=== PATIENT | male | born 1940 | race Caucasian/White ===

== ENCOUNTER 2017-02-01 13:45 | Observation (INO) | payer MEDICARE ==
[~2017-02-01] VITALS: Ht 172.7 cm; Wt 67.4 kg
[~2017-02-01 13:45] MED LIST: CART120C PO; FLUTI220I INH; IPRASOL INH; LISI10TA3 PO; LUTE20CA PO; OMEP20CA2 PO; PRED-503 PO; SPIRCAP INH; VENTAER INH; ZITHTAB PO
[2017-02-01 13:53] VITALS: BP 142/78; PULSE 106; RESP 18; TEMP 98; O2SAT 96
[2017-02-01] MEDS ORDERED: PRED5TAB PO (14:25)
[2017-02-01] MEDS ORDERED: CEFD300C PO (14:25)
--- NOTE | 2017-02-01 14:48 | PD ---
HPI Chief Complaint: Respiratory Symptoms Time Seen by Provider: 14:33 Travel History International Travel<30 days: No Contact w/Intl Traveler<30days: No Traveled to known affect area: No History of Present Illness HPI 76yo M with PMH of COPD on chronic low dose prednisone presents to the ED with c /o sob with exertion for a few days. Said he has no sob while sitting down but feels sob just walking from one room to another and this is new for a few days. Said he has been feeling cold for a few days. Denies any fever, chest pain, PE/DVT, n/v, abdominal pain, focal weakness or numbness. 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 PFSH Past Medical History Anemia: Yes (POLYCYTHEMIA) Asthma: No Anxiety: No Depression: No Heart Rhythm Problems: Yes Cancer: No Cardiac Catheterization: Yes Cardiovascular Problems: No High Cholesterol: No Chest Pain: Yes Congestive Heart Failure: No COPD: Yes Diabetes: No Diminished Hearing: No Endocrine: No Gastrointestinal Disorders: Yes GERD: Yes Genitourinary: Yes Hiatal Hernia: No Immune Disorder: No Implanted Vascular Access Dvce: Yes Kidney Stones: No Musculoskeletal: Yes Neurologic: No Psychiatric: No Reproductive: No Respiratory: Yes (COPD) Pneumonia: Yes Renal Failure: No Sickle Cell Disease: No Sleep Apnea: No Thyroid Disease: No Ulcer: No Tetanus Vaccination: < 5 Years Influenza Vaccination: No Past Surgical History Cardiac Surgery: No Genitourinary Surgery: Yes (PROSTATE TUMOR- BENIGN , TURP) Oral Surgery: Yes (SALIVARY GLAND CYST REMOVED 2005) Other Surgery: Yes Social History Alcohol Use: No Tobacco Use: No Substance Use: No Allergies-Medications (Allergen,Severity, Reaction): Coded Allergies: shellfish derived (Unverified Allergy, Severe, abd pain, n/v/d, 02/01/17) ipratropium (Unverified Allergy, Intermediate, "ANXIETY, NERVOUSNESS", ) varenicline (Unverified Allergy, Intermediate, UNABLE TO STATE A SPECIFIC ALLERGIC REACTION--STATES HE HAD, 02/01/17) walnut (Unverified Allergy, Intermediate, NERVOUSNESS, ANXIETY, 02/01/17) Reported Meds & Prescriptions Reported Meds & Active Scripts Active Reported Cefdinir 300 Mg Cap 300 Mg PO BID Prednisone 5 Mg Tab 5 Mg PO DAILY Duoneb (Ipratropium-Albuterol Neb) 0.5-2.5 Mg/3 Ml Neb 1 Nebule INH QID Cartia Xt (Diltiazem ER 24 HR) 120 Mg Caper 120 Mg PO DAILY Lutein 20 Mg Cap 20 Mg PO DIRECTED Omeprazole 20 Mg Cap 20 Mg PO DAILY Ventolin Hfa 18 GM Inh (Albuterol Sulfate) 90 Mcg/Act Aer 2 Puff INH Q4H PRN Review of Systems Except as stated in HPI: all other systems reviewed are Neg Physical Exam Narrative GENERAL: 76yo M not in distress. SKIN: Focused skin assessment warm/dry. HEAD: Atraumatic. Normocephalic. EYES: Pupils equal and round. No scleral icterus. No injection or drainage. ENT: No nasal bleeding or discharge. Mucous membranes pink and moist. NECK: Trachea midline. No JVD. CARDIOVASCULAR: Regular rate and rhythm. No murmur appreciated. RESPIRATORY: No accessory muscle use. Clear to auscultation. Breath sounds equal bilaterally. GASTROINTESTINAL: Abdomen soft, non-tender, nondistended. MUSCULOSKELETAL: No obvious deformities. No clubbing. No cyanosis. No edema. NEUROLOGICAL: Awake and alert. No obvious cranial nerve deficits. Motor grossly within normal limits. Normal speech. PSYCHIATRIC: Appropriate mood and affect; insight and judgment normal. Data Data Last Documented VS Vital Signs Date Time Temp Pulse Resp B/P (MAP) Pulse Ox O2 Delivery O2 Flow Rate FiO2 02/01/17 16:40 98 18 147/75 (99) 97 Room Air 02/01/17 13:53 98.0 Orders Orders Complete Blood Count With Diff (02/01/17 14:43) Basic Metabolic Panel (Bmp) (02/01/17 14:43) B-Type Natriuretic Peptide (02/01/17 14:43) Magnesium (Mg) (02/01/17 14:43) Troponin I (02/01/17 14:43) Electrocardiogram (02/01/17 14:43) Chest, Single Ap (02/01/17 14:43) Place In Observation (02/01/17 ) Vital Signs (Adult) Q4H (02/01/17 18:18) Activity Oob Ad Radha (02/01/17 18:18) Diet Heart Healthy (02/01/17 Dinner) Sodium Chloride 0.9% Flush (Ns Flush) (02/01/17 18:30) Sodium Chloride 0.9% Flush (Ns Flush) (02/01/17 21:00) Acetaminophen (Tylenol) (02/01/17 18:30) Ondansetron Inj (Zofran Inj) (02/01/17 18:30) Basic Metabolic Panel (Bmp) (02/02/17 06:00) Complete Blood Count With Diff (02/02/17 06:00) Resp Oxygen Ruben C Titrat 1-4 L (02/01/17 ) Naloxone Inj (Narcan Inj) (02/01/17 18:30) Troponin I (02/01/17 22:18) Albuterol-Ipratropium Neb (Duoneb Neb) (02/01/17 20:00) Albuterol-Ipratropium Neb (Duoneb Neb) (02/01/17 18:30) Methylprednisolone So Succ Inj (Solumedr (02/01/17 22:00) Admit Order (Ed Use Only) (02/01/17 18:20) Echo 2d Comp With Doppler (02/02/17 ) Labs Laboratory Tests Test 02/01/17 15:00 White Blood Count 14.3 TH/MM3 Red Blood Count 4.86 MIL/MM3 Hemoglobin 14.4 GM/DL Hematocrit 44.7 % Mean Corpuscular Volume 92.1 FL Mean Corpuscular Hemoglobin 29.6 PG Mean Corpuscular Hemoglobin Concent 32.2 % Red Cell Distribution Width 12.9 % Platelet Count 373 TH/MM3 Mean Platelet Volume 6.6 FL Neutrophils (%) (Auto) 82.0 % Lymphocytes (%) (Auto) 6.5 % Monocytes (%) (Auto) 8.5 % Eosinophils (%) (Auto) 1.2 % Basophils (%) (Auto) 1.8 % Neutrophils # (Auto) 11.7 TH/MM3 Lymphocytes # (Auto) 0.9 TH/MM3 Monocytes # (Auto) 1.2 TH/MM3 Eosinophils # (Auto) 0.2 TH/MM3 Basophils # (Auto) 0.3 TH/MM3 CBC Comment DIFF FINAL Differential Comment Blood Urea Nitrogen 15 MG/DL Creatinine 0.76 MG/DL Random Glucose 102 MG/DL Calcium Level 8.4 MG/DL Magnesium Level 2.1 MG/DL Sodium Level 136 MEQ/L Potassium Level 3.7 MEQ/L Chloride Level 99 MEQ/L Carbon Dioxide Level 29.8 MEQ/L Anion Gap 7 MEQ/L Estimat Glomerular Filtration Rate 99 ML/MIN Troponin I LESS THAN 0.02 NG/ML B-Type Natriuretic Peptide 65 PG/ML MDM Medical Decision Making Medical Screen Exam Complete: Yes Emergency Medical Condition: Yes Interpretation(s) EKG: NSR 89bpm. LAD. PACs. Differential Diagnosis New onset CHF vs. anemia vs. electrolyte abnormality vs. aortic stenosis. Narrative Course 76yo M with c/o sob with exertion only for a few days. O2 sat 97% on RA. Labs reviewed, leukocytosis at 14.3 but he is on chronic steroids for his COPD. H/H normal. Troponin negative. CXR showed moderate COPD changes. BNP normal. However, pt came back from urinating and feels sob. We ambulated pt and saturating at 92% on RA. Pt returned to his bed and took long time to recover. He is tachypneic and said he does not feel comfortable going home since this is new. Discussed with Dr. Bridges and accepted to her service. Diagnosis Primary Impression: Exertional dyspnea Admitting Information Admitting Physician Requests: Observation Mel Hsieh DO Feb 01, 2017 14:48
[2017-02-01 15:13] LABS: AUTOMATED NEUTROPHIL # 11.7 TH/MM3 (1.8-7.7); BASOPHIL # 0.3 TH/MM3 (0-0.2); BASOPHIL % 1.8 % (0.0-2.0); EOSINOPHIL # 0.2 TH/MM3 (0-0.4); EOSINOPHIL % 1.2 % (0.0-4.0); HEMATOCRIT 44.7 % (39.0-51.0); HEMO FLAGS DIFF FINAL; LYMPH % 6.5 % (9.0-44.0); LYMPHOCYTE # 0.9 TH/MM3 (1.0-4.8); MEAN CELL VOLUME 92.1 FL (80.0-100.0); MEAN CORPUSCULAR HEMOGLOBIN 29.6 PG (27.0-34.0); MEAN CORPUSCULAR HGB CONC 32.2 % (32.0-36.0); MONO % 8.5 % (0.0-8.0); PLATELET COUNT 373 TH/MM3 (150-450); RED BLOOD COUNT 4.86 MIL/MM3 (4.50-5.90); RED CELL DISTRIBUTION WIDTH 12.9 % (11.6-17.2); WHITE BLOOD COUNT 14.3 TH/MM3 (4.0-11.0)
[2017-02-01 15:22] LABS: CHLORIDE 99 MEQ/L (98-107); POTASSIUM 3.7 MEQ/L (3.5-5.1); SODIUM (NA) 136 MEQ/L (136-145)
[2017-02-01 15:25] LABS: ANION GAP 7 MEQ/L (5-15); BICARBONATE 29.8 MEQ/L (21.0-32.0); BLOOD UREA NITROGEN 15 MG/DL (7-18); MAGNESIUM 2.1 MG/DL (1.5-2.5)
[2017-02-01 15:28] LABS: GLOMERULAR FILTRATION RATE 99 ML/MIN (>89)
--- NOTE | 2017-02-01 15:53 | RADRPT ---
EXAM DATE/TIME: 02/01/2017 15:02 [facility] COMPARISON: CHEST SINGLE AP, February 04, 2016, 14:36. INDICATIONS : Short of breath for two days. MEDICAL HISTORY : Chronic obstructive pulmonary disease. Gastroesophageal reflux disease. SURGICAL HISTORY : Cardiac cath ENCOUNTER: Initial ACUITY: 2 days PAIN SCORE: 0/10 LOCATION: Bilateral chest FINDINGS: There are moderate COPD changes within the pulmonary parenchyma. The heart is normal in size and medi astinal contours are within normal limits. There is no pleural effusion. The bony structures are anali sly intact. CONCLUSION: 1. Moderate COPD changes. Fritz Archuleta MD on February 01, 2017 at 15:50 Board Certified Radiologist. This report was verified electronically.
[2017-02-01 16:40] VITALS: BP 147/75; PULSE 98; RESP 18; O2SAT 97
[2017-02-01] MEDS ORDERED: ONDANSETRON HCL 4 MG/2 ML VIAL IVP PRN (18:30)
[2017-02-01] MEDS ORDERED: ACETAMINOPHEN 325 MG TAB PO PRN (18:30)
[2017-02-01] MEDS ORDERED: SODIUM CHLORIDE 0.9% FLUSH 10 ML FLUSH IV FLUSH PRN (18:30)
[2017-02-01] MEDS ORDERED: NALOXONE HCL 0.4 MG/ML AMP IV PUSH PRN (18:30)
[2017-02-01] MEDS ORDERED: RESP: ALBUTEROL 2.5 MG/IPRATROPIUM 0.5 MG NEB (PRN) NEB (18:30)
[2017-02-01 19:15] VITALS: BP 153/72; PULSE 100; RESP 20; O2SAT 95
[2017-02-01 20:30] VITALS: O2SAT 95
[2017-02-01] MEDS: RESP: ALBUTEROL 2.5 MG/IPRATROPIUM 0.5 MG NEB (SCH) NEB (20:32)
[2017-02-01 21:29] VITALS: BP 135/57
[2017-02-01 21:30] VITALS: BP 145/65; PULSE 108; RESP 27; TEMP 97.7; O2SAT 98
[2017-02-02] VITALS: BP 126/59; PULSE 100; RESP 24; TEMP 99.5; O2SAT 94
[2017-02-02] MEDS: methylPREDNISolone SOD SUCC 40 MG/1 ML VIAL IV PUSH SCH ×3 (00:39→13:10)
[2017-02-02] MEDS: SODIUM CHLORIDE 0.9% FLUSH 10 ML FLUSH IV FLUSH SCH ×2 (00:40→09:48)
[2017-02-02 06:23] LABS: AUTOMATED NEUTROPHIL # 13.4 TH/MM3 (1.8-7.7); BASOPHIL % 0.1 % (0.0-2.0); EOSINOPHIL % 0.1 % (0.0-4.0); HEMATOCRIT 41.7 % (39.0-51.0); HEMO FLAGS DIFF FINAL; LYMPH % 3.5 % (9.0-44.0); LYMPHOCYTE # 0.5 TH/MM3 (1.0-4.8); MEAN CELL VOLUME 90.7 FL (80.0-100.0); MEAN CORPUSCULAR HEMOGLOBIN 30.7 PG (27.0-34.0); MEAN CORPUSCULAR HGB CONC 33.8 % (32.0-36.0); MONO % 2.2 % (0.0-8.0); NEUT % 94.1 % (16.0-70.0); PLATELET COUNT 326 TH/MM3 (150-450); RED BLOOD COUNT 4.59 MIL/MM3 (4.50-5.90); RED CELL DISTRIBUTION WIDTH 12.6 % (11.6-17.2); WHITE BLOOD COUNT 14.2 TH/MM3 (4.0-11.0)
[2017-02-02 06:26] LABS: BICARBONATE 27.4 MEQ/L (21.0-32.0)
[2017-02-02] MEDS: RESP: ALBUTEROL 2.5 MG/IPRATROPIUM 0.5 MG NEB (SCH) NEB (07:37)
[2017-02-02 07:45] VITALS: O2SAT 95
[2017-02-02 08:00] VITALS: BP 131/60; PULSE 102; RESP 16; TEMP 98.1; O2SAT 93
[2017-02-02] MEDS ORDERED: PANTOPRAZOLE SOD 20 MG DELAYED RELEASE TAB PO SCH (09:00)
[2017-02-02] MEDS ORDERED: DILTIAZEM-CD 120 MG CAP ER PO SCH (09:00)
--- NOTE | 2017-02-02 10:08 | ECHRPT ---
Indication: sob CONCLUSIONS Normal left ventricular size and wall thickness. The left ventricular systolic function is normal wi th an estimated ejection fraction in the range of 60-65%. Normal wall motion. No valvular abnormalities. BP: / HR: Rhythm: MEASUREMENTS (Male / Female) Normal Values Technical Quality:Technically difficult study 2D ECHO LV Diastolic Diameter PLAX 3.5 cm 4.2 - 5.9 / 3.9 - 5.3 cm LV Systolic Diameter PLAX 2.4 cm IVS Diastolic Thickness 1.1 cm 0.6 - 1.0 / 0.6 - 0.9 cm LVPW Diastolic Thickness 1.0 cm 0.6 - 1.0 / 0.6 - 0.9 cm LV Relative Wall Thickness 0.6 RV Internal Dim ED PLAX 2.5 cm M-MODE Aortic Root Diameter MM 2.8 cm LA Systolic Diameter MM 2.6 cm LA Ao Ratio MM 0.9 AV Cusp Separation MM 1.7 cm DOPPLER Mitral E Point Velocity 82.9 cm/s Mitral A Point Velocity 92.8 cm/s Mitral E to A Ratio 0.9 LV E' Lateral Velocity 8.3 cm/s Mitral E to LV E' Lateral Ratio 10.0 LV E' Septal Velocity 10.5 cm/s Mitral E to LV E' Septal Ratio 7.9 FINDINGS LEFT VENTRICLE Normal left ventricular size and wall thickness. The left ventricular systolic function is normal wi th an estimated ejection fraction in the range of 60-65%. Normal wall motion. RIGHT VENTRICLE Upper normal right ventricular size and normal systolic function. LEFT ATRIUM The left atrial size is normal. RIGHT ATRIUM The right atrial size is normal. ATRIAL SEPTUM Normal atrial septal thickness without atrial level shunting by limited color doppler interrogation. AORTA The aortic root and proximal ascending aorta are normal in size on limited imaging. MITRAL VALVE Structurally normal mitral valve. No mitral valve stenosis or regurgitation. AORTIC VALVE Trileaflet aortic valve. No aortic valve stenosis or regurgitation. TRICUSPID VALVE Structurally normal tricuspid valve. No tricuspid valve stenosis or regurgitation. PULMONARY VALVE The pulmonary valve is not well visualized. VESSELS The inferior vena cava is normal in size. PERICARDIUM No pericardial effusion. Rafael Alvarez MD (Electronically Signed) Final Date:02 February 2017 10:07
[2017-02-02 12:00] VITALS: BP 127/74; PULSE 95; RESP 16; TEMP 97.9; O2SAT 95
[2017-02-02] MEDS ORDERED: DOXY100C PO (12:43)
[2017-02-02] MEDS ORDERED: PRED20 PO (12:43)
--- NOTE | 2017-02-02 12:43 | HHI.DCPOC ---
Discharge Care Plan Diagnosis: (1) COPD with acute exacerbation Goals to Promote Your Health * To prevent worsening of your condition and complications * To maintain your health at the optimal level Directions to Meet Your Goals Take your medications as prescribed Follow your dietary instruction Follow activity as directed Keep your appointments as scheduled Take your immunizations and boosters as scheduled If your symptoms worsen call your PCP, if no PCP go to Urgent Care Center or Emergency Room Smoking is Dangerous to Your Health. Avoid second hand smoke Call the 24-hour hour crisis hotline for domestic abuse at Elham Bridges MD Feb 02, 2017 12:43
--- NOTE | 2017-02-02 12:48 | HHI.HP ---
[facility] Service [facility] Primary Care Physician Jason Garrett MD Admission Diagnosis Exertional dyspnea Diagnoses: Chief Complaint: Short of breath Travel History International Travel<30 Days: No Contact w/Intl Traveler <30 Da: No Traveled to Known Affected Are: No History of Present Illness This patient is a 76-year-old gentleman with a history of COPD who chronically takes a low-dose prednisone. He did come to the emergency room with 5 days of increasing dyspnea on exertion and cough. He had a standing prescription at home for cephalosporin and started taking that but felt as if he was too short of breath to continue so he came to the hospital. The patient has overnight improved quite dramatically with bronchodilators and IV steroids. He does have echocardiogram done which is unremarkable. There is no chest pain. Patient feels back to his baseline. He well be discharged home Review of Systems Constitutional: DENIES: Diaphoretic episodes, Fatigue, Fever, Weight gain, Weight loss, Chills, Dizziness, Change in appetite, Night Sweats Endocrine: DENIES: Heat/cold intolerance, Polydipsia, Polyuria, Polyphagia Eyes: DENIES: Blurred vision, Eye pain Ears, nose, mouth, throat: DENIES: Tinnitus, Hearing loss, Vertigo, Nasal discharge, Oral lesions, Throat pain, Hoarseness, Ear Pain, Running Nose, Epistaxis, Sinus Pain, Toothache, Odynophagia Respiratory: COMPLAINS OF: Cough, Wheezing, Shortness of breath, DENIES: Apneas , Snoring, Hemoptysis, Sputum production Cardiovascular: DENIES: Chest pain, Palpitations, Syncope, Dyspnea on Exertion , PND, Lower Extremity Edema, Orthopnea, Claudication Gastrointestinal: DENIES: Abdominal pain, Black stools, Bloody stools, Constipation, Diarrhea, Nausea, Vomiting, Difficulty Swallowing, Anorexia Genitourinary: DENIES: Sexual dysfunction, Urinary frequency, Urinary incontinence, Urgency, Hematuria, Dysuria, Nocturia, Penile Discharge, Testicular Pain, Testicular Swelling Musculoskeletal: DENIES: Joint pain, Muscle aches, Stiffness, Joint Swelling, Back pain, Neck pain Integumentary: DENIES: Abnormal pigmentation, Nail changes, Pruritus, Rash Hematologic/lymphatic: DENIES: Bruising, Lymphadenopathy Immunologic/allergic: DENIES: Eczema, Urticaria Neurologic: DENIES: Abnormal gait, Headache, Localized weakness, Paresthesias, Seizures, Speech Problems, Tremor, Poor Balance Psychiatric: DENIES: Anxiety, Confusion, Mood changes, Depression, Hallucinations, Agitation, Suicidal Ideation, Homicidal Ideation, Delusions Except as stated in HPI: all other systems reviewed are Neg Past Family Social History Past Medical History COPD Past Surgical History Eye surgery Salivary gland Reported Medications Reviewed in the EMR, recently started Ceftdinir Allergies: Coded Allergies: shellfish derived (Unverified Allergy, Severe, abd pain, n/v/d, 02/01/17) ipratropium (Unverified Allergy, Intermediate, "ANXIETY, NERVOUSNESS", ) varenicline (Unverified Allergy, Intermediate, UNABLE TO STATE A SPECIFIC ALLERGIC REACTION--STATES HE HAD, 02/01/17) walnut (Unverified Allergy, Intermediate, NERVOUSNESS, ANXIETY, 02/01/17) Active Ordered Medications Reviewed in the EMR Family History Mother had hypertension Social History No current tobacco, is with his Physical Exam Vital Signs Vital Signs Date Time Temp Pulse Resp B/P (MAP) Pulse Ox O2 Delivery O2 Flow Rate FiO2 02/02/17 08:00 98.1 102 16 131/60 (83) 93 02/02/17 08:00 95 Room Air 02/02/17 07:45 95 21 02/02/17 00:00 99.5 100 24 126/59 (81) 94 02/01/17 21:30 97.7 108 27 145/65 (91) 98 02/01/17 21:29 107 18 135/57 (83) 95 02/01/17 20:30 95 21 02/01/17 19:15 100 20 153/72 (99) 95 Room Air 02/01/17 16:40 98 18 147/75 (99) 97 Room Air 02/01/17 14:28 89 98 Room Air 02/01/17 14:26 (99) 02/01/17 13:53 98.0 106 18 142/78 (99) 96 Room Air Physical Exam GENERAL: This is a well-nourished, well-developed patient, in no apparent distress. SKIN: No rashes, ecchymoses or lesions. Cool and dry. HEAD: Atraumatic. Normocephalic. No temporal or scalp tenderness. EYES: Pupils equal round and reactive. Extraocular motions intact. No scleral icterus. No injection or drainage. ENT: Nose without bleeding, purulent drainage or septal hematoma. Throat without erythema, tonsillar hypertrophy or exudate. Uvula midline. Airway patent. NECK: Trachea midline. No JVD or lymphadenopathy. Supple, nontender, no meningeal signs. CARDIOVASCULAR: Regular rate and rhythm without murmurs, gallops, or rubs. RESPIRATORY: Clear to auscultation. Breath sounds equal bilaterally. No wheezes , rales, or rhonchi. GASTROINTESTINAL: Abdomen soft, non-tender, nondistended. No hepato-splenomegaly , or palpable masses. No guarding. MUSCULOSKELETAL: Extremities without clubbing, cyanosis, or edema. No joint tenderness, effusion, or edema noted. No calf tenderness. Negative Homans sign bilaterally. NEUROLOGICAL: Awake and alert. Cranial nerves II through XII intact. Motor and sensory grossly within normal limits. Five out of 5 muscle strength in all muscle groups. Normal speech. Laboratory Laboratory Tests Test 02/01/17 15:00 02/01/17 22:30 02/02/17 04:53 White Blood Count 14.3 14.2 Red Blood Count 4.86 4.59 Hemoglobin 14.4 14.1 Hematocrit 44.7 41.7 Mean Corpuscular Volume 92.1 90.7 Mean Corpuscular Hemoglobin 29.6 30.7 Mean Corpuscular Hemoglobin Concent 32.2 33.8 Red Cell Distribution Width 12.9 12.6 Platelet Count 373 326 Mean Platelet Volume 6.6 7.2 Neutrophils (%) (Auto) 82.0 94.1 Lymphocytes (%) (Auto) 6.5 3.5 Monocytes (%) (Auto) 8.5 2.2 Eosinophils (%) (Auto) 1.2 0.1 Basophils (%) (Auto) 1.8 0.1 Neutrophils # (Auto) 11.7 13.4 Lymphocytes # (Auto) 0.9 0.5 Monocytes # (Auto) 1.2 0.3 Eosinophils # (Auto) 0.2 0.0 Basophils # (Auto) 0.3 0.0 CBC Comment DIFF FINAL DIFF FINAL Differential Comment Blood Urea Nitrogen 15 16 Creatinine 0.76 0.84 Random Glucose 102 113 Calcium Level 8.4 8.5 Magnesium Level 2.1 Sodium Level 136 135 Potassium Level 3.7 4.0 Chloride Level 99 100 Carbon Dioxide Level 29.8 27.4 Anion Gap 7 8 Estimat Glomerular Filtration Rate 99 89 Troponin I LESS THAN 0.02 LESS THAN 0.02 B-Type Natriuretic Peptide 65 Result Diagram: 02/02/17 0453 02/02/17 0453 Imaging Last Impressions Chest X-Ray 02/01/17 1443 Signed Impressions: Service Date/Time: January 15:02 - CONCLUSION: 1. Moderate COPD changes. Fritz Archuleta MD Assessment and Plan Problem List: (1) COPD with acute exacerbation ICD Code: J44.1 - Chronic obstructive pulmonary disease with (acute) exacerbation Status: Acute Plan: Patient is improved, he is not hypoxemic and he would like to go home Echocardiogram unremarkable Continue steroid taper to resume low-dose home steroids. Patient will follow- up with his current bronchodilators as well as his bread icer. Discussed Condition With Patient Discharge home Activity unrestricted Diet regular Elham Bridges MD Feb 02, 2017 12:48
--- NOTE | 2017-02-03 12:17 | EKG ---
Date Performed: 02/01/2017 Time Performed: 15:03:19 PTAGE: 76 years EKG: Sinus rhythm WITH OCCASIONAL SUPRAVENTRICULAR PREMATURE COMPLEXES BORDERLINE LEFT AXIS DEVIATION RIGHT BUNDLE BRA NCH BLOCK ABNORMAL ECG PREVIOUS TRACING : 02/04/2016 14.13 DOCTOR: Cal Arriaga Interpretating Date/Time 02/03/2017 12:16:58
== END 2017-02-02 14:10 | disposition home or self-care (01) ==
LOC: PHED 13:45 → PHEDA 18:21 → PH3B 21:31
PROVIDERS: ADMIT Hospitalist; ATTEND Hospitalist
DX: J44.1 Chronic obstructive pulmonary disease with (acute) exacerbation (principal); I45.10 Unspecified right bundle-branch block; R94.31 Abnormal electrocardiogram [ECG] [EKG]; K21.9 Gastro-esophageal reflux disease without esophagitis; Z79.52 Long term (current) use of systemic steroids
CPT/HCPCS: 71010; 80048; 83735; 83880; 84484; 85025; 93005; 93306; 94640; 94664; 96374; 96376; 99285; G0378; J2920

== ENCOUNTER 2017-02-27 07:38 | Inpatient (IN) | payer MEDICARE ==
[2017-02-27] VITALS (13 sets, daily range): BP systolic 97–151; BP diastolic 53–95; PULSE 84–125; RESP 13–24; TEMP 98.2–98.6; O2SAT 93–97
[~2017-02-27] VITALS: Ht 172.7 cm; Wt 67.5 kg
[~2017-02-27 07:38] MED LIST changes: +DOXY100C PO; -FLUTI220I INH; -LISI10TA3 PO; -PRED-503 PO; +PRED20 PO; -SPIRCAP INH; -ZITHTAB PO
[2017-02-27] MEDS ORDERED: POTA10CA PO (07:56)
[2017-02-27] MEDS ORDERED: FURO1TAB62 PO (07:56)
[2017-02-27] MEDS ORDERED: methylPREDNISolone SOD SUCC 125 MG/2 ML VIAL IV PUSH ONE (08:00)
[2017-02-27] MEDS: SODIUM CHLORIDE 0.9% FLUSH 10 ML FLUSH IVF PRN ×2 (08:06→08:45)
[2017-02-27 08:12] LABS: AUTOMATED NEUTROPHIL # 14.8 TH/MM3 (1.8-7.7); BASOPHIL # 0.5 TH/MM3 (0-0.2); BASOPHIL % 3.1 % (0.0-2.0); EOSINOPHIL # 0.1 TH/MM3 (0-0.4); EOSINOPHIL % 0.8 % (0.0-4.0); HEMATOCRIT 45.3 % (39.0-51.0); HEMOGLOBIN 14.5 GM/DL (13.0-17.0); LYMPH % 5.4 % (9.0-44.0); LYMPHOCYTE # 0.9 TH/MM3 (1.0-4.8); MEAN CELL VOLUME 91.2 FL (80.0-100.0); MEAN CORPUSCULAR HEMOGLOBIN 29.1 PG (27.0-34.0); MEAN CORPUSCULAR HGB CONC 31.9 % (32.0-36.0); MEAN PLATELET VOLUME 6.4 FL (7.0-11.0); MONO % 3.6 % (0.0-8.0); MONOCYTE # 0.6 TH/MM3 (0-0.9); NEUT % 87.1 % (16.0-70.0); PLATELET COUNT 174 TH/MM3 (150-450); RED BLOOD COUNT 4.97 MIL/MM3 (4.50-5.90); RED CELL DISTRIBUTION WIDTH 13.4 % (11.6-17.2); WHITE BLOOD COUNT 16.9 TH/MM3 (4.0-11.0)
--- NOTE | 2017-02-27 08:13 | PD ---
HPI Chief Complaint: Respiratory Symptoms Time Seen by Provider: 07:48 Travel History International Travel<30 days: No Contact w/Intl Traveler<30days: No Traveled to known affect area: No History of Present Illness HPI 76yo M presents to the ED with SOB for 3 weeks. Pt has a significant PMH of COPD , with a recent exacerbation that has been treated outpatient by Dr. Mcginnis with a steroid taper and antibiotic. Pt states that his SOB is exacerbated with exertion, and decided to come to the ED today due to waking up unable to breath. Upon ROS, pt stated to having SOB, exertional dyspnea, and edema. Pt denies couhging, chest pain or wheezing. He states the symptoms improved when EMS gave him nebulizer and oxygen. Apparently Dr. Michelle has also started him on diuretics a few weeks ago. Modifying Factors: None Associated Signs & Symptoms: Shortness of breath, leg edema, dyspnea on exertion for 3 weeks, worsening today Risk Factors: COPD, on steroid taper, finished antibiotics courses PFSH Past Medical History Anemia: Yes (POLYCYTHEMIA) Asthma: No Autoimmune Disease: No Anxiety: No Depression: No Heart Rhythm Problems: Yes Cancer: No Cardiac Catheterization: Yes Cardiovascular Problems: No High Cholesterol: No Chest Pain: Yes Congestive Heart Failure: No COPD: Yes Diabetes: No Diminished Hearing: No Endocrine: No Gastrointestinal Disorders: Yes GERD: Yes Genitourinary: Yes (TURP) Hiatal Hernia: No Immune Disorder: No Implanted Vascular Access Dvce: Yes Kidney Stones: No Musculoskeletal: Yes (old foot and back injury) Neurologic: Yes (old fx in back,old foot injury) Psychiatric: No Reproductive: No Respiratory: Yes Pneumonia: Yes Renal Failure: No Sickle Cell Disease: No Sleep Apnea: No Thyroid Disease: No Ulcer: No Tetanus Vaccination: < 5 Years Influenza Vaccination: No Past Surgical History Cardiac Surgery: No Eye Surgery: Yes (detached retina 2001, cataract right [id number]) Genitourinary Surgery: Yes (turp 2013) Oral Surgery: Yes (SALIVARY GLAND CYST REMOVED 2005) Other Surgery: Yes Social History Alcohol Use: No Tobacco Use: No Substance Use: No Allergies-Medications (Allergen,Severity, Reaction): Coded Allergies: shellfish derived (Unverified Allergy, Severe, abd pain, n/v/d, 02/27/17) ipratropium (Unverified Allergy, Intermediate, "ANXIETY, NERVOUSNESS", 02/27) varenicline (Unverified Allergy, Intermediate, UNABLE TO STATE A SPECIFIC ALLERGIC REACTION--STATES HE HAD, 02/27/17) walnut (Unverified Allergy, Intermediate, NERVOUSNESS, ANXIETY, 02/27/17) Reported Meds & Prescriptions Reported Meds & Active Scripts Active Prednisone 20 Mg Tab 20 Mg PO BID 20 mg twice daily for 3 days then 20 mg daily for 3 days then 10 mg daily for 3 days then resume home prednisone Reported Potassium Chloride ER (Potassium Chloride) 10 Meq Cap 10 Meq PO DAILY Lasix (Furosemide) 20 Mg Tab 20 Mg PO DAILY Duoneb (Ipratropium-Albuterol Neb) 0.5-2.5 Mg/3 Ml Neb 1 Nebule INH QID Cartia Xt (Diltiazem ER 24 HR) 120 Mg Caper 120 Mg PO DAILY Ventolin Hfa 18 GM Inh (Albuterol Sulfate) 90 Mcg/Act Aer 2 Puff INH Q4H PRN Review of Systems Except as stated in HPI: all other systems reviewed are Neg Cardiovascular: Positive: Dyspnea on exertion, Edema Respiratory: Positive: Shortness of Breath Physical Exam Narrative GENERAL: Well-developed elderly white male patient currently in mild respiratory distress. Awake and oriented 3. SKIN: Warm and dry. HEAD: Atraumatic. Normocephalic. EYES: Pupils equal and round. No scleral icterus. No injection or drainage. ENT: No nasal bleeding or discharge. Mucous membranes pink and moist. NECK: Trachea midline. No JVD. Supple. CARDIOVASCULAR: Tachycardic, normal rhythm. S1 and S1, no murmurs or gallops. RESPIRATORY: No accessory muscle use. Breath sounds diminished bilaterally, especially in bases. No crackles or wheezes. GASTROINTESTINAL: Abdomen soft, non-tender, nondistended. Hepatic and splenic margins not palpable. MUSCULOSKELETAL: Extremities without clubbing or cyanosis. No obvious deformities. Bilateral +2 pedal edema. NEUROLOGICAL: Awake and alert. No obvious cranial nerve deficits. Motor grossly within normal limits. Five out of 5 muscle strength in the arms and legs. Normal speech. PSYCHIATRIC: Appropriate mood and affect; insight and judgment normal. Data Data Last Documented VS Vital Signs Date Time Temp Pulse Resp B/P (MAP) Pulse Ox O2 Delivery O2 Flow Rate FiO2 02/27/17 10:24 116 20 151/87 (108) 95 Room Air 02/27/17 07:43 98.6 Orders Orders Complete Blood Count With Diff (02/27/17 07:49) Comprehensive Metabolic Panel (02/27/17 07:49) B-Type Natriuretic Peptide (02/27/17 07:49) Ckmb (Isoenzyme) Profile (02/27/17 07:49) Troponin I (02/27/17 07:49) Iv Access Insert/Monitor (02/27/17 07:49) Electrocardiogram (02/27/17 07:49) Ecg Monitoring (02/27/17 07:49) Oximetry (02/27/17 07:49) Oxygen Administration (02/27/17 07:49) Chest, Single Ap (02/27/17 07:49) Sodium Chloride 0.9% Flush (Ns Flush) (02/27/17 08:00) Methylprednisolone So Succ Inj (Solumedr (02/27/17 08:00) Albuterol-Ipratropium Neb (Duoneb Neb) (02/27/17 08:45) Furosemide Inj (Lasix Inj) (02/27/17 08:45) Electrocardiogram (02/27/17 ) Admit Order (Ed Use Only) (02/27/17 10:39) Labs Laboratory Tests Test 02/27/17 08:04 White Blood Count 16.9 TH/MM3 Red Blood Count 4.97 MIL/MM3 Hemoglobin 14.5 GM/DL Hematocrit 45.3 % Mean Corpuscular Volume 91.2 FL Mean Corpuscular Hemoglobin 29.1 PG Mean Corpuscular Hemoglobin Concent 31.9 % Red Cell Distribution Width 13.4 % Platelet Count 174 TH/MM3 Mean Platelet Volume 6.4 FL Neutrophils (%) (Auto) 87.1 % Lymphocytes (%) (Auto) 5.4 % Monocytes (%) (Auto) 3.6 % Eosinophils (%) (Auto) 0.8 % Basophils (%) (Auto) 3.1 % Neutrophils # (Auto) 14.8 TH/MM3 Lymphocytes # (Auto) 0.9 TH/MM3 Monocytes # (Auto) 0.6 TH/MM3 Eosinophils # (Auto) 0.1 TH/MM3 Basophils # (Auto) 0.5 TH/MM3 CBC Comment DIFF FINAL Differential Comment Blood Urea Nitrogen 27 MG/DL Creatinine 0.99 MG/DL Random Glucose 90 MG/DL Total Protein 6.5 GM/DL Albumin 2.9 GM/DL Calcium Level 8.5 MG/DL Alkaline Phosphatase 66 U/L Aspartate Amino Transf (AST/SGOT) 19 U/L Alanine Aminotransferase (ALT/SGPT) 29 U/L Total Bilirubin 0.6 MG/DL Sodium Level 137 MEQ/L Potassium Level 4.2 MEQ/L Chloride Level 101 MEQ/L Carbon Dioxide Level 30.1 MEQ/L Anion Gap 6 MEQ/L Estimat Glomerular Filtration Rate 73 ML/MIN Total Creatine Kinase 21 U/L Troponin I LESS THAN 0.02 NG/ML B-Type Natriuretic Peptide 84 PG/ML MDM Medical Decision Making Medical Screen Exam Complete: Yes Emergency Medical Condition: Yes Medical Record Reviewed: Yes Interpretation(s) EKG shows sinus tachycardia rate of 112 bpm with a partial right bundle branch block. No signs of acute ST-T changes compared to old EKG on chart. Laboratory Tests Test 02/27/17 08:04 White Blood Count 16.9 TH/MM3 (4.0-11.0) Mean Corpuscular Hemoglobin Concent 31.9 % (32.0-36.0) Mean Platelet Volume 6.4 FL (7.0-11.0) Neutrophils (%) (Auto) 87.1 % (16.0-70.0) Lymphocytes (%) (Auto) 5.4 % (9.0-44.0) Basophils (%) (Auto) 3.1 % (0.0-2.0) Neutrophils # (Auto) 14.8 TH/MM3 (1.8-7.7) Lymphocytes # (Auto) 0.9 TH/MM3 (1.0-4.8) Basophils # (Auto) 0.5 TH/MM3 (0-0.2) Blood Urea Nitrogen 27 MG/DL (7-18) Albumin 2.9 GM/DL (3.4-5.0) Estimat Glomerular Filtration Rate 73 ML/MIN (>89) Total Creatine Kinase 21 U/L (39-308) Troponin I LESS THAN 0.02 NG/ML Last 24 hours Impressions Chest X-Ray 02/27/17 0708 Signed Impressions: Service Date/Time: Monday, February 27, 2017 08:08 - CONCLUSION: 1. No acute cardiopulmonary disease or significant interval change. Galo Gleason MD Differential Diagnosis COPD versus pneumonia versus CHF versus metabolic issues Narrative Course Chest x-ray did not show any signs of acute pulmonary processes. He is quite tachycardic in the ER, and in some respiratory distress. Solu-Medrol and nebulizers were initiated in the ER with some improvement symptoms. However, on ambulatory evaluation, patient becomes quite tachycardic and symptomatic. His BNP is not significantly elevated and it is unclear whether there is a large component of underlying pulmonary edema. Patient is on Lasix and a small dose of Lasix was also given for his leg swelling. At this point, my plan would be to admit the patient for further evaluation and treatment. Case is discussed with Dr. Hill for admission. Diagnosis Primary Impression: COPD with acute exacerbation Admitting Information Admitting Physician Requests: Admit Yessica Fragoso MD Feb 27, 2017 08:13
[2017-02-27 08:14] LABS: CHLORIDE 101 MEQ/L (98-107); SODIUM (NA) 137 MEQ/L (136-145)
[2017-02-27 08:18] LABS: ALBUMIN 2.9 GM/DL (3.4-5.0); BICARBONATE 30.1 MEQ/L (21.0-32.0); BLOOD UREA NITROGEN 27 MG/DL (7-18); CALCIUM 8.5 MG/DL (8.5-10.1); GLUCOSE,RANDOM 90 MG/DL (74-106)
[2017-02-27 08:21] LABS: ALT (GPT) 29 U/L (12-78); AST (GOT) 19 U/L (15-37); CREATININE 0.99 MG/DL (0.60-1.30); GLOMERULAR FILTRATION RATE 73 ML/MIN (>89)
[2017-02-27 08:23] LABS: TOTAL BILIRUBIN ADULT 0.6 MG/DL (0.2-1.0); TOTAL PROTEIN 6.5 GM/DL (6.4-8.2)
[2017-02-27 08:24] LABS: ALKALINE PHOSPHATASE 66 U/L (45-117)
[2017-02-27 08:26] LABS: TROPONIN I LESS THAN 0.02 NG/ML (0.02-0.05)
[2017-02-27] MEDS ORDERED: FUROSEMIDE 20 MG/2 ML VIAL IV PUSH ONE (08:45)
[2017-02-27] MEDS: RESP: ALBUTEROL 2.5 MG/IPRATROPIUM 0.5 MG NEB (SCH) INH ×2 (08:47→08:48)
--- NOTE | 2017-02-27 09:07 | RADRPT ---
EXAM DATE/TIME: 02/27/2017 08:08 [facility] COMPARISON: CHEST SINGLE AP, February 01, 2017, 15:02. INDICATIONS : Short of breath. MEDICAL HISTORY : Chronic obstructive pulmonary disease. Gastroesophageal reflux disease. SURGICAL HISTORY : Cardiadc cath ENCOUNTER: Initial ACUITY: 1 month PAIN SCORE: 0/10 LOCATION: Bilateral chest FINDINGS: No new focal pleural or peripheral opacities. Lungs remain hyperaerated with mild interstitial promin ence. The cardiomediastinal contours are unremarkable. Osseous structures are intact. CONCLUSION: 1. No acute cardiopulmonary disease or significant interval change. Galo Gleason MD on February 27, 2017 at 9:04 Board Certified Radiologist. This report was verified electronically.
--- NOTE | 2017-02-27 12:11 | HHI.HP ---
[facility] Jason Garrett MD Admission Diagnosis COPD exascerbation Diagnoses: Chief Complaint: Can't breathe Travel History International Travel<30 Days: No Contact w/Intl Traveler <30 Da: No Traveled to Known Affected Are: No History of Present Illness 76-year-old white male being admitted for shortness of breath. Patient states that he decided come to the emergency department because he has had unchanged unimproved shortness of breath for the past 3 weeks. He states that he came to the emergency department at least twice and has also gone to his clinical trial leader office and says that the medication treatments that he is received have provided him no avail. He reports undergoing 2 rounds of antibiotics and most recently is still on a steroid taper. He states that he went to his clinical trial leader office and they had him on IV steroids for about a couple of days (going to his clinical trial leader office each day) (and then says he was transitioned to 40 of prednisone by mouth for about 4 days and then 30 prednisone by mouth for a similar time regimen; he states he started taking 20 mg of prednisone yesterday. Due to no improvement in his symptoms he decided come to the emergency department. He denies any orthopnea. He says he was started on diuretics most recently by his clinical trial leader in the last few days and still says he sees no improvement. He does endorse mild lower extremity edema. Patient does admit that he is anxious and he has poor sleep. He says that "oxygen seems to help but nobody was to give me oxygen." He complains and says that they've looked at his heart and they looked at his lungs and that they sound clear and look good. With the nasal cannula in his nose and the oxygen turned off, I asked the patient if he feels better with the nasal cannula in his nose since it was placed since admission and he affirms he feels somewhat better. Review of Systems Except as stated in HPI: all other systems reviewed are Neg Past Family Social History Past Medical History COPD Polycythemia BPH Past Surgical History TURP Allergies: Coded Allergies: shellfish derived (Unverified Allergy, Severe, abd pain, n/v/d, 02/27/17) ipratropium (Unverified Allergy, Intermediate, "ANXIETY, NERVOUSNESS", 02/27) varenicline (Unverified Allergy, Intermediate, UNABLE TO STATE A SPECIFIC ALLERGIC REACTION--STATES HE HAD, 02/27/17) walnut (Unverified Allergy, Intermediate, NERVOUSNESS, ANXIETY, 02/27/17) Family History Family history of COPD; denies lung cancer Social History hx of smoking Physical Exam Vital Signs Vital Signs Date Time Temp Pulse Resp B/P (MAP) Pulse Ox O2 Delivery O2 Flow Rate FiO2 02/27/17 11:05 02/27/17 11:05 84 18 112/61 (78) 95 Room Air 02/27/17 10:24 116 20 151/87 (108) 95 Room Air 02/27/17 10:18 125 22 96 Room Air 02/27/17 10:10 18 95 Room Air 02/27/17 10:05 124 20 139/53 (81) 95 Room Air 02/27/17 09:26 96 Room Air 02/27/17 09:05 102 20 113/69 (84) 94 Room Air 02/27/17 08:07 95 Room Air 02/27/17 08:06 101 18 98/70 (79) 96 Room Air 02/27/17 07:51 97 Room Air 02/27/17 07:51 Room Air 02/27/17 07:43 98.6 113 20 140/95 (110) 96 Physical Exam VS: afebrile GENERAL: Elderly white male, well-nourished, no acute distress, nasal cannula and nose but O2 is off SKIN: Warm and dry. EYES: No scleral icterus. No injection or drainage. ENT: No nasal bleeding or discharge. Mucous membranes pink and moist. CARDIOVASCULAR: Regular rate and rhythm. no murmurs. No hepatojugular reflux noted RESPIRATORY: No accessory muscle use. Clear to auscultation. Breath sounds equal bilaterally. GASTROINTESTINAL: Abdomen soft, non-tender, nondistended. Extremities: No clubbing, cyanosis, or edema. No obvious deformities. MUSCULOSKELETAL: grossly intact ROM with 5/5 strength in upper and lower extremities proximally; adequate muscle bulk and tone for age and habitus NEUROLOGICAL: Awake and alert. No obvious cranial nerve deficits. No facial droop nor slurred speech noted. PSYCHIATRIC: Appropriate mood and affect; insight and judgment normal. Laboratory Laboratory Tests Test 02/27/17 08:04 White Blood Count 16.9 Red Blood Count 4.97 Hemoglobin 14.5 Hematocrit 45.3 Mean Corpuscular Volume 91.2 Mean Corpuscular Hemoglobin 29.1 Mean Corpuscular Hemoglobin Concent 31.9 Red Cell Distribution Width 13.4 Platelet Count 174 Mean Platelet Volume 6.4 Neutrophils (%) (Auto) 87.1 Lymphocytes (%) (Auto) 5.4 Monocytes (%) (Auto) 3.6 Eosinophils (%) (Auto) 0.8 Basophils (%) (Auto) 3.1 Neutrophils # (Auto) 14.8 Lymphocytes # (Auto) 0.9 Monocytes # (Auto) 0.6 Eosinophils # (Auto) 0.1 Basophils # (Auto) 0.5 CBC Comment DIFF FINAL Differential Comment Blood Urea Nitrogen 27 Creatinine 0.99 Random Glucose 90 Total Protein 6.5 Albumin 2.9 Calcium Level 8.5 Alkaline Phosphatase 66 Aspartate Amino Transf (AST/SGOT) 19 Alanine Aminotransferase (ALT/SGPT) 29 Total Bilirubin 0.6 Sodium Level 137 Potassium Level 4.2 Chloride Level 101 Carbon Dioxide Level 30.1 Anion Gap 6 Estimat Glomerular Filtration Rate 73 Total Creatine Kinase 21 Troponin I LESS THAN 0.02 B-Type Natriuretic Peptide 84 Result Diagram: 02/27/17 0804 02/27/17 0804 Imaging Last Impressions Chest X-Ray 02/27/17 0749 Signed Impressions: Service Date/Time: Monday, February 27, 2017 08:08 - CONCLUSION: 1. No acute cardiopulmonary disease or significant interval change. MD Isai Rubio VTE Risk Assessment Caprini VTE Risk Assessment: Mod/High Risk (score >= 2) Caprini Risk Assessment Model Point Value = 1 Point Value = 2 Point Value = 3 Point Value = 5 Age 41-60 Minor surgery BMI > 25 kg/m2 Swollen legs Varicose veins or History of unexplained or recurrent spontaneous Oral contraceptives or hormone replacement Sepsis (< 1 month) Serious lung disease, including pneumonia (< 1 month) Abnormal pulmonary function Acute myocardial infarction Congestive heart failure (< 1 month) History of inflammatory bowel disease Medical patient at bed rest Age 61-74 Arthroscopic surgery Major open surgery (> 45 min) Laparoscopic surgery (> 45 min) Malignancy Confined to bed (> 72 hours) Immobilizing plaster cast Central venous access Age >= 75 History of VTE Family history of VTE Factor V Leiden Prothrombin [id number] Lupus anticoagulant Anticardiolipin antibodies Elevated serum homocysteine Heparin-induced thrombocytopenia Other congenital or acquired thrombophilia Stroke (< 1 month) Elective arthroplasty Hip, pelvis, or leg fracture Acute spinal cord injury (< 1 month) Prophylaxis Regimen Total Risk Factor Score Risk Level Prophylaxis Regimen 0-1 Low Early ambulation 2 Moderate Order ONE of the following: *Sequential Compression Device (SCD) *Heparin 5000 units SQ BID 3-4 Higher Order ONE of the following medications: *Heparin 5000 units SQ TID *Enoxaparin/Lovenox 40 mg SQ daily (WT < 150 kg, CrCl > 30 mL/min) *Enoxaparin/Lovenox 30 mg SQ daily (WT < 150 kg, CrCl > 10-29 mL/min) *Enoxaparin/Lovenox 30 mg SQ BID (WT < 150 kg, CrCl > 30 mL/min) AND/OR *Sequential Compression Device (SCD) 5 or more Highest Order ONE of the following medications: *Heparin 5000 units SQ TID (Preferred with Epidurals) *Enoxaparin/Lovenox 40 mg SQ daily (WT < 150 kg, CrCl > 30 mL/min) *Enoxaparin/Lovenox 30 mg SQ daily (WT < 150 kg, CrCl > 10-29 mL/min) *Enoxaparin/Lovenox 30 mg SQ BID (WT < 150 kg, CrCl > 30 mL/min) AND *Sequential Compression Device (SCD) Assessment and Plan Assessment and Plan Shortness of breath - Etiology is not clear at this time. Clinically the patient seems to be unlabored with no cyanosis and no wheezing. We will continue him on a low-dose of steroids and consider pulmonology consultation. I independently reviewed the chest x-ray and see no acute infiltrates. I will obtain a d-dimer given mild tachycardia and if positive will proceed with a CT scan since this is the only study that has not been obtained in the past couple of months. I do not see the need for abx. echo done about 1 month ago was unremarkable with good ejection fraction at least 60%. tachycardia - Possibly from stress versus undetermined etiology. Independently reviewed EKG which shows sinus tachycardia. Continue home diltiazem. Patient denies having a diagnosis of A. [facility] Physician Certification 2 Midnight Certification Type: Admission for Inpatient Services Order for Inpatient Services The services are ordered in accordance with Medicare regulations or non- Medicare payer requirements, as applicable. In the case of services not specified as inpatient-only, they are appropriately provided as inpatient services in accordance with the 2-midnight benchmark. Estimated LOS (days): 2 2 days is the estimated time the patient will need to remain in the hospital, assuming treatment plan goals are met and no additional complications. Post-Hospital Plan: Home Ramses Hill MD Feb 27, 2017 12:11
[2017-02-27] MEDS ORDERED: ALBUTEROL SULFATE 90 MCG/ACT HFA 8 GM INHALER INH PRN (13:00)
[2017-02-27] MEDS ORDERED: IOHEXOL 350 MG/ML 10 ML VIAL (for RAD DIAG) IVCONTRAST ONE (14:57)
--- NOTE | 2017-02-27 15:03 | RADRPT ---
EXAM DATE/TIME: 02/27/2017 14:44 [facility] COMPARISON: CT PULMONARY ANGIOGRAM, November 10, 2015, 12:47. INDICATIONS : Short of breath. Evaluate for pulmonary embolism. IV CONTRAST: 65 cc Omnipaque 350 (iohexol) IV RADIATION DOSE: 9.14 CTDIvol (mGy) MEDICAL HISTORY : Chronic obstructive pulmonary disease. Gastroesophageal reflux disease. Polycythemia. SURGICAL HISTORY : None. ENCOUNTER: Initial ACUITY: 3 weeks PAIN SCALE: 0/10 LOCATION: chest TECHNIQUE: Volumetric scanning of the chest was performed using a pulmonary embolism protocol MIP images were re constructed. Using automated exposure control and adjustment of the mA and/or kV according to patien t size, radiation dose was kept as low as reasonably achievable to obtain optimal diagnostic quality images. DICOM format image data is available electronically for review and comparison. Follow-up recommendations for detected pulmonary nodules are based at a minimum on nodule size and pa tient risk factors according to Fleischner Society Guidelines. FINDINGS: PULMONARY ARTERIES: No filling defects are seen in the pulmonary arteries through the segmental level. LUNGS: There is no consolidation or pneumothorax . No concerning pulmonary nodule is visualized. Underlying emphysema and scarring are again noted which are not significantly changed. PLEURAE: There is no pleural thickening or pleural effusion. MEDIASTINUM: There is good visualization of the great vessels of the middle mediastinum. No evidence of mediastin al or hilar adenopathy/mass. MUSCULOSKELETAL: Within normal limits for patient age. MISCELLANEOUS: The visualized upper abdominal organs demonstrate no acute abnormality. CONCLUSION: 1. No evidence of pulmonary embolism. 2. Underlying emphysema and scarring again noted. Gio Loza MD on February 27, 2017 at 14:58 Board Certified Radiologist. This report was verified electronically.
[2017-02-27] MEDS: DILTIAZEM-CD 120 MG CAP ER PO SCH (15:19)
--- NOTE | 2017-02-27 16:34 | EKG ---
Date Performed: 02/27/2017 Time Performed: 07:39:49 PTAGE: 76 years EKG: SINUS TACHYCARDIA LEFT AXIS DEVIATION INCOMPLETE RIGHT BUNDLE BRANCH BLOCK ABNORMAL ECG Com pared to the PREVIOUS TRACING rate faster DOCTOR: Errol Ward Interpretating Date/Time 02/27/2017 16:32:32
--- NOTE | 2017-02-27 16:40 | EKG ---
Date Performed: 02/27/2017 Time Performed: 10:49:35 PTAGE: 76 years EKG: SINUS TACHYCARDIA RIGHT BUNDLE BRANCH BLOCK LEFT ANTERIOR FASCICULAR BLOCK MODERATE ST DEPR ESSION ABNORMAL ECG PREVIOUS TRACING : 02/01/2017 15.03 Compared to prior tracing no significant change DOCTOR: Jason Stratton Interpretating Date/Time 02/27/2017 16:38:20
[2017-02-27] MEDS ORDERED: ENOXAPARIN SODIUM 30 MG/0.3 ML SYRINGE SQ SCH (18:00)
[2017-02-27] MEDS ORDERED: traZODone HCL 50 MG TAB PO SCH (21:00)
[2017-02-27] MEDS: BUDESONIDE-FORMOTEROL 80/4.5 MCG INHALER INH SCH (21:50)
[2017-02-28] VITALS: BP 115/56; PULSE 81; RESP 14; TEMP 98; O2SAT 94
[2017-02-28 04:00] VITALS: BP 126/66; PULSE 100; RESP 16; TEMP 98.1; O2SAT 96
[2017-02-28 08:00] VITALS: BP 126/62; PULSE 90; RESP 24; TEMP 98.2; O2SAT 96
[2017-02-28] MEDS: DILTIAZEM-CD 120 MG CAP ER PO SCH (08:54)
[2017-02-28] MEDS: BUDESONIDE-FORMOTEROL 80/4.5 MCG INHALER INH SCH (08:55)
[2017-02-28] MEDS ORDERED: FUROSEMIDE 20 MG TAB PO SCH (09:00)
[2017-02-28] MEDS ORDERED: POTASSIUM CHLORIDE 10 MEQ CAP PO SCH ×2 (09:00→09:15)
[2017-02-28 12:00] VITALS: BP 119/60; PULSE 92; RESP 24; TEMP 97.4; O2SAT 93
[2017-02-28 15:58] LABS: CALCIUM 8.5 MG/DL (8.5-10.1)
[2017-02-28 15:59] LABS: BICARBONATE 30.7 MEQ/L (21.0-32.0)
[2017-02-28 16:00] VITALS: BP 140/67; PULSE 97; RESP 33; TEMP 97.4; O2SAT 93
[2017-02-28 16:02] LABS: CREATININE 0.87 MG/DL (0.60-1.30)
--- NOTE | 2017-02-28 16:04 | HHI.PR ---
Subjective Remarks Follow-up dyspnea. Patient seen and examined, lying in bed comfortably. On room air. Spoke to patient at length regarding disease process and testing performed since hospitalization. Patient has past walk test today without any problems. CTA reviewed showing no PE. Cannot find an etiology for dyspnea, spoke to patient at length regarding anxiety about chronic disease process. Patient is agreeable to plan to start long-term anxiety medication. Eager to go home. Objective Vitals Vital Signs Date Time Temp Pulse Resp B/P (MAP) Pulse Ox O2 Delivery O2 Flow Rate FiO2 02/28/17 12:00 97.4 92 24 119/60 (79) 93 02/28/17 08:00 96 1.00 02/28/17 08:00 98.2 90 24 126/62 (83) 96 02/28/17 04:00 98.1 100 16 126/66 (86) 96 02/28/17 00:00 98.0 81 14 115/56 (75) 94 02/27/17 21:10 95 Nasal Cannula 1.00 02/27/17 20:00 98.2 90 24 117/60 (79) 96 I/O 02/27/17 02/27/17 02/27/17 02/28/17 02/28/17 02/28/17 07:00 15:00 23:00 07:00 15:00 23:00 Intake Total 600 ml Output Total 900 ml 175 ml 500 ml Balance -900 ml -175 ml 100 ml Intake Oral 600 ml Output Urine Total 900 ml 175 ml 500 ml # Voids 2 # Bowel Movements 0 Result Diagram: 02/27/17 0804 02/28/17 1528 Imaging Last Impressions Chest X-Ray 02/27/17 0749 Signed Impressions: Service Date/Time: Monday, February 27, 2017 08:08 - CONCLUSION: 1. No acute cardiopulmonary disease or significant interval change. Galo Gleason MD CT Angiography 02/27/17 0000 Signed Impressions: Service Date/Time: Monday, February 27, 2017 14:44 - CONCLUSION: 1. No evidence of pulmonary embolism. 2. Underlying emphysema and scarring again noted. Gio Loza MD Objective Remarks GENERAL: Elderly white male, well-nourished, no acute distress SKIN: Warm and dry. EYES: No scleral icterus. No injection or drainage. ENT: No nasal bleeding or discharge. Mucous membranes pink and moist. CARDIOVASCULAR: Regular rate and rhythm. no murmurs. No hepatojugular reflux noted RESPIRATORY: No accessory muscle use. Clear to auscultation. Breath sounds equal bilaterally. GASTROINTESTINAL: Abdomen soft, non-tender, nondistended. Extremities: No clubbing, cyanosis, or edema. No obvious deformities. MUSCULOSKELETAL: grossly intact ROM with 5/5 strength in upper and lower extremities proximally; adequate muscle bulk and tone for age and habitus NEUROLOGICAL: Awake and alert. No obvious cranial nerve deficits. No facial droop nor slurred speech noted. PSYCHIATRIC: Appropriate mood and affect; insight and judgment normal. A/P Assessment and Plan 76-year-old white male being admitted for shortness of breath Dyspnea associated tachycardia - Etiology is not clear. - Patient has past oxygen walk test. No active wheezing or cyanosis noted. 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 - Chest x-ray and see no acute infiltrates. D-dimer elevated, a CTA was ordered showing no signs of PE. Showing some emphysema. Echo done about 1 month ago was unremarkable with good ejection fraction at least 60%. - EKG shows sinus tachycardia. Continue home diltiazem. Patient denies having a diagnosis of A. fib. Has been stable on monitor. - May be anxiety related. Congestive heart failure - Continue home Lasix and supplemental potassium. Anxiety Will start patient on Celexa. Encouraged to follow-up with PCP for management of chronic anxiety. This may be causing some of his dyspnea complaints. Patient is agreeable to this plan. Insomnia Patient states he has not slept for over two days now. Will discharge home with a few doses of trazodone for sleep. Encouraged follow-up with PCP. DVT prophylaxis: SCDs. Lovenox. Lien Montero Feb 28, 2017 16:04
--- NOTE | 2017-02-28 16:05 | HHI.DCPOC ---
Discharge Care Plan Diagnosis: (1) COPD with acute exacerbation Your Health Problems Are: Shortness of Breath Goals to Promote Your Health * To prevent worsening of your condition and complications * To maintain your health at the optimal level Directions to Meet Your Goals Take your medications as prescribed Follow your dietary instruction Follow activity as directed Keep your appointments as scheduled Take your immunizations and boosters as scheduled If your symptoms worsen call your PCP, if no PCP go to Urgent Care Center or Emergency Room Smoking is Dangerous to Your Health. Avoid second hand smoke Call the 24-hour hour crisis hotline for domestic abuse at Lien Montero Feb 28, 2017 16:05
[2017-02-28] MEDS ORDERED: TRAZ50TA12 PO (16:07)
[2017-02-28] MEDS ORDERED: CELE10TA PO (16:07)
[2017-02-28] MEDS ORDERED: CITALOPRAM HYDROBROMIDE 20 MG TAB PO ONE (16:15)
== END 2017-02-28 17:44 | disposition home or self-care (01) | DRG 310 ==
LOC: PHED 07:38 → PHEDA 10:40 → OBSVTOIN 10:45 → PHICU 11:50
PROVIDERS: ADMIT Hospitalist; ATTEND Hospitalist
DX: R00.0 Tachycardia, unspecified (principal); I50.9 Heart failure, unspecified; R06.03 Acute respiratory distress; J44.9 Chronic obstructive pulmonary disease, unspecified; F41.9 Anxiety disorder, unspecified; G47.00 Insomnia, unspecified; N40.0 Benign prostatic hyperplasia without lower urinary tract symptoms; K21.9 Gastro-esophageal reflux disease without esophagitis; D75.1 Secondary polycythemia; Z87.891 Personal history of nicotine dependence
CPT/HCPCS: 71045; 71275; 80048; 80053; 82550; 83880; 84484; 85025; 85379; 93005; 94618; 94640; 94664; 96374; 96375; J1650; J1940; J2930; Q9967

== ENCOUNTER 2017-05-23 07:06 | Inpatient (IN) | payer MEDICARE ==
[2017-05-23] VITALS (12 sets, daily range): BP systolic 88–129; BP diastolic 51–80; PULSE 75–103; RESP 17–58; TEMP 98.1–98.3; O2SAT 93–100
[~2017-05-23] VITALS: Ht 172.7 cm; Wt 65.0 kg
[~2017-05-23 07:06] MED LIST changes: +CELE10TA PO; -DOXY100C PO; +FURO1TAB62 PO; -LUTE20CA PO; -OMEP20CA2 PO; +POTA10CA PO; +TRAZ50TA12 PO
[2017-05-23] MEDS ORDERED: methylPREDNISolone SOD SUCC 125 MG/2 ML VIAL IV PUSH ONE (07:15)
[2017-05-23] MEDS ORDERED: SODIUM CHLORIDE 0.9% FLUSH 10 ML FLUSH IVF PRN (07:15)
--- NOTE | 2017-05-23 07:20 | PD ---
HPI Chief Complaint: Respiratory Symptoms Time Seen by Provider: 07:10 Travel History International Travel<30 days: No Contact w/Intl Traveler<30days: No Traveled to known affect area: No History of Present Illness HPI This patient complains of shortness of breath. He has history of COPD and is nebulizer dependent. He quit smoking a couple years ago. Severity is moderate. He is not having chest pain or fever. He does not have a chronic cough but does have a cough today. It is dry. Dyspnea is worse with exertion. There are no alleviating factors. He has some chronic leg edema on diuretic but denies cardiac problems. Duration is 3 days. He is brought in by paramedics ON LICENSE OF [facility] Past Medical History Anemia: Yes (POLYCYTHEMIA) Asthma: No Autoimmune Disease: No Anxiety: No Depression: No Heart Rhythm Problems: Yes Cancer: No Cardiac Catheterization: Yes Cardiovascular Problems: No High Cholesterol: No Chest Pain: Yes Congestive Heart Failure: No COPD: Yes Diabetes: No Diminished Hearing: No Endocrine: No Gastrointestinal Disorders: Yes GERD: Yes Genitourinary: Yes (TURP) Hiatal Hernia: No Immune Disorder: No Implanted Vascular Access Dvce: Yes Kidney Stones: No Musculoskeletal: Yes (old foot and back injury) Neurologic: Yes (old fx in back,old foot injury) Psychiatric: No Reproductive: No Respiratory: Yes Pneumonia: Yes Renal Failure: No Sickle Cell Disease: No Sleep Apnea: No Thyroid Disease: No Ulcer: No Past Surgical History Cardiac Surgery: No Eye Surgery: Yes (detached retina 2001, cataract right [id number]) Genitourinary Surgery: Yes (turp 2013) Oral Surgery: Yes (SALIVARY GLAND CYST REMOVED 2005) Other Surgery: Yes Social History Alcohol Use: No Tobacco Use: No Substance Use: No Allergies-Medications (Allergen,Severity, Reaction): Coded Allergies: shellfish derived (Unverified Allergy, Severe, abd pain, n/v/d, 05/23/17) ipratropium (Unverified Allergy, Intermediate, "ANXIETY, NERVOUSNESS", 05/23) varenicline (Unverified Allergy, Intermediate, UNABLE TO STATE A SPECIFIC ALLERGIC REACTION--STATES HE HAD, 05/23/17) walnut (Unverified Allergy, Intermediate, NERVOUSNESS, ANXIETY, 05/23/17) Reported Meds & Prescriptions Reported Meds & Active Scripts Active Reported Prednisone 20 Mg Tab 20 Mg PO DAILY Potassium Chloride ER (Potassium Chloride) 10 Meq Cap 10 Meq PO DAILY Lasix (Furosemide) 20 Mg Tab 20 Mg PO DAILY Duoneb (Ipratropium-Albuterol Neb) 0.5-2.5 Mg/3 Ml Neb 1 Nebule INH QID Cartia Xt (Diltiazem ER 24 HR) 120 Mg Caper 120 Mg PO DAILY Ventolin Hfa 18 GM Inh (Albuterol Sulfate) 90 Mcg/Act Aer 2 Puff INH Q4H PRN Review of Systems General / Constitutional: No: Fever Eyes: No: Visual changes HENT: Positive: Congestion, No: Headaches Cardiovascular: Positive: Irregular Rhythm, Tachycardia, Edema, No: Chest Pain or Discomfort Respiratory: Positive: Cough, Shortness of Breath, Wheezing Gastrointestinal: No: Abdominal Pain Genitourinary: No: Dysuria Musculoskeletal: Positive: Edema, No: Pain Skin: No Rash Neurologic: No: Weakness Psychiatric: No: Depression Endocrine: No: Polydipsia Hematologic/Lymphatic: No: Easy Bruising Physical Exam Narrative GENERAL: Well-nourished, well-developed patient who is short of breath SKIN: Focused skin assessment reveals no rash and nodules. Skin is Warm and dry. HEAD: Atraumatic. Normocephalic. EYES: Pupils equal and round. No scleral icterus. No injection or drainage. ENT: No nasal bleeding or discharge. Mucous membranes pink and moist. Some nasal rhinorrhea NECK: Trachea midline. No JVD. CARDIOVASCULAR: Regular rate and rhythm, occasional ectopic beat. No murmur appreciated. Heart rate 90 RESPIRATORY: Positive accessory muscle use. Diminished breath sounds throughout. Some expiratory wheezing. Breath sounds equal bilaterally. No crackles heard GASTROINTESTINAL: Abdomen soft, non-tender, nondistended. Hepatic and splenic margins not palpable. MUSCULOSKELETAL: No obvious deformities. No clubbing. No cyanosis. Symmetric pitting edema in the feet and ankles and lower legs NEUROLOGICAL: Awake and alert. No obvious cranial nerve deficits. Motor grossly within normal limits. Normal speech. PSYCHIATRIC: Appropriate mood and affect; insight and judgment normal. Data Data Last Documented VS Vital Signs Date Time Temp Pulse Resp B/P (MAP) Pulse Ox O2 Delivery O2 Flow Rate FiO2 05/23/17 07:44 100 Nasal Cannula 3.00 05/23/17 07:20 (87) 98 05/23/17 07:15 101 20 05/23/17 07:14 98.3 Orders Orders Complete Blood Count With Diff (05/23/17 07:14) Comprehensive Metabolic Panel (05/23/17 07:14) Ckmb (Isoenzyme) Profile (05/23/17 07:14) Troponin I (05/23/17 07:14) Influenzae A/B Antigen (05/23/17 07:14) Iv Access Insert/Monitor (05/23/17 07:14) Electrocardiogram (05/23/17 07:14) Ecg Monitoring (05/23/17 07:14) Oximetry (05/23/17 07:14) Oxygen Administration (05/23/17 07:14) Chest, Single Ap (05/23/17 07:14) Sodium Chloride 0.9% Flush (Ns Flush) (05/23/17 07:15) Methylprednisolone So Succ Inj (Solumedr (05/23/17 07:15) Albuterol-Ipratropium Neb (Duoneb Neb) (05/23/17 07:15) Aspirin (Aspirin) (05/23/17 08:45) Potassium Chloride (Kcl) (05/23/17 08:45) Labs Laboratory Tests Test 05/23/17 07:30 White Blood Count 28.0 TH/MM3 Red Blood Count 4.89 MIL/MM3 Hemoglobin 15.1 GM/DL Hematocrit 42.2 % Mean Corpuscular Volume 86.3 FL Mean Corpuscular Hemoglobin 30.9 PG Mean Corpuscular Hemoglobin Concent 35.8 % Red Cell Distribution Width 15.3 % Platelet Count 235 TH/MM3 Mean Platelet Volume 6.6 FL CBC Comment AUTO DIFF Differential Total Cells Counted 100 Neutrophils % (Manual) 64 % Band Neutrophils % 12 % Lymphocytes % 11 % Monocytes % 6 % Neutrophils # (Manual) 23.2 TH/MM3 Myelocytes 6 % Promyelocytes 1 % Differential Comment FINAL DIFF MANUAL Toxic Granulation 1+ Blood Urea Nitrogen 23 MG/DL Creatinine 1.13 MG/DL Random Glucose 97 MG/DL Total Protein 6.4 GM/DL Albumin 3.5 GM/DL Calcium Level 8.5 MG/DL Alkaline Phosphatase 121 U/L Aspartate Amino Transf (AST/SGOT) 34 U/L Alanine Aminotransferase (ALT/SGPT) 71 U/L Total Bilirubin 1.2 MG/DL Sodium Level 118 MEQ/L Potassium Level 2.4 MEQ/L Chloride Level 71 MEQ/L Carbon Dioxide Level 36.8 MEQ/L Anion Gap 10 MEQ/L Estimat Glomerular Filtration Rate 63 ML/MIN Total Creatine Kinase 25 U/L Troponin I 0.93 NG/ML MDM Medical Decision Making Medical Screen Exam Complete: Yes Emergency Medical Condition: Yes Medical Record Reviewed: Yes Differential Diagnosis COPD exacerbation, CHF exacerbation, ACS, pneumonia, bronchitis Narrative Course I have reviewed the patient's electronic medical record. I reviewed his admission history and physical from February 2017 Patient arrives short of breath Gave him 3 nebulizer treatments and IV Solu-Medrol Reviewed his chest x-ray which shows hyperinflation without infiltrate or edema Extended cardiac monitoring reveals sinus rhythm in the 90s with occasional ectopic beats Labs sent Lab studies have come back highly abnormal He has significant hyponatremia of 118 and significant hypokalemia of 2.4. Both are critical values I gave him an aspirin I gave him 60 mg once of potassium replacement Troponin is elevated at 0.93, also a critical value He does not have any chest pain and did not have any chest pain recently He denies coronary artery disease. It is unclear when his last stress test was. He said 4 months ago here but I do not see any documented stress test. He did have a negative perfusion scan in 2016 I reviewed the case with hospitalist who will admit to telemetry unit Because of his metabolic irregularities is likely the diuretic he has been on for the last month Critical Care Narrative Aggregate critical care time was 38 minutes. Time to perform other separately billable procedures was not included in the critical care time. My time did not include minutes spent treating any other patients simultaneously or on activities that did not directly contribute to the patient's treatment. The services I provided to this patient were to treat and/or prevent clinically significant deterioration that could result in: Cardiac arrhythmia, cardiopulmonary arrest, metabolic instability I provided critical care services requiring my management, as noted below: Chart data review, documentation time, medication orders and management, vital sign assessments/reviewing monitor data, ordering and reviewing lab tests, ordering and interpreting/reviewing x-rays and diagnostic studies, care of the patient and discussion of the patient with the admitting physicians. Diagnosis Primary Impression: COPD with acute exacerbation Additional Impressions: Acute hyponatremia Acute hypokalemia Admitting Information Admitting Physician Requests: Admit Ranjith Orlando MD May 23, 2017 07:20
[2017-05-23] MEDS ORDERED: PRED20 PO (07:38)
[2017-05-23 07:39] LABS: HEMATOCRIT 42.2 % (39.0-51.0); HEMOGLOBIN 15.1 GM/DL (13.0-17.0); MEAN CELL VOLUME 86.3 FL (80.0-100.0); MEAN CORPUSCULAR HEMOGLOBIN 30.9 PG (27.0-34.0); MEAN CORPUSCULAR HGB CONC 35.8 % (32.0-36.0); MEAN PLATELET VOLUME 6.6 FL (7.0-11.0); PLATELET COUNT 235 TH/MM3 (150-450); RED BLOOD COUNT 4.89 MIL/MM3 (4.50-5.90); RED CELL DISTRIBUTION WIDTH 15.3 % (11.6-17.2)
[2017-05-23] MEDS: RESP: ALBUTEROL 2.5 MG/IPRATROPIUM 0.5 MG NEB (SCH) INH (07:44)
--- NOTE | 2017-05-23 08:10 | RADRPT ---
EXAM DATE/TIME: 05/23/2017 07:42 [facility] COMPARISON: CHEST SINGLE AP, February 01, 2017, 15:02. CT PULMONARY ANGIOGRAM, February 27, 2017, 14:44. CHEST S LISETH AP, February 27, 2017, 8:08. INDICATIONS : Short of breath, abdominal distention and inability to eat for one week. MEDICAL HISTORY : Chronic obstructive pulmonary disease. Gastroesophageal reflux disease. SURGICAL HISTORY : Cardiadc cath ENCOUNTER: Initial ACUITY: 1 week PAIN SCORE: 4/10 LOCATION: Bilateral chest FINDINGS: A single view of the chest demonstrates the lungs to be symmetrically aerated without evidence of mas s, infiltrate or effusion. There stable parenchymal changes in both apices. There is hyperaeration of both lung ko characteristic of COPD. The cardiomediastinal contours are unremarkable. Osseous s tructures are intact. No significant changes compared to the prior examination. CONCLUSION: 1. Hyperaeration of the lung ko characteristic of COPD. 2. Stable examination compared to the prior study with no acute parenchymal infiltrates. Alexis White MD on May 23, 2017 at 8:06 Board Certified Radiologist. This report was verified electronically.
[2017-05-23 08:13] LABS: ALBUMIN 3.5 GM/DL (3.4-5.0); ALKALINE PHOSPHATASE 121 U/L (45-117); ALT (GPT) 71 U/L (12-78); AST (GOT) 34 U/L (15-37); BICARBONATE 36.8 MEQ/L (21.0-32.0); BLOOD UREA NITROGEN 23 MG/DL (7-18); CALCIUM 8.5 MG/DL (8.5-10.1); CHLORIDE 71 MEQ/L (98-107); CREATININE 1.13 MG/DL (0.60-1.30); GLOMERULAR FILTRATION RATE 63 ML/MIN (>89); GLUCOSE,RANDOM 97 MG/DL (74-106); TOTAL BILIRUBIN ADULT 1.2 MG/DL (0.2-1.0); TOTAL PROTEIN 6.4 GM/DL (6.4-8.2)
[2017-05-23 08:16] LABS: SODIUM (NA) 118 MEQ/L (136-145)
[2017-05-23 08:17] LABS: TROPONIN I 0.93 NG/ML (0.02-0.05)
[2017-05-23] MEDS ORDERED: ASPIRIN 325 MG TAB PO ONE (08:45)
[2017-05-23] MEDS ORDERED: POTASSIUM CHLORIDE 20 MEQ CONTROLLED RELEASE TAB PO ONE ×2 (08:45→12:00)
[2017-05-23 08:46] LABS: BANDS 12 % (0-6); LYMPHOCYTES 11 % (9-44); MONOCYTES 6 % (0-8); MYELOCYTES 6 % (0-0); NEUTROPHIL # MANUAL DIFF 23.2 TH/MM3 (1.8-7.7); POLYS (SEG NEUTROPHILS) 64 % (16-70); PROMYELOCYTES 1 % (0-0)
[2017-05-23 08:47] LABS: TOXIC GRANULATION 1+ (NORMAL)
[2017-05-23] MEDS ORDERED: NALOXONE HCL 0.4 MG/ML AMP IV PUSH PRN (09:00)
[2017-05-23] MEDS: SODIUM CHLORIDE 0.9% FLUSH 10 ML FLUSH IV FLUSH SCH ×2 (09:00→22:56)
[2017-05-23] MEDS ORDERED: SODIUM CHLORIDE 0.9% FLUSH 10 ML FLUSH IV FLUSH PRN (09:00)
--- NOTE | 2017-05-23 09:58 | HHI.HP ---
HPI Service [facility] Primary Care Physician Jason Garrett MD Admission Diagnosis acute exac of chronic COPD,hyponatremia,hypokaemia,elevated troponin Diagnoses: Travel History International Travel<30 Days: No Contact w/Intl Traveler <30 Da: No Traveled to Known Affected Are: No History of Present Illness short of breath for years but worse in past one month worse on exertion also has peripheral edema just a little bit cough but had a lot of nasal congestion at times no fever no recent prolonged travels woke up gaspign this am had to call 911 barely walks from room to bathroom no chest pains or discomforts but then little tightness once in a while last 3 weeks have been nauseous dry heaving stomach pain per him for past 3 weeks, stomach feels full and cant eat no diarrhea but was constipated last week for 2 days, took miralax, then was able to go. this week is same thing---- this is unusal for him , usually regular no blood in urine or stool no urinary symptoms Review of Systems Except as stated in HPI: all other systems reviewed are Neg Past Family Social History Past Medical History htn afib p questionable. Patient initially thought he has history of it but he is unsure. He is not on any blood thinners. coronary angiogram oct 2015 non obstructive cad copd myocardial perfusion scan august 2015- wnl, low risk bph Past Surgical History turp= 4 yrs ago coronary angiogram oct 2015 non obstructive cad 2013 cataract sx 2006 salivary gland sx 2001 retinal detachment Allergies: Coded Allergies: shellfish derived (Unverified Allergy, Severe, abd pain, n/v/d, 05/23/17) ipratropium (Unverified Allergy, Intermediate, "ANXIETY, NERVOUSNESS", 05/23) varenicline (Unverified Allergy, Intermediate, UNABLE TO STATE A SPECIFIC ALLERGIC REACTION--STATES HE HAD, 05/23/17) walnut (Unverified Allergy, Intermediate, NERVOUSNESS, ANXIETY, 05/23/17) Family History father- enlarged heart mother- stroke brother- copd Social History used to smoke for 60 yrs, quit in 2016 sept used to drink a lot of beers before, quit in 1980 no drugs lives with his partner Physical Exam Vital Signs Vital Signs Date Time Temp Pulse Resp B/P (MAP) Pulse Ox O2 Delivery O2 Flow Rate FiO2 05/23/17 09:12 103 17 120/57 (78) 98 Nasal Cannula 2.00 05/23/17 07:44 100 Nasal Cannula 3.00 05/23/17 07:20 (87) Nasal Cannula 2.00 98 05/23/17 07:20 Nasal Cannula 2.00 98 05/23/17 07:15 101 20 100 Nasal Cannula 2.00 05/23/17 07:14 98.3 84 20 129/66 (87) 99 Room Air Physical Exam GENERAL: This is a well-nourished, well-developed patient, in no apparent distress.looks frail and weak. Still complaining of some shortness of breath and discomfort SKIN: redness around his sacrum. Stage I HEAD: Atraumatic. Normocephalic. No temporal or scalp tenderness. EYES: No scleral icterus. No injection or drainage. ENT: Nose without bleeding, purulent drainage or septal hematoma.. Airway patent. NECK: Trachea midline. No JVD Supple, nontender, no meningeal signs. CARDIOVASCULAR: Regular rate and rhythm without murmurs, gallops, or rubs. RESPIRATORY: clear lungs, no wheezing or rales GASTROINTESTINAL: Abdomen soft, non-tender, nondistended. No guarding. MUSCULOSKELETAL: Extremities without clubbing, cyanosis.No calf tenderness. Bilateral lower extremity ankle edema 3+ NEUROLOGICAL: Awake and alert. Motor and sensory grossly within normal limits. Normal speech. Laboratory Laboratory Tests Test 05/23/17 07:30 White Blood Count 28.0 Red Blood Count 4.89 Hemoglobin 15.1 Hematocrit 42.2 Mean Corpuscular Volume 86.3 Mean Corpuscular Hemoglobin 30.9 Mean Corpuscular Hemoglobin Concent 35.8 Red Cell Distribution Width 15.3 Platelet Count 235 Mean Platelet Volume 6.6 CBC Comment AUTO DIFF Differential Total Cells Counted 100 Neutrophils % (Manual) 64 Band Neutrophils % 12 Lymphocytes % 11 Monocytes % 6 Neutrophils # (Manual) 23.2 Myelocytes 6 Promyelocytes 1 Differential Comment FINAL DIFF MANUAL Toxic Granulation 1+ Blood Urea Nitrogen 23 Creatinine 1.13 Random Glucose 97 Total Protein 6.4 Albumin 3.5 Calcium Level 8.5 Alkaline Phosphatase 121 Aspartate Amino Transf (AST/SGOT) 34 Alanine Aminotransferase (ALT/SGPT) 71 Total Bilirubin 1.2 Sodium Level 118 Potassium Level 2.4 Chloride Level 71 Carbon Dioxide Level 36.8 Anion Gap 10 Estimat Glomerular Filtration Rate 63 Total Creatine Kinase 25 Troponin I 0.93 Date/Time Source Procedure Growth Status 05/23/17 07:30 Nasal Washing Influenza Types A,B Antigen (KECIA) - Final NEGATIVE FOR FLU A AND B ANTIGEN.... Complete Result Diagram: 05/23/1772905/23/17729 Imaging Last 48 hours Impressions Chest X-Ray 05/23/17713 Signed Impressions: Service Date/Time: Tuesday, May 23, 2017 07:42 - CONCLUSION: 1. Hyperaeration of the lung ko characteristic of COPD. 2. Stable examination compared to the prior study with no acute parenchymal infiltrates. MD Isai Fuentes VTE Risk Assessment Capcarrie VTE Risk Assessment: Mod/High Risk (score >= 2) Caprini Risk Assessment Model Point Value = 1 Point Value = 2 Point Value = 3 Point Value = 5 Age 41-60 Minor surgery BMI > 25 kg/m2 Swollen legs Varicose veins or History of unexplained or recurrent spontaneous Oral contraceptives or hormone replacement Sepsis (< 1 month) Serious lung disease, including pneumonia (< 1 month) Abnormal pulmonary function Acute myocardial infarction Congestive heart failure (< 1 month) History of inflammatory bowel disease Medical patient at bed rest Age 61-74 Arthroscopic surgery Major open surgery (> 45 min) Laparoscopic surgery (> 45 min) Malignancy Confined to bed (> 72 hours) Immobilizing plaster cast Central venous access Age >= 75 History of VTE Family history of VTE Factor V Leiden Prothrombin [id number] Lupus anticoagulant Anticardiolipin antibodies Elevated serum homocysteine Heparin-induced thrombocytopenia Other congenital or acquired thrombophilia Stroke (< 1 month) Elective arthroplasty Hip, pelvis, or leg fracture Acute spinal cord injury (< 1 month) Prophylaxis Regimen Total Risk Factor Score Risk Level Prophylaxis Regimen 0-1 Low Early ambulation 2 Moderate Order ONE of the following: *Sequential Compression Device (SCD) *Heparin 5000 units SQ BID 3-4 Higher Order ONE of the following medications: *Heparin 5000 units SQ TID *Enoxaparin/Lovenox 40 mg SQ daily (WT < 150 kg, CrCl > 30 mL/min) *Enoxaparin/Lovenox 30 mg SQ daily (WT < 150 kg, CrCl > 10-29 mL/min) *Enoxaparin/Lovenox 30 mg SQ BID (WT < 150 kg, CrCl > 30 mL/min) AND/OR *Sequential Compression Device (SCD) 5 or more Highest Order ONE of the following medications: *Heparin 5000 units SQ TID (Preferred with Epidurals) *Enoxaparin/Lovenox 40 mg SQ daily (WT < 150 kg, CrCl > 30 mL/min) *Enoxaparin/Lovenox 30 mg SQ daily (WT < 150 kg, CrCl > 10-29 mL/min) *Enoxaparin/Lovenox 30 mg SQ BID (WT < 150 kg, CrCl > 30 mL/min) AND *Sequential Compression Device (SCD) Assessment and Plan Assessment and Plan Impression: Non-ST elevation [place] Dyspnea. Believe this is angina equivalent. Elevated troponin Atrial fibrillation on telemetry monitoring in the ER and ambulance drips. New onset versus old. Patient initially told me that he had history of it. But later he believes he does not. Hyponatremia Hypokalemia Electrolyte imbalance secondary to diuretic use Weakness/mostly chair bound status for past 3 week due to weakness and dyspnea from hyponatremia Leukocytosis with left shift. Likely secondary to steroid use. Will check blood cultures, UA, urine culture if indicated. No obvious serious decubiti apart from mild redness stage I in his sacrum. Chronic prednisone 5 mg p.o. daily use for COPD History of hypertension History of BPH status post TURP History of COPD follows up with Dr. Michelle. Not on home oxygen. History of nonobstructive CAD. Last coronary angiogram was here in October 2015. Never follows up as an outpatient with exterior interior specialist. Plan: Serial cardiac enzymes and EKGs. Start patient on heparin drip. Echocardiogram. Cardiology consult for possible coronary angiogram. Fluid restriction. We will follow-up sodium serially. At this point, there is no need of IV fluids as patient is third spacing. Replace potassium 60 mEq p.o. in ER. Will give additional 60 mg in a few hours. Repeat labs. Hold diuretics. Obtain ultrasound of bilateral lower extremities to rule out DVT since patient has been mostly chair-bound for the past 3 weeks. Also would consult wound care nurse to follow his stage I sacral decubiti. As to his leukocytosis, I do believe that this is from steroid use. There is no clear evidence of any infectious source. We will obtain blood cultures. Obtain UA and urine culture. The patient s complaints about constipation in the past 2 days, but this was relieved with laxatives. Abdominal exam is benign. Currently, no need of antibiotics. Physical therapy evaluation. DVT prophylaxis with heparin drip. GI prophylaxis on pantoprazole. Obtain patient's med reconciliation from patient's pharmacy. Patient does not remember the names and doses. Nursing orders have been written. Physician Certification Order for Inpatient Services The services are ordered in accordance with Medicare regulations or non- Medicare payer requirements, as applicable. In the case of services not specified as inpatient-only, they are appropriately provided as inpatient services in accordance with the 2-midnight benchmark. days is the estimated time the patient will need to remain in the hospital, assuming treatment plan goals are met and no additional complications. Tanya Wallace MD May 23, 2017 09:58
[2017-05-23 10:17] LABS: PROTHROMBIN TIME - PATIENT 10.1 SEC (9.8-11.6)
[2017-05-23] MEDS ORDERED: PRED10 PO (10:58)
[2017-05-23] MEDS ORDERED: METH500T3 PO (10:58)
[2017-05-23] MEDS ORDERED: METO2.5T PO (10:58)
[2017-05-23] MEDS ORDERED: METO25TA3 PO (10:58)
[2017-05-23] MEDS ORDERED: TRAM50TA PO (10:58)
[2017-05-23] MEDS ORDERED: CARVEDILOL 12.5 MG TAB PO ONE (11:00)
[2017-05-23] MEDS ORDERED: HEPARIN-D5W 25,000 U/250 ML 250 ML IV PRN (11:30)
[2017-05-23] MEDS ORDERED: HEPARIN SODIUM - IV 10,000 UNITS/10 ML VIAL IV PUSH ONE (11:30)
--- NOTE | 2017-05-23 12:12 | PD.WCN.NOT ---
Wound Consult Description: Received consult from Doctor Madison for evaluation of sacral pressure ulcer Communicated with: ANUPAM Carlisle C pod, and call placed to attending physician for orders Recommendation: 1.Please cleanse buttock and gluteal cleft areas with Remedy barrier cloths and apply Calazime skin protectant paste to gluteal cleft wound and buttock areas BID and leave open to air 2.Please assist patient with turning and repositioning every 2 hours to offload pressure from john paul prominences and for comfort. Additional Information: Patient seen on C pod in ED holding area for sacral pressure ulcer. Jo is able to turn self with minimal assistance to L side for wound assessment. Patient is noted with blanchable erythema to bilateral buttocks and gluteal cleft fissure measuring ~1cm x ~0.1cm x ~0.1cm. Wound is partial thickness and is related to mechanical forces and moisture. No pressure injuries are seen at this time. Patient repositioned to R side with minimal assistance for pressure relief. Recommendations are noted above. Joy Leigh [facility] May 23, 2017 12:12
--- NOTE | 2017-05-23 12:59 | RADRPT ---
EXAM DATE/TIME: 05/23/2017 11:38 [place] COMPARISON: No previous studies available for comparison. INDICATIONS : Bilateral leg swelling. MEDICAL HISTORY : Chest pain. Irregular heartbeat. COPD. Pneumonia. Dyspnea. GERD. Anemia. Polycythemia. SURGICAL HISTORY : Detached retina surgery. Right cataract. Salivary gland cyst removal. Cardiac cath. TURP. ENCOUNTER: Initial ACUITY: 1 day PAIN SCORE: 3/10 LOCATION: Bilateral leg. TECHNIQUE: Venous ultrasound of the left and right leg was performed from the inguinal ligament to the proximal calf. Real-time, color Doppler and spectral tracing, compression and augmentation techniques were us ed. FINDINGS: RIGHT LEG: There is normal compressibility of the deep venous system from the inguinal region to the proximal ca lf. No echogenic clot is seen in the lumen of the common femoral, femoral, popliteal, and posterior tibial veins. There is a normal response of the venous system to proximal and distal augmentation an d respiration. LEFT LEG: There is normal compressibility of the deep venous system from the inguinal region to the proximal ca lf. No echogenic clot is seen in the lumen of the common femoral, femoral, popliteal, and posterior tibial veins. There is a normal response of the venous system to proximal and distal augmentation an d respiration. CONCLUSION: Normal examination. Atilio Dunham MD on May 23, 2017 at 12:57 Board Certified Radiologist. This report was verified electronically.
--- NOTE | 2017-05-23 13:07 | EKG ---
Date Performed: 05/23/2017 Time Performed: 07:21:02 PTAGE: 76 years EKG: Sinus rhythm WITH OCCASIONAL SUPRAVENTRICULAR PREMATURE COMPLEXES RIGHT BUNDLE BRANCH BLOCK LEFT ANTERIOR FASCICU LAR BLOCK ABNORMAL ECG PREVIOUS TRACING : 02/27/2017 10.49 DOCTOR: Singh Medina Interpretating Date/Time 05/23/2017 13:04:03
--- NOTE | 2017-05-23 14:35 | MB ---
cc: Aleksandr Yo MD DATE: 05/23/2017 Abelardo is a very pleasant 76-year-old gentleman with history of COPD. He presents with severe shortness of breath. He does admit to some chest tightness. He is currently resting comfortably in no acute distress. Denies fever, chills, cough, GI or bleeding, PND, orthopnea, syncope, or dizziness. PAST MEDICAL HISTORY: Per his present illness. Past medical history includes polycythemia, arrhythmia, history of TURP, GERD, cataract surgery, salivary gland cyst removal. Patient had a left heart catheterization on 11/10/2015, which showed nonobstructive disease. Echocardiogram, 02/02/2017, EF 60% to 65%. SOCIAL HISTORY: Denies tobacco or alcohol use. ALLERGIES: SHELLFISH, IPRATROPIUM, , WALNUTS. MEDICATIONS PRIOR TO ADMISSION: Prednisone 20 mg daily, potassium chloride ER, Lasix 20 mg daily, DuoNeb, Cartia extended release 120 daily, Ventolin. MEDICATIONS IN THE HOSPITAL: Pantoprazole 40 mg daily, Aspirin 325 daily, diltiazem 120 mg daily, prednisone 5 mg daily, metoprolol 25 b.i.d., heparin bolus and drip, levalbuterol. PHYSICAL EXAMINATION: Blood pressure 113/51, pulse 92, sats 98% on 2 liters, respiratory rate 17, temperature 98.3. GENERAL: He is alert and oriented x 3, in no acute distress. NECK: Supple. No JVD. No bruit. CARDIOVASCULAR: S1, S2. No murmurs, rubs or gallops. LUNGS: Clear to auscultation bilaterally. ABDOMEN: Soft, nontender, nondistended with positive bowel sounds. EXTREMITIES: No lower extremity edema. Lower extremity ultrasound, normal examination. Chest x-ray shows hyperaeration of the lung ko characteristic of COPD, stable examination compared to the prior study with no acute parenchymal infiltrates. EKG shows normal sinus rhythm at 90 beats per minute, left anterior fascicular block, right bundle branch block, 1-[address]-segment depression in lead V1, V2, V3. LABORATORIES: White count 28.0, hemoglobin 15.1, hematocrit 42.2, platelet count 235. INR 1.0. Sodium 118, potassium 3.4, chloride 71, BUN 23, creatinine 1.13. Troponin is 0.93. BNP is 202. AST is 34, ALT 71. Total bilirubin is 1.2. INR is 1.0. FINAL DIAGNOSES: 1. Qzs-RQ-xuynidehe myocardial infarction. 2. Congestive heart failure. 3. Decompensated congestive heart failure. 4. Chronic obstructive pulmonary disease. 5. Hyponatremia. 6. Hypokalemia. 7. Elevated white count. 8. History of nonobstructive coronary artery disease. DISCUSSION: The patient's last heart catheterization was over 18 months ago. He has multiple risk factors. His troponin is elevated, and also he has decompensated congestive heart failure. Based on his history, suspect his troponin is elevated secondary to hypoxia; however, cannot rule out a primary ischemic etiology from obstruction. Based on his risk factors, I do think left heart catheterization is urgently indicated. I also think right heart catheterization is also indicated due to decompensated congestive heart failure. MD MELANIA Burroughs/NIMCO , 02:05 PM , 02:34 PM
[2017-05-23] MEDS ORDERED: diphenhydrAMINE HCL 50 MG/ML VIAL ONE (14:38)
[2017-05-23] MEDS ORDERED: HEPARIN-NS/PF FLUSH BAG 2,000 ML IV FLUSH ONE (14:39)
[2017-05-23] MEDS ORDERED: NITROGLYCERIN INJ 5 ML ONE (14:39)
[2017-05-23 15:03] LABS: BICARBONATE 33.9 MEQ/L (21.0-32.0); CALCIUM 8.5 MG/DL (8.5-10.1); CREATININE 1.15 MG/DL (0.60-1.30)
[2017-05-23 15:10] LABS: TROPONIN I 0.72 NG/ML (0.02-0.05)
--- NOTE | 2017-05-23 15:59 | MA ---
cc: Aleksandr Yo MD DATE: 05/23/2017 PROCEDURE PERFORMED: Right heart catheterization, left heart catheterization, left ventriculography, coronary angiography. INDICATION: Non-STEMI, congestive heart failure, cardiomyopathy. PROCEDURE: The patient was brought to the cardiac catheterization laboratory, prepped and draped in the usual sterile fashion. 10 mL of 1% lidocaine was used to locally anesthetize the right common femoral artery and femoral vein area. A 4-Portuguese sheath was placed in the right common femoral artery, a 5.5-Portuguese sheath placed in the right common femoral vein. Right heart catheterization was performed first with the following findings: Pulmonary capillary wedge pressure 21/19-16. PA pressure 35/17-25. RV pressure 32/17-19. RA pressure 16/15-13. On 2 liters, FA sat 99.3%, PA sat 66.0%, RA sat 66.3%. By [place] the cardiac output is 3.3 liters per minute, cardiac index 1.8 liters/meter2/minute. SVR 1647 dynes. Left heart catheterization was then performed with the following findings: LV pressure is 110/18-20. Ejection fraction is 40-45%. CORONARY ARTERIES: The right coronary is dominant. It has no significant obstructive disease, reference vessel diameter of 2.5 mm in diameter, tapering to about 2.25 mm in diameter in the distal vessel. The right PDA and JERSON are 1.5 mm vessels with no significant obstructive disease. The left main coronary artery has no significant disease angiographically. The left circumflex vessel has mild disease diffusely in the midsegment, up to 10% angiographically. The LAD is transapical. Minimal luminal irregularities in the mid to distal segment, up to 20% angiographically. CONCLUSION: 1. Mild 2-vessel coronary artery disease in a right dominant system, as detailed above. 2. Mild to moderate left ventricular systolic dysfunction at 40-45%. 3. Cardiac index of 1.8 liters per meter2 per minute. 3. Aortic pressure of 101/65-80. 4. Severe hyponatremia. 5. Severe hypokalemia, which has been corrected. RECOMMENDATIONS: 1. Recommend medical management of congestive heart failure. 2. I also recommend a renal consult given his severe hyponatremia. His condition is guarded. MD MELANIA Burroughs/JOEL , 03:40 PM , 03:59 PM
[2017-05-23] MEDS ORDERED: HEPARIN SODIUM - IV 10,000 UNITS/10 ML VIAL IV PUSH PRN ×2 (16:15)
--- NOTE | 2017-05-23 16:21 | CATHPROC ---
[facility] HIS Report Study Information Study Number Admission Scheduled Start Study Start [id number] May 23 2017 9:05AM 05/23/2017 May 23 2017 2:06PM [place] [facility] Cardiac Catheterization Admit Source Facility Department Emergency department [facility] - Digitizer Operator Physician and Clinical Staff Initial MD Yo, Aleksandr Chief Deputy Coroner Patsy Corley,RN Recorder Rigo BO, Bobo Christopher, Nmio,RT(R) Procedures Performed Procedure Location (Site) Vessel Name Coronary Angiograms LCA Left Coronary Coronary Angiograms RCA Right Coronary LV Gram-hand inj. LV LV Ventricle Equipment Time Food Beverage Attendant Description Size Mfg Part Number Used/Scraped CATHETER, FR5 SWAN JOSEPH 15:15 Bancha FR 5 [id number] *[id number] Used MONITOR TRANSDUCER, TRUWAVE [id number] 15:15 AL DUKE * Used W/STOCKCOCK *[id number] 538-420 *[id number] 538-420 *[id number] 538-421 *[id number] 15:15 MEDLINE INDUSTRIES PACK, CCL CUSTOM * Used *[id number] 15:15 Revisu PACER PEN, SKIN DUAL W/ RULER * Used *[id number] 15:15 YYoga MEDICAL SHEATH, FR5.5 PRELUDE 11CM FR 5.5 Used 038ACT# [id number] 15:15 [employer]Yoga MEDICAL WIRE, 3MMJ .035 180CM 180CM Used *[id number] 15:15 NAMIC MANIFOLD, 4 PORT * Used *[id number] 15:15 NYCOMED OMNIPAQUE, 350 MG, 150ML 150ML [id number] Used [id number] 15:15 HEWITT MEDICAL BLANKET,WARM AIR CCL * Used *[id number] 15:15 TERUMO MEDICAL SHEATH, FR4 TERUMO (10CM) FR 4 Used *[id number] History: Allergies Allergy Reaction Shellfish ipratropium Chantix walnut History: Risk Factors Family History of Hypertension Dyslipidemia Previous MA Previous Heart Failure Premature CAD Yes No No No No Prior Valve Prior PCI Prior PCIDate Surgery No Yes 02/19/2015 Cerebrovascular Peripheral Artery Chronic Lung On Dialysis Diabetes Disease Disease Disease No No No Yes No History: Stress Tests Stress or Imaging Studies Performed No History: Other Current Smoker Method Quit Packs a Day Years Used Pack Years No Cigarettes 2 Years Ago 1 55 55 Labs Hgb (g/dl) Hct (%) WBC (l/cumm) 11.60-17.00 35.00-51.00 4.00-11.00 15.1 42.2 28 Glucose (mg/dl) BUN (mg/dl) Creatinine (mg/dl) BUN:Creatinine (1:x) 74.00-106.00 7.00-18.00 0.50-1.30 10.00-20.00 97 23 1.1 20.9 Na (meq/l) K (meq/l) 136.00-145.00 3.50-5.10 117 4.2 Troponin I (ng/ml) CPK-MB (ng/ML) 0.02-0.05 0.50-3.60 0.9 Not Drawn Medication Medication Total Dose (Bolus/Oral) Medication Total Dosage/Unit 1% XYLOCAINE 10 mL Medications (Bolus/Oral) Medication Time Given Dosage/Unit Administered By Reason 1% XYLOCAINE 05/23/2017 3:10:06 PM 10 mL Aleksandr Yo 10 mL 1% XYLOCAINE given by Aleksandr Yo via Subcutaneous. Ordered by Aleksandr Yo. Initial Case Assessment Cardiovascular HR NIBP Chest Pain 75 92/63 0 Edema Present Moderate Circulatory - Right Pulses Dorsalis Pedis Femoral 1 1 Scale (0,1,2,3,4,d) Circulatory - Left Pulses Dorsalis Pedis Femoral 1 1 Scale (0,1,2,3,4,d) Neurological State Oriented to time-place- Alert Moves all extremities person Respiration - General SpO2 (%) 99 Chronological Log Time Study Chronological Log 14:35:50 Patient arrived via Bed. 14:39:01 Patient Name, D.O.B, / Armband Verified By R.N. 14:39:02 Consent signed by the physician and the patient and verified by the Digitizer Operator staff. 14:39:05 Pre-op and post- op instructions given; patient acknowledges understanding of instructions. 14:39:12 Patient has been NPO for More than 6Hrs. 14:57:29 Bilateral groins prepped with 2% chlorhexidine, and draped after a 3 minute waiting time. 14:57:36 History and physical on the chart or being dictated. 14:57:45 Doreen Prominences Protected Vitals capture started with the following parameters, Patient=Adult, Interval=5 min, Initial Pr eumepx=155 mmHg, 14:57:49 Deflation Rate=5 mmHg, Cuff placed on Unknown 14:58:01 A # 20 IV was noted in the Antecubital (right). Grade = 0 Assessment: Initial Case, HR=75 BPM, NIBP=92/63 mmhg, Chest Pain=0, Edema=Mod Right Pulses: Cecil Ped=1, Femoral=1 14:58:18 Left Pulses: Cecil Ped=1, Femoral=1 Neurological: State=Alert, Ox3, KUMAR Respiration: SpO2=99 % 14:59:05 HR=75 bpm, NIBP=92/63 mmhg, SpO2=98.0 %, Resp=23 B/min, Pain=0, Cherry=8, Velasquez=2 15:00:19 MD arrived. 15:00:51 Patient Warmer Placed on the Table. 15:03:07 Reference ECG taken 15:03:19 LG=715 bpm, NIBP=90/51 mmhg, ZmI4=564.0 %, Resp=27 B/min, Velasquez=2 15:06:52 Pressure channel 1 zeroed. 15:08:18 HR=98 bpm, NIBP=93/57 mmhg, SlI3=178.0 %, Resp=23 B/min, Velasquez=2 Time Out. Correct patient, correct procedure, correct physician, power injector loaded, or not loaded with contrast with 15:09:58 surgical team present. Time Out Concurred by MD and individual staff in procedure. 15:10:03 Case Start 15:10:06 10 mL 1% XYLOCAINE given by Aleksandr Yo via Subcutaneous. Ordered by Aleksandr Yo. 15:11:14 Pressure channel 1 zeroed. 15:13:19 HR=88 bpm, NIBP=92/58 mmhg, SpO2=99.0 %, Resp=20 B/min, Velasquez=2 15:18:18 JW=711 bpm, NIBP=92/60 mmhg, SpO2=98.0 %, Resp=20 B/min, Velasquez=2 15:19:43 Access site was Right Femoral Artery. 15:21:18 Access site was Right Femoral Vein. A SHEATH, FR5.5 PRELUDE 11CM FR 5.5 was advanced into the Fem Vein (right) using the Modified S casedinger 15:21:41 technique. 15:22:00 A SHEATH, FR4 TERUMO (10CM) FR 4 was advanced into the Fem Art (right) using the Modified S eldinger technique. 15:22:10 A catheter was inserted via ~SITE~ 15:22:13 A CATHETER, FR5 SWAN JOSEPH MONITOR FR 5 was inserted via Fem Vein (right) 15:22:35 Saturation: Site=Ao (Aorta) , O2=99.3 %, Hgb=15.1 gm/dl, Condition=Condition 1. Used in liz culation. 15:23:21 TV=409 bpm, NIBP=85/53 mmhg, BjC5=654.0 %, Resp=37 B/min, Velasquez=2 Recorded Pressure: PCW, HR=83, Condition=Condition 1 15:23:32 (Pulmonary Capillary Wedge) PCW Recorded Pressure: MPA, WJ=648, Condition=Condition 1 15:24:04 (Main Pulmonary Artery) MPA 15:24:29 Saturation: Site=PA (Pulmonary Artery) , O2=66.2 %, Hgb=15.1 gm/dl, Condition=Condition 1. Used in calculation. Recorded Pressure: RV, MC=303, Condition=Condition 1 15:25:01 (Right Ventricle) RV Recorded Pressure: RA, XX=682, Condition=Condition 1 15:25:16 (Right Atrium) RA 15:26:08 Erie Joseph Catheter Removed 15::17 Activated Clotting Time Drawn Recorded Pressure: LV, VG=662, Condition=Condition 1 15:27:58 (Left Ventricle) LV 95/56/45 Recorded Pressure: LV, Ao, HR=531, Condition=Condition 1 15:28:10 (Left Ventricle) LV /, (Aorta) Ao 51/41 15:28:20 HR=85 bpm, NIBP=92/55 mmhg, SpO2=99.0 %, Resp=34 B/min, Velasquez=2 A JR 4.0 INFINITI CATHETER FR 4 was advanced over a wire. OMNIPAQUE, 350 MG, 150ML 150ML was us ed for 15:28:45 injections. 15:28:53 The LV was manually injected with 10 cc's and visualized. OMNIPAQUE, 350 MG, 150ML 150ML us ed. 15:29:18 The RCA was injected and visualized at various angles. OMNIPAQUE, 350 MG, 150ML 150ML used . After removing the current catheter a JL 4.0 INFINITI CATHETER FR 4 was advanced over a WIRE, 3 MMJ .035 180CM 15:29:35 180CM. 15:29:54 The LCA was injected and visualized at various angles. OMNIPAQUE, 350 MG, 150ML 150ML used . 15:30:14 ACT (Normal Range 90-180) = 178 Recorded Pressure: Ao, ZH=555, Condition=Condition 1 15:30:39 (Aorta) Ao 101/65/80 15:31:21 Case End 15:33:21 HR=85 bpm, CORX=442/51 mmhg, SpO2=98.0 %, Resp=22 B/min, Velasquez=2 15:37:40 A Left and Right Heart Cath was performed. 15:38:24 HR=86 bpm, TDFN=299/56 mmhg, SpO2=98.0 %, Resp=29 B/min, Velasquez=2 15:40:56 Sheaths removed; pressure applied to access site. 15:43:25 HH=646 bpm, NIBP=97/48 mmhg, SpO2=97.0 %, Resp=39 B/min, Velasquez=2 15:48:24 BX=781 bpm, NIBP=88/53 mmhg, SpO2=99.0 %, Resp=15 B/min, Velasquez=2 15:50:00 Waiting for room assignment. 15:54:04 RX=308 bpm, NIBP=86/45 mmhg, LgF0=537.0 %, Resp=15 B/min, Velasquez=2 15:59:03 IF=851 bpm, NIBP=89/33 mmhg, Resp=16 B/min, Velasquez=2 16:03:58 HR=78 bpm, NIBP=98/66 mmhg, Resp=23 B/min, Velasquez=2 16:05:43 Sterile dressing applied to site 16:08:22 YL=781 bpm, NIBP=94/64 mmhg, Resp=17 B/min, Velasquez=2 16:09:49 Waiting for room assignment. 16:13:26 NIBP=88/49 mmhg 16:20:[address] [facility] End Study - Contrast Media Used In Study Contrast Total Opened (mL) Total Used (mL) Total Wasted (mL) Omnipaque 20 20 0 End Study - Maximum Contrast Load Max Contrast Load (mL) 295.5 End Study - Radiation Exposure Fluoro Time (minutes) 2.8 End Study - Patient Disposition Complications Transferred To Interventional Outcome No Telemetry Bed No attempt made
[2017-05-23 22:26] LABS: BICARBONATE 33.1 MEQ/L (21.0-32.0); CALCIUM 8.3 MG/DL (8.5-10.1); CREATININE 1.27 MG/DL (0.60-1.30)
[2017-05-23 22:32] LABS: TROPONIN I 0.76 NG/ML (0.02-0.05)
[2017-05-23] MEDS: METOPROLOL TARTRATE 25 MG TAB PO SCH (22:56)
[2017-05-23] MEDS: SODIUM CHLORIDE 1 GRAM TAB PO SCH (23:03)
[2017-05-24] VITALS (16 sets, daily range): BP systolic 104–137; BP diastolic 57–63; PULSE 75–92; RESP 21–46; TEMP 97.5–98.3; O2SAT 97–100
[2017-05-24] MEDS ORDERED: CHLORHEXIDINE GLUCONATE 2 % 1 PACK (2 CLOTHS)(extra cloths) TOPICAL PRN (00:15)
[2017-05-24] MEDS ORDERED: diphenhydrAMINE HCL 25 MG CAP PO ONE (01:15)
[2017-05-24 02:12] LABS: AUTOMATED NEUTROPHIL # 29.4 TH/MM3 (1.8-7.7); BASOPHIL # 0.1 TH/MM3 (0-0.2); BASOPHIL % 0.4 % (0.0-2.0); HEMATOCRIT 39.7 % (39.0-51.0); LYMPH % 2.9 % (9.0-44.0); LYMPHOCYTE # 0.9 TH/MM3 (1.0-4.8); MEAN CELL VOLUME 87.3 FL (80.0-100.0); MEAN CORPUSCULAR HEMOGLOBIN 30.8 PG (27.0-34.0); MEAN CORPUSCULAR HGB CONC 35.2 % (32.0-36.0); MEAN PLATELET VOLUME 6.6 FL (7.0-11.0); MONO % 3.4 % (0.0-8.0); MONOCYTE # 1.1 TH/MM3 (0-0.9); NEUT % 93.3 % (16.0-70.0); PLATELET COUNT 229 TH/MM3 (150-450); RED BLOOD COUNT 4.54 MIL/MM3 (4.50-5.90); RED CELL DISTRIBUTION WIDTH 15.3 % (11.6-17.2); WHITE BLOOD COUNT 31.6 TH/MM3 (4.0-11.0)
[2017-05-24 02:39] LABS: BICARBONATE 31.5 MEQ/L (21.0-32.0); CALCIUM 8.3 MG/DL (8.5-10.1); CREATININE 1.27 MG/DL (0.60-1.30)
[2017-05-24 02:42] LABS: BANDS 14 % (0-6); LYMPHOCYTES 2 % (9-44); METAMYELOCYTES 4 % (0-1); MONOCYTES 4 % (0-8); MYELOCYTES 1 % (0-0); NEUTROPHIL # MANUAL DIFF 29.7 TH/MM3 (1.8-7.7); POLYS (SEG NEUTROPHILS) 74 % (16-70); PROMYELOCYTES 1 % (0-0)
[2017-05-24] MEDS: CHLORHEXIDINE GLUCONATE 2 % 1 PACK (2 CLOTHS)(taper/protocol) TOPICAL SCH (04:00)
[2017-05-24] MEDS ORDERED: IOHEXOL 350 MG/ML 50 ML BTL (for Cath Lab) OTHER ONE (08:27)
[2017-05-24] MEDS: DILTIAZEM-CD 120 MG CAP ER PO SCH (08:37)
[2017-05-24] MEDS: PANTOPRAZOLE SOD 40 MG DELAYED RELEASE TAB PO SCH (08:37)
[2017-05-24] MEDS: predniSONE 5 MG TAB PO SCH (08:37)
[2017-05-24] MEDS: SODIUM CHLORIDE 1 GRAM TAB PO SCH ×2 (08:37→22:55)
[2017-05-24] MEDS: ASPIRIN EC 325 MG TABEC PO SCH (08:37)
[2017-05-24] MEDS: METOPROLOL TARTRATE 25 MG TAB PO SCH ×2 (08:41→22:55)
[2017-05-24] MEDS: SODIUM CHLORIDE 0.9% FLUSH 10 ML FLUSH IV FLUSH SCH ×2 (08:41→22:56)
--- NOTE | 2017-05-24 12:57 | PD.CARD.PN ---
Subjective Subjective Remarks more alert in nad Objective Medications Current Medications Medications (Trade) Dose Ordered Sig/Daniela Route Start Time Stop Time Status Last Admin (NS Flush) 2 ml UNSCH PRN IV FLUSH 05/23/17 09:00 (NS Flush) 2 ml BID IV FLUSH 05/23/17 09:00 05/24/17 08:41 (Narcan Inj) 0.4 mg UNSCH PRN IV PUSH 05/23/17 09:00 (Protonix) 40 mg DAILY PO 05/24/17 09:00 05/24/17 08:37 (Ecotrin Ec) 325 mg DAILY PO 05/24/17 09:00 05/24/17 08:37 (Xopenex Neb) 0.63 mg Q4HR NEB PRN NEB 05/23/17 11:45 (Cardizem Cd) 120 mg DAILY PO 05/24/17 09:00 05/24/17 08:37 (Lopressor) 25 mg BID PO 05/23/17 21:00 05/24/17 08:41 (Deltasone) 5 mg DAILY PO 05/24/17 09:00 05/24/17 08:37 (Sodium Chloride) 1 gm BID PO 05/23/17 21:00 05/24/17 08:37 Miscellaneous Information Patient in critical care unit? Ass... Q361D .XX 05/24/17 00:15 05/24/17 00:15 (Chlorhexidine 2% Cloth) 3 pack DAILY@04 TOPICAL 05/24/17 04:00 05/28/17 04:01 05/24/17 04:00 (Chlorhexidine 2% Cloth) 3 pack UNSCH PRN TOPICAL 05/24/17 00:15 05/29/17 00:14 Vital Signs / I&O Vital Signs Date Time Temp Pulse Resp B/P (MAP) Pulse Ox O2 Delivery O2 Flow Rate FiO2 05/24/17 12:00 77 05/24/17 10:00 81 05/24/17 08:04 99 Nasal Cannula 2.00 05/24/17 08:00 89 05/24/17 08:00 97.7 89 46 106/61 (76) 100 05/24/17 07:00 100 Nasal Cannula 2.00 98 05/24/17 06:00 92 05/24/17 04:02 97 Nasal Cannula 3.00 05/24/17 04:00 98.3 86 24 114/59 (77) 99 05/24/17 04:00 86 05/24/17 02:00 88 05/24/17 00:07 98 Nasal Cannula 2.00 05/24/17 00:00 98.3 92 36 137/63 (87) 100 05/24/17 00:00 92 05/23/17 22:00 88 05/23/17 20:00 98.3 83 58 93/55 (68) 100 05/23/17 20:00 83 05/23/17 19:00 97 Nasal Cannula 2.00 98 05/23/17 18:00 78 28 101/59 (73) 100 05/23/17 18:00 75 05/23/17 17:30 82 24 97/53 (68) 100 05/23/17 17:15 82 24 107/69 (82) 100 05/23/17 17:00 76 23 98/54 (69) 93 05/23/17 16:45 75 05/23/17 16:45 96 Nasal Cannula 2.00 05/23/17 16:45 98.1 75 24 88/51 (63) 96 05/23/17 14:27 I/O 05/23/17 05/23/17 05/23/17 05/24/17 05/24/17 05/24/17 07:00 15:00 23:00 07:00 15:00 23:00 Intake Total 450 ml 40 ml Output Total 100 ml 900 ml Balance 350 ml -860 ml Intake Oral 40 ml IV Total 450 ml Output Urine Total 100 ml 700 ml Stool Total 200 ml # Voids 4 # Bowel Movements 3 Laboratory GENERAL: SKIN: Warm and dry. HEAD: Normocephalic. EYES: No scleral icterus. No injection or drainage. NECK: Supple, trachea midline. No JVD or lymphadenopathy. CARDIOVASCULAR: Regular rate and rhythm without murmurs, gallops, or rubs. RESPIRATORY: Breath sounds equal bilaterally. No accessory muscle use. GASTROINTESTINAL: Abdomen soft, non-tender, nondistended. MUSCULOSKELETAL: No cyanosis, or edema. BACK: Nontender without obvious deformity. No CVA tenderness. Laboratory Tests Test 05/23/17 14:20 05/23/17 18:00 05/23/17 21:22 05/24/17 02:00 Blood Urea Nitrogen 24 MG/DL 30 MG/DL 32 MG/DL Creatinine 1.15 MG/DL 1.27 MG/DL 1.27 MG/DL Random Glucose 112 MG/DL 93 MG/DL 98 MG/DL Calcium Level 8.5 MG/DL 8.3 MG/DL 8.3 MG/DL Sodium Level 117 MEQ/L 121 MEQ/L 123 MEQ/L Potassium Level 4.3 MEQ/L 5.1 MEQ/L 4.9 MEQ/L Chloride Level 75 MEQ/L 81 MEQ/L 83 MEQ/L Carbon Dioxide Level 33.9 MEQ/L 33.1 MEQ/L 31.5 MEQ/L Anion Gap 8 MEQ/L 7 MEQ/L 9 MEQ/L Estimat Glomerular Filtration Rate 62 ML/MIN 55 ML/MIN 55 ML/MIN Total Creatine Kinase 30 U/L 24 U/L Troponin I 0.72 NG/ML 0.76 NG/ML Nasal Screen MRSA (PCR) MRSA NOT DETECTED White Blood Count 31.6 TH/MM3 Red Blood Count 4.54 MIL/MM3 Hemoglobin 14.0 GM/DL Hematocrit 39.7 % Mean Corpuscular Volume 87.3 FL Mean Corpuscular Hemoglobin 30.8 PG Mean Corpuscular Hemoglobin Concent 35.2 % Red Cell Distribution Width 15.3 % Platelet Count 229 TH/MM3 Mean Platelet Volume 6.6 FL Neutrophils (%) (Auto) 93.3 % Lymphocytes (%) (Auto) 2.9 % Monocytes (%) (Auto) 3.4 % Eosinophils (%) (Auto) 0.0 % Basophils (%) (Auto) 0.4 % Neutrophils # (Auto) 29.4 TH/MM3 Lymphocytes # (Auto) 0.9 TH/MM3 Monocytes # (Auto) 1.1 TH/MM3 Eosinophils # (Auto) 0.0 TH/MM3 Basophils # (Auto) 0.1 TH/MM3 CBC Comment AUTO DIFF Differential Total Cells Counted 100 Neutrophils % (Manual) 74 % Band Neutrophils % 14 % Lymphocytes % 2 % Monocytes % 4 % Neutrophils # (Manual) 29.7 TH/MM3 Metamyelocytes 4 % Myelocytes 1 % Promyelocytes 1 % Differential Comment FINAL DIFF MANUAL Platelet Estimate NORMAL Platelet Morphology Comment NORMAL Assessment and Plan Problem List: (1) Cardiomyopathy ICD Codes: I42.9 - Cardiomyopathy, unspecified (2) Elevated troponin I level ICD Codes: R79.89 - Other specified abnormal findings of blood chemistry Status: Acute (3) COPD (chronic obstructive pulmonary disease) ICD Codes: J44.9 - Chronic obstructive pulmonary disease, unspecified Status: Acute (4) Acute hyponatremia ICD Codes: E87.1 - Hypo-osmolality and hyponatremia Status: Acute (5) Acute hypokalemia ICD Codes: E87.6 - Hypokalemia Status: Acute (6) COPD with acute exacerbation ICD Codes: J44.1 - Chronic obstructive pulmonary disease with (acute) exacerbation Status: Acute (7) Atypical chest pain ICD Codes: R07.89 - Other chest pain Status: Acute (8) CAD (coronary artery disease) ICD Codes: I25.10 - Atherosclerotic heart disease of [place] coronary artery without angina pectoris Assessment and Plan 1.) CAD - nonobstructive, continue aspirin, lipitor 2.) Cardiomyopathy - continue lopressor, srinath and diuretics held due to hyponatremia, f/u bnp and echo Aleksandr Yo MD May 24, 2017 12:57
--- NOTE | 2017-05-24 16:12 | HHI.PR ---
Subjective Remarks Resting comfortably in bed No event overnight Denied chest and or short of breath No fever or chills 2D fuel technician at the bedside as well as the patient significant other I discussed with the nurse who is covering for the patient's regular nurse she told me about the patient being confused earlier however currently he is totally oriented Objective Vitals Vital Signs Date Time Temp Pulse Resp B/P (MAP) Pulse Ox O2 Delivery O2 Flow Rate FiO2 05/24/17 16:00 76 05/24/17 14:00 75 05/24/17 12:00 77 05/24/17 10:00 81 05/24/17 08:04 99 Nasal Cannula 2.00 05/24/17 08:00 89 05/24/17 08:00 97.7 89 46 106/61 (76) 100 05/24/17 07:00 100 Nasal Cannula 2.00 98 05/24/17 06:00 92 05/24/17 04:02 97 Nasal Cannula 3.00 05/24/17 04:00 98.3 86 24 114/59 (77) 99 05/24/17 04:00 86 05/24/17 02:00 88 05/24/17 00:07 98 Nasal Cannula 2.00 05/24/17 00:00 98.3 92 36 137/63 (87) 100 05/24/17 00:00 92 05/23/17 22:00 88 05/23/17 20:00 98.3 83 58 93/55 (68) 100 05/23/17 20:00 83 05/23/17 19:00 97 Nasal Cannula 2.00 98 05/23/17 18:00 78 28 101/59 (73) 100 05/23/17 18:00 75 05/23/17 17:30 82 24 97/53 (68) 100 05/23/17 17:15 82 24 107/69 (82) 100 05/23/17 17:00 76 23 98/54 (69) 93 05/23/17 16:45 75 05/23/17 16:45 96 Nasal Cannula 2.00 05/23/17 16:45 98.1 75 24 88/51 (63) 96 I/O 05/23/17 05/23/17 05/23/17 05/24/17 05/24/17 05/24/17 07:00 15:00 23:00 07:00 15:00 23:00 Intake Total 450 ml 40 ml Output Total 100 ml 900 ml Balance 350 ml -860 ml Intake Oral 40 ml IV Total 450 ml Output Urine Total 100 ml 700 ml Stool Total 200 ml # Voids 4 # Bowel Movements 3 Result Diagram: 05/24/1719905/24/17199 Objective Remarks GENERAL: This is a well-nourished, well-developed patient, in no apparent distress. SKIN: No rashes, warm and dry HEAD: Atraumatic. Normocephalic. EYES: Pupils equal round and reactive. Extraocular motions intact. No scleral icterus. ENT: Nose without bleeding, or drainage, Airway patent. NECK: Trachea midline. Supple CARDIOVASCULAR: Regular rate and rhythm without murmurs, gallops, or rubs. RESPIRATORY: Fair air entry bilaterally. No wheezes, rales, or rhonchi. GASTROINTESTINAL: Abdomen soft, non-tender, nondistended. Positive bowel sounds MUSCULOSKELETAL: Extremities without clubbing, cyanosis, or edema. Pedal pulses appreciated NEUROLOGICAL: Awake and alert. Moves all extremity. Normal speech.no focal neurological deficit A/P Assessment and Plan Elevated troponin Non-STEMI Short of breath/dyspnea Hyponatremia and hypokalemia Leukocytosis with left shift noted to chronic prednisone use 5 mg p.o. daily History of hypertension History of COPD History of BPH status post TURP History of non-obstructive CAD Plan Admit to telemetry floor Serial cardiac enzyme and EKG reviewed Appreciate Dr. Yo consultation went for heart cath clean Ordered osmolality serum and urine, check urine sodium Hold diuretic Monitor labs Wound care consult for sacral decubitus ulcer PT, DVT, GI prophylaxis Wyatt Lindsey MD May 24, 2017 16:12
--- NOTE | 2017-05-24 17:01 | ECHRPT ---
Indication: HEART FAILURE CONCLUSIONS Normal left ventricular size. Normal wall motion. The left ventricular systolic function is normal with an estimated ejection fraction in the range of 55-60%. Wall thickness is normal. There is trace tricuspid valve regurgitation. The estimated pulmonary arterial pressure is 25 mmHg. BP: 106 / 61 HR: 81 Rhythm: Sinus MEASUREMENTS (Male / Female) Normal Values Technical Quality:Fair 2D ECHO LVOT Diameter 2.2 cm Aortic Root Diameter 3.2 cm M-MODE AV Cusp Separation MM 1.9 cm DOPPLER AV Peak Velocity 89.6 cm/s AV Peak Gradient 3.2 mmHg AV Mean Gradient 2.0 mmHg AV Velocity Time Integral 14.3 cm LVOT Peak Velocity 47.4 cm/s LVOT Peak Gradient 0.9 mmHg LVOT Velocity Time Integral 6.4 cm AV Area Cont Eq vti 1.7 cm AV Area Cont Eq pk 2.0 cm Mitral E Point Velocity 50.3 cm/s Mitral A Point Velocity 57.3 cm/s Mitral E to A Ratio 0.9 LV E' Lateral Velocity 3.8 cm/s Mitral E to LV E' Lateral Ratio 13.2 LV E' Septal Velocity 4.0 cm/s Mitral E to LV E' Septal Ratio 12.6 TR Peak Velocity 265.0 cm/s TR Peak Gradient 28.1 mmHg Right Atrial Pressure 10.0 mmHg Pulmonary Artery Systolic Pressu 38.1 mmHg Right Ventricular Systolic Press 38.1 mmHg PV Peak Velocity 82.0 cm/s PV Peak Gradient 2.7 mmHg FINDINGS LEFT VENTRICLE Normal left ventricular size. Normal wall motion. The left ventricular systolic function is normal with an estimated ejection fraction in the range of 55-60%. Wall thickness is normal. RIGHT VENTRICLE Normal right ventricular size and systolic function. LEFT ATRIUM The left atrial size is normal. RIGHT ATRIUM The right atrial size is normal. ATRIAL SEPTUM The interatrial septum not well visualized. AORTA The aortic root and proximal ascending aorta are not well visualized. MITRAL VALVE Structurally normal mitral valve. No mitral valve stenosis or regurgitation. AORTIC VALVE Trileaflet aortic valve. No aortic valve stenosis or regurgitation. TRICUSPID VALVE There is trace tricuspid valve regurgitation. The estimated pulmonary arterial pressure is 25 mmHg. PULMONARY VALVE No pulmonary valve regurgitation or stenosis. VESSELS The inferior vena cava is normal in size. PERICARDIUM A prominent epicardial fat pad is present. Rafael Alvarez MD (Electronically Signed) Final Date:24 May 2017 17:00
[2017-05-24 17:58] LABS: BICARBONATE 30.5 MEQ/L (21.0-32.0); CALCIUM 8.5 MG/DL (8.5-10.1); CREATININE 1.25 MG/DL (0.60-1.30)
[2017-05-24 21:05] LABS: SODIUM,RANDOM URINE 8 MEQ/L
[2017-05-24 21:15] LABS: OSMOLALITY,URINE 544 MOSM/KG (300-1300)
[2017-05-24 21:19] LABS: BILIRUBIN, URINE NEG (NEG); BLOOD, URINE NEG (NEG); GLUCOSE,URINE NEG (NEG); HYALINE CAST, URINE 3 /lpf (RARE); KETONE, URINE 10 mg/dL (NEG); NITRITE,URINE NEG (NEG); SQUAMOUS EPITHELIAL CELL URINE <1 /hpf (0-5); URINE COLOR YELLOW (YELLW/STRAW); URINE LEUKOCYTE ESTERASE NEG (NEG)
[2017-05-24] MEDS: RESP: LEVALBUTEROL HYDROCHLORIDE 0.63 MG/3 ML NEB (PRN) NEB (21:48)
[2017-05-25] VITALS (14 sets, daily range): BP systolic 87–119; BP diastolic 54–64; PULSE 60–80; RESP 17–28; TEMP 98–99; O2SAT 97–100
[2017-05-25] MEDS: CHLORHEXIDINE GLUCONATE 2 % 1 PACK (2 CLOTHS)(taper/protocol) TOPICAL SCH (04:00)
[2017-05-25] MEDS: DILTIAZEM-CD 120 MG CAP ER PO SCH (09:30)
[2017-05-25] MEDS: predniSONE 5 MG TAB PO SCH (09:30)
[2017-05-25] MEDS: SODIUM CHLORIDE 1 GRAM TAB PO SCH (09:30)
[2017-05-25] MEDS: ASPIRIN EC 325 MG TABEC PO SCH (09:30)
[2017-05-25] MEDS: METOPROLOL TARTRATE 25 MG TAB PO SCH ×2 (09:31→21:30)
[2017-05-25] MEDS: PANTOPRAZOLE SOD 40 MG DELAYED RELEASE TAB PO SCH (09:31)
[2017-05-25] MEDS: RESP: LEVALBUTEROL HYDROCHLORIDE 0.63 MG/3 ML NEB (PRN) NEB ×3 (09:33→23:03)
--- NOTE | 2017-05-25 11:56 | EKG ---
Date Performed: 05/23/2017 Time Performed: 14:24:24 PTAGE: 76 years EKG: Sinus rhythm WITH SINUS ARRHYTHMIA MARKED LEFT AXIS DEVIATION LOW QRS VOLTAGE IN PRECORDIAL LEADS INCOMPLETE RIGH T BUNDLE BRANCH BLOCK MODERATE ST DEPRESSION ABNORMAL ECG PREVIOUS TRACING : 05/23/2017 07.21 Possible prior inferior wall myocardial infarction. Since t he prior tracing, there has been a slight improvement in the anterior ST segment depression, but othe rwise no serial change. DOCTOR: Anali Estrada Interpretating Date/Time 05/25/2017 11:55:08
--- NOTE | 2017-05-25 11:56 | EKG ---
Date Performed: 05/23/2017 Time Performed: 20:41:49 PTAGE: 76 years EKG: Sinus rhythm LOW QRS VOLTAGE POSSIBLE RIGHT VENTRICULAR CONDUCTION DELAY INFERIOR MYOCARDIAL INFARCTION , OF INDE TERMINATE AGE WITH POSTERIOR EXTENSION ABNORMAL ECG PREVIOUS TRACING : 05/23/2017 14.24 Since the most recent tracing, there has been no significan t serial change. DOCTOR: Anali Estrada Interpretating Date/Time 05/25/2017 11:55:40
--- NOTE | 2017-05-25 12:14 | PD.CONS ---
[facility] Service Nephrology Consult Requested By Reason for Consult Hyponatremia Primary Care Physician Jason Garrett MD History of Present Illness This is a very quiet and soft spoken 76 y/o male. He was admitted for COPD exacerbation two days ago. His hx of notable for HTN, CAD, CHF. He had elevated troponin on arrival and cardiology has been following, he had a cardiac cath that showed EF 40-45%, no stents were placed. His sodium on arrival was 118, improved gradually to 126 today. Looking back in February he mostly ran 135-137, but had one reading of 132. He is on NaCl tabs BID here and has not been on IVF. At home he was on Lasix but reports poor PO intake as he was not feeling well. His renal function is preserved. Urine studies show urine sodium level of 8. We were consulted to assist with management. (Nimo Beatty) Review of Systems Constitutional: COMPLAINS OF: Fatigue, Change in appetite, DENIES: Fever, Weight gain, Weight loss Gastrointestinal: COMPLAINS OF: Abdominal pain, Nausea, DENIES: Black stools, Bloody stools, Constipation, Diarrhea (Nimo Beatty) Past Family Social History Allergies: Coded Allergies: shellfish derived (Unverified Allergy, Severe, abd pain, n/v/d, 05/23/17) ipratropium (Unverified Allergy, Intermediate, "ANXIETY, NERVOUSNESS", 05/23) varenicline (Unverified Allergy, Intermediate, UNABLE TO STATE A SPECIFIC ALLERGIC REACTION--STATES HE HAD, 05/23/17) walnut (Unverified Allergy, Intermediate, NERVOUSNESS, ANXIETY, 05/23/17) Past Medical History HTN A fib CAD COPD not on oxygen BPH Past Surgical History turp= 4 yrs ago coronary angiogram oct 2015 non obstructive cad 2013 cataract sx 2005 salivary gland sx 2001 retinal detachment Reported Medications Prednisone 20 Mg Tab 20 Mg PO DAILY Potassium Chloride ER (Potassium Chloride) 10 Meq Cap 10 Meq PO DAILY Lasix (Furosemide) 20 Mg Tab 20 Mg PO DAILY Duoneb (Ipratropium-Albuterol Neb) 0.5-2.5 Mg/3 Ml Neb 1 Nebule INH QID Cartia Xt (Diltiazem ER 24 HR) 120 Mg Caper 120 Mg PO DAILY Ventolin Hfa 18 GM Inh (Albuterol Sulfate) 90 Mcg/Act Aer 2 Puff INH Q4H PRN Active Ordered Medications Current Medications Medications (Trade) Dose Ordered Sig/Daniela Route Start Time Stop Time Status Last Admin (NS Flush) 2 ml UNSCH PRN IV FLUSH 05/23/17 09:00 (NS Flush) 2 ml BID IV FLUSH 05/23/17 09:00 05/24/17 22:56 (Narcan Inj) 0.4 mg UNSCH PRN IV PUSH 05/23/17 09:00 (Protonix) 40 mg DAILY PO 05/24/17 09:00 05/25/17 09:31 (Ecotrin Ec) 325 mg DAILY PO 05/24/17 09:00 05/25/17 09:30 (Xopenex Neb) 0.63 mg Q4HR NEB PRN NEB 05/23/17 11:45 05/25/17 09:33 (Cardizem Cd) 120 mg DAILY PO 05/24/17 09:00 05/25/17 09:30 (Lopressor) 25 mg BID PO 05/23/17 21:00 05/25/17 09:31 (Deltasone) 5 mg DAILY PO 05/24/17 09:00 05/25/17 09:30 (Sodium Chloride) 1 gm BID PO 05/23/17 21:00 05/25/17 09:30 Miscellaneous Information Patient in critical care unit? Ass... 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 Full code (Nimo Beatty) Physical Exam Vital Signs Vital Signs Date Time Temp Pulse Resp B/P (MAP) Pulse Ox O2 Delivery O2 Flow Rate FiO2 05/25/17 10:00 73 05/25/17 08:00 98.0 66 18 113/58 (76) 97 05/25/17 08:00 73 05/25/17 07:21 98 Nasal Cannula 2.00 05/25/17 07:00 100 Nasal Cannula 2.00 98 05/25/17 06:00 73 05/25/17 04:00 98.0 65 17 87/56 (66) 100 05/25/17 04:00 65 05/25/17 02:00 72 05/25/17 00:00 77 05/25/17 00:00 98.2 77 28 119/58 (78) 100 05/24/17 22:00 84 05/24/17 21:48 100 Nasal Cannula 2.00 05/24/17 20:00 98.1 83 31 109/63 (78) 100 05/24/17 20:00 83 05/24/17 19:00 100 Nasal Cannula 2.00 98 05/24/17 18:00 82 05/24/17 16:00 97.5 76 21 116/57 (76) 100 05/24/17 16:00 76 05/24/17 14:00 75 Physical Exam Elderly male On oxygen, lungs with exp wheezing, no coughing S1/S2, reg rate (80s) and rhythm Abd soft but tender Ext without edema Skin intact Laboratory Laboratory Tests Test 05/24/17 16:46 05/24/17 20:35 05/25/17 05:37 Blood Urea Nitrogen 41 Creatinine 1.25 Random Glucose 76 Calcium Level 8.5 Sodium Level 126 Potassium Level 4.6 Chloride Level 85 Carbon Dioxide Level 30.5 Anion Gap 11 Estimat Glomerular Filtration Rate 56 Serum Osmolality 274 Thyroid Stimulating Hormone 3rd Gen 1.470 Urine Color YELLOW Urine Turbidity CLEAR Urine pH 5.0 Urine Specific [place] 1.023 Urine Protein NEG Urine Glucose (UA) NEG Urine Ketones 10 Urine Occult Blood NEG Urine Nitrite NEG Urine Bilirubin NEG Urine Urobilinogen LESS THAN 2.0 Urine Leukocyte Esterase NEG Urine RBC 1 Urine WBC 1 Urine Squamous Epithelial Cells <1 Urine Hyaline Casts 3 Microscopic Urinalysis Comment CULT NOT INDICATED Urine Osmolality 544 Urine Random Sodium 8 B-Type Natriuretic Peptide 199 Date/Time Source Procedure Growth Status 05/23/17 09:45 Blood Peripheral Aerobic Blood Culture - Preliminary NO GROWTH IN 2 DAYS Resulted 05/23/17 09:45 Blood Peripheral Anaerobic Blood Culture - Preliminary NO GROWTH IN 2 DAYS Resulted 05/23/17 07:30 Nasal Washing Influenza Types A,B Antigen (KECIA) - Final NEGATIVE FOR FLU A AND B ANTIGEN.... Complete (Nimo Beatty) Result Diagram: 05/24/17 0200 05/24/17 1646 Imaging Last 72 hours Impressions Chest X-Ray 05/23/17 0714 Signed Impressions: Service Date/Time: Tuesday, May 23, 2017 07:42 - CONCLUSION: 1. Hyperaeration of the lung ko characteristic of COPD. 2. Stable examination compared to the prior study with no acute parenchymal infiltrates. Alexis White MD Lower Extremity Ultrasound 05/23/17 0000 Signed Impressions: Service Date/Time: Tuesday, May 23, 2017 11:38 - CONCLUSION: Normal examination. Atilio Dunham MD (Nimo eBatty) Assessment and Plan Problem List: (1) Acute hyponatremia ICD Codes: E87.1 - Hypo-osmolality and hyponatremia Status: Acute Plan: In February his serum Na ran 135-137, but later dropped to 132. This admission sodium level was 118, improved to 126 today He has been on NaCl tabs since 05/23. Low urine sodium suggesting hypovolemic hyponatremia Noted hx of CHF On Lasix at home although PO intake was quite low, was not feeling well At this time would suggest stopping NaCl given CHF hx Obtain uric acid and TSH to complete the work up Continue to hold loop diuretics Repeat labs Consider cautious IVF trial (2) Elevated troponin I level ICD Codes: R79.89 - Other specified abnormal findings of blood chemistry Status: Acute Plan: s/p cardiac cath, medical management cardiology following (3) COPD with acute exacerbation ICD Codes: J44.1 - Chronic obstructive pulmonary disease with (acute) exacerbation Status: Acute Plan: On steroids and oxygen Management per medical team (Nimo Beatty) Assessment and Plan patient was seen and examined. Low urine Na and high urine osmolality is suggestive of hypovolemic hyponatremia. At this time, hyponatremia has improved. We will monitor. If hyponatremia persists, consider repeating Urine Na and urine osmolality. (Dimitri Cruz MD) Nimo Beatty May 25, 2017 12:14 Dimitri Cruz MD May 25, 2017 14:58
[2017-05-25 15:20] LABS: AUTOMATED NEUTROPHIL # 27.8 TH/MM3 (1.8-7.7); BASOPHIL # 0.1 TH/MM3 (0-0.2); BASOPHIL % 0.4 % (0.0-2.0); EOSINOPHIL % 0.1 % (0.0-4.0); HEMATOCRIT 37.7 % (39.0-51.0); HEMOGLOBIN 13.1 GM/DL (13.0-17.0); LYMPH % 2.1 % (9.0-44.0); LYMPHOCYTE # 0.6 TH/MM3 (1.0-4.8); MEAN CELL VOLUME 88.7 FL (80.0-100.0); MEAN CORPUSCULAR HEMOGLOBIN 30.8 PG (27.0-34.0); MEAN CORPUSCULAR HGB CONC 34.7 % (32.0-36.0); MEAN PLATELET VOLUME 7.2 FL (7.0-11.0); MONO % 3.9 % (0.0-8.0); MONOCYTE # 1.2 TH/MM3 (0-0.9); NEUT % 93.5 % (16.0-70.0); PLATELET COUNT 223 TH/MM3 (150-450); RED BLOOD COUNT 4.25 MIL/MM3 (4.50-5.90); RED CELL DISTRIBUTION WIDTH 15.4 % (11.6-17.2); WHITE BLOOD COUNT 29.8 TH/MM3 (4.0-11.0)
[2017-05-25 15:57] LABS: BICARBONATE 30.5 MEQ/L (21.0-32.0); C-REACTIVE PROTEIN 0.46 MG/DL (0.00-0.30); CALCIUM 8.2 MG/DL (8.5-10.1); CREATININE 1.04 MG/DL (0.60-1.30)
[2017-05-25 16:10] LABS: BANDS 9 % (0-6); CORRECTED NUCLEATED RBC 1 /100 WBC (0-0); LYMPHOCYTES 2 % (9-44); METAMYELOCYTES 3 % (0-1); MONOCYTES 1 % (0-8); MYELOCYTES 3 % (0-0); NEUTROPHIL # MANUAL DIFF 28.6 TH/MM3 (1.8-7.7); NUCLEATED RED BLOOD CELL 1 (0-0); POLYS (SEG NEUTROPHILS) 80 % (16-70); PROMYELOCYTES 1 % (0-0)
--- NOTE | 2017-05-25 16:25 | PD.CARD.PN ---
Subjective Subjective Remarks more alert in nad Objective Medications Current Medications Medications (Trade) Dose Ordered Sig/Daniela Route Start Time Stop Time Status Last Admin (NS Flush) 2 ml UNSCH PRN IV FLUSH 05/23/17 09:00 (NS Flush) 2 ml BID IV FLUSH 05/23/17 09:00 05/24/17 22:56 (Narcan Inj) 0.4 mg UNSCH PRN IV PUSH 05/23/17 09:00 (Protonix) 40 mg DAILY PO 05/24/17 09:00 05/25/17 09:31 (Ecotrin Ec) 325 mg DAILY PO 05/24/17 09:00 05/25/17 09:30 (Xopenex Neb) 0.63 mg Q4HR NEB PRN NEB 05/23/17 11:45 05/25/17 15:13 (Cardizem Cd) 120 mg DAILY PO 05/24/17 09:00 05/25/17 09:30 (Lopressor) 25 mg BID PO 05/23/17 21:00 05/25/17 09:31 (Deltasone) 5 mg DAILY PO 05/24/17 09:00 05/25/17 09:30 Miscellaneous Information Patient in critical care unit? Ass... Q361D .XX 05/24/17 00:15 05/24/17 00:15 (Chlorhexidine 2% Cloth) 3 pack DAILY@04 TOPICAL 05/24/17 04:00 05/28/17 04:01 05/24/17 04:00 (Chlorhexidine 2% Cloth) 3 pack UNSCH PRN TOPICAL 05/24/17 00:15 05/29/17 00:14 Vital Signs / I&O Vital Signs Date Time Temp Pulse Resp B/P (MAP) Pulse Ox O2 Delivery O2 Flow Rate FiO2 05/25/17 14:00 77 05/25/17 12:00 98.0 60 18 115/56 (75) 97 05/25/17 12:00 73 05/25/17 10:00 73 05/25/17 08:00 98.0 66 18 113/58 (76) 97 05/25/17 08:00 73 05/25/17 07:21 98 Nasal Cannula 2.00 05/25/17 07:00 100 Nasal Cannula 2.00 98 05/25/17 06:00 73 05/25/17 04:00 98.0 65 17 87/56 (66) 100 05/25/17 04:00 65 05/25/17 02:00 72 05/25/17 00:00 77 05/25/17 00:00 98.2 77 28 119/58 (78) 100 05/24/17 22:00 84 05/24/17 21:48 100 Nasal Cannula 2.00 05/24/17 20:00 98.1 83 31 109/63 (78) 100 05/24/17 20:00 83 05/24/17 19:00 100 Nasal Cannula 2.00 98 05/24/17 18:00 82 I/O 05/24/17 05/24/17 05/24/17 05/25/17 05/25/17 05/25/17 07:00 15:00 23:00 07:00 15:00 23:00 Intake Total 40 ml 60 ml 200 ml Output Total 900 ml 75 ml 401 ml Balance -860 ml -15 ml -201 ml Intake Oral 40 ml 60 ml 200 ml Output Urine Total 700 ml 75 ml 400 ml Stool Total 200 ml 1 ml # Voids 4 1 2 # Bowel Movements 3 0 1 Physical Exam GENERAL: SKIN: Warm and dry. HEAD: Normocephalic. EYES: No scleral icterus. No injection or drainage. NECK: Supple, trachea midline. No JVD or lymphadenopathy. CARDIOVASCULAR: Regular rate and rhythm without murmurs, gallops, or rubs. RESPIRATORY: Breath sounds equal bilaterally. No accessory muscle use. GASTROINTESTINAL: Abdomen soft, non-tender, nondistended. MUSCULOSKELETAL: No cyanosis, or edema. BACK: Nontender without obvious deformity. No CVA tenderness. Laboratory Laboratory Tests Test 05/24/17 16:46 05/24/17 20:35 05/25/17 05:37 05/25/17 14:36 Blood Urea Nitrogen 41 MG/DL 44 MG/DL Creatinine 1.25 MG/DL 1.04 MG/DL Random Glucose 76 MG/DL 135 MG/DL Calcium Level 8.5 MG/DL 8.2 MG/DL Sodium Level 126 MEQ/L 129 MEQ/L Potassium Level 4.6 MEQ/L 3.7 MEQ/L Chloride Level 85 MEQ/L 88 MEQ/L Carbon Dioxide Level 30.5 MEQ/L 30.5 MEQ/L Anion Gap 11 MEQ/L 11 MEQ/L Estimat Glomerular Filtration Rate 56 ML/MIN 69 ML/MIN Serum Osmolality 274 MOSM/KG Thyroid Stimulating Hormone 3rd Gen 1.470 uIU/ML Urine Color YELLOW Urine Turbidity CLEAR Urine pH 5.0 Urine Specific [place] 1.023 Urine Protein NEG mg/dL Urine Glucose (UA) NEG mg/dL Urine Ketones 10 mg/dL Urine Occult Blood NEG Urine Nitrite NEG Urine Bilirubin NEG Urine Urobilinogen LESS THAN 2.0 MG/DL Urine Leukocyte Esterase NEG Urine RBC 1 /hpf Urine WBC 1 /hpf Urine Squamous Epithelial Cells <1 /hpf Urine Hyaline Casts 3 /lpf Microscopic Urinalysis Comment CULT NOT INDICATED Urine Osmolality 544 MOSM/KG Urine Random Sodium 8 MEQ/L B-Type Natriuretic Peptide 199 PG/ML White Blood Count 29.8 TH/MM3 Red Blood Count 4.25 MIL/MM3 Hemoglobin 13.1 GM/DL Hematocrit 37.7 % Mean Corpuscular Volume 88.7 FL Mean Corpuscular Hemoglobin 30.8 PG Mean Corpuscular Hemoglobin Concent 34.7 % Red Cell Distribution Width 15.4 % Platelet Count 223 TH/MM3 Mean Platelet Volume 7.2 FL Neutrophils (%) (Auto) 93.5 % Lymphocytes (%) (Auto) 2.1 % Monocytes (%) (Auto) 3.9 % Eosinophils (%) (Auto) 0.1 % Basophils (%) (Auto) 0.4 % Neutrophils # (Auto) 27.8 TH/MM3 Lymphocytes # (Auto) 0.6 TH/MM3 Monocytes # (Auto) 1.2 TH/MM3 Eosinophils # (Auto) 0.0 TH/MM3 Basophils # (Auto) 0.1 TH/MM3 CBC Comment AUTO DIFF Differential Total Cells Counted 100 Neutrophils % (Manual) 80 % Band Neutrophils % 9 % Lymphocytes % 2 % Monocytes % 1 % Eosinophils % 1 % Neutrophils # (Manual) 28.6 TH/MM3 Metamyelocytes 3 % Myelocytes 3 % Promyelocytes 1 % Nucleated Red Blood Cells 1 /100 WBC Differential Comment FINAL DIFF MANUAL Platelet Estimate NORMAL Platelet Morphology Comment NORMAL Erythrocyte Sedimentation Rate 5 mm/hr Uric Acid 8.6 MG/DL C-Reactive Protein 0.46 MG/DL Assessment and Plan Problem List: (1) Cardiomyopathy ICD Codes: I42.9 - Cardiomyopathy, unspecified (2) Elevated troponin I level ICD Codes: R79.89 - Other specified abnormal findings of blood chemistry Status: Acute (3) COPD (chronic obstructive pulmonary disease) ICD Codes: J44.9 - Chronic obstructive pulmonary disease, unspecified Status: Acute (4) Acute hyponatremia ICD Codes: E87.1 - Hypo-osmolality and hyponatremia Status: Acute (5) Acute hypokalemia ICD Codes: E87.6 - Hypokalemia Status: Acute (6) COPD with acute exacerbation ICD Codes: J44.1 - Chronic obstructive pulmonary disease with (acute) exacerbation Status: Acute (7) Atypical chest pain ICD Codes: R07.89 - Other chest pain Status: Acute (8) CAD (coronary artery disease) ICD Codes: I25.10 - Atherosclerotic heart disease of [place] coronary artery without angina pectoris Assessment and Plan 1.) CAD - nonobstructive, continue aspirin, lipitor 2.) Cardiomyopathy - continue lopressor, srinath and diuretics held due to hyponatremia, f/u bnp and echo Aleksandr Yo MD May 25, 2017 16:25
--- NOTE | 2017-05-25 18:34 | HHI.PR ---
Subjective Remarks "I feel terrible " ""hard to breath " no f/c Objective Vitals Vital Signs Date Time Temp Pulse Resp B/P (MAP) Pulse Ox O2 Delivery O2 Flow Rate FiO2 05/25/17 14:00 77 05/25/17 12:00 98.0 60 18 115/56 (75) 97 05/25/17 12:00 73 05/25/17 10:00 73 05/25/17 08:00 98.0 66 18 113/58 (76) 97 05/25/17 08:00 73 05/25/17 07:21 98 Nasal Cannula 2.00 05/25/17 07:00 100 Nasal Cannula 2.00 98 05/25/17 06:00 73 05/25/17 04:00 98.0 65 17 87/56 (66) 100 05/25/17 04:00 65 05/25/17 02:00 72 05/25/17 00:00 77 05/25/17 00:00 98.2 77 28 119/58 (78) 100 05/24/17 22:00 84 05/24/17 21:48 100 Nasal Cannula 2.00 05/24/17 20:00 98.1 83 31 109/63 (78) 100 05/24/17 20:00 83 05/24/17 19:00 100 Nasal Cannula 2.00 98 I/O 05/24/17 05/24/17 05/24/17 05/25/17 05/25/17 05/25/17 07:00 15:00 23:00 07:00 15:00 23:00 Intake Total 40 ml 60 ml 200 ml Output Total 900 ml 75 ml 401 ml Balance -860 ml -15 ml -201 ml Intake Oral 40 ml 60 ml 200 ml Output Urine Total 700 ml 75 ml 400 ml Stool Total 200 ml 1 ml # Voids 4 1 2 # Bowel Movements 3 0 1 Result Diagram: 05/25/17 1436 05/25/17 1436 Objective Remarks GENERAL: This is a well-nourished, well-developed patient, in no apparent distress. SKIN: No rashes, warm and dry HEAD: Atraumatic. Normocephalic. EYES: Pupils equal round and reactive. Extraocular motions intact. No scleral icterus. ENT: Nose without bleeding, or drainage, Airway patent. NECK: Trachea midline. Supple CARDIOVASCULAR: Regular rate and rhythm without murmurs, gallops, or rubs. RESPIRATORY: Fair air entry bilaterally. No wheezes, rales, or rhonchi. GASTROINTESTINAL: Abdomen soft, non-tender, nondistended. Positive bowel sounds MUSCULOSKELETAL: Extremities without clubbing, cyanosis, or edema. Pedal pulses appreciated NEUROLOGICAL: Awake and alert. Moves all extremity. Normal speech.no focal neurological deficit A/P Assessment and Plan Elevated troponin Non-STEMI Short of breath/dyspnea Hyponatremia and hypokalemia Leukocytosis with left shift noted , ? chronic prednisone use 5 mg p.o. daily History of hypertension History of COPD History of BPH status post TURP History of non-obstructive CAD Plan: 05/25: still with leukocytosis, no clear source of infx , consult ID , check ESR/ CRP, will start levaquin appreciate renal consult >cont hold diuretics , fluid restriction, dc ivf Serial cardiac enzyme and EKG reviewed cardiology ff >went for heart cath >clean Ordered osmolality serum and urine, check urine sodium Hold diuretic Monitor labs Wound care consult for sacral decubitus ulcer PT, DVT, GI prophylaxis Wyatt Lindsey MD May 25, 2017 18:34
[2017-05-25] MEDS ORDERED: VANCOMYCIN INJ 1,000 MG in SODIUM CHLOR 0.9% 250 ML INJ 250 ML IV ONE (18:45)
[2017-05-25] MEDS: SODIUM CHLORIDE 0.9% FLUSH 10 ML FLUSH IV FLUSH SCH ×2 (21:29→21:30)
[2017-05-25] MEDS: LEVOFLOXACIN 500 MG PREMIX INJ 100 ML IV SCH (21:30)
[2017-05-26] VITALS (16 sets, daily range): BP systolic 100–121; BP diastolic 56–66; PULSE 67–90; RESP 15–26; TEMP 98–98.6; O2SAT 99–100
[2017-05-26] MEDS: CHLORHEXIDINE GLUCONATE 2 % 1 PACK (2 CLOTHS)(taper/protocol) TOPICAL SCH (04:00)
[2017-05-26 06:21] LABS: AUTOMATED NEUTROPHIL # 26.3 TH/MM3 (1.8-7.7); BASOPHIL # 0.1 TH/MM3 (0-0.2); BASOPHIL % 0.2 % (0.0-2.0); EOSINOPHIL # 0.1 TH/MM3 (0-0.4); EOSINOPHIL % 0.2 % (0.0-4.0); HEMATOCRIT 38.1 % (39.0-51.0); LYMPH % 3.5 % (9.0-44.0); MEAN CELL VOLUME 89.4 FL (80.0-100.0); MEAN CORPUSCULAR HEMOGLOBIN 30.4 PG (27.0-34.0); MEAN PLATELET VOLUME 7.2 FL (7.0-11.0); MONO % 4.8 % (0.0-8.0); MONOCYTE # 1.4 TH/MM3 (0-0.9); NEUT % 91.3 % (16.0-70.0); PLATELET COUNT 220 TH/MM3 (150-450); RED BLOOD COUNT 4.26 MIL/MM3 (4.50-5.90); RED CELL DISTRIBUTION WIDTH 15.3 % (11.6-17.2); WHITE BLOOD COUNT 28.8 TH/MM3 (4.0-11.0)
[2017-05-26 06:28] LABS: BICARBONATE 32.3 MEQ/L (21.0-32.0); CALCIUM 8.4 MG/DL (8.5-10.1); CREATININE 0.96 MG/DL (0.60-1.30)
[2017-05-26 07:19] LABS: BANDS 10 % (0-6); LYMPHOCYTES 4 % (9-44); METAMYELOCYTES 1 % (0-1); MONOCYTES 8 % (0-8); MYELOCYTES 8 % (0-0); NEUTROPHIL # MANUAL DIFF 25.3 TH/MM3 (1.8-7.7); POLYS (SEG NEUTROPHILS) 69 % (16-70)
[2017-05-26] MEDS: PANTOPRAZOLE SOD 40 MG DELAYED RELEASE TAB PO SCH (08:19)
[2017-05-26] MEDS: predniSONE 5 MG TAB PO SCH (08:19)
[2017-05-26] MEDS: ASPIRIN EC 325 MG TABEC PO SCH (08:19)
[2017-05-26] MEDS: DILTIAZEM-CD 120 MG CAP ER PO SCH (08:19)
[2017-05-26] MEDS: SODIUM CHLORIDE 0.9% FLUSH 10 ML FLUSH IV FLUSH SCH ×2 (08:25→22:17)
[2017-05-26] MEDS: METOPROLOL TARTRATE 25 MG TAB PO SCH ×2 (08:25→22:14)
[2017-05-26] MEDS: RESP: LEVALBUTEROL HYDROCHLORIDE 0.63 MG/3 ML NEB (PRN) NEB ×3 (09:35→17:11)
--- NOTE | 2017-05-26 09:43 | PD.CARD.PN ---
Subjective Subjective Remarks asleep in nad Objective Medications Current Medications Medications (Trade) Dose Ordered Sig/Daniela Route Start Time Stop Time Status Last Admin (NS Flush) 2 ml UNSCH PRN IV FLUSH 05/23/17 09:00 (NS Flush) 2 ml BID IV FLUSH 05/23/17 09:00 05/26/17 08:25 (Narcan Inj) 0.4 mg UNSCH PRN IV PUSH 05/23/17 09:00 (Protonix) 40 mg DAILY PO 05/24/17 09:00 05/26/17 08:19 (Ecotrin Ec) 325 mg DAILY PO 05/24/17 09:00 05/26/17 08:19 (Xopenex Neb) 0.63 mg Q4HR NEB PRN NEB 05/23/17 11:45 05/26/17 09:35 (Cardizem Cd) 120 mg DAILY PO 05/24/17 09:00 05/26/17 08:19 (Lopressor) 25 mg BID PO 05/23/17 21:00 05/25/17 21:30 (Deltasone) 5 mg DAILY PO 05/24/17 09:00 05/26/17 08:19 Miscellaneous Information Patient in critical care unit? Ass... Q361D .XX 05/24/17 00:15 05/24/17 00:15 (Chlorhexidine 2% Cloth) 3 pack DAILY@04 TOPICAL 05/24/17 04:00 05/28/17 04:01 05/26/17 04:00 (Chlorhexidine 2% Cloth) 3 pack UNSCH PRN TOPICAL 05/24/17 00:15 05/29/17 00:14 Levofloxacin/ Dextrose 100 ml @ 100 mls/hr Q24H IV 05/25/17 20:00 05/25/17 21:30 Vital Signs / I&O Vital Signs Date Time Temp Pulse Resp B/P (MAP) Pulse Ox O2 Delivery O2 Flow Rate FiO2 05/26/17 09:36 100 Nasal Cannula 2.00 05/26/17 07:00 98 Nasal Cannula 2.00 98 05/26/17 06:00 72 05/26/17 04:00 68 05/26/17 04:00 98.6 68 15 114/56 (75) 100 05/26/17 02:00 69 05/26/17 00:00 98.0 75 17 107/62 (77) 99 05/26/17 00:00 75 05/25/17 23:04 100 Nasal Cannula 3.00 05/25/17 22:00 80 05/25/17 20:00 99.0 74 25 113/64 (80) 100 05/25/17 20:00 74 05/25/17 19:00 100 Nasal Cannula 2.00 98 05/25/17 18:00 77 05/25/17 16:00 77 05/25/17 16:00 98.0 76 18 104/54 (71) 97 05/25/17 14:00 77 05/25/17 12:00 98.0 60 18 115/56 (75) 97 05/25/17 12:00 73 05/25/17 10:00 73 I/O 05/25/17 05/25/17 05/25/17 05/26/17 05/26/17 05/26/17 07:00 15:00 23:00 07:00 15:00 23:00 Intake Total 200 ml 300 ml 300 ml Output Total 401 ml 620 ml 400 ml Balance -201 ml -320 ml -100 ml Intake Oral 200 ml 200 ml 300 ml IV Total 100 ml Output Urine Total 400 ml 620 ml 400 ml Stool Total 1 ml 0 ml # Voids 2 4 2 # Bowel Movements 1 1 0 Physical Exam GENERAL: SKIN: Warm and dry. HEAD: Normocephalic. EYES: No scleral icterus. No injection or drainage. NECK: Supple, trachea midline. No JVD or lymphadenopathy. CARDIOVASCULAR: Regular rate and rhythm without murmurs, gallops, or rubs. RESPIRATORY: Breath sounds equal bilaterally. No accessory muscle use. GASTROINTESTINAL: Abdomen soft, non-tender, nondistended. MUSCULOSKELETAL: No cyanosis, or edema. BACK: Nontender without obvious deformity. No CVA tenderness. Laboratory Laboratory Tests Test 05/25/17 14:36 05/26/17 04:37 White Blood Count 29.8 TH/MM3 28.8 TH/MM3 Red Blood Count 4.25 MIL/MM3 4.26 MIL/MM3 Hemoglobin 13.1 GM/DL 13.0 GM/DL Hematocrit 37.7 % 38.1 % Mean Corpuscular Volume 88.7 FL 89.4 FL Mean Corpuscular Hemoglobin 30.8 PG 30.4 PG Mean Corpuscular Hemoglobin Concent 34.7 % 34.0 % Red Cell Distribution Width 15.4 % 15.3 % Platelet Count 223 TH/MM3 220 TH/MM3 Mean Platelet Volume 7.2 FL 7.2 FL Neutrophils (%) (Auto) 93.5 % 91.3 % Lymphocytes (%) (Auto) 2.1 % 3.5 % Monocytes (%) (Auto) 3.9 % 4.8 % Eosinophils (%) (Auto) 0.1 % 0.2 % Basophils (%) (Auto) 0.4 % 0.2 % Neutrophils # (Auto) 27.8 TH/MM3 26.3 TH/MM3 Lymphocytes # (Auto) 0.6 TH/MM3 1.0 TH/MM3 Monocytes # (Auto) 1.2 TH/MM3 1.4 TH/MM3 Eosinophils # (Auto) 0.0 TH/MM3 0.1 TH/MM3 Basophils # (Auto) 0.1 TH/MM3 0.1 TH/MM3 CBC Comment AUTO DIFF AUTO DIFF Differential Total Cells Counted 100 100 Neutrophils % (Manual) 80 % 69 % Band Neutrophils % 9 % 10 % Lymphocytes % 2 % 4 % Monocytes % 1 % 8 % Eosinophils % 1 % Neutrophils # (Manual) 28.6 TH/MM3 25.3 TH/MM3 Metamyelocytes 3 % 1 % Myelocytes 3 % 8 % Promyelocytes 1 % Nucleated Red Blood Cells 1 /100 WBC Differential Comment FINAL DIFF MANUAL FINAL DIFF MANUAL Platelet Estimate NORMAL NORMAL Platelet Morphology Comment NORMAL NORMAL Erythrocyte Sedimentation Rate 5 mm/hr Blood Urea Nitrogen 44 MG/DL 36 MG/DL Creatinine 1.04 MG/DL 0.96 MG/DL Random Glucose 135 MG/DL 89 MG/DL Calcium Level 8.2 MG/DL 8.4 MG/DL Uric Acid 8.6 MG/DL Sodium Level 129 MEQ/L 130 MEQ/L Potassium Level 3.7 MEQ/L 3.4 MEQ/L Chloride Level 88 MEQ/L 89 MEQ/L Carbon Dioxide Level 30.5 MEQ/L 32.3 MEQ/L Anion Gap 11 MEQ/L 9 MEQ/L Estimat Glomerular Filtration Rate 69 ML/MIN 76 ML/MIN C-Reactive Protein 0.46 MG/DL Red Cell Morphology Comment NORMAL B-Type Natriuretic Peptide 207 PG/ML Assessment and Plan Problem List: (1) Cardiomyopathy ICD Codes: I42.9 - Cardiomyopathy, unspecified (2) Elevated troponin I level ICD Codes: R79.89 - Other specified abnormal findings of blood chemistry Status: Acute (3) COPD (chronic obstructive pulmonary disease) ICD Codes: J44.9 - Chronic obstructive pulmonary disease, unspecified Status: Acute (4) Acute hyponatremia ICD Codes: E87.1 - Hypo-osmolality and hyponatremia Status: Acute (5) Acute hypokalemia ICD Codes: E87.6 - Hypokalemia Status: Acute (6) COPD with acute exacerbation ICD Codes: J44.1 - Chronic obstructive pulmonary disease with (acute) exacerbation Status: Acute (7) Atypical chest pain ICD Codes: R07.89 - Other chest pain Status: Acute (8) CAD (coronary artery disease) ICD Codes: I25.10 - Atherosclerotic heart disease of telida coronary artery without angina pectoris Assessment and Plan 1.) CAD - nonobstructive, continue aspirin, lipitor 2.) Cardiomyopathy - continue lopressor, srinath and diuretics held due to hyponatremia, f/u bnp and echo 3.) Hyponatremia - improving Aleksandr Yo MD May 26, 2017 09:43
--- NOTE | 2017-05-26 11:15 | PD.ID.CON ---
History of Present Illness Consult Requested By Primary Care Physician Jason Garrett MD Diagnoses: Past Family Social History Allergies: Coded Allergies: shellfish derived (Unverified Allergy, Severe, abd pain, n/v/d, 05/23/17) ipratropium (Unverified Allergy, Intermediate, "ANXIETY, NERVOUSNESS", 05/23) varenicline (Unverified Allergy, Intermediate, UNABLE TO STATE A SPECIFIC ALLERGIC REACTION--STATES HE HAD, 05/23/17) walnut (Unverified Allergy, Intermediate, NERVOUSNESS, ANXIETY, 05/23/17) Physical Exam Vital Signs Vital Signs Date Time Temp Pulse Resp B/P (MAP) Pulse Ox O2 Delivery O2 Flow Rate FiO2 05/26/17 10:00 82 05/26/17 09:36 100 Nasal Cannula 2.00 05/26/17 09:00 71 05/26/17 08:00 98.0 76 20 107/58 (74) 99 05/26/17 08:00 76 05/26/17 07:00 98 Nasal Cannula 2.00 98 05/26/17 07:00 67 05/26/17 06:00 72 05/26/17 04:00 68 05/26/17 04:00 98.6 68 15 114/56 (75) 100 05/26/17 02:00 69 05/26/17 00:00 98.0 75 17 107/62 (77) 99 05/26/17 00:00 75 05/25/17 23:04 100 Nasal Cannula 3.00 05/25/17 22:00 80 05/25/17 20:00 99.0 74 25 113/64 (80) 100 05/25/17 20:00 74 05/25/17 19:00 100 Nasal Cannula 2.00 98 05/25/17 18:00 77 05/25/17 16:00 77 05/25/17 16:00 98.0 76 18 104/54 (71) 97 05/25/17 14:00 77 05/25/17 12:00 98.0 60 18 115/56 (75) 97 05/25/17 12:00 73 Physical Exam GENERAL: This is a well-nourished, well-developed patient, in no apparent distress. SKIN: No rashes, ecchymoses or lesions. Cool and dry. HEAD: Atraumatic. Normocephalic. No temporal or scalp tenderness. EYES: Pupils equal round and reactive. Extraocular motions intact. No scleral icterus. No injection or drainage. ENT: Nose without bleeding, purulent drainage or septal hematoma. Throat without erythema, tonsillar hypertrophy or exudate. Uvula midline. Airway patent. NECK: Trachea midline. No JVD or lymphadenopathy. Supple, nontender, no meningeal signs. CARDIOVASCULAR: Regular rate and rhythm without murmurs, gallops, or rubs. RESPIRATORY: Clear to auscultation. Breath sounds equal bilaterally. No wheezes , rales, or rhonchi. GASTROINTESTINAL: Abdomen soft, non-tender, nondistended. No hepato-splenomegaly , or palpable masses. No guarding. MUSCULOSKELETAL: Extremities without clubbing, cyanosis, or edema. No joint tenderness, effusion, or edema noted. No calf tenderness. Negative Homans sign bilaterally. NEUROLOGICAL: Awake and alert. Cranial nerves II through XII intact. Motor and sensory grossly within normal limits. Five out of 5 muscle strength in all muscle groups. Normal speech. Laboratory Laboratory Tests Test 05/25/17 14:36 05/26/17 04:37 White Blood Count 29.8 28.8 Red Blood Count 4.25 4.26 Hemoglobin 13.1 13.0 Hematocrit 37.7 38.1 Mean Corpuscular Volume 88.7 89.4 Mean Corpuscular Hemoglobin 30.8 30.4 Mean Corpuscular Hemoglobin Concent 34.7 34.0 Red Cell Distribution Width 15.4 15.3 Platelet Count 223 220 Mean Platelet Volume 7.2 7.2 Neutrophils (%) (Auto) 93.5 91.3 Lymphocytes (%) (Auto) 2.1 3.5 Monocytes (%) (Auto) 3.9 4.8 Eosinophils (%) (Auto) 0.1 0.2 Basophils (%) (Auto) 0.4 0.2 Neutrophils # (Auto) 27.8 26.3 Lymphocytes # (Auto) 0.6 1.0 Monocytes # (Auto) 1.2 1.4 Eosinophils # (Auto) 0.0 0.1 Basophils # (Auto) 0.1 0.1 CBC Comment AUTO DIFF AUTO DIFF Differential Total Cells Counted 100 100 Neutrophils % (Manual) 80 69 Band Neutrophils % 9 10 Lymphocytes % 2 4 Monocytes % 1 8 Eosinophils % 1 Neutrophils # (Manual) 28.6 25.3 Metamyelocytes 3 1 Myelocytes 3 8 Promyelocytes 1 Nucleated Red Blood Cells 1 Differential Comment FINAL DIFF MANUAL FINAL DIFF MANUAL Platelet Estimate NORMAL NORMAL Platelet Morphology Comment NORMAL NORMAL Erythrocyte Sedimentation Rate 5 Blood Urea Nitrogen 44 36 Creatinine 1.04 0.96 Random Glucose 135 89 Calcium Level 8.2 8.4 Uric Acid 8.6 Sodium Level 129 130 Potassium Level 3.7 3.4 Chloride Level 88 89 Carbon Dioxide Level 30.5 32.3 Anion Gap 11 9 Estimat Glomerular Filtration Rate 69 76 C-Reactive Protein 0.46 Red Cell Morphology Comment NORMAL B-Type Natriuretic Peptide 207 Date/Time Source Procedure Growth Status 05/23/17 09:45 Blood Peripheral Aerobic Blood Culture - Preliminary NO GROWTH IN 3 DAYS Resulted 05/23/17 09:45 Blood Peripheral Anaerobic Blood Culture - Preliminary NO GROWTH IN 3 DAYS Resulted 05/23/17 07:30 Nasal Washing Influenza Types A,B Antigen (KECIA) - Final NEGATIVE FOR FLU A AND B ANTIGEN.... Complete Result Diagram: 05/26/17 0437 05/26/17 0437 Robyn Jesus MD May 26, 2017 11:15
--- NOTE | 2017-05-26 11:16 | PD.ID.CON ---
History of Present Illness Service ID Consult Requested By Reason for Consult Evaluation and management of persistent leukocytosis high-grade Primary Care Physician Jason Garrett MD Diagnoses: History of Present Illness Mr. Montesinos is a 76-year-old male with past medical history significant for hypertension, coronary artery disease status post angiogram and during this admission her cardiac catheterization, COPD. With this background patient presented to the emergency room since he woke up gasping this a.m. He had to call 911. He was able to barely walk from his room to the bathroom. At baseline patient is able to walk in his home with a cane. Although patient is able to walk he feels like over the last 1 month he has up with increasing effort for the same. No reported history of falls. Patient reports history of COPD and having shortness of breath off and on. Lately shortness of breath has worsened especially in the last 1 month and is worse on exertion and has persistent peripheral edema. Patient denies any fever or chills or night sweats. He denies any recent prolonged travels. Denies any fever or chills or night sweats Reports loss of appetite, early satiety. Patient reports nausea. RN reports that patient has even been denying water. Off note patient was found to be severely hyponatremic as well as hypokalemic on admission. Patient reports very poor oral intake in the last 1 month. Patient reports dry heaves. Next time patient reports constipation for the last 2 days and he took MiraLAX for the same. He reports this is unusual for him and usually he is regular. He denies any hematuria or any blood in the stool, denies any diarrhea. Denies any dysphagia or food getting stuck in his airway. Denies any history suggestive of esophagitis. Denies any long-term depression but reports that since he's been feeling so unwell and weak he now feels that "people should just leave me in the corner and forget about me". Denies any headaches. Reports extreme weakness of his lower extremities he's unable to participate down over the last few days. At the time of my evaluation patient is in the ICU. He is awake and alert and follows commands. He is able to raise his upper extremities. When it comes to his lower extremities he just wiggles his toes and is unable to participate in the rest of the neurological examination. He is currently not on any pressors. His urine output is fairly okay. Infectious disease is consulted for evaluation and management of persistent leukocytosis which is high-grade. Review of Systems ROS Limitations: Poor Historian Constitutional: COMPLAINS OF: Fatigue, Weight loss, Change in appetite, DENIES : Diaphoretic episodes, Fever, Weight gain, Chills, Dizziness, Night Sweats Endocrine: DENIES: Heat/cold intolerance, Polydipsia, Polyuria, Polyphagia Eyes: DENIES: Blurred vision, Diplopia, Eye inflammation, Eye pain, Vision loss , Photosensitivity, Double Vision Ears, nose, mouth, throat: DENIES: Tinnitus, Hearing loss, Vertigo, Nasal discharge, Oral lesions, Throat pain, Hoarseness, Ear Pain, Running Nose, Epistaxis, Sinus Pain, Toothache, Odynophagia Respiratory: COMPLAINS OF: Shortness of breath, DENIES: Apneas, Cough, Snoring , Wheezing, Hemoptysis, Sputum production Cardiovascular: COMPLAINS OF: Dyspnea on Exertion, Lower Extremity Edema, DENIES: Chest pain, Palpitations, Syncope, PND, Orthopnea, Claudication Gastrointestinal: COMPLAINS OF: Abdominal pain, Constipation, Nausea, Anorexia , DENIES: Black stools, Bloody stools, Diarrhea, Vomiting, Difficulty Swallowing Genitourinary: DENIES: Sexual dysfunction, Urinary frequency, Urinary incontinence, Urgency, Hematuria, Dysuria, Nocturia, Penile Discharge, Testicular Pain, Testicular Swelling Musculoskeletal: DENIES: Joint pain, Muscle aches, Stiffness, Joint Swelling, Back pain, Neck pain Integumentary: DENIES: Abnormal pigmentation, Nail changes, Pruritus, Rash Hematologic/lymphatic: DENIES: Bruising, Lymphadenopathy Immunologic/allergic: DENIES: Eczema, Urticaria Neurologic: COMPLAINS OF: Localized weakness (lower extremities.), Poor Balance , DENIES: Abnormal gait, Headache, Paresthesias, Seizures, Speech Problems, Tremor Psychiatric: DENIES: Anxiety, Confusion, Mood changes, Depression, Hallucinations, Agitation, Suicidal Ideation, Homicidal Ideation, Delusions Except as stated in HPI: all other systems reviewed are Neg Past Family Social History Allergies: Coded Allergies: shellfish derived (Unverified Allergy, Severe, abd pain, n/v/d, 05/23/17) ipratropium (Unverified Allergy, Intermediate, "ANXIETY, NERVOUSNESS", 05/23) varenicline (Unverified Allergy, Intermediate, UNABLE TO STATE A SPECIFIC ALLERGIC REACTION--STATES HE HAD, 05/23/17) walnut (Unverified Allergy, Intermediate, NERVOUSNESS, ANXIETY, 05/23/17) Past Medical History Hypertension A. fib Coronary artery disease COPD BPH Past Surgical History Myocardial perfusion scan in August 2015 within normal limits low risk for records turp= 4 yrs ago coronary angiogram oct 2015 non obstructive cad 2013 cataract sx 2005 salivary gland sx 2001 retinal detachment Reported Medications Current Medications Medications (Trade) Dose Ordered Sig/Daniela Route Start Time Stop Time Status Last Admin (NS Flush) 2 ml UNSCH PRN IV FLUSH 05/23/17 09:00 (NS Flush) 2 ml BID IV FLUSH 05/23/17 09:00 05/26/17 08:25 (Narcan Inj) 0.4 mg UNSCH PRN IV PUSH 05/23/17 09:00 (Protonix) 40 mg DAILY PO 05/24/17 09:00 05/26/17 08:19 (Ecotrin Ec) 325 mg DAILY PO 05/24/17 09:00 05/26/17 08:19 (Xopenex Neb) 0.63 mg Q4HR NEB PRN NEB 05/23/17 11:45 05/26/17 09:35 (Cardizem Cd) 120 mg DAILY PO 05/24/17 09:00 05/26/17 08:19 (Lopressor) 25 mg BID PO 05/23/17 21:00 05/25/17 21:30 (Deltasone) 5 mg DAILY PO 05/24/17 09:00 05/26/17 08:19 Miscellaneous Information Patient in critical care unit? Ass... Q361D .XX 05/24/17 00:15 05/24/17 00:15 (Chlorhexidine 2% Cloth) 3 pack DAILY@04 TOPICAL 05/24/17 04:00 05/28/17 04:01 05/26/17 04:00 (Chlorhexidine 2% Cloth) 3 pack UNSCH PRN TOPICAL 05/24/17 00:15 05/29/17 00:14 Levofloxacin/ Dextrose 100 ml @ 100 mls/hr Q24H IV 05/25/17 20:00 05/25/17 21:30 Active Ordered Medications Current Medications Medications (Trade) Dose Ordered Sig/Daniela Route Start Time Stop Time Status Last Admin (NS Flush) 2 ml UNSCH PRN IV FLUSH 05/23/17 09:00 (NS Flush) 2 ml BID IV FLUSH 05/23/17 09:00 05/26/17 08:25 (Narcan Inj) 0.4 mg UNSCH PRN IV PUSH 05/23/17 09:00 (Protonix) 40 mg DAILY PO 05/24/17 09:00 05/26/17 08:19 (Ecotrin Ec) 325 mg DAILY PO 05/24/17 09:00 05/26/17 08:19 (Xopenex Neb) 0.63 mg Q4HR NEB PRN NEB 05/23/17 11:45 05/26/17 09:35 (Cardizem Cd) 120 mg DAILY PO 05/24/17 09:00 05/26/17 08:19 (Lopressor) 25 mg BID PO 05/23/17 21:00 05/25/17 21:30 (Deltasone) 5 mg DAILY PO 05/24/17 09:00 05/26/17 08:19 Miscellaneous Information Patient in critical care unit? Ass... Q361D .XX 05/24/17 00:15 05/24/17 00:15 (Chlorhexidine 2% Cloth) 3 pack DAILY@04 TOPICAL 05/24/17 04:00 05/28/17 04:01 05/26/17 04:00 (Chlorhexidine 2% Cloth) 3 pack UNSCH PRN TOPICAL 05/24/17 00:15 05/29/17 00:14 Levofloxacin/ Dextrose 100 ml @ 100 mls/hr Q24H IV 05/25/17 20:00 05/25/17 21:30 Family History NC Social History father- enlarged heart mother- stroke brother- copd Social History used to smoke for 60 yrs, quit in 2015 sept used to drink a lot of beers before, quit in 1980 no drugs lives with his partner Physical Exam Vital Signs Vital Signs Date Time Temp Pulse Resp B/P (MAP) Pulse Ox O2 Delivery O2 Flow Rate FiO2 05/26/17 10:00 82 05/26/17 09:36 100 Nasal Cannula 2.00 05/26/17 09:00 71 05/26/17 08:00 98.0 76 20 107/58 (74) 99 4/7/18 08:00 76 05/26/17 07:00 98 Nasal Cannula 2.00 98 05/26/17 07:00 67 05/26/17 06:00 72 05/26/17 04:00 68 05/26/17 04:00 98.6 68 15 114/56 (75) 100 05/26/17 02:00 69 05/26/17 00:00 98.0 75 17 107/62 (77) 99 05/26/17 00:00 75 05/25/17 23:04 100 Nasal Cannula 3.00 05/25/17 22:00 80 05/25/17 20:00 99.0 74 25 113/64 (80) 100 05/25/17 20:00 74 05/25/17 19:00 100 Nasal Cannula 2.00 98 05/25/17 18:00 77 05/25/17 16:00 77 05/25/17 16:00 98.0 76 18 104/54 (71) 97 05/25/17 14:00 77 05/25/17 12:00 98.0 60 18 115/56 (75) 97 05/25/17 12:00 73 Physical Exam GENERAL: Elderly CM, well-developed patient, in no apparent distress. SKIN: Multiple areas of ecchymosis in upper extremity. HEAD: Atraumatic. Normocephalic. No temporal or scalp tenderness. EYES: Pupils equal round and reactive. Extraocular motions intact. No scleral icterus. No injection or drainage. ENT: Nose without bleeding, purulent drainage or septal hematoma. Throat without erythema, tonsillar hypertrophy or exudate. Uvula midline. Airway patent. NECK: Trachea midline. Supple, nontender, no meningeal signs. CARDIOVASCULAR: Heart sounds audible RESPIRATORY: Clear to auscultation. Breath sounds equal bilaterally. GASTROINTESTINAL: Abdomen soft, diffuse tenderness. No guarding no rigidity. MUSCULOSKELETAL: Extremities without clubbing, cyanosis, or edema. No joint tenderness, effusion, or edema noted. No calf tenderness. Negative Homans sign bilaterally. NEUROLOGICAL: Awake and alert. Follows commands. UE power 4+ with good coordination no rigidity. LE with power at ankle level 3 at best. Rest patient was unable to participate and was irritable. RN reports inability to stand on his own. Psych Flat affect IV line sites with no e.o infection Laboratory Laboratory Tests Test 05/25/17 14:36 05/26/17 04:37 White Blood Count 29.8 28.8 Red Blood Count 4.25 4.26 Hemoglobin 13.1 13.0 Hematocrit 37.7 38.1 Mean Corpuscular Volume 88.7 89.4 Mean Corpuscular Hemoglobin 30.8 30.4 Mean Corpuscular Hemoglobin Concent 34.7 34.0 Red Cell Distribution Width 15.4 15.3 Platelet Count 223 220 Mean Platelet Volume 7.2 7.2 Neutrophils (%) (Auto) 93.5 91.3 Lymphocytes (%) (Auto) 2.1 3.5 Monocytes (%) (Auto) 3.9 4.8 Eosinophils (%) (Auto) 0.1 0.2 Basophils (%) (Auto) 0.4 0.2 Neutrophils # (Auto) 27.8 26.3 Lymphocytes # (Auto) 0.6 1.0 Monocytes # (Auto) 1.2 1.4 Eosinophils # (Auto) 0.0 0.1 Basophils # (Auto) 0.1 0.1 CBC Comment AUTO DIFF AUTO DIFF Differential Total Cells Counted 100 100 Neutrophils % (Manual) 80 69 Band Neutrophils % 9 10 Lymphocytes % 2 4 Monocytes % 1 8 Eosinophils % 1 Neutrophils # (Manual) 28.6 25.3 Metamyelocytes 3 1 Myelocytes 3 8 Promyelocytes 1 Nucleated Red Blood Cells 1 Differential Comment FINAL DIFF MANUAL FINAL DIFF MANUAL Platelet Estimate NORMAL NORMAL Platelet Morphology Comment NORMAL NORMAL Erythrocyte Sedimentation Rate 5 Blood Urea Nitrogen 44 36 Creatinine 1.04 0.96 Random Glucose 135 89 Calcium Level 8.2 8.4 Uric Acid 8.6 Sodium Level 129 130 Potassium Level 3.7 3.4 Chloride Level 88 89 Carbon Dioxide Level 30.5 32.3 Anion Gap 11 9 Estimat Glomerular Filtration Rate 69 76 C-Reactive Protein 0.46 Red Cell Morphology Comment NORMAL B-Type Natriuretic Peptide 207 Date/Time Source Procedure Growth Status 05/23/17 09:45 Blood Peripheral Aerobic Blood Culture - Preliminary NO GROWTH IN 3 DAYS Resulted 05/23/17 09:45 Blood Peripheral Anaerobic Blood Culture - Preliminary NO GROWTH IN 3 DAYS Resulted 05/23/17 07:30 Nasal Washing Influenza Types A,B Antigen (KECIA) - Final NEGATIVE FOR FLU A AND B ANTIGEN.... Complete Result Diagram: 05/26/1743605/26/177 Imaging Last Impressions Chest X-Ray 05/23/17 0714 Signed Impressions: Service Date/Time: Tuesday, May 23, 2017 07:42 - CONCLUSION: 1. Hyperaeration of the lung ko characteristic of COPD. 2. Stable examination compared to the prior study with no acute parenchymal infiltrates. Alexis White MD Lower Extremity Ultrasound 05/23/17 0000 Signed Impressions: Service Date/Time: Tuesday, May 23, 2017 11:38 - CONCLUSION: Normal examination. Atilio Dunham MD Assessment and Plan Assessment and Plan High-grade leukocytosis: Is on very low-dose steroids with no evidence of infection likely not infectious in etiology. Rule out hematological malignancy Failure to thrive Early satiety concerning for GI malignancy Lower extremity weakness: ? Metabolic versus malignancy related. Evaluation has severe hyponatremia and hypokalemia on admission. Hyponatremia likely hypovolemia related as patient had very poor oral intake prior to admission. Given his history of long-term smoking hyponatremia could also be related to a lung malignancy Hypokalemia likely related to poor oral intake Recommendations Discontinue all IV antibiotics observe off of antibiotics Peripheral smear for pathologist review Malignancy markers sent. Consult hematology oncology: Concern for hematology or GI malignancy CT chest abdomen pelvis with contrast to look for malignancies. Consult gastroenterology Check HIV Check hepatitis profile Consult neurology: Patient is very concerned about his lower extremity weakness and would like a specialist to see him. He reports that if his weakness did not get better and then there is no point with any further ongoing efforts. Consult palliative care to address goals of therapy dw with RN Discussed with patient plan of care Robyn Jesus MD May 26, 2017 11:16
[2017-05-26] MEDS ORDERED: DIATRIZOATE MEGLUM/DIATRIZOATE SOD 9 ML CUP PO ONE (11:45)
--- NOTE | 2017-05-26 13:12 | HHI.NPPN ---
Subjective History of Present Illness 76.-year-old with history of COPD and hyponatremia with high white cell count Objective Data Data Vital Signs Date Time Temp Pulse Resp B/P (MAP) Pulse Ox O2 Delivery O2 Flow Rate FiO2 05/26/17 12:00 76 05/26/17 12:00 98.0 76 17 118/56 (76) 100 119/66 (83) 05/26/17 11:00 81 05/26/17 10:00 82 05/26/17 09:36 100 Nasal Cannula 2.00 05/26/17 09:00 71 05/26/17 08:00 98.0 76 20 107/58 (74) 99 05/26/17 08:00 76 05/26/17 07:00 98 Nasal Cannula 2.00 98 05/26/17 07:00 67 05/26/17 06:00 72 05/26/17 04:00 68 05/26/17 04:00 98.6 68 15 114/56 (75) 100 05/26/17 02:00 69 05/26/17 00:00 98.0 75 17 107/62 (77) 99 05/26/17 00:00 75 05/25/17 23:04 100 Nasal Cannula 3.00 05/25/17 22:00 80 05/25/17 20:00 99.0 74 25 113/64 (80) 100 05/25/17 20:00 74 05/25/17 19:00 100 Nasal Cannula 2.00 98 05/25/17 18:00 77 05/25/17 16:00 77 05/25/17 16:00 98.0 76 18 104/54 (71) 97 05/25/17 14:00 77 -: 05/26/17 0437 05/26/17 0437 Physical Exam General Appearance: Well Developed Neck Neck Exam: Neck Supple Pulmonary Resp Exam: Decreased Bases Cardiology CV Exam: Regular Gastrointestinal/Abdomen GI Exam: Soft, Non-Tender, Bowel Sounds Present Extremeties Extremities Exam: No Edema Neurologic Neuro Exam: Alert, Awake Assessment/Plan Problem List: (1) Acute hyponatremia ICD Codes: E87.1 - Hypo-osmolality and hyponatremia Status: Acute Plan: In February his serum Na ran 135-137, but later dropped to 132. This admission sodium level was 118, improved to 130 today He has been on NaCl tabs since 05/23. Low urine sodium suggesting hypovolemic hyponatremia Noted hx of CHF On Lasix at home although PO intake was quite low, was not feeling well At this time would suggest stopping NaCl given CHF hx Obtain uric acid and TSH to complete the work up Continue to hold loop diuretics Repeat labs Patient is going to receive contrast study and given half-normal saline with sodium bicarbonate at 100 cc an hour He is high risk to develop renal insufficiency sodium is improved to 130 Give potassium 20 meq IV (2) Elevated troponin I level ICD Codes: R79.89 - Other specified abnormal findings of blood chemistry Status: Acute Plan: s/p cardiac cath, medical management cardiology following (3) COPD with acute exacerbation ICD Codes: J44.1 - Chronic obstructive pulmonary disease with (acute) exacerbation Status: Acute Plan: On steroids and oxygen Management per medical team Ramon Velasquez MD May 26, 2017 13:12
[2017-05-26] MEDS ORDERED: POTASSIUM CHLOR 20 MEQ PREMIX 100 ML IV ONE (13:15)
[2017-05-26] MEDS: SODIUM BICARBONATE 8.4% INJ 100 MEQ in SODIUM CHLOR 0.45% 1000 ML INJ 1,000 ML IV SCH (13:54)
[2017-05-26 14:09] LABS: CARCINOEMBRYONIC ANTIGEN 3.8 NG/ML (0.2-5.0)
[2017-05-26] MEDS ORDERED: IOHEXOL 350 MG/ML 10 ML VIAL (for RAD DIAG) IVCONTRAST ONE (15:16)
--- NOTE | 2017-05-26 15:49 | HHI.PR ---
Subjective Remarks Patient seen on the way from CT scan Still feeling fatigued and tired No fever or chills Persistent leukocytosis with left shift Objective Vitals Vital Signs Date Time Temp Pulse Resp B/P (MAP) Pulse Ox O2 Delivery O2 Flow Rate FiO2 05/26/17 12:00 76 05/26/17 12:00 98.0 76 17 118/56 (76) 100 119/66 (83) 05/26/17 11:00 81 05/26/17 10:00 82 05/26/17 09:36 100 Nasal Cannula 2.00 05/26/17 09:00 71 05/26/17 08:00 98.0 76 20 107/58 (74) 99 05/26/17 08:00 76 05/26/17 07:00 98 Nasal Cannula 2.00 98 05/26/17 07:00 67 05/26/17 06:00 72 05/26/17 04:00 68 05/26/17 04:00 98.6 68 15 114/56 (75) 100 05/26/17 02:00 69 05/26/17 00:00 98.0 75 17 107/62 (77) 99 05/26/17 00:00 75 05/25/17 23:04 100 Nasal Cannula 3.00 05/25/17 22:00 80 05/25/17 20:00 99.0 74 25 113/64 (80) 100 05/25/17 20:00 74 05/25/17 19:00 100 Nasal Cannula 2.00 98 05/25/17 18:00 77 05/25/17 16:00 77 05/25/17 16:00 98.0 76 18 104/54 (71) 97 I/O 05/25/17 05/25/17 05/25/17 05/26/17 05/26/17 05/26/17 07:00 15:00 23:00 07:00 15:00 23:00 Intake Total 200 ml 300 ml 300 ml Output Total 401 ml 620 ml 400 ml Balance -201 ml -320 ml -100 ml Intake Oral 200 ml 200 ml 300 ml IV Total 100 ml Output Urine Total 400 ml 620 ml 400 ml Stool Total 1 ml 0 ml # Voids 2 4 2 # Bowel Movements 1 1 0 Result Diagram: 05/26/1743605/26/17436 Objective Remarks GENERAL: This is a well-nourished, well-developed patient, in no apparent distress. SKIN: No rashes, warm and dry HEAD: Atraumatic. Normocephalic. EYES: Pupils equal round and reactive. Extraocular motions intact. No scleral icterus. ENT: Nose without bleeding, or drainage, Airway patent. NECK: Trachea midline. Supple CARDIOVASCULAR: Regular rate and rhythm without murmurs, gallops, or rubs. RESPIRATORY: Fair air entry bilaterally. No wheezes, rales, or rhonchi. GASTROINTESTINAL: Abdomen soft, non-tender, nondistended. Positive bowel sounds MUSCULOSKELETAL: Extremities without clubbing, cyanosis, or edema. Pedal pulses appreciated NEUROLOGICAL: Awake and alert. Moves all extremity. Normal speech.no focal neurological deficit A/P Assessment and Plan Elevated troponin Non-STEMI Short of breath/dyspnea Lower extremity weakness Hyponatremia and hypokalemia Leukocytosis with left shift noted , infectious versus blood dyscrasia History of hypertension History of COPD History of BPH status post TURP History of non-obstructive CAD Plan: 05/25: still with leukocytosis, no clear source of infx , consult ID , check ESR/ CRP, will start levaquin appreciate renal consult >cont hold diuretics , fluid restriction, dc ivf 05/26: Persistent leukocytosis with left shift, appreciate ID participation in care, she agreed on no clear source of infection, so workup for blood dyscrasia/ malignancy has been initiated Tumor marker, moser CT scan abdomen and chest, oncology, neurology consultation. Lower extremity weakness, possibly paraneoplastic syndrome versus other neurologic etiology, discussed with Dr. Simmons, at this point MRI MRA of the brain, vitamin B12 methylmalonic acid,? LP Clinically patient seems to be stable for transfer to [facility] floor with telemetry Serial cardiac enzyme and EKG reviewed cardiology ff >went for heart cath >clean Ordered osmolality serum and urine, check urine sodium Hold diuretic Monitor labs Wound care consult for sacral decubitus ulcer PT, DVT, GI prophylaxis Wyatt Lindsey MD May 26, 2017 15:49
--- NOTE | 2017-05-26 15:53 | RADRPT ---
EXAM DATE/TIME: 05/26/2017 14:58 [facility] COMPARISON: CT PULMONARY ANGIOGRAM, February 27, 2017, 14:44. INDICATIONS : Short of breath, pneumonia. IV CONTRAST: 85 cc Omnipaque 350 (iohexol) IV ; Cumulative dose for multiple exams. RADIATION DOSE: 7.04 CTDIvol (mGy) MEDICAL HISTORY : Cardiovascular disease. SURGICAL HISTORY : None. ENCOUNTER: Initial ACUITY: 1 day PAIN SCALE: 0/10 LOCATION: chest TECHNIQUE: Volumetric scanning of the chest was performed using a pulmonary embolism protocol MIP images were re constructed. Using automated exposure control and adjustment of the mA and/or kV according to patien t size, radiation dose was kept as low as reasonably achievable to obtain optimal diagnostic quality images. DICOM format image data is available electronically for review and comparison. Follow-up recommendations for detected pulmonary nodules are based at a minimum on nodule size and pa tient risk factors according to Fleischner Society Guidelines. FINDINGS: PULMONARY ARTERIES: No filling defects are seen in the pulmonary arteries through the segmental level. LUNGS: Lungs are hyperinflated but otherwise clear. There is no evidence of acute air space disease or pneum othorax. No suspicious nodular densities are noted. PLEURAE: There is no pleural thickening or pleural effusion. MEDIASTINUM: There is good visualization of the great vessels of the middle mediastinum. No evidence of mediastin al or hilar adenopathy/mass. MUSCULOSKELETAL: Within normal limits for patient age. MISCELLANEOUS: The visualized upper abdominal organs demonstrate no acute abnormality. CONCLUSION: 1. No evidence of pulmonary embolism. 2. COPD. 3. No evidence of acute air space disease or suspicious nodular densities. 4. No significant change. Mike Holt MD on May 26, 2017 at 15:49 Board Certified Radiologist. This report was verified electronically.
--- NOTE | 2017-05-26 16:19 | PD.CONS ---
HPI History of Present Illness This is a 76 year old y/o male with pmh of HTN, CAD, CHF. who was admitted for COPD exacerbation and SOB. Patient had a cardiac cath that showed EF 40-45% , no stents were placed. GI have consulted to R/o possible GI malignancy. Pt with fatigue, low energy, decline in appetite for the past 2 weeks. Denies nausea, vomiting, melena or hematochezia or change in bowels. Has intermittent constipation for which he takes Miralax as needed with good results. he denies abd pain but experienced pain upon palpation. No family hx of colon cancer. Last colonoscopy was 5 yrs ago and states he will never have another one. Has significant elevation on WBC., hyponatremia. Hepatitis panel, hiv pending. AFP 2.1, Cea 3.8, CA 15-3 18, CA 19-9 30, negative CTA, CT of abd pending (Mamta Chaudhary) PFSH Past Medical History htn afib p questionable. Patient initially thought he has history of it but he is unsure. He is not on any blood thinners. coronary angiogram oct 2015 non obstructive cad copd myocardial perfusion scan august 2015- wnl, low risk bph Past Surgical History turp= 4 yrs ago coronary angiogram oct 2015 non obstructive cad 2014 cataract sx 2006 salivary gland sx 2001 retinal detachment (Mamta Chaudhary) Coded Allergies: shellfish derived (Unverified Allergy, Severe, abd pain, n/v/d, 05/23/17) ipratropium (Unverified Allergy, Intermediate, "ANXIETY, NERVOUSNESS", 05/23) varenicline (Unverified Allergy, Intermediate, UNABLE TO STATE A SPECIFIC ALLERGIC REACTION--STATES HE HAD, 05/23/17) walnut (Unverified Allergy, Intermediate, NERVOUSNESS, ANXIETY, 05/23/17) Medications Current Medications Medications (Trade) Dose Ordered Sig/Daniela Route Start Time Stop Time Status Last Admin (NS Flush) 2 ml UNSCH PRN IV FLUSH 05/23/17 09:00 (NS Flush) 2 ml BID IV FLUSH 05/23/17 09:00 05/26/17 08:25 (Narcan Inj) 0.4 mg UNSCH PRN IV PUSH 05/23/17 09:00 (Protonix) 40 mg DAILY PO 05/24/17 09:00 05/26/17 08:19 (Ecotrin Ec) 325 mg DAILY PO 05/24/17 09:00 05/26/17 08:19 (Xopenex Neb) 0.63 mg Q4HR NEB PRN NEB 05/23/17 11:45 05/26/17 11:27 (Cardizem Cd) 120 mg DAILY PO 05/24/17 09:00 05/26/17 08:19 (Lopressor) 25 mg BID PO 05/23/17 21:00 05/25/17 21:30 (Deltasone) 5 mg DAILY PO 05/24/17 09:00 05/26/17 08:19 Miscellaneous Information Patient in critical care unit? Ass... [id number] .XX 05/24/17 00:15 05/24/17 00:15 (Chlorhexidine 2% Cloth) 3 pack DAILY@04 TOPICAL 05/24/17 04:00 05/28/17 04:01 05/26/17 04:00 (Chlorhexidine 2% Cloth) 3 pack UNSCH PRN TOPICAL 05/24/17 00:15 05/29/17 00:14 Levofloxacin/ Dextrose 100 ml @ 100 mls/hr Q24H IV 05/25/17 20:00 05/25/17 21:30 Sodium Bicarbonate 100 meq/Sodium Chloride 1,100 ml @ 100 mls/hr Q11H IV 05/26/17 15:00 05/26/17 13:54 Family History father- enlarged heart mother- stroke brother- copd Social History used to smoke for 60 yrs, quit in 2015 sept used to drink a lot of beers before, quit in 1980 no drugs lives with his partner ([facility]am[facility]) Review of Systems Constitutional: COMPLAINS OF: Fatigue, Change in appetite Endocrine: DENIES: Polyuria Eyes: DENIES: Double Vision Ears, nose, mouth, throat: DENIES: Hoarseness Respiratory: COMPLAINS OF: Shortness of breath Cardiovascular: DENIES: Lower Extremity Edema Gastrointestinal: COMPLAINS OF: Abdominal pain, Anorexia, DENIES: Black stools , Bloody stools, Constipation, Diarrhea, Nausea, Vomiting, Difficulty Swallowing , Odynophagia, Swelling of Abdomen, Heartburn, Hematemesis Genitourinary: DENIES: Hematuria Musculoskeletal: DENIES: Neck pain Integumentary: DENIES: Jaundice Hematologic/lymphatic: COMPLAINS OF: Bruising Immunologic/allergic: DENIES: Eczema Neurologic: DENIES: Abnormal gait Psychiatric: DENIES: Anxiety (Mamta Chaudhary) GI Exam Vitals I&O Vital Signs Date Time Temp Pulse Resp B/P (MAP) Pulse Ox O2 Delivery O2 Flow Rate FiO2 05/26/17 12:00 76 05/26/17 12:00 98.0 76 17 118/56 (76) 100 119/66 (83) 05/26/17 11:00 81 05/26/17 10:00 82 05/26/17 09:36 100 Nasal Cannula 2.00 05/26/17 09:00 71 05/26/17 08:00 98.0 76 20 107/58 (74) 99 05/26/17 08:00 76 05/26/17 07:00 98 Nasal Cannula 2.00 98 05/26/17 07:00 67 05/26/17 06:00 72 05/26/17 04:00 68 05/26/17 04:00 98.6 68 15 114/56 (75) 100 05/26/17 02:00 69 05/26/17 00:00 98.0 75 17 107/62 (77) 99 05/26/17 00:00 75 05/25/17 23:04 100 Nasal Cannula 3.00 05/25/17 22:00 80 05/25/17 20:00 99.0 74 25 113/64 (80) 100 05/25/17 20:00 74 05/25/17 19:00 100 Nasal Cannula 2.00 98 05/25/17 18:00 77 I/O 05/25/17 05/25/17 05/25/17 05/26/17 05/26/17 05/26/17 07:00 15:00 23:00 07:00 15:00 23:00 Intake Total 200 ml 300 ml 300 ml Output Total 401 ml 620 ml 400 ml Balance -201 ml -320 ml -100 ml Intake Oral 200 ml 200 ml 300 ml IV Total 100 ml Output Urine Total 400 ml 620 ml 400 ml Stool Total 1 ml 0 ml # Voids 2 4 2 # Bowel Movements 1 1 [address] Angiography 05/26/17 0000 Signed Impressions: Service Date/Time: Friday, May 26, 2017 14:58 - CONCLUSION: 1. No evidence of pulmonary embolism. 2. COPD. 3. No evidence of acute air space disease or suspicious nodular densities. 4. No significant change. Mike Holt MD Chest X-Ray 05/23/17 0714 Signed Impressions: Service Date/Time: Tuesday, May 23, 2017 07:42 - CONCLUSION: 1. Hyperaeration of the lung ko characteristic of COPD. 2. Stable examination compared to the prior study with no acute parenchymal infiltrates. Alexis White MD Lower Extremity Ultrasound 05/23/17 0000 Signed Impressions: Service Date/Time: Tuesday, May 23, 2017 11:38 - CONCLUSION: Normal examination. Atilio Dunham MD Laboratory Test 05/26/17 04:37 05/26/17 12:30 05/26/17 12:45 White Blood Count 28.8 TH/MM3 Red Blood Count 4.26 MIL/MM3 Hemoglobin 13.0 GM/DL Hematocrit 38.1 % Mean Corpuscular Volume 89.4 FL Mean Corpuscular Hemoglobin 30.4 PG Mean Corpuscular Hemoglobin Concent 34.0 % Red Cell Distribution Width 15.3 % Platelet Count 220 TH/MM3 Mean Platelet Volume 7.2 FL Neutrophils (%) (Auto) 91.3 % Lymphocytes (%) (Auto) 3.5 % Monocytes (%) (Auto) 4.8 % Eosinophils (%) (Auto) 0.2 % Basophils (%) (Auto) 0.2 % Neutrophils # (Auto) 26.3 TH/MM3 Lymphocytes # (Auto) 1.0 TH/MM3 Monocytes # (Auto) 1.4 TH/MM3 Eosinophils # (Auto) 0.1 TH/MM3 Basophils # (Auto) 0.1 TH/MM3 CBC Comment AUTO DIFF Differential Total Cells Counted 100 Neutrophils % (Manual) 69 % Band Neutrophils % 10 % Lymphocytes % 4 % Monocytes % 8 % Neutrophils # (Manual) 25.3 TH/MM3 Metamyelocytes 1 % Myelocytes 8 % Differential Comment FINAL DIFF MANUAL Platelet Estimate NORMAL Platelet Morphology Comment NORMAL Red Cell Morphology Comment NORMAL Blood Urea Nitrogen 36 MG/DL Creatinine 0.96 MG/DL Random Glucose 89 MG/DL Calcium Level 8.4 MG/DL Sodium Level 130 MEQ/L Potassium Level 3.4 MEQ/L Chloride Level 89 MEQ/L Carbon Dioxide Level 32.3 MEQ/L Anion Gap 9 MEQ/L Estimat Glomerular Filtration Rate 76 ML/MIN B-Type Natriuretic Peptide 207 PG/ML Tumor Marker Alpha Fetoprotein 2.1 NG/ML Carcinoembryonic Antigen 3.8 NG/ML CA 15-3 Antigen 18.0 U/ML CA 19-9 Antigen 30.0 U/ML Hepatitis A IgM Antibody NONREACTIVE Hepatitis B Surface Antigen NONREACTIVE Hepatitis B Core IgM Antibody NONREACTIVE Hepatitis C IgG Antibody NONREACTIVE HIV (1&2) Ab and P24 Ag, 4th Gener NONREACTIVE Blood Smear Pathologist Review Date/Time Source Procedure Growth Status 05/23/17 09:45 Blood Peripheral Aerobic Blood Culture - Preliminary NO GROWTH IN 3 DAYS Resulted 05/23/17 09:45 Blood Peripheral Anaerobic Blood Culture - Preliminary NO GROWTH IN 3 DAYS Resulted 05/23/17 07:30 Nasal Washing Influenza Types A,B Antigen (KECIA) - Final NEGATIVE FOR FLU A AND B ANTIGEN.... Complete Physical Examination HEENT: normocephalic; atraumatic; no jaundice. CHEST: Chest is clear to auscultation and percussion. CARDIAC: Regular rate and rhythm with no murmur gallop or rubs. ABDOMEN: Soft, nondistended, diffused abd pain upon palpation; no hepatosplenomegaly; bowel sounds are present in all four quadrants. EXTREMITIES: No clubbing, cyanosis, or edema. SKIN: Normal; no rash; no jaundice. APPLICATION SUPPORT: No focal deficits; alert and oriented times three. (Mamta Chaudhary) Assessment and Plan Plan - Failure to thrive, decline in appetite, low energy, elevated WBC- Pt with fatigue, low energy, decline in appetite for the past 2 weeks. Denies nausea, vomiting, melena or hematochezia or change in bowels. Has intermittent constipation for which he takes Miralax as needed with good results. he denies abd pain but experienced pain upon palpation. No family hx of colon cancer. Last colonoscopy was 5 yrs ago and states he will never have another one. Has significant elevation on WBC., hyponatremia. Hepatitis panel, hiv pending. AFP 2.1, Cea 3.8, CA 15-3 18, CA 19-9 30, negative CTA, CT of abd pending - Nstemi- Patient had a cardiac cath that showed EF 40-45%, no stents were placed. recommended medical management - Leucocytosis- ID, hematology on the case - Hyponatremia- nephrology on the case - pmh of HTN, CAD, CHF. who was admitted for COPD exacerbation and SOB per attending Plan: - ELISEO - Await CT - Pt refusing Colonoscopy - will consider doing EGD on Sunday - Oncology, ID, cardiology, nephrology on the case - Await labs - Supportive care - Pt seen and examined by Dr. Alvarado and myself and this note is written on his behalf. (Mamta Chaudhary) Physician Comments Seen and examined with CRESCENCIO, CT results awaited. Egd/colonoscopy on sunday if patient agreeable. Right now does not want to do bowel prep. Will follow. Thank you. (Ellis Alvarado MD) Mamta Chaudhary May 26, 2017 16:19 Ellis Alvarado MD May 26, 2017 17:21
--- NOTE | 2017-05-26 16:34 | MB ---
cc: Petr Simmons MD DATE: 05/26/2017 HISTORY OF PRESENT ILLNESS: This is a 76-year-old right-handed man with COPD and hypertension. He has been using a walker for about 4 months and stopped driving a few weeks ago because his legs are weak, especially the right leg. He apparently has been getting progressively weaker, had 2 falls in the last 3 weeks and seemed to have slowly gotten weaker in the last 3 weeks. When he came in, his sodium was 129. PAST MEDICAL HISTORY: Denies any diabetes, hypercholesterolemia, MS, CABG, stent, angioplasty, AFib, Coumadin, renal or hepatic disease, thyroid disease, lupus, ulcer, cancer, seizure, stroke. Recent shortness of breath. Evidently cardiac catheterization was negative. He was just in the hospital in February for shortness of breath. He was started on prednisone then. SOCIAL HISTORY: He quit smoking 3 years ago. Not a drinker, lives with a woman. FAMILY HISTORY: Negative for cancer or stroke. ALLERGIES: HE IS ALLERGIC SHELLFISH, IPRATROPIUM, VARENICLINE, WALNUTS. MEDICATIONS: He is on prednisone 20 mg a day, potassium, Lasix, DuoNeb, Cartia,Ventolin. Lasix was for edema in the lower extremities. PHYSICAL EXAMINATION: VITAL SIGNS: Afebrile, blood pressure 118/56, heart rate 76, respirations 17, lowest blood pressure 87/56. NECK: There are no carotid bruits. HEART: Regular rhythm. I did not detect a murmur. NEUROLOGIC: He is awake, alert and oriented x 3. Speech is fluent. He is not aphasic. A little hypophonic. Pupils are equal. Visual ko are full. Extraocular movements intact without nystagmus. Face is symmetric. Normal sensation. Tongue was midline. He had normal strength in bilateral deltoids, triceps and finger extensors. He had a lot of atrophy in his legs, especially the quadriceps and the tibialis anterior. Iliopsoas bilaterally best testing 3/5. His hamstrings are 4/5 bilaterally. The quadriceps are 4+/5 bilaterally, a little bit weaker on the right and the left. Tibialis anterior 5/5 bilaterally. Toe extensors 5/5 bilaterally. DTRs are 1 to 2+ and symmetric at the knees. Toes are downgoing bilaterally. There is evidence of clonus. Tone was normal throughout. Pinprick and vibratory sense are intact except the left toes have some diminished vibratory sense were present at the ankle. He is not ataxic on [id number]. LABORATORY STUDIES: His white count was initially 28,000; it still is somewhat elevated. Hematocrit is normal. Platelet count normal. Sedimentation rate is 5. Blood gas ABG 7.46/42/59. That was in 2008. Basic metabolic profile, initially his sodium when he was admitted was 118. It has come up to 130. BUN initially was 27, it is now 36. GFR is normal. Creatinine has been normal. CEA is negative. Troponin was 0.76 and 0.93. CPK has been normal. Low, in fact, at 24. Calcium is normal. CRP essentially normal. LDL cholesterol was normal in 2016. His B12 is normal. Thyroid normal. Thiamine was normal. Hepatitis screen is pending. TIFFANY is negative. IMAGING STUDIES: Lower extremity ultrasound normal. COPD is shown on the chest x-ray. IMPRESSION AND PLAN: He has got some atrophy of his muscles in his legs. It looks like probably disuse atrophy. It could be somewhat exacerbated by the steroids. Also, a little bit weaker on the right leg than the left, but no evidence for myelopathy. We will check an MRI of the brain to make sure he does not have stroke and since it is both his legs, an MRI of the cervical spine. We will get an EMG of the bilateral lower extremities and check some additional blood work on him. We will check some orthostatics on him and ABG, have physical therapy work with him. I would recommend getting him up out of bed and his strength probably will improve somewhat as his sodium normalizes better, as it is still somewhat low at 126. MD LEAH Posey/JUN , 02:48 PM , 04:33 PM
--- NOTE | 2017-05-26 16:36 | RADRPT ---
EXAM DATE/TIME: 05/26/2017 14:58 [facility] COMPARISON: CT PULMONARY ANGIOGRAM, November 10, 2015, 12:47. CT PULMONARY ANGIOGRAM, February 27, 2017, 14:44. INDICATIONS : Abdominal pain. IV CONTRAST: 85 cc Omnipaque 350 (iohexol) IV ; Cumulative dose for multiple exams. ORAL CONTRAST: Prescribed oral contrast ingested. RADIATION DOSE: 10.03 CTDIvol (mGy) MEDICAL HISTORY : Cardiovascular disease. SURGICAL HISTORY : None. ENCOUNTER: Initial ACUITY: 1 day PAIN SCALE: 0/10 LOCATION: abdomen TECHNIQUE: Volumetric scanning of the abdomen and pelvis was performed. Using automated exposure control and ad justment of the mA and/or kV according to patient size, radiation dose was kept as low as reasonably achievable to obtain optimal diagnostic quality images. DICOM format image data is available electro nically for review and comparison. FINDINGS: LOWER LUNGS: The visualized lower lungs are clear. LIVER: There some mild low density measuring 2.7 x 0.9 x 2.0 cm seen in the medial segment left lobe liver l ikely related to focal fat deposition. This does appear present in retrospect on the prior CT pulmona ry angiograms. The liver appears otherwise normal. SPLEEN: Normal size without lesion. PANCREAS: Within normal limits. KIDNEYS: Renal cysts are seen bilaterally being larger and more numerous on the left measuring up to 2.4 cm. H ydronephrosis is not seen. There is an exophytic 1.2 cm mass at the superior posterior lateral left k idney which is too dense to represent a simple cyst. This either represents a complex proteinaceous or hemorrhagic cyst or potentially a solid mass. Given its small size, it is thought it could be foll owed. ADRENAL GLANDS: Within normal limits. VASCULAR: There is no aortic aneurysm. Atherosclerotic calcifications are present. There is induration around t he right common femoral artery likely from recent catheterization. This can be correlated clinically. BOWEL/MESENTERY: Colonic diverticula are seen particularly in the descending colon and sigmoid region. ABDOMINAL WALL: Within normal limits. RETROPERITONEUM: There is no lymphadenopathy. BLADDER: No wall thickening or mass. REPRODUCTIVE: Within normal limits. INGUINAL: There is induration surrounding the right common femoral artery. There is no lymphadenopathy or herni a. MUSCULOSKELETAL: There is degenerative change throughout the lumbar spine. There is mild concave deformity at the supe rior aspect of T12 and L2. There is a 1.9 cm focal sclerotic area seen at the anterior left femoral m edial neck region. This is nonspecific. CONCLUSION: 1. No acute abnormalities seen. 2. Colonic diverticula. 3. Multiple renal cysts the more numerous on the left. There is a 1.2 cm complex cyst or solid mass s een at the posterior superior left kidney back and be followed. Urology consultation would be suggest ed as an outpatient. 4. Induration around the right common femoral artery presumably from recent catheterization. This bill uld be correlated clinically. 5. Small suspected area focal fatty infiltration of the left lobe of the liver. 6. Degenerative change in the lumbar spine 7. Mild compressive deformities at the superior aspect of the T12 and L2 vertebral bodies. 8. Solitary 1.9 cm sclerotic lesion at the left proximal femur. This is nonspecific. It may represent a bone island. Other etiologies for sclerotic lesions cannot be excluded. No other lesions are seen. Abelardo Gutierrez MD on May 26, 2017 at 16:22 Board Certified Radiologist. This report was verified electronically.
--- NOTE | 2017-05-26 18:04 | MB ---
cc: Mayra Sexton MD,Robyn CHAVEZ DATE: 05/26/2017 REFERRING PHYSICIAN: Dr. Robyn Jesus. CHIEF COMPLAINT: Dr. Jesus requests a consultation for Mr. Montesinos with leukocytosis with no obvious source of infection. HISTORY OF PRESENT ILLNESS: Mr. Montesinos is a 76-year-old man with multiple medical problems including hypertension, coronary artery disease, severe COPD, under the care of Dr. Mcginnis in the community. He has been getting weaker reportedly over the last several weeks. He was walking with a walker at home. Right now he reports that he is unable to move his legs. He was walking before coming into the hospital. He can only wiggle his toes, feeling that the right leg is worse than the left. During his hospitalization, he was found to have elevated white blood cell count. He was admitted for COPD exacerbation. His white blood cell count on admission was 28,000. It was attributed to the steroids. He was treated for a COPD exacerbation. He appears to be stable; however, his white count remained elevated. Review of the electronic medical record shows elevation in his white blood count intermittently from labs dating back even to 2008 and 2011. There are periods when his white cell count was normal, but ever since 2017 with the labs that are available, his white count was high, but not as high as during this admission. He reports being on steroids if he wants to breathe. He had a pulse dose of prednisone 14 mg last week. He is currently on 5-10 mg. Peripheral smear shows predominantly neutrophils. There is a diminished amount of lymphocytes, consistent with steroid use and mild monocytosis. His hemoglobin is normal. His platelet count is normal. REVIEW OF SYSTEMS: Significant for limitation in his physical activity due to COPD. He denies any changes in bowel habits. He reports his abdomen hurts all the time. It hurts when someone touches it. He is passing gas. He is moving his bowels. He denies any nausea or vomiting. He has been on steroids for a long time and has a lot of senile purpura on both arms. He denies any prior history of venous thromboembolic event. The rest of his review of systems is negative. PAST MEDICAL HISTORY: Hypertension, atrial fibrillation, coronary artery disease, COPD severe, BPH, intermittent leukocytosis. PAST SURGICAL HISTORY: TURP, coronary angiogram, cataract surgery, salivary gland surgery, retinal detachment surgery. FAMILY HISTORY: Significant for family history in mother of hypertension. No significant family history of cancer. SOCIAL HISTORY: He is , lives with his who is in her 80s. He denies any tobacco use. He quit in 2015. He quit drinking in 1980. He denies any illicit drug use. ALLERGIES: IPRATROPIUM, SHELLFISH, WALNUTS, VARENICLINE. MEDICATIONS: Include bicarbonate, levofloxacin, Protonix, aspirin, Cardizem, prednisone 5 mg daily, chlorhexidine, Xopenex. PHYSICAL EXAMINATION: VITAL SIGNS: Temperature 98.0, heart rate 79, respiratory rate 26, blood pressure 100/57, saturation 100%. GENERAL: Mr. Montesinos is an elderly Sabrina appearing gentleman. He has pallor and round cheeks. SKIN: He has thin, steroid atrophic skin. He has bilateral senile purpura of both arms. HEENT: His pupils are round, reactive to light and accommodation. Conjunctivae is pink. Oropharynx is clear. NECK: Supple. LUNGS: Diminished bilaterally. He has a barrel chest. ABDOMEN: His bowel sounds are present. He complains of diffuse tenderness. There is no rebound or guarding. His abdomen is soft. LOWER EXTREMITIES: No edema. He wiggles his toes. He is unable to bend his knees or lift his leg up off the bed. LABORATORY STUDIES: As described above. ASSESSMENT AND PLAN: Mr. Montesinos is a 76-year-old man with multiple medical problems, admitted for chronic obstructive pulmonary disease exacerbation. His course is complicated by chronic steroid use and toxicities related to the steroid. He has had increasing difficulty walking and increasing weakness of the lower extremity to the point that he is convinced he is not getting out of bed. We discussed evaluation of his lower extremity weakness. It appears Neurology has been consulted. We will complement MRI evaluation to include the lumbosacral area. We will check for possible stenosis or degenerative disk disease or compression fracture from chronic steroid use impacting his ability to walk and his bowels. Cervical spine MRI and brain MRI have already been ordered. CT scan of the chest shows no abnormality, at least in the thoracic spine. We discussed workup for the leukocytosis. Given the differential, predominantly neutrophils, decrease in lymphocytes, this is likely due to the steroids. I will review peripheral smear. JAK2 will be obtained. In light of the normal hemoglobin and platelet count, underlying bone marrow pathology is unlikely. Pending on review of peripheral smear, we will recommend flow cytometric analysis. I suspect that the leukocytosis is demargination from the steroids. His C-reactive protein is elevated. He has more pressing issues, mainly his COPD. He appears depressed. He has hopelessness on the factor of not being able to walk or get out of bed again. Physical therapy is consulted. We will evaluate possible correctable etiology create the weakness of his lower extremity. We will await Neurology consultation. His questions were answered to his satisfaction. MD DARWIN Ta/JUN , 04:38 PM , 06:03 PM
[2017-05-26 18:10] LABS: RHEUMATOID FACTOR SCREEN NEGATIVE (NEGATIVE)
[2017-05-26] MEDS ORDERED: GADODIAMIDE PF 287 MG/ML 5 ML VIAL (for RAD MRI) IVCONTRAST ONE (18:23)
--- NOTE | 2017-05-26 18:31 | RADRPT ---
EXAM DATE/TIME: 05/26/2017 17:25 [facility] COMPARISON: No previous studies available for comparison. INDICATIONS : Inability to ambulate. MEDICAL HISTORY : Hypertension. SURGICAL HISTORY : TURP, retina. ENCOUNTER: Initial ACUITY: 1 day PAIN SCORE: 0/10 LOCATION: Paraspinal TECHNIQUE: Multiplanar, multisequence MRI examination of the cervical spine was performed. FINDINGS: Alignment: Craniocervical and cervical vertebral body alignment are intact without evidence of listhesis. Osseous structures and facet joints: Vertebral bodies are intact without evidence of compression fracture or bone marrow edema. Mild facet arthropathy is noted. Intervertebral disc spaces: Degenerative disc disease ranging from mild to moderate severity is noted. Mild degenerative disc disease is noted at C2-3, C3-4, C4-5 and C5-6. There is disc space narrowing w ith loss of normal signal intensity and no evidence of focal disc herniation. Moderate degenerative disc disease is noted at C6-7 and C7-T1. Broad-based disc osteophyte compresses identified at C6-7. There is mild anterior epidural space but without spinal stenosis or spinal cord effacement. Neurologic structures: Spinal cord is normal in signal intensity and caliber. There is no evidence of nerve root compression . CONCLUSION: 1. Mild to moderate degenerative disc disease. 2. Moderate degenerative disease at C6-7 with broad-based disc osteophyte complex causing mild anteri or dural effacement but no spinal cord compression or nerve root compression. 3. No acute bony abnormality. 4. Normal appearing spinal cord. Mike Holt MD on May 26, 2017 at 18:25 Board Certified Radiologist. This report was verified electronically.
--- NOTE | 2017-05-26 18:40 | RADRPT ---
EXAM DATE/TIME: 05/26/2017 17:25 [facility] COMPARISON: No previous studies available for comparison. INDICATIONS : Inability to ambulate. MEDICAL HISTORY : Hypertension. Anemia. SURGICAL HISTORY : TURP, retina. ENCOUNTER: Initial ACUITY: 1 day PAIN SCORE: 0/10 LOCATION: Paraspinal TECHNIQUE: Multiplanar multisequence MRI of the lumbar spine was performed without contrast. FINDINGS: The most caudal appearing lumbar vertebra is numbered as L5. VERTEBRAE: There is a mild compression deformity at the superior aspect of the L2 vertebral body which appears a cute with edema. There is a more chronic defect at the central superior aspect of T12. Significant ed mindy is not seen at T12. The L2 vertebral body has lost approximately 10% of its original height anter iorly. Posteriorly it has maintained its height. CONUS: Normal level and configuration. T12-L1: The thecal sac has a normal diameter. No evidence of disc bulge or protrusion. The neural foramina are patent bilaterally. L1-L2: There is increased signal within the superior aspect of the disc which could represent more acute yasmani ma. There is minimal disc bulge. A significant impression of the thecal sac is not seen. There contin ues to be CSF around the conus and nerve roots. The neural foramina are patent bilaterally. L2-L3: The disc demonstrates decreased height. There is focal bright signal posterior disc margins may repre sent an annular tear. There is minimal bulge without significant stenosis. There is mild facet hypert rophy. The neural foramina are patent bilaterally. L3-L4: The disc demonstrates decreased height. There is minimal bulging without significant stenosis. There is moderate facet hypertrophy. The neural foramina are patent bilaterally. L4-L5: The disc demonstrates decreased height. There is minimal bulging. There is moderate to severe facet h ypertrophy especially on the right. Mild narrowing of the thecal sac, there continues to be CSF aroun d the nerve roots. There is some narrowing of the neural foramina special and the right. L5-S1: The disc demonstrates decreased height. There is minimal bulging without significant stenosis. There is mild facet hypertrophy. The neural foramina are patent bilaterally. OTHER: There is a 1.3 cm low signal mass at the superior lateral left kidney. Several other renal cysts are seen on the left side. CONCLUSION: 1. Acute compression deformity at the superior aspect of the L2 vertebral body with minimal loss of h eight anteriorly. 2. Degenerative change throughout with loss of disc space height, minimal bulging and facet hypertrop hy. There are mild areas of stenosis. Severe stenosis is not seen throughout. 3. 1.3 cm low signal mass in the superior lateral left kidney representing either a complex hemorrhag ic or proteinaceous cyst versus a solid mass. Given its size, it is thought it could be followed. Abelardo Gutierrez MD on May 26, 2017 at 18:27 Board Certified Radiologist. This report was verified electronically.
--- NOTE | 2017-05-26 18:43 | RADRPT ---
EXAM DATE/TIME: 05/26/2017 17:25 [facility] COMPARISON: No previous studies available for comparison. INDICATIONS : Inability to ambulate. MEDICAL HISTORY : Hypertension. Anemia. SURGICAL HISTORY : TURP, retina. ENCOUNTER: Initial ACUITY: 1 day PAIN SCORE: 0/10 LOCATION: Paraspinal TECHNIQUE: Multiplanar multisequence MRI examination of the sacrum/coccyx was performed. FINDINGS: BONE/CARTILAGE: Bone marrow signal is homogeneous. Articular cartilage signal is within normal limits. MUSCLES/TENDONS: All of the visualized muscles and tendons are intact. MISCELLANEOUS: Neurovascular structures are within normal limits. CONCLUSION: No acute disease. No evidence of soft tissue mass or destructive bone lesions. Degenerative disc disease in lower lumbar spine. Mike Holt MD on May 26, 2017 at 18:37 Board Certified Radiologist. This report was verified electronically.
--- NOTE | 2017-05-26 18:47 | RADRPT ---
EXAM DATE/TIME: 05/26/2017 17:25 [facility] COMPARISON: No previous studies available for comparison. INDICATIONS : CVA. Inability to ambulate. CONTRAST: 13 cc Omniscan (gadodiamide) IV MEDICAL HISTORY : Hypertension. Anemia. SURGICAL HISTORY : TURP, retina. ENCOUNTER: Initial ACUITY: 1 day PAIN SCORE: 0/10 LOCATION: cranial TECHNIQUE: Multiplanar, multisequence MRI of the brain was performed both prior to and following the administrat ion of paramagnetic contrast. FINDINGS: CEREBRUM: The ventricles are normal for age. No evidence of midline shift, mass lesion, hemorrhage or acute in farction. No extraaxial fluid collections are seen. The pituitary gland and suprasellar cistern are normal in configuration. WHITE MATTER: Small scattered signal abnormalities are seen in the white matter. POSTERIOR FOSSA: Small foci of restricted diffusion identified in both cerebellar hemispheres. The cerebellum and brai nstem are otherwise intact. The 4th ventricle is midline. The cerebellopontine angle is unremarkable . The cerebellar tonsils are normal in position. DIFFUSION IMAGING: No other focal areas of restricted diffusion are seen. EXTRACRANIAL: The visualized portions of the orbits and paranasal sinuses are unremarkable. POST-CONTRAST: No abnormal areas of parenchymal or dural enhancement. No evidence of blood-brain barrier breakdown. CONCLUSION: 1. Small bilateral cerebellar infarcts. 2. Mild cerebral white matter disease characteristic of microvascular ischemic changes. 3. No evidence of hemorrhage, mass, edema or abnormal enhancement. Mike Holt MD on May 26, 2017 at 18:41 Board Certified Radiologist. This report was verified electronically.
[2017-05-26] MEDS: LEVOFLOXACIN 500 MG PREMIX INJ 100 ML IV SCH (22:14)
[2017-05-27] VITALS (15 sets, daily range): BP systolic 99–120; BP diastolic 54–60; PULSE 67–109; RESP 14–18; TEMP 97.2–98.1; O2SAT 98–100
[2017-05-27] MEDS: RESP: LEVALBUTEROL HYDROCHLORIDE 0.63 MG/3 ML NEB (PRN) NEB ×3 (00:45→19:54)
[2017-05-27] MEDS: SODIUM BICARBONATE 8.4% INJ 100 MEQ in SODIUM CHLOR 0.45% 1000 ML INJ 1,000 ML IV SCH ×2 (02:15→16:39)
[2017-05-27] MEDS: CHLORHEXIDINE GLUCONATE 2 % 1 PACK (2 CLOTHS)(taper/protocol) TOPICAL SCH (04:00)
[2017-05-27 06:04] LABS: AUTOMATED NEUTROPHIL # 21.5 TH/MM3 (1.8-7.7); BASOPHIL # 0.1 TH/MM3 (0-0.2); BASOPHIL % 0.2 % (0.0-2.0); EOSINOPHIL % 0.1 % (0.0-4.0); HEMATOCRIT 35.6 % (39.0-51.0); HEMOGLOBIN 12.2 GM/DL (13.0-17.0); LYMPH % 4.2 % (9.0-44.0); MEAN CELL VOLUME 89.9 FL (80.0-100.0); MEAN CORPUSCULAR HEMOGLOBIN 30.8 PG (27.0-34.0); MEAN CORPUSCULAR HGB CONC 34.3 % (32.0-36.0); MEAN PLATELET VOLUME 6.9 FL (7.0-11.0); MONO % 4.5 % (0.0-8.0); MONOCYTE # 1.1 TH/MM3 (0-0.9); PLATELET COUNT 210 TH/MM3 (150-450); RED BLOOD COUNT 3.96 MIL/MM3 (4.50-5.90); RED CELL DISTRIBUTION WIDTH 15.3 % (11.6-17.2); RETIC # 103.4 MIL/L (20.0-150.0); RETIC % 2.6 % (0.4-3.0); WHITE BLOOD COUNT 23.6 TH/MM3 (4.0-11.0)
[2017-05-27 07:32] LABS: BANDS 17 % (0-6); BLASTS 1 % (0-0); LYMPHOCYTES 7 % (9-44); METAMYELOCYTES 3 % (0-1); MONOCYTES 6 % (0-8); MYELOCYTES 4 % (0-0); NEUTROPHIL # MANUAL DIFF 20.3 TH/MM3 (1.8-7.7); POLYS (SEG NEUTROPHILS) 62 % (16-70)
[2017-05-27 07:53] LABS: BICARBONATE 34.2 MEQ/L (21.0-32.0); BLOOD UREA NITROGEN 25 MG/DL (7-18); CALCIUM 7.5 MG/DL (8.5-10.1); CHLORIDE 87 MEQ/L (98-107); CREATININE 0.84 MG/DL (0.60-1.30); GLOMERULAR FILTRATION RATE 89 ML/MIN (>89); GLUCOSE,RANDOM 116 MG/DL (74-106); SODIUM (NA) 130 MEQ/L (136-145)
--- NOTE | 2017-05-27 07:54 | PD.CARD.PN ---
Subjective Subjective Remarks alert in nad Objective Medications Current Medications Medications (Trade) Dose Ordered Sig/Daniela Route Start Time Stop Time Status Last Admin (NS Flush) 2 ml UNSCH PRN IV FLUSH 05/23/17 09:00 (NS Flush) 2 ml BID IV FLUSH 05/23/17 09:00 05/26/17 22:17 (Narcan Inj) 0.4 mg UNSCH PRN IV PUSH 05/23/17 09:00 (Protonix) 40 mg DAILY PO 05/24/17 09:00 05/26/17 08:19 (Ecotrin Ec) 325 mg DAILY PO 05/24/17 09:00 05/26/17 08:19 (Xopenex Neb) 0.63 mg Q4HR NEB PRN NEB 05/23/17 11:45 05/27/17 00:45 (Cardizem Cd) 120 mg DAILY PO 05/24/17 09:00 05/26/17 08:19 (Lopressor) 25 mg BID PO 05/23/17 21:00 05/26/17 22:14 (Deltasone) 5 mg DAILY PO 05/24/17 09:00 05/26/17 08:19 Miscellaneous Information Patient in critical care unit? Ass... [id number] .XX 05/24/17 00:15 05/24/17 00:15 (Chlorhexidine 2% Cloth) 3 pack DAILY@04 TOPICAL 05/24/17 04:00 05/28/17 04:01 05/27/17 04:00 (Chlorhexidine 2% Cloth) 3 pack UNSCH PRN TOPICAL 05/24/17 00:15 05/29/17 00:14 Levofloxacin/ Dextrose 100 ml @ 100 mls/hr Q24H IV 05/25/17 20:00 05/26/17 22:14 Sodium Bicarbonate 100 meq/Sodium Chloride 1,100 ml @ 100 mls/hr Q11H IV 05/26/17 15:00 05/27/17 02:15 Vital Signs / I&O Vital Signs Date Time Temp Pulse Resp B/P (MAP) Pulse Ox O2 Delivery O2 Flow Rate FiO2 05/27/17 06:00 81 05/27/17 04:00 98.1 79 16 103/54 (70) 100 05/27/17 04:00 79 05/27/17 02:00 76 05/27/17 00:46 100 Nasal Cannula 2.00 05/27/17 00:00 72 05/27/17 00:00 98.0 72 18 100/54 (69) 100 Arterial Line 05/26/17 22:00 90 05/26/17 20:00 89 05/26/17 20:00 98.2 89 18 121/58 (79) 100 Arterial Line 05/26/17 19:00 99 Nasal Cannula 2.00 05/26/17 16:00 98.0 79 26 100/57 (71) 100 05/26/17 16:00 79 05/26/17 14:00 74 05/26/17 13:00 76 05/26/17 12:00 76 05/26/17 12:00 98.0 76 17 118/56 (76) 100 119/66 (83) 05/26/17 11:00 81 05/26/17 10:00 82 05/26/17 09:36 100 Nasal Cannula 2.00 05/26/17 09:00 71 05/26/17 08:00 98.0 76 20 107/58 (74) 99 05/26/17 08:00 76 I/O 05/26/17 05/26/17 05/26/17 05/27/17 05/27/17 05/27/17 07:00 15:00 23:00 07:00 15:00 23:00 Intake Total 300 ml 400 ml 220 ml Output Total 400 ml 400 ml 500 ml Balance -100 ml 0 ml -280 ml Intake Oral 300 ml 300 ml 120 ml IV Total 100 ml 100 ml Output Urine Total 400 ml 400 ml 500 ml Stool Total 0 ml # Voids 2 # Bowel Movements 0 0 Physical Exam GENERAL: SKIN: Warm and dry. HEAD: Normocephalic. EYES: No scleral icterus. No injection or drainage. NECK: Supple, trachea midline. No JVD or lymphadenopathy. CARDIOVASCULAR: Regular rate and rhythm without murmurs, gallops, or rubs. RESPIRATORY: Breath sounds equal bilaterally. No accessory muscle use. GASTROINTESTINAL: Abdomen soft, non-tender, nondistended. MUSCULOSKELETAL: No cyanosis, or edema. BACK: Nontender without obvious deformity. No CVA tenderness. Laboratory Laboratory Tests Test 05/26/17 12:30 05/26/17 12:45 4/7/18 17:08 05/26/17 20:32 Tumor Marker Alpha Fetoprotein 2.1 NG/ML Carcinoembryonic Antigen 3.8 NG/ML CA 15-3 Antigen 18.0 U/ML CA 19-9 Antigen 30.0 U/ML Hepatitis A IgM Antibody NONREACTIVE Hepatitis B Surface Antigen NONREACTIVE Hepatitis B Core IgM Antibody NONREACTIVE Hepatitis C IgG Antibody NONREACTIVE HIV (1&2) Ab and P24 Ag, 4th Gener NONREACTIVE Blood Smear Pathologist Review Ammonia LESS THAN 10 MCMOL/L Rheumatoid Factor Screen NEGATIVE Rheumatoid Factor Titer IU/ML Blood Gas Puncture Site RT RADIAL Blood Gas Patient Temperature 98.6 Blood Gas HCO3 32 mmol/L Blood Gas Base Excess 8.2 mmol/L Blood Gas Oxygen Saturation 95 % Arterial Blood pH 7.48 Arterial Blood Partial Pressure CO2 43 mmHg Arterial Blood Partial Pressure O2 82 mmHg Arterial Blood Oxygen Content 16.4 Vol % Arterial Blood Carboxyhemoglobin 0.8 % Arterial Blood Methemoglobin 1.2 % Blood Gas Hemoglobin 12.3 G/DL Oxygen Delivery Device NASAL CANNULA Blood Gas Liter Flow 2 L/M Test 05/27/17 03:56 White Blood Count 23.6 TH/MM3 Red Blood Count 3.96 MIL/MM3 Hemoglobin 12.2 GM/DL Hematocrit 35.6 % Mean Corpuscular Volume 89.9 FL Mean Corpuscular Hemoglobin 30.8 PG Mean Corpuscular Hemoglobin Concent 34.3 % Red Cell Distribution Width 15.3 % Platelet Count 210 TH/MM3 Mean Platelet Volume 6.9 FL Neutrophils (%) (Auto) 91.0 % Lymphocytes (%) (Auto) 4.2 % Monocytes (%) (Auto) 4.5 % Eosinophils (%) (Auto) 0.1 % Basophils (%) (Auto) 0.2 % Neutrophils # (Auto) 21.5 TH/MM3 Lymphocytes # (Auto) 1.0 TH/MM3 Monocytes # (Auto) 1.1 TH/MM3 Eosinophils # (Auto) 0.0 TH/MM3 Basophils # (Auto) 0.1 TH/MM3 CBC Comment AUTO DIFF Differential Total Cells Counted 100 Neutrophils % (Manual) 62 % Band Neutrophils % 17 % Lymphocytes % 7 % Monocytes % 6 % Neutrophils # (Manual) 20.3 TH/MM3 Metamyelocytes 3 % Myelocytes 4 % Differential Comment FINAL DIFF MANUAL Blastocytes 1 % Platelet Estimate NORMAL Platelet Morphology Comment NORMAL Red Cell Morphology Comment NORMAL Reticulocyte Count 2.6 % Absolute Reticulocyte Count 103.4 MIL/L B-Type Natriuretic Peptide 211 PG/ML Imaging Last 24 hours Impressions Cervical Spine MRI 05/26/17 1445 Signed Impressions: Service Date/Time: Friday, May 26, 2017 17:25 - CONCLUSION: 1. Mild to moderate degenerative disc disease. 2. Moderate degenerative disease at C6-7 with broad-based disc osteophyte complex causing mild anterior dural effacement but no spinal cord compression or nerve root compression. 3. No acute bony abnormality. 4. Normal appearing spinal cord. Mike Holt MD Brain MRI 05/26/17 1445 Signed Impressions: Service Date/Time: Friday, May 26, 2017 17:25 - CONCLUSION: 1. Small bilateral cerebellar infarcts. 2. Mild cerebral white matter disease characteristic of microvascular ischemic changes. 3. No evidence of hemorrhage , mass, edema or abnormal enhancement. Mike Holt MD Assessment and Plan Problem List: (1) Cardiomyopathy ICD Codes: I42.9 - Cardiomyopathy, unspecified (2) Elevated troponin I level ICD Codes: R79.89 - Other specified abnormal findings of blood chemistry Status: Acute (3) COPD (chronic obstructive pulmonary disease) ICD Codes: J44.9 - Chronic obstructive pulmonary disease, unspecified Status: Acute (4) Acute hyponatremia ICD Codes: E87.1 - Hypo-osmolality and hyponatremia Status: Acute (5) Acute hypokalemia ICD Codes: E87.6 - Hypokalemia Status: Acute (6) COPD with acute exacerbation ICD Codes: J44.1 - Chronic obstructive pulmonary disease with (acute) exacerbation Status: Acute (7) Atypical chest pain ICD Codes: R07.89 - Other chest pain Status: Acute (8) CAD (coronary artery disease) ICD Codes: I25.10 - Atherosclerotic heart disease of [place] coronary artery without angina pectoris Assessment and Plan 1.) CAD - nonobstructive, continue aspirin, lipitor, check lipid profile, reduce aspirin to 81 mg qd 2.) Cardiomyopathy - continue lopressor, srinath and diuretics held due to hyponatremia, f/u bnp, echo: EF @ 50-55% 3.) Hyponatremia - improving Aleksandr Yo MD May 27, 2017 07:54
[2017-05-27 08:20] LABS: FOLATE 7.4 NG/ML (3.1-17.5)
--- NOTE | 2017-05-27 08:40 | HHI.PR ---
Subjective Remarks sr Objective Vital Signs Date Time Temp Pulse Resp B/P (MAP) Pulse Ox O2 Delivery O2 Flow Rate FiO2 05/27/17 06:00 81 05/27/17 04:00 98.1 79 16 103/54 (70) 100 05/27/17 04:00 79 05/27/17 02:00 76 05/27/17 00:46 100 Nasal Cannula 2.00 05/27/17 00:00 72 05/27/17 00:00 98.0 72 18 100/54 (69) 100 Arterial Line 05/26/17 22:00 90 05/26/17 20:00 89 05/26/17 20:00 98.2 89 18 121/58 (79) 100 Arterial Line 05/26/17 19:00 99 Nasal Cannula 2.00 05/26/17 16:00 98.0 79 26 100/57 (71) 100 05/26/17 16:00 79 05/26/17 14:00 74 05/26/17 13:00 76 05/26/17 12:00 76 05/26/17 12:00 98.0 76 17 118/56 (76) 100 119/66 (83) 05/26/17 11:00 81 05/26/17 10:00 82 05/26/17 09:36 100 Nasal Cannula 2.00 05/26/17 09:00 71 I/O 05/26/17 05/26/17 05/26/17 05/27/17 05/27/17 05/27/17 07:00 15:00 23:00 07:00 15:00 23:00 Intake Total 300 ml 400 ml 220 ml Output Total 400 ml 400 ml 500 ml Balance -100 ml 0 ml -280 ml Intake Oral 300 ml 300 ml 120 ml IV Total 100 ml 100 ml Output Urine Total 400 ml 400 ml 500 ml Stool Total 0 ml # Voids 2 # Bowel Movements 0 0 Result Diagram: 05/27/17 0356 05/27/17 0356 Objective Remarks awke aelrt moving all gen weak in be Assessment and Plan Assessment and Plan imp ct abd neg mri brain bilat small cbllr cv adn i think some tiny subacute ones in bilat cerebrum faint c spine ok check mra recent mi likly cause although echo ef nl oob conisder anticoagulation na 130 Petr Simmons MD May 27, 2017 08:40
[2017-05-27] MEDS: METOPROLOL TARTRATE 25 MG TAB PO SCH ×2 (09:33→20:47)
[2017-05-27] MEDS: DILTIAZEM-CD 120 MG CAP ER PO SCH (09:33)
[2017-05-27] MEDS: ASPIRIN EC 81 MG TABEC PO SCH (09:33)
[2017-05-27] MEDS: PANTOPRAZOLE SOD 40 MG DELAYED RELEASE TAB PO SCH (09:33)
[2017-05-27] MEDS: SODIUM CHLORIDE 0.9% FLUSH 10 ML FLUSH IV FLUSH SCH ×2 (09:34→20:47)
[2017-05-27] MEDS: predniSONE 5 MG TAB PO SCH (09:34)
--- NOTE | 2017-05-27 11:08 | PD.ONC.PN ---
Subjective Subjective Remarks Afebrile Patient resting in bed patiently waiting on a breathing treatment Reports his weakness in his legs is unchanged No other acute complaints Objective Data Date Time Temp Pulse Resp B/P (MAP) Pulse Ox O2 Delivery O2 Flow Rate FiO2 05/27/17 09:28 100 Nasal Cannula 2.00 05/27/17 06:00 81 05/27/17 04:00 98.1 79 16 103/54 (70) 100 05/27/17 04:00 79 05/27/17 02:00 76 05/27/17 00:46 100 Nasal Cannula 2.00 05/27/17 00:00 72 05/27/17 00:00 98.0 72 18 100/54 (69) 100 Arterial Line 05/26/17 22:00 90 05/26/17 20:00 89 05/26/17 20:00 98.2 89 18 121/58 (79) 100 Arterial Line 05/26/17 19:00 99 Nasal Cannula 2.00 05/26/17 16:00 98.0 79 26 100/57 (71) 100 05/26/17 16:00 79 05/26/17 14:00 74 05/26/17 13:00 76 05/26/17 12:00 76 05/26/17 12:00 98.0 76 17 118/56 (76) 100 119/66 (83) 05/27/17 05/27/17 05/27/17 07:00 15:00 23:00 Intake Total 220 ml Output Total 500 ml Balance -280 ml Result Diagram: 05/27/17 0356 05/27/17 0356 Laboratory Results Laboratory Tests Test 05/26/17 12:30 05/26/17 12:45 05/26/17 17:08 05/26/17 20:32 Tumor Marker Alpha Fetoprotein 2.1 NG/ML Carcinoembryonic Antigen 3.8 NG/ML CA 15-3 Antigen 18.0 U/ML CA 19-9 Antigen 30.0 U/ML Hepatitis A IgM Antibody NONREACTIVE Hepatitis B Surface Antigen NONREACTIVE Hepatitis B Core IgM Antibody NONREACTIVE Hepatitis C IgG Antibody NONREACTIVE HIV (1&2) Ab and P24 Ag, 4th Gener NONREACTIVE Blood Smear Pathologist Review Ammonia LESS THAN 10 MCMOL/L Rheumatoid Factor Screen NEGATIVE Rheumatoid Factor Titer IU/ML Blood Gas Puncture Site RT RADIAL Blood Gas Patient Temperature 98.6 Blood Gas HCO3 32 mmol/L Blood Gas Base Excess 8.2 mmol/L Blood Gas Oxygen Saturation 95 % Arterial Blood pH 7.48 Arterial Blood Partial Pressure CO2 43 mmHg Arterial Blood Partial Pressure O2 82 mmHg Arterial Blood Oxygen Content 16.4 Vol % Arterial Blood Carboxyhemoglobin 0.8 % Arterial Blood Methemoglobin 1.2 % Blood Gas Hemoglobin 12.3 G/DL Oxygen Delivery Device NASAL CANNULA Blood Gas Liter Flow 2 L/M Test 05/27/17 03:56 White Blood Count 23.6 TH/MM3 Red Blood Count 3.96 MIL/MM3 Hemoglobin 12.2 GM/DL Hematocrit 35.6 % Mean Corpuscular Volume 89.9 FL Mean Corpuscular Hemoglobin 30.8 PG Mean Corpuscular Hemoglobin Concent 34.3 % Red Cell Distribution Width 15.3 % Platelet Count 210 TH/MM3 Mean Platelet Volume 6.9 FL Neutrophils (%) (Auto) 91.0 % Lymphocytes (%) (Auto) 4.2 % Monocytes (%) (Auto) 4.5 % Eosinophils (%) (Auto) 0.1 % Basophils (%) (Auto) 0.2 % Neutrophils # (Auto) 21.5 TH/MM3 Lymphocytes # (Auto) 1.0 TH/MM3 Monocytes # (Auto) 1.1 TH/MM3 Eosinophils # (Auto) 0.0 TH/MM3 Basophils # (Auto) 0.1 TH/MM3 CBC Comment AUTO DIFF Differential Total Cells Counted 100 Neutrophils % (Manual) 62 % Band Neutrophils % 17 % Lymphocytes % 7 % Monocytes % 6 % Neutrophils # (Manual) 20.3 TH/MM3 Metamyelocytes 3 % Myelocytes 4 % Differential Comment FINAL DIFF MANUAL Blastocytes 1 % Platelet Estimate NORMAL Platelet Morphology Comment NORMAL Red Cell Morphology Comment NORMAL Reticulocyte Count 2.6 % Absolute Reticulocyte Count 103.4 MIL/L Blood Urea Nitrogen 25 MG/DL Creatinine 0.84 MG/DL Random Glucose 116 MG/DL Calcium Level 7.5 MG/DL Lactate Dehydrogenase 351 U/L Sodium Level 130 MEQ/L Potassium Level 3.2 MEQ/L Chloride Level 87 MEQ/L Carbon Dioxide Level 34.2 MEQ/L Anion Gap 9 MEQ/L Estimat Glomerular Filtration Rate 89 ML/MIN B-Type Natriuretic Peptide 211 PG/ML Vitamin B12 Level GREATER THAN 2000 PG/ML Folate 7.4 NG/ML Imaging Studies Last 24 hours Impressions Cervical Spine MRI 05/26/17 3138 Signed Impressions: Service Date/Time: Friday, May 26, 2017 17:25 - CONCLUSION: 1. Mild to moderate degenerative disc disease. 2. Moderate degenerative disease at C6-7 with broad-based disc osteophyte complex causing mild anterior dural effacement but no spinal cord compression or nerve root compression. 3. No acute bony abnormality. 4. Normal appearing spinal cord. Mike Holt MD Brain MRI 05/26/17 1445 Signed Impressions: Service Date/Time: Friday, May 26, 2017 17:25 - CONCLUSION: 1. Small bilateral cerebellar infarcts. 2. Mild cerebral white matter disease characteristic of microvascular ischemic changes. 3. No evidence of hemorrhage , mass, edema or abnormal enhancement. Mike Holt MD Administered Medications Medications (Trade) Dose Ordered Sig/Daniela Route PRN Reason Start Time Stop Time Status Last Admin Dose Admin Sodium Chloride (NS Flush) 2 ml BID IV FLUSH 05/23/17 09:00 05/27/17 09:34 Pantoprazole Sodium (Protonix) 40 mg DAILY PO 05/24/17 09:00 05/27/17 09:33 Levalbuterol HCl (Xopenex Neb) 0.63 mg Q4HR NEB PRN NEB wheezing 05/23/17 11:45 05/27/17 09:27 Diltiazem HCl (Cardizem Cd) 120 mg DAILY PO 05/24/17 09:00 05/27/17 09:33 Metoprolol Tartrate (Lopressor) 25 mg BID PO 05/23/17 21:00 05/27/17 09:33 Prednisone (Deltasone) 5 mg DAILY PO 05/24/17 09:00 05/27/17 09:34 Miscellaneous Information Patient in critical care unit? Ass... Q361D .XX 05/24/17 00:15 05/24/17 00:15 Chlorhexidine Gluconate (Chlorhexidine 2% Cloth) 3 pack DAILY@04 TOPICAL 05/24/17 04:00 05/28/17 04:01 05/27/17 04:00 Levofloxacin/ Dextrose 100 ml @ 100 mls/hr Q24H IV 05/25/17 20:00 05/26/17 22:14 Sodium Bicarbonate 100 meq/Sodium Chloride 1,100 ml @ 100 mls/hr Q11H IV 05/26/17 15:00 05/27/17 02:15 Aspirin (Ecotrin Ec) 81 mg DAILY PO 05/27/17 09:00 05/27/17 09:33 Objective Remarks GENERAL: Elderly gentleman resting in bed in no obvious distress SKIN: Warm and dry. HEAD: Normocephalic. EYES: No injection or drainage. NECK: Supple, trachea midline. CARDIOVASCULAR: Regular rate and rhythm without murmurs. RESPIRATORY: Clear but diminished anteriorly. GASTROINTESTINAL: Abdomen soft. Mildly tender to palpation. EXTREMITIES: No cyanosis, or edema. MUSCULOSKELETAL: Adequate muscle tone. NEUROLOGICAL: Awake and alert. Patient able to wiggle toes bilaterally however has no strength to lift either leg up off the bed. Moving upper extremities. Assessment/Plan Problem List: (1) Leukocytosis ICD Codes: D72.829 - Elevated white blood cell count, unspecified Plan: -- PENG 2 pending -- Likely due to long-term steroid use (2) Weakness of both legs ICD Codes: R29.898 - Other symptoms and signs involving the musculoskeletal system Plan: --No evidence of stenosis or cord compression based off results of MRI --Neurology following Assessment 76-year-old man with weakness; hematology consulted for leukocytosis Plan 1. Monitor CBC 2. Await results of peripheral smear 3. Supportive care Attending Statement The exam, history, and the medical decision-making described in the above note were completed with the assistance of the mid-level provider. I reviewed and agree with the findings presented. I attest that I had a [id number] encounter with the patient on the same day, and personally performed and documented my assessment and findings in the medical record. Noted decrease trend of WBC. Discussed abnormal LS spine, no significant stenosis. Discussed w/ ID continue to follow CBC. Neurology pending EMG. Pt receptive to seeing psychiatry, he feels depressed. Expressed hopelessness helplessness yesterday. Today wiggling his toes- showing more mobility Nely Dash May 27, 2017 11:08 Mayra Sexton MD May 27, 2017 18:03
[2017-05-27] MEDS: ONDANSETRON HCL 4 MG/2 ML VIAL IV PUSH PRN (11:27)
[2017-05-27] MEDS ORDERED: GADODIAMIDE PF 287 MG/ML 20 ML VIAL (for RAD MRI) IVCONTRAST ONE (11:58)
--- NOTE | 2017-05-27 12:54 | HHI.GIFU ---
GI Follow-up Note Consult Follow-up Subjective: Patient laying in bed comfortably, no new complaints except feeling weak and tired Objective: PHYSICAL EXAMINATION: Vitals signs stable No fever HEENT: Pupils round and reactive to light; normocephalic; atraumatic; no jaundice. Throat is clear. NECK: Neck is supple, no JVD, no lymphadenopathy. CHEST: Chest is clear to auscultation and percussion. CARDIAC: Regular rate and rhythm with no murmur gallop or rubs. ABDOMEN: Soft, nondistended, nontender; no hepatosplenomegaly; bowel sounds are present in all four quadrants. EXTREMITIES: No clubbing, cyanosis, or edema. SKIN: Normal; no rash; no jaundice. PLASTER APPLICATOR: No focal deficits; alert and oriented times three. Available Data (labs, X- Rays, Procedues) : Last Impressions Cervical Spine MRI 05/26/17 1445 Signed Impressions: Service Date/Time: Friday, May 26, 2017 17:25 - CONCLUSION: 1. Mild to moderate degenerative disc disease. 2. Moderate degenerative disease at C6-7 with broad-based disc osteophyte complex causing mild anterior dural effacement but no spinal cord compression or nerve root compression. 3. No acute bony abnormality. 4. Normal appearing spinal cord. Mike Holt MD Brain MRI 05/26/17 1445 Signed Impressions: Service Date/Time: Friday, May 26, 2017 17:25 - CONCLUSION: 1. Small bilateral cerebellar infarcts. 2. Mild cerebral white matter disease characteristic of microvascular ischemic changes. 3. No evidence of hemorrhage , mass, edema or abnormal enhancement. Mike Holt MD Sacrum/Coccyx MRI 05/26/17 0000 Signed Impressions: Service Date/Time: Friday, May 26, 2017 17:25 - CONCLUSION: No acute disease. No evidence of soft tissue mass or destructive bone lesions. Degenerative disc disease in lower lumbar spine. Mike Holt MD Lumbar Spine MRI 05/26/17 0000 Signed Impressions: Service Date/Time: Friday, May 26, 2017 17:25 - CONCLUSION: 1. Acute compression deformity at the superior aspect of the L2 vertebral body with minimal loss of height anteriorly. 2. Degenerative change throughout with loss of disc space height, minimal bulging and facet hypertrophy. There are mild areas of stenosis. Severe stenosis is not seen throughout. 3. 1.3 cm low signal mass in the superior lateral left kidney representing either a complex hemorrhagic or proteinaceous cyst versus a solid mass. Given its size, it is thought it could be followed. Abelardo Gutierrez MD CT Angiography 05/26/17 Signed Impressions: Service Date/Time: Friday, May 26, 2017 14:58 - CONCLUSION: 1. No evidence of pulmonary embolism. 2. COPD. 3. No evidence of acute air space disease or suspicious nodular densities. 4. No significant change. Mike Holt MD Abdomen/Pelvis CT 05/26/17 Signed Impressions: Service Date/Time: Friday, May 26, 2017 14:58 - CONCLUSION: 1. No acute abnormalities seen. 2. Colonic diverticula. 3. Multiple renal cysts the more numerous on the left. There is a 1.2 cm complex cyst or solid mass seen at the posterior superior left kidney back and be followed. Urology consultation would be suggested as an outpatient. 4. Induration around the right common femoral artery presumably from recent catheterization. This should be correlated clinically. 5. Small suspected area focal fatty infiltration of the left lobe of the liver. 6. Degenerative change in the lumbar spine 7. Mild compressive deformities at the superior aspect of the T12 and L2 vertebral bodies. 8. Solitary 1.9 cm sclerotic lesion at the left proximal femur. This is nonspecific. It may represent a bone island. Other etiologies for sclerotic lesions cannot be excluded. No other lesions are seen. Abelardo Gutierrez MD Chest X-Ray 05/23/17 0714 Signed Impressions: Service Date/Time: Tuesday, May 23, 2017 07:42 - CONCLUSION: 1. Hyperaeration of the lung ko characteristic of COPD. 2. Stable examination compared to the prior study with no acute parenchymal infiltrates. Alexis White MD Lower Extremity Ultrasound 05/23/17 Signed Impressions: Service Date/Time: Tuesday, May 23, 2017 11:38 - CONCLUSION: Normal examination. Atilio Dunham MD Laboratory Tests Test 05/25/17 14:36 05/26/17 04:37 05/26/17 12:30 05/26/17 12:45 White Blood Count 29.8 TH/MM3 28.8 TH/MM3 Red Blood Count 4.25 MIL/MM3 4.26 MIL/MM3 Hemoglobin 13.1 GM/DL 13.0 GM/DL Hematocrit 37.7 % 38.1 % Mean Corpuscular Volume 88.7 FL 89.4 FL Mean Corpuscular Hemoglobin 30.8 PG 30.4 PG Mean Corpuscular Hemoglobin Concent 34.7 % 34.0 % Red Cell Distribution Width 15.4 % 15.3 % Platelet Count 223 TH/MM3 220 TH/MM3 Mean Platelet Volume 7.2 FL 7.2 FL Neutrophils (%) (Auto) 93.5 % 91.3 % Lymphocytes (%) (Auto) 2.1 % 3.5 % Monocytes (%) (Auto) 3.9 % 4.8 % Eosinophils (%) (Auto) 0.1 % 0.2 % Basophils (%) (Auto) 0.4 % 0.2 % Neutrophils # (Auto) 27.8 TH/MM3 26.3 TH/MM3 Lymphocytes # (Auto) 0.6 TH/MM3 1.0 TH/MM3 Monocytes # (Auto) 1.2 TH/MM3 1.4 TH/MM3 Eosinophils # (Auto) 0.0 TH/MM3 0.1 TH/MM3 Basophils # (Auto) 0.1 TH/MM3 0.1 TH/MM3 CBC Comment AUTO DIFF AUTO DIFF Differential Total Cells Counted 100 100 Neutrophils % (Manual) 80 % 69 % Band Neutrophils % 9 % 10 % Lymphocytes % 2 % 4 % Monocytes % 1 % 8 % Eosinophils % 1 % Neutrophils # (Manual) 28.6 TH/MM3 25.3 TH/MM3 Metamyelocytes 3 % 1 % Myelocytes 3 % 8 % Promyelocytes 1 % Nucleated Red Blood Cells 1 /100 WBC Differential Comment FINAL DIFF MANUAL FINAL DIFF MANUAL Platelet Estimate NORMAL NORMAL Platelet Morphology Comment NORMAL NORMAL Erythrocyte Sedimentation Rate 5 mm/hr Blood Urea Nitrogen 44 MG/DL 36 MG/DL Creatinine 1.04 MG/DL 0.96 MG/DL Random Glucose 135 MG/DL 89 MG/DL Calcium Level 8.2 MG/DL 8.4 MG/DL Uric Acid 8.6 MG/DL Sodium Level 129 MEQ/L 130 MEQ/L Potassium Level 3.7 MEQ/L 3.4 MEQ/L Chloride Level 88 MEQ/L 89 MEQ/L Carbon Dioxide Level 30.5 MEQ/L 32.3 MEQ/L Anion Gap 11 MEQ/L 9 MEQ/L Estimat Glomerular Filtration Rate 69 ML/MIN 76 ML/MIN C-Reactive Protein 0.46 MG/DL Red Cell Morphology Comment NORMAL B-Type Natriuretic Peptide 207 PG/ML Tumor Marker Alpha Fetoprotein 2.1 NG/ML Carcinoembryonic Antigen 3.8 NG/ML CA 15-3 Antigen 18.0 U/ML CA 19-9 Antigen 30.0 U/ML Hepatitis A IgM Antibody NONREACTIVE Hepatitis B Surface Antigen NONREACTIVE Hepatitis B Core IgM Antibody NONREACTIVE Hepatitis C IgG Antibody NONREACTIVE HIV (1&2) Ab and P24 Ag, 4th Gener NONREACTIVE Blood Smear Pathologist Review Test 05/26/17 17:08 05/26/17 20:32 05/27/17 03:56 Ammonia LESS THAN 10 MCMOL/L Rheumatoid Factor Screen NEGATIVE Rheumatoid Factor Titer IU/ML Blood Gas Puncture Site RT RADIAL Blood Gas Patient Temperature 98.6 Blood Gas HCO3 32 mmol/L Blood Gas Base Excess 8.2 mmol/L Blood Gas Oxygen Saturation 95 % Arterial Blood pH 7.48 Arterial Blood Partial Pressure CO2 43 mmHg Arterial Blood Partial Pressure O2 82 mmHg Arterial Blood Oxygen Content 16.4 Vol % Arterial Blood Carboxyhemoglobin 0.8 % Arterial Blood Methemoglobin 1.2 % Blood Gas Hemoglobin 12.3 G/DL Oxygen Delivery Device NASAL CANNULA Blood Gas Liter Flow 2 L/M White Blood Count 23.6 TH/MM3 Red Blood Count 3.96 MIL/MM3 Hemoglobin 12.2 GM/DL Hematocrit 35.6 % Mean Corpuscular Volume 89.9 FL Mean Corpuscular Hemoglobin 30.8 PG Mean Corpuscular Hemoglobin Concent 34.3 % Red Cell Distribution Width 15.3 % Platelet Count 210 TH/MM3 Mean Platelet Volume 6.9 FL Neutrophils (%) (Auto) 91.0 % Lymphocytes (%) (Auto) 4.2 % Monocytes (%) (Auto) 4.5 % Eosinophils (%) (Auto) 0.1 % Basophils (%) (Auto) 0.2 % Neutrophils # (Auto) 21.5 TH/MM3 Lymphocytes # (Auto) 1.0 TH/MM3 Monocytes # (Auto) 1.1 TH/MM3 Eosinophils # (Auto) 0.0 TH/MM3 Basophils # (Auto) 0.1 TH/MM3 CBC Comment AUTO DIFF Differential Total Cells Counted 100 Neutrophils % (Manual) 62 % Band Neutrophils % 17 % Lymphocytes % 7 % Monocytes % 6 % Neutrophils # (Manual) 20.3 TH/MM3 Metamyelocytes 3 % Myelocytes 4 % Differential Comment FINAL DIFF MANUAL Blastocytes 1 % Platelet Estimate NORMAL Platelet Morphology Comment NORMAL Red Cell Morphology Comment NORMAL Reticulocyte Count 2.6 % Absolute Reticulocyte Count 103.4 MIL/L Blood Urea Nitrogen 25 MG/DL Creatinine 0.84 MG/DL Random Glucose 116 MG/DL Calcium Level 7.5 MG/DL Lactate Dehydrogenase 351 U/L Sodium Level 130 MEQ/L Potassium Level 3.2 MEQ/L Chloride Level 87 MEQ/L Carbon Dioxide Level 34.2 MEQ/L Anion Gap 9 MEQ/L Estimat Glomerular Filtration Rate 89 ML/MIN B-Type Natriuretic Peptide 211 PG/ML Vitamin B12 Level GREATER THAN 2000 PG/ML Folate 7.4 NG/ML Allergies Coded Allergies Type Severity Reaction Last Updated Verified shellfish derived Allergy Severe abd pain, n/v/d 05/23/17 No ipratropium Allergy Intermediate "ANXIETY, NERVOUSNESS" 05/23/17 No varenicline Allergy Intermediate UNABLE TO STATE A SPECIFIC ALLERGIC REACTION- -STATES HE HAD 05/23/17 No walnut Allergy Intermediate NERVOUSNESS, ANXIETY 05/23/17 No Active Scripts Medications Dose Route/Sig Max Daily Dose Days Date Category Dose Instructions Metoprolol Tartrate 25 Mg Tab 25 Mg PO BID 05/23/17 Reported Methocarbamol 500 Mg Tab 500 Mg PO Q12HR 05/23/17 Reported Tramadol (Tramadol HCl) 50 Mg Tab 50 Mg PO TID 05/23/17 Reported Metolazone 2.5 Mg Tab 2.5 Mg PO MOWEFR 05/23/17 Reported Take 1 tablet (2.5mg) daily on Sunday,Sunday and Sunday Prednisone 10 Mg Tab 10 Mg PO DAILY 05/23/17 Reported Potassium Chloride ER (Potassium Chloride) 10 Meq Cap 10 Meq PO DAILY 02/27/17 Reported Lasix (Furosemide) 20 Mg Tab 20 Mg PO DAILY 02/27/17 Reported Duoneb (Ipratropium-Albuterol Neb) 0.5-2.5 Mg/3 Ml Neb 1 Nebule INH Q4-6H 02/04/16 Reported Cartia Xt (Diltiazem ER 24 HR) 120 Mg Caper 120 Mg PO DAILY 02/04/16 Reported Ventolin Hfa 18 GM Inh (Albuterol Sulfate) 90 Mcg/Act Aer 2 Puff INH Q4H PRN 01/13/16 Reported ASSESSMENT/PLAN:Seen and exmined, EGD/COLONOSCOPY planned for tomorrow. CT abd/ pelvis reviewed. Golytle prep. Discussed with pt. and nurse. It was a pleasure seeing Abelardo Montesinos. Thank you for this consult. Entered by: Ellis Berry MD May 27, 2017 12:53
--- NOTE | 2017-05-27 12:58 | RADRPT ---
EXAM DATE/TIME: 05/27/2017 11:47 [facility] COMPARISON: No previous studies available for comparison. INDICATIONS : Inability to ambulate. MEDICAL HISTORY : Hypertension. Anemia. SURGICAL HISTORY : Retina repair, TURP ENCOUNTER: Initial ACUITY: 4-6 days PAIN SCORE: 0/10 LOCATION: cranial Please note a normal MRA of the brain does not entirely exclude the possibility of a small aneurysm, nor the possibility of distal intracranial vessel disease. TECHNIQUE: 3D time of flight MRA was performed. Source images, multiplanar STS MIP, and 3D volume MIP reconstru ctions were reviewed. FINDINGS: There is excellent visualization of the major intracranial arteries out to the second-order branch ve ssels. There is no evidence for aneurysm, vessel truncation or stenosis, and no evidence for vascula r malformation. CONCLUSION: Normal examination for a patient of this age. Atilio Dunham MD on May 27, 2017 at 12:52 Board Certified Radiologist. This report was verified electronically.
--- NOTE | 2017-05-27 13:20 | RADRPT ---
EXAM DATE/TIME: 05/27/2017 11:47 [facility] COMPARISON: CT PULMONARY ANGIOGRAM, May 26, 2017, 14:58. MRA BRAIN W/O CONTRAST, May 27, 2017, 11:47. INDICATIONS : Weakness. CONTRAST: 20 cc Omniscan (gadodiamide) IV MEDICAL HISTORY : Hypertension. Anemia. SURGICAL HISTORY : Retina repair, TURP ENCOUNTER: Subsequent ACUITY: 4-6 days PAIN SCORE: 0/10 LOCATION: cranial Percent stenosis is calculated using the diameter of the stenotic region over the diameter of the nor mal distal internal carotid artery. TECHNIQUE: Bolus infused MRA of the extracranial circulation was performed using a neurovascular coil. Post pro cessing was performed including rotating subvolume maximum intensity projections of each carotid nela ry, rotating full volume maximum intensity projections of both carotid arteries, sagittal and coronal sliding thin slab reformations of each carotid artery, and left oblique sliding thin slab reformatio n through the aortic arch to include the origin of the arch branch vessels. FINDINGS: AORTIC ARCH: There is a three vessel origin of the great vessels from the aorta. No evidence of ostial narrowing. RIGHT CAROTID: The common carotid artery is intact. The carotid bulb has a normal configuration without ulceration or narrowing. The internal carotid artery lumen is smooth without stenosis. The external carotid ar rodrigue is intact. LEFT CAROTID: The common carotid artery is intact. The carotid bulb has a normal configuration without ulceration or narrowing. The internal carotid artery lumen is smooth without stenosis. The external carotid ar rodrigue is intact. VERTEBRALS: The vertebral arteries have a symmetric diameter. No stenotic lesions are seen. CONCLUSION: Normal examination. eBbe Purdy MD on May 27, 2017 at 13:14 Board Certified Radiologist. This report was verified electronically.
--- NOTE | 2017-05-27 14:10 | HHI.PR ---
Subjective Remarks Patient sleeping woke up to voice Still feeling weak Hematology and GI workup ongoing to rule out hematology or GI malignancy Objective Vitals Vital Signs Date Time Temp Pulse Resp B/P (MAP) Pulse Ox O2 Delivery O2 Flow Rate FiO2 05/27/17 09:28 100 Nasal Cannula 2.00 05/27/17 06:00 81 05/27/17 04:00 98.1 79 16 103/54 (70) 100 05/27/17 04:00 79 05/27/17 02:00 76 05/27/17 00:46 100 Nasal Cannula 2.00 05/27/17 00:00 72 05/27/17 00:00 98.0 72 18 100/54 (69) 100 Arterial Line 05/26/17 22:00 90 05/26/17 20:00 89 05/26/17 20:00 98.2 89 18 121/58 (79) 100 Arterial Line 05/26/17 19:00 99 Nasal Cannula 2.00 05/26/17 16:00 98.0 79 26 100/57 (71) 100 05/26/17 16:00 79 I/O 05/26/17 05/26/17 05/26/17 05/27/17 05/27/17 05/27/17 07:00 15:00 23:00 07:00 15:00 23:00 Intake Total 300 ml 400 ml 220 ml Output Total 400 ml 400 ml 500 ml Balance -100 ml 0 ml -280 ml Intake Oral 300 ml 300 ml 120 ml IV Total 100 ml 100 ml Output Urine Total 400 ml 400 ml 500 ml Stool Total 0 ml # Voids 2 # Bowel Movements 0 0 Result Diagram: 05/27/17 0356 05/27/17 0356 Objective Remarks GENERAL: This is a well-nourished, well-developed patient, in no apparent distress. SKIN: No rashes, warm and dry HEAD: Atraumatic. Normocephalic. EYES: Pupils equal round and reactive. Extraocular motions intact. No scleral icterus. ENT: Nose without bleeding, or drainage, Airway patent. NECK: Trachea midline. Supple CARDIOVASCULAR: Regular rate and rhythm without murmurs, gallops, or rubs. RESPIRATORY: Fair air entry bilaterally. No wheezes, rales, or rhonchi. GASTROINTESTINAL: Abdomen soft, non-tender, nondistended. Positive bowel sounds MUSCULOSKELETAL: Extremities without clubbing, cyanosis, or edema. Pedal pulses appreciated NEUROLOGICAL: Awake and alert. Moves all extremity with more noticed weakness on the lower extremity. Normal speech.no focal neurological deficit A/P Assessment and Plan Elevated troponin Non-STEMI Short of breath/dyspnea Lower extremity weakness Hyponatremia and hypokalemia Leukocytosis with left shift noted , infectious versus blood dyscrasia History of hypertension History of COPD History of BPH status post TURP History of non-obstructive CAD Plan: 05/25: still with leukocytosis, no clear source of infx , consult ID , check ESR/ CRP, will start levaquin appreciate renal consult >cont hold diuretics , fluid restriction, dc ivf 05/26: Persistent leukocytosis with left shift, appreciate ID participation in care, she agreed on no clear source of infection, so workup for blood dyscrasia/ malignancy has been initiated Tumor marker, moser CT scan abdomen and chest, oncology, neurology consultation. Lower extremity weakness, possibly paraneoplastic syndrome versus other neurologic etiology, discussed with Dr. Simmons, at this point MRI MRA of the brain, vitamin B12 methylmalonic acid,? 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
--- NOTE | 2017-05-27 15:11 | PD.PSY.CON ---
Provisional Diagnosis Admission Date May 23, 2017 at 09:05 Panacea I. Adjustment disorder with depressed mood History of Present Illness Service Psychiatry Consult Requested By Mayra Sexton MD Reason for Consult Depression, r/o conversion disorder Primary Care Physician Jason Garrett MD HPI Patient is a 76 y/o man, single, domiciled with significant other, unemployed, with no formal past psychiatric history, no prior psychiatric diagnosis, no prior psychiatric admissions, no prior suicide attempts, no self injurious behavior with past medical history significant for HTN, COPD, CAD, Afib, BPH who was admitted due to medical service for hyponatremia, hypokalemia , elevated troponins, COPD exacerbation and lower extremity weakness which concern for current depression and possible conversion disorder psychiatry was consulted for evaluation. Patient was found lying on hospital bed, calm and cooperative. He states that he has been feeling "better" after having been able to sit up on the side of the bed when working with physical therapy today. He states that prior to admission he was ambulating with walker but felt short of breath after 2-3 steps with decreased energy which prompted his significant other to have patient brought to the hospital. He states that after admission into the hospital he lost all movement including his upper extremities but states that his movement is improving. Prior to admission he reports having been feeling depressed due to worsening of shortness of breath. He recalls having been admitted by his PCP at another hospital and referred to a health and rehab center which he refused to go stating that he would never go into a group home. He reports sleeping fair prior to admission, decreased appetite, energy, feeling depressed along with feeling helpless and hopeless but denying any suicidal ideation, other mood symptoms, perceptual disturbances or delusions. He states that he had been feeling depressed for about one month but that his mood had improved today after being able to sit up on the side of his bed. He denied any other psychosocial stressor other than his worsening shortness of breath and generalized weakness. Past psychiatric history: no prior psychiatric diagnosis, no prior psychiatric admissions, no prior suicide attempts or self injurious behavior. Substance use history: denies Past medical history: HTN, COPD, CAD, Afib, BPH Allergies: ipratropium, shellfish, varenicline, walnut Social history: single, domiciled with significant other for many years, unemployed. Past Family Social History Coded Allergies: shellfish derived (Unverified Allergy, Severe, abd pain, n/v/d, 05/23/17) ipratropium (Unverified Allergy, Intermediate, "ANXIETY, NERVOUSNESS", 05/23) varenicline (Unverified Allergy, Intermediate, UNABLE TO STATE A SPECIFIC ALLERGIC REACTION--STATES HE HAD, 05/23/17) walnut (Unverified Allergy, Intermediate, NERVOUSNESS, ANXIETY, 05/23/17) Reported Medications Metoprolol Tartrate (Metoprolol Tartrate) 25 Mg Tab, 25 MG PO BID, #60 TAB 0 Refills 05/23/17 Methocarbamol (Methocarbamol) 500 Mg Tab, 500 MG PO Q12HR for Muscle Spasm, #40 TAB 0 Refills 05/23/17 Tramadol (Tramadol) 50 Mg Tab, 50 MG PO TID, #40 TAB 0 Refills 05/23/17 Metolazone (Metolazone) 2.5 Mg Tab, 2.5 MG PO MoWeFr, #30 TAB 0 Refills Take 1 tablet (2.5mg) daily on Sunday,Sunday and Sunday05/23/17 Prednisone (Prednisone) 10 Mg Tab, 10 MG PO DAILY, TAB 0 Refills 05/23/17 Potassium Chloride ER (Potassium Chloride ER) 10 Meq Cap, 10 MEQ PO DAILY for Electrolyte Replacement, #30 CAP 0 Refills 02/27/17 Furosemide (Lasix) 20 Mg Tab, 20 MG PO DAILY, #30 TAB 0 Refills 02/27/17 Ipratropium-Albuterol Neb (Duoneb) 0.5-2.5 Mg/3 Ml Neb, 1 NEBULE INH Q4-6H for Breathing Treatment, #30 NEBULE 0 Refills 02/04/16 Diltiazem ER 24 HR (Cartia Xt) 120 Mg Caper, 120 MG PO DAILY, #30 CAP 0 Refills 02/04/16 Albuterol 18 GM Inh (Ventolin Hfa 18 GM Inh) 90 Mcg/Act Aer, 2 PUFF INH Q4H Y for SHORTNESS OF BREATH, #1 INHALER 0 Refills 01/13/16 Discontinued Reported Medications Prednisone (Prednisone) 20 Mg Tab, 20 MG PO DAILY, TAB 0 Refills 05/23/17 Discontinued Scripts Citalopram (Celexa) 10 Mg Tab, 10 MG PO DAILY for Control Depression for 30 Days , #30 TAB 0 Refills Prov:KylahMitzyLienzhou PRATHER 02/28/17 Trazodone (Trazodone) 50 Mg Tab, 50 MG PO HS for insomnia for 3 Days, #3 TAB Prov:KylahLienzhou PRATHER 02/28/17 Prednisone (Prednisone) 20 Mg Tab, 20 MG PO BID for Inflammation, #12 TAB 0 Refills 20 mg twice daily for 3 days then 20 mg daily for 3 days then 10 mg daily for 3 days then resume home prednisone Prov:Elham Bridges MD 02/02/17 Current Medications Medications (Trade) Dose Ordered Sig/Daniela Route Start Time Stop Time Status Last Admin (NS Flush) 2 ml UNSCH PRN IV FLUSH 05/23/17 09:00 (NS Flush) 2 ml BID IV FLUSH 05/23/17 09:00 05/27/17 09:34 (Narcan Inj) 0.4 mg UNSCH PRN IV PUSH 05/23/17 09:00 (Protonix) 40 mg DAILY PO 05/24/17 09:00 05/27/17 09:33 (Xopenex Neb) 0.63 mg Q4HR NEB PRN NEB 05/23/17 11:45 05/27/17 09:27 (Cardizem Cd) 120 mg DAILY PO 05/24/17 09:00 05/27/17 09:33 (Lopressor) 25 mg BID PO 05/23/17 21:00 05/27/17 09:33 (Deltasone) 5 mg DAILY PO 05/24/17 09:00 05/27/17 09:34 Miscellaneous Information Patient in critical care unit? Ass... Q361D .XX 05/24/17 00:15 05/24/17 00:15 (Chlorhexidine 2% Cloth) 3 pack DAILY@04 TOPICAL 05/24/17 04:00 05/28/17 04:01 05/27/17 04:00 (Chlorhexidine 2% Cloth) 3 pack UNSCH PRN TOPICAL 05/24/17 00:15 05/29/17 00:14 Levofloxacin/ Dextrose 100 ml @ 100 mls/hr Q24H IV 05/25/17 20:00 05/26/17 22:14 Sodium Bicarbonate 100 meq/Sodium Chloride 1,100 ml @ 100 mls/hr Q11H IV 05/26/17 15:00 05/27/17 02:15 (Ecotrin Ec) 81 mg DAILY PO 05/27/17 09:00 05/27/17 09:33 (Lipitor) 20 mg HS PO 05/27/17 21:00 (Zofran Inj) 4 mg Q6H PRN IV PUSH 05/27/17 11:00 05/27/17 11:27 (Colyte Liq) 2,000 ml Q8H PO 05/27/17 14:00 05/27/17 22:01 Physical Exam Vital Signs Vital Signs Date Time Temp Pulse Resp B/P (MAP) Pulse Ox O2 Delivery O2 Flow Rate FiO2 05/27/17 09:28 100 Nasal Cannula 2.00 05/27/17 06:00 81 05/27/17 04:00 98.1 16 103/54 (70) 05/26/17 07:00 98 I/O 05/27/17 05/27/17 05/28/17 08:00 16:00 00:00 Intake Total 120 ml Output Total 500 ml Balance -380 ml Lab Results Test 05/26/17 17:08 05/26/17 20:32 05/27/17 03:56 Ammonia LESS THAN 10 MCMOL/L Rheumatoid Factor Screen NEGATIVE Rheumatoid Factor Titer IU/ML Blood Gas Puncture Site RT RADIAL Blood Gas Patient Temperature 98.6 Blood Gas HCO3 32 mmol/L Blood Gas Base Excess 8.2 mmol/L Blood Gas Oxygen Saturation 95 % Arterial Blood pH 7.48 Arterial Blood Partial Pressure CO2 43 mmHg Arterial Blood Partial Pressure O2 82 mmHg Arterial Blood Oxygen Content 16.4 Vol % Arterial Blood Carboxyhemoglobin 0.8 % Arterial Blood Methemoglobin 1.2 % Blood Gas Hemoglobin 12.3 G/DL Oxygen Delivery Device NASAL CANNULA Blood Gas Liter Flow 2 L/M White Blood Count 23.6 TH/MM3 Red Blood Count 3.96 MIL/MM3 Hemoglobin 12.2 GM/DL Hematocrit 35.6 % Mean Corpuscular Volume 89.9 FL Mean Corpuscular Hemoglobin 30.8 PG Mean Corpuscular Hemoglobin Concent 34.3 % Red Cell Distribution Width 15.3 % Platelet Count 210 TH/MM3 Mean Platelet Volume 6.9 FL Neutrophils (%) (Auto) 91.0 % Lymphocytes (%) (Auto) 4.2 % Monocytes (%) (Auto) 4.5 % Eosinophils (%) (Auto) 0.1 % Basophils (%) (Auto) 0.2 % Neutrophils # (Auto) 21.5 TH/MM3 Lymphocytes # (Auto) 1.0 TH/MM3 Monocytes # (Auto) 1.1 TH/MM3 Eosinophils # (Auto) 0.0 TH/MM3 Basophils # (Auto) 0.1 TH/MM3 CBC Comment AUTO DIFF Differential Total Cells Counted 100 Neutrophils % (Manual) 62 % Band Neutrophils % 17 % Lymphocytes % 7 % Monocytes % 6 % Neutrophils # (Manual) 20.3 TH/MM3 Metamyelocytes 3 % Myelocytes 4 % Differential Comment FINAL DIFF MANUAL Blastocytes 1 % Platelet Estimate NORMAL Platelet Morphology Comment NORMAL Red Cell Morphology Comment NORMAL Reticulocyte Count 2.6 % Absolute Reticulocyte Count 103.4 MIL/L Blood Urea Nitrogen 25 MG/DL Creatinine 0.84 MG/DL Random Glucose 116 MG/DL Calcium Level 7.5 MG/DL Lactate Dehydrogenase 351 U/L Sodium Level 130 MEQ/L Potassium Level 3.2 MEQ/L Chloride Level 87 MEQ/L Carbon Dioxide Level 34.2 MEQ/L Anion Gap 9 MEQ/L Estimat Glomerular Filtration Rate 89 ML/MIN B-Type Natriuretic Peptide 211 PG/ML Vitamin B12 Level GREATER THAN 2000 PG/ML Folate 7.4 NG/ML Date/Time Source Procedure Growth Status 05/23/17 09:45 Blood Peripheral Aerobic Blood Culture - Preliminary NO GROWTH IN 4 DAYS Resulted 05/23/17 09:45 Blood Peripheral Anaerobic Blood Culture - Preliminary NO GROWTH IN 4 DAYS Resulted 05/23/17 07:30 Nasal Washing Influenza Types A,B Antigen (KECIA) - Final NEGATIVE FOR FLU A AND B ANTIGEN.... Complete Mental Status Examination Appearance: Disheveled Consciousness: Alert Orientation: Person, Place, Date/Time Speech: Unremarkable Language: Adequate Fund of Knowledge: Inadequate Attention and Concentration: Adequate Memory: Unremarkable Mood: Sad Affect: Appropriate Thought Process & Associations: Intact, Goal directed, Linear Thought Content: Appropriate Hallucination Type: None Delusion Type: None Suicidal Ideation: No Suicidal Plan: No Suicidal Intention: No Homicidal Ideation: No Homicidal Plan: No Homicidal Intention: No Insight: Fair Judgment: Impulsive Assessment & Plan Problem List: (1) Adjustment disorder with depressed mood ICD Codes: F43.21 - Adjustment disorder with depressed mood Assessment & Plan Patient is a 76 y/o man with no formal past psychiatric history, with multiple chronic medical illnesses who was recently admitted to the medical service for hyponatremia, hypokalemia, COPD exacerbation and lower extremity weakness which concern for depression along with possible conversion disorder that psychiatry was consulted for evaluation. Patient at this time endorses depressive symptoms in the context of recent physical decline which he would benefit from starting of SSRI to address his depressive symptoms but also indicated in treating comorbidities when addressing possible conversion disorder. Patient did identify any acute psychosocial stressor but the recent medical admission may have contributed as a stressor that could have brought on somatic symptomatology as he reported having ability to ambulate just prior to admission. Conversion disorder is diagnosis of exclusion and therefore continued workup for other possible etiologies is recommended. Patient at this time has had reported improvement as stated in HPI and now more hopeful for recovery. Recommend starting of sertraline once hyponatremia has normalized at 25mg PO x 1 and if tolerated well, increase to 50mg PO daily for depressive symptoms. Due to current hyponatremia, risk of SIADH with use of SSRIs and therefore should be started once hyponatremia has improved. Longitudinal observation is needed to confirm conversion disorder and if patient with continued weakness despite negative workup for this, treatment approach for conversion disorder is continued physical therapy and cognitive behavioral therapy. Will continue to follow. Consult appreciated. Gagan Brothers MD May 27, 2017 15:11
[2017-05-27] MEDS: PEG (High)/E-LYTE SOLN 4000 ML BTL PO SCH ×3 (16:39→23:04)
[2017-05-27] MEDS: LEVOFLOXACIN 500 MG PREMIX INJ 100 ML IV SCH (20:46)
[2017-05-27] MEDS ORDERED: ATORVASTATIN 20 MG TAB PO SCH (21:00)
[2017-05-28] VITALS (11 sets, daily range): BP systolic 90–118; BP diastolic 50–70; PULSE 73–112; RESP 18; TEMP 97.2–98.5; O2SAT 93–98
[2017-05-28] MEDS: SODIUM BICARBONATE 8.4% INJ 100 MEQ in SODIUM CHLOR 0.45% 1000 ML INJ 1,000 ML IV SCH (00:51)
[2017-05-28] MEDS ORDERED: CHLORHEXIDINE GLUCONATE 2 % 1 PACK (2 CLOTHS) TOPICAL PRN (02:30)
[2017-05-28] MEDS ORDERED: SODIUM CHLORID 0.9% 500 ML IV PRN (02:30)
[2017-05-28] MEDS ORDERED: LACTATED RINGER'S 1000 ML IV PRN (02:30)
[2017-05-28] MEDS ORDERED: POVIDONE IODINE 5% (ANTISEPSIS KIT) 4 APPLICATIONS EACH NARE PRN (02:30)
[2017-05-28] MEDS: CHLORHEXIDINE GLUCONATE 2 % 1 PACK (2 CLOTHS)(taper/protocol) TOPICAL SCH (04:00)
[2017-05-28] MEDS: RESP: LEVALBUTEROL HYDROCHLORIDE 0.63 MG/3 ML NEB (PRN) NEB ×3 (08:00→22:24)
--- NOTE | 2017-05-28 08:03 | HHI.PR ---
Subjective Remarks sr Objective Vital Signs Date Time Temp Pulse Resp B/P (MAP) Pulse Ox O2 Delivery O2 Flow Rate FiO2 05/28/17 07:26 97.8 86 18 118/70 (86) 97 05/28/17 04:07 97.2 83 18 105/51 (69) 93 05/28/17 00:00 97.2 73 18 94/51 (65) 97 05/27/17 23:53 67 05/27/17 20:47 Nasal Cannula 2.00 05/27/17 20:32 109 05/27/17 20:00 97.2 93 18 118/57 (77) 98 05/27/17 20:00 92 05/27/17 19:57 98 Nasal Cannula 2.00 05/27/17 17:57 99 05/27/17 17:30 87 05/27/17 16:42 93 05/27/17 12:00 97.8 75 14 99/60 (73) 99 05/27/17 09:28 100 Nasal Cannula 2.00 I/O 05/27/17 05/27/17 05/27/17 05/28/17 05/28/17 05/28/17 07:00 15:00 23:00 07:00 15:00 23:00 Intake Total 220 ml 1000 ml 3267 ml Output Total 500 ml Balance -280 ml 1000 ml 3267 ml Intake Oral 120 ml 1000 ml IV Total 100 ml 3267 ml Output Urine Total 500 ml # Bowel Movements 0 2 Result Diagram: 05/27/17 0356 05/27/17 0356 Objective Remarks awke alert moving all gen weak in be le>ue Assessment and Plan Assessment and Plan imp ct abd neg mri brain bilat small cbllr cv adn i think some tiny subacute ones in bilat cerebrum faint c spine ok check mra recent mi likly cause although echo ef nl oob conisder anticoagulation na 130 05/28/17 bilat cva would like loop placed i consulted dr weir yest as dr cao not do these at time of mi ? bilat cva consider anticoagulation oob PT not conversion d/o emg pend check standing bp will need rehab Petr Simmons MD May 28, 2017 08:03
[2017-05-28 08:05] LABS: AUTOMATED NEUTROPHIL # 19.9 TH/MM3 (1.8-7.7); BASOPHIL # 0.1 TH/MM3 (0-0.2); BASOPHIL % 0.2 % (0.0-2.0); EOSINOPHIL % 0.1 % (0.0-4.0); HEMATOCRIT 32.6 % (39.0-51.0); HEMOGLOBIN 11.3 GM/DL (13.0-17.0); LYMPH % 3.7 % (9.0-44.0); LYMPHOCYTE # 0.8 TH/MM3 (1.0-4.8); MEAN CELL VOLUME 89.5 FL (80.0-100.0); MEAN CORPUSCULAR HGB CONC 34.7 % (32.0-36.0); MEAN PLATELET VOLUME 6.8 FL (7.0-11.0); MONO % 4.9 % (0.0-8.0); MONOCYTE # 1.1 TH/MM3 (0-0.9); NEUT % 91.1 % (16.0-70.0); PLATELET COUNT 190 TH/MM3 (150-450); RED BLOOD COUNT 3.64 MIL/MM3 (4.50-5.90); WHITE BLOOD COUNT 21.9 TH/MM3 (4.0-11.0)
[2017-05-28 08:29] LABS: ALBUMIN 2.4 GM/DL (3.4-5.0); CALCIUM 7.3 MG/DL (8.5-10.1); CHOLESTEROL/ HDL RATIO 2.1 RATIO; CREATININE 0.68 MG/DL (0.60-1.30); DIRECT BILIRUBIN ADULT 0.2 MG/DL (0.0-0.2); INDIRECT BILIRUBIN 0.3 MG/DL (0.0-0.8); TOTAL BILIRUBIN ADULT 0.5 MG/DL (0.2-1.0); TOTAL PROTEIN 4.9 GM/DL (6.4-8.2)
[2017-05-28 09:04] LABS: CALCIUM-PROTEIN CORRECTED 8.5 MG/DL (8.5-10.1)
[2017-05-28] MEDS: PANTOPRAZOLE SOD 40 MG DELAYED RELEASE TAB PO SCH (09:10)
[2017-05-28] MEDS: ASPIRIN EC 81 MG TABEC PO SCH (09:10)
[2017-05-28] MEDS: DILTIAZEM-CD 120 MG CAP ER PO SCH (09:10)
[2017-05-28] MEDS: predniSONE 5 MG TAB PO SCH (09:10)
[2017-05-28] MEDS: SODIUM CHLORIDE 0.9% FLUSH 10 ML FLUSH IV FLUSH SCH ×2 (09:11→20:27)
[2017-05-28] MEDS: METOPROLOL TARTRATE 25 MG TAB PO SCH ×2 (09:11→20:27)
[2017-05-28 09:28] LABS: BANDS 3 % (0-6); LYMPHOCYTES 6 % (9-44); METAMYELOCYTES 4 % (0-1); MONOCYTES 3 % (0-8); MYELOCYTES 6 % (0-0); NEUTROPHIL # MANUAL DIFF 19.9 TH/MM3 (1.8-7.7); POLYS (SEG NEUTROPHILS) 78 % (16-70)
--- NOTE | 2017-05-28 10:37 | HHI.NPPN ---
Subjective Interval History He is NPO on bicarb gtt. Na 131. (Nimo Beatty) Review of Systems General General Remarks david (Nimo Beatty) Objective Data Data 05/28/17 05/29/17 18:59 06:59 Intake Total 406 ml Balance 406 ml IV Total 406 ml Vital Signs Date Time Temp Pulse Resp B/P (MAP) Pulse Ox O2 Delivery O2 Flow Rate FiO2 05/28/17 07:26 97.8 86 18 118/70 (86) 97 05/28/17 04:07 97.2 83 18 105/51 (69) 93 05/28/17 00:00 97.2 73 18 94/51 (65) 97 05/27/17 23:53 67 05/27/17 20:47 Nasal Cannula 2.00 05/27/17 20:32 109 05/27/17 20:00 97.2 93 18 118/57 (77) 98 05/27/17 20:00 92 05/27/17 19:57 98 Nasal Cannula 2.00 05/27/17 17:57 99 05/27/17 17:30 87 05/27/17 16:42 93 05/27/17 12:00 97.8 75 14 99/60 (73) 99 (Nimo Beatty) -: 05/28/17 0703 05/28/17 0703 Imaging Last 72 hours Impressions Neck Magnetic Resonance Angiography 05/27/17 0000 Signed Impressions: Service Date/Time: Saturday, May 27, 2017 11:47 - CONCLUSION: Normal examination. Bebe Purdy MD Head Magnetic Resonance Angiography 05/27/17 0000 Signed Impressions: Service Date/Time: Saturday, May 27, 2017 11:47 - CONCLUSION: Normal examination for a patient of this age. Atilio Dunham MD Cervical Spine MRI 05/26/17 5625 Signed Impressions: Service Date/Time: Friday, May 26, 2017 17:25 - CONCLUSION: 1. Mild to moderate degenerative disc disease. 2. Moderate degenerative disease at C6-7 with broad-based disc osteophyte complex causing mild anterior dural effacement but no spinal cord compression or nerve root compression. 3. No acute bony abnormality. 4. Normal appearing spinal cord. Mike Holt MD Brain MRI 05/26/17 1445 Signed Impressions: Service Date/Time: Friday, May 26, 2017 17:25 - CONCLUSION: 1. Small bilateral cerebellar infarcts. 2. Mild cerebral white matter disease characteristic of microvascular ischemic changes. 3. No evidence of hemorrhage , mass, edema or abnormal enhancement. Mike Holt MD Sacrum/Coccyx MRI 05/26/17 0000 Signed Impressions: Service Date/Time: Friday, May 26, 2017 17:25 - CONCLUSION: No acute disease. No evidence of soft tissue mass or destructive bone lesions. Degenerative disc disease in lower lumbar spine. Mike Holt MD Lumbar Spine MRI 05/26/17 0000 Signed Impressions: Service Date/Time: Friday, May 26, 2017 17:25 - CONCLUSION: 1. Acute compression deformity at the superior aspect of the L2 vertebral body with minimal loss of height anteriorly. 2. Degenerative change throughout with loss of disc space height, minimal bulging and facet hypertrophy. There are mild areas of stenosis. Severe stenosis is not seen throughout. 3. 1.3 cm low signal mass in the superior lateral left kidney representing either a complex hemorrhagic or proteinaceous cyst versus a solid mass. Given its size, it is thought it could be followed. Abelardo Gutierrez MD CT Angiography 05/26/17 Signed Impressions: Service Date/Time: Friday, May 26, 2017 14:58 - CONCLUSION: 1. No evidence of pulmonary embolism. 2. COPD. 3. No evidence of acute air space disease or suspicious nodular densities. 4. No significant change. Mike Holt MD Abdomen/Pelvis CT 05/26/17 Signed Impressions: Service Date/Time: Friday, May 26, 2017 14:58 - CONCLUSION: 1. No acute abnormalities seen. 2. Colonic diverticula. 3. Multiple renal cysts the more numerous on the left. There is a 1.2 cm complex cyst or solid mass seen at the posterior superior left kidney back and be followed. Urology consultation would be suggested as an outpatient. 4. Induration around the right common femoral artery presumably from recent catheterization. This should be correlated clinically. 5. Small suspected area focal fatty infiltration of the left lobe of the liver. 6. Degenerative change in the lumbar spine 7. Mild compressive deformities at the superior aspect of the T12 and L2 vertebral bodies. 8. Solitary 1.9 cm sclerotic lesion at the left proximal femur. This is nonspecific. It may represent a bone island. Other etiologies for sclerotic lesions cannot be excluded. No other lesions are seen. Abelardo Gutierrez MD (Nimo Beatty) Physical Exam General Appearance: Well Developed, Comfortable (Nimo Beatty) Throat Throat Exam: Oral Mucosa Alexander & Moist (Nimo Beatty) Neck Neck Exam: Neck Supple (Nimo Beatty) Pulmonary Resp Exam: Breath Sounds Equal, No Distress, Decreased Bases (Nimo Beatty) Cardiology CV Exam: Regular (Nimo Beatty) Gastrointestinal/Abdomen GI Exam: Soft, Non-Tender, Bowel Sounds Present (Nimo Beatty) Musculoskeletal MS Exam: Normal Gait, Normal Tone, Good Strength (Nimo Beatty) Integumentary Skin Exam: Warm, Dry, Intact (Nimo Beatty) Extremeties Extremities Exam: No Edema, Pedal Pulses Palpable (Nimo Beatty) Neurologic Neuro Exam: Alert, Awake, Oriented, Speech Clear, Moving All Extremities (Nimo Beatty) Psychiatric Psych Exam: Appropriate Responses (Nimo Beatty) Assessment/Plan Discussed Condition With: Patient Electrolyte Assessment: Hypokalemia Problem List: (1) Acute hyponatremia ICD Codes: E87.1 - Hypo-osmolality and hyponatremia Status: Acute Plan: In February his serum Na ran 135-137 Low urine sodium suggesting hypovolemic hyponatremia Stop bicarb gtt, ordered D5NS with 20 MeQ KCL. Na is 1w31 today Replace potassiu Noted hx of CHF Continue to hold loop diuretics Repeat labs daily (2) Elevated troponin I level ICD Codes: R79.89 - Other specified abnormal findings of blood chemistry Status: Acute Plan: s/p cardiac cath, medical management cardiology following (3) COPD with acute exacerbation ICD Codes: J44.1 - Chronic obstructive pulmonary disease with (acute) exacerbation Status: Acute Plan: On steroids and oxygen Management per medical team (Nimo Beatty) Plan patient was seen and examined. Discontinue bicarbonate drip. Serum Na is improving. (Dimitri Cruz MD) Nimo Beatty. [facility] May 28, 2017 10:37 Dimitri Cruz MD May 29, 2017 10:15
--- NOTE | 2017-05-28 11:36 | PD.CONS ---
Consult Service Palliative Care . Consult Requested By Mohini Jesus . Primary Care Physician Jason Garrett MD . Reason for Consultation a. To assist with evaluation and management of symptoms including: dyspnea, nausea, debility b. To assist medical decision maker(s) with: better understanding of current medical conditions; weighing benefits/burdens of medical treatment options; making medical treatment decisions. . HPI History of Present Illness Mr. Lizarraga is a 76-year-old male with hypertension, GERD, COPD, coronary artery disease, atrial fibrillation and BPH who was a previous smoker. He presented to [facility] ED via EMS on 05/23/2017 with complaints of moderately severe shortness of breath. He reported an extensive history of dyspnea that had progressed to the point of significantly limiting his activity level stating he is barely able to walk from his bedroom to the bathroom. Patient has a known history of COPD and is nebulizer dependent; he was recently hospitalized February, with a COPD exacerbation. He is followed by Dr. Michelle, pulmonology. Patient has chronic edema in his bilateral lower extremities and is on daily daily diuretics. Mr. Lizarraga additionally complained of nausea, decreased appetite and early satiety that began 3-4 weeks earlier. He stated he had been living bed to chair existence in recent weeks due to his increased weakness. Additional diagnostic data while in the ED: * Vital signs: Pulse 84, respirations 20, BP 129/66, oxygen saturation 99% on room air and oral temperature is 98.3 * WBC: 20.0, hemoglobin 15.1, hematocrit 42.2, platelets 235 * Sodium: 118, potassium 2.4, chloride 71, carbon dioxide 36.8, glucose 97, calcium 8.5 * BUN: 23, creatinine 1.13, GFR 63 * Total bilirubin: 1.2, AST 34, ALT 71, alkaline phosphatase 121 * Total creatine kinase: 25 * Troponin: 0.93 * BNP: 202 * Total protein: 6.4, albumin 3.5 * PT: 10.1, INR 1.0, APTT 24.0 * Blood culture-no growth in 4 days * Chest x-ray showed hyper aeration of the lung ko characteristics of COPD; otherwise stable in comparison to previous studies with no acute parenchymal infiltrates. * Venous ultrasound of bilateral lower extremities was normal. Patient received nebulizer treatments 3 and IV Solu-Medrol. X-ray of the chest showed hyperinflation without infiltrate or edema. Extended cardiac monitoring revealed sinus rhythm in the 90s with occasional ectopic beats. Sodium and potassium levels were critically low; troponin was elevated at 0.93, also a critical value. He was administered ASA. He denied recent chest pain. Patient said he had had a stress test 4 months earlier at [place] but no documentation could be found. He did have a negative perfusion scan in 2016. Patient was admitted to telemetry unit with a diagnosis of acute COPD exacerbation, acute hyponatremia and acute hypokalemia. Cardiology, nephrology , neurology, ID and hematology are following. Cardiology was consulted to evaluate patient with NSTEMI. Patient was seen by Dr. oY and underwent cardiac catheterization which showed mild coronary artery disease, EF 40-45%, no stents were placed. Recommendations for continued medical management of CHF. Dr. Simmons, neurology, was asked to evaluate the patient due generalized weakness. Recommendations were made to evaluate patient for a loop recorder. = MRI of the brain revealed small bilateral cerebral infarcts; mild cerebral white matter disease characteristic of micro vascular ischemic changes; no evidence of hemorrhage, mass, edema, or abnormal enhancement. = MRI of the cervical spine showed mild to moderate degenerative disc disease; no spinal cord compression or nerve root compression; no acute bony abnormalities; normal-appearing spinal cord = MRI lumbar spine revealed a 1.3 cm low signal mass in the superior lateral left kidney representing either a complex hemorrhagic or proteinaceous cyst versus a solid mass. = MRI sacrum/coccyx showed no acute disease; no evidence of soft tissue mass or destructive bone lesions. = MRI of the brain and carotids were normal Gastroenterology was consulted to rule out possible GI malignancy. Patient having abdominal pain with palpation. Last colonoscopy was approximately 5 years ago; plan for EGD and colonoscopy in upcoming days. Hepatitis panel and HIV negative. AFP: 2.1; CEA 3.8; CA 15-3: 18.0; CA 19-9; 3.0. Negative CTA. CT abdomen/pelvis: Colonic diverticula; multiple renal cysts-there is a 1.2 cm complex cyst or solid mass seen in the posterior superior left kidney back which should be followed. Small suspected area of focal fatty infiltration of the left lobe of the liver. Solitary 1.9 cm sclerotic lesion at the left proximal femur. This is nonspecific. It may represent a bone island. Other etiologies for sclerotic lesions cannot be excluded. Infectious disease and hematology were consulted for evaluation and management of persistent leukocytosis. His WBC on admission was 28,000 which was attributed to chronic steroid use. Will workup for leukocytosis; JAK2 pending. Palliative Care was consulted to assist with symptom management and to discuss with the patient/family the benefits and burdens of her current illnesses and the options regarding future care. . Function/Cognitive Trajectory Patient reports an extensive history of dyspnea that now significantly limits his ability to care for himself. Patient has been using a walker for about 4 months; he quit driving a few weeks ago due to weakness in his legs ( specifically the right leg). The patient has had 2 falls in the past 3-4 weeks; he reports progressively increased weakness and dyspnea. He also endorsed nausea, decreased appetite and early satiety. . Review of Systems ROS Limitations: Clinical Condition Constitutional: COMPLAINS OF: Fatigue, Change in appetite (Decreased appetite) , Generalized weakness Respiratory: COMPLAINS OF: Cough, Shortness of breath, DENIES: Hemoptysis Cardiovascular: COMPLAINS OF: Dyspnea on Exertion, Lower Extremity Edema Gastrointestinal: COMPLAINS OF: Nausea, DENIES: Abdominal pain, Black stools, Bloody stools Hematologic/Lymphatics: COMPLAINS OF: Bruising Neurologic: COMPLAINS OF: Poor Balance Psychiatric: DENIES: Depression Past Family Social History Coded Allergies: shellfish derived (Unverified Allergy, Severe, abd pain, n/v/d, 05/23/17) ipratropium (Unverified Allergy, Intermediate, "ANXIETY, NERVOUSNESS", 05/23) varenicline (Unverified Allergy, Intermediate, UNABLE TO STATE A SPECIFIC ALLERGIC REACTION--STATES HE HAD, 05/23/17) walnut (Unverified Allergy, Intermediate, NERVOUSNESS, ANXIETY, 05/23/17) Past Medical History Hypertension GERD COPD CAD Atrial fibrillation BPH . Past Surgical History TURP Cataract surgery-2013 Salivary gland removal-2005 Retinal detachment-2001 Tonsillectomy . Reported Medications Prednisone 20 Mg Tab 20 Mg PO DAILY Potassium Chloride ER (Potassium Chloride) 10 Meq Cap 10 Meq PO DAILY Lasix (Furosemide) 20 Mg Tab 20 Mg PO DAILY Duoneb (Ipratropium-Albuterol Neb) 0.5-2.5 Mg/3 Ml Neb 1 Nebule INH QID Cartia Xt (Diltiazem ER 24 HR) 120 Mg Caper 120 Mg PO DAILY Ventolin Hfa 18 GM Inh (Albuterol Sulfate) 90 Mcg/Act Aer 2 Puff INH Q4H PRN . Current Medications Medications (Trade) Dose Ordered Sig/Daniela Route Start Time Stop Time Status Last Admin (NS Flush) 2 ml UNSCH PRN IV FLUSH 05/23/17 09:00 (NS Flush) 2 ml BID IV FLUSH 05/23/17 09:00 05/28/17 09:11 (Narcan Inj) 0.4 mg UNSCH PRN IV PUSH 05/23/17 09:00 (Protonix) 40 mg DAILY PO 05/24/17 09:00 05/28/17 09:10 (Xopenex Neb) 0.63 mg Q4HR NEB PRN NEB 05/23/17 11:45 05/27/17 19:54 (Cardizem Cd) 120 mg DAILY PO 05/24/17 09:00 05/28/17 09:10 (Lopressor) 25 mg BID PO 05/23/17 21:00 05/28/17 09:11 (Deltasone) 5 mg DAILY PO 05/24/17 09:00 05/28/17 09:10 Miscellaneous Information Patient in critical care unit? Ass... [id number] .XX 05/24/17 00:15 05/24/17 00:15 (Chlorhexidine 2% Cloth) 3 pack UNSCH PRN TOPICAL 05/24/17 00:15 05/29/17 00:14 Sodium Bicarbonate 100 meq/Sodium Chloride 1,100 ml @ 100 mls/hr Q11H IV 05/26/17 15:00 05/28/17 00:51 (Ecotrin Ec) 81 mg DAILY PO 05/27/17 09:00 05/28/17 09:10 (Zofran Inj) 4 mg Q6H PRN IV PUSH 05/27/17 11:00 05/27/17 11:27 Lactated Ringer's 1,000 ml @ 30 mls/hr Q24H PRN IV 05/28/17 02:30 05/31/17 02:29 Sodium Chloride 500 ml @ 30 mls/hr [id number] PRN IV 05/28/17 02:30 05/31/17 02:29 (Betadine 5% Antisepsis Kit) 1 applic POLYMERIZATION HELPER PRN EACH NARE 05/28/17 02:30 05/31/17 02:29 (Chlorhexidine 2% Cloth) 3 pack POLYMERIZATION HELPER PRN TOPICAL 05/28/17 02:30 05/31/17 02:29 (Levaquin) 500 mg Q24H PO 05/28/17 20:00 Family History Patient's mother had hypertension and brain aneurysms x 2 which were repaired; she from a stroke at the age of 68. His father from complications related to an "enlarged heart" at the age of 84. He has a sister with COPD and a brother who was diagnosed with bladder cancer at the age of 66. . Substance Use Tobacco: Patient smoked for 60 years, quit in 2015 Alcohol: Previously drink heavily (beer) but quit in 1980 Prescription med abuse: None known Illicits: None unknown . Psychosocial History Patient is originally from [facility] [place]. He was never and did not have children. Patient states he has been with his significant other ( Erika) for approximately 35+ years. 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 Patient had previously completed written advance directives that designated his brother as his healthcare surrogate decision maker but he is now . Patient states subsequent written advanced directives were completed but could not be found in the patient's paper chart or EMR. An additional healthcare surrogate designation form was completed today 05/28/2017 and identified the patient's girlfriend (Erika) as his healthcare surrogate decision maker. Erika's daughter (Demetria Bridges) was designated as the alternate healthcare surrogate decision-maker. . Spiritual/Cultural Factors Pending further conversations . Living Will: Copy in medical record Health Care Surrogate: Copy in medical record Date completed: 05/28/2017 . Health Care Surrogate(s): Patient previously completed a healthcare surrogate designation form on 2012 which identified his brother as his healthcare surrogate decision-maker, however patient's brother is now . Patient states he later completed additional written advanced directives, but they could not be found in the patient's chart. Healthcare surrogate designation form was completed again today 05/28/2017, designating patient's significant other (Erika) as his healthcare surrogate decision maker. Erika's daughter, Demetria Bridges, is designated as the alternate healthcare decision maker. Copy of document is accessible in patients paper chart and was faxed to HIM to be scanned into the patient's EMR. . Documented care wishes: Patient states he has completed written advanced directives. He will ask his girlfriend (Erika) to bring copies of these documents to the hospital so they can be scanned into the patient's EMR. . Today's verbally stated goals: Goals are aggressive up to the point of cardiopulmonary resuscitation. . Family/friends goals: Pending conversations with patient's family. Ethical and Legal Issues No known ethical or legal issues. . Physical Exam Vital Signs Date Time Temp Pulse Resp B/P (MAP) Pulse Ox O2 Delivery O2 Flow Rate FiO2 05/28/17 07:26 97.8 86 18 118/70 (86) 97 05/28/17 04:07 97.2 83 18 105/51 (69) 93 05/28/17 00:00 97.2 73 18 94/51 (65) 97 05/27/17 23:53 67 05/27/17 20:47 Nasal Cannula 2.00 05/27/17 20:32 109 05/27/17 20:00 97.2 93 18 118/57 (77) 98 05/27/17 20:00 92 05/27/17 19:57 98 Nasal Cannula 2.00 05/27/17 17:57 99 05/27/17 17:30 87 05/27/17 16:42 93 05/27/17 12:00 97.8 75 14 99/60 (73) 99 . Exam CONSTITUTIONAL/GENERAL: This is an adequately nourished patient, in no apparent distress. TUBES/LINES/DRAINS: PIV SKIN: + Jaundice. Ecchymoses on upper extremities. No wounds seen anteriorly. Skin temperature appropriate. Not diaphoretic. HEAD: Atraumatic. Normocephalic. EYES: Pupils equal and round and reactive. Extraocular motions intact. No injection or drainage. Fundi not examined. ENT: Hearing grossly normal. Nose without bleeding or purulent drainage. NECK: Trachea midline. Supple, nontender. No palpable thyroid enlargement or nodularity. CARDIOVASCULAR: Regular rate and rhythm without murmurs, gallops, or rubs. No JVD. Peripheral pulses symmetric. RESPIRATORY/CHEST: Symmetric, unlabored respirations. Clear to auscultation. Breath sounds equal bilaterally. No wheezes, rales, or rhonchi. GASTROINTESTINAL: Abdomen soft, non-tender, nondistended. No hepato-splenomegaly , or palpable masses. No guarding. Bowel sounds present. GENITOURINARY: Without palpable bladder distension. MUSCULOSKELETAL: Extremities without clubbing, cyanosis, or edema. No mottling or clubbing. LYMPHATICS: No palpable cervical or supraclavicular adenopathy. NEUROLOGICAL: Awake and alert. Follows commands. Cognitively sharp. Moves all extremities. PSYCHIATRIC: No obvious anxiety/depression. No apparent hallucinations or other psychotic thought process. . Diagnostic Tests Laboratory Laboratory Tests Test 05/25/17 14:36 05/26/17 04:37 05/26/17 12:30 05/26/17 12:45 White Blood Count 29.8 TH/MM3 (4.0-11.0) 28.8 TH/MM3 (4.0-11.0) Red Blood Count 4.25 MIL/MM3 (4.50-5.90) 4.26 MIL/MM3 (4.50-5.90) Hemoglobin 13.1 GM/DL (13.0-17.0) 13.0 GM/DL (13.0-17.0) Hematocrit 37.7 % (39.0-51.0) 38.1 % (39.0-51.0) Mean Corpuscular Volume 88.7 FL (80.0-100.0) 89.4 FL (80.0-100.0) Mean Corpuscular Hemoglobin 30.8 PG (27.0-34.0) 30.4 PG (27.0-34.0) Mean Corpuscular Hemoglobin Concent 34.7 % (32.0-36.0) 34.0 % (32.0-36.0) Red Cell Distribution Width 15.4 % (11.6-17.2) 15.3 % (11.6-17.2) Platelet Count 223 TH/MM3 (150-450) 220 TH/MM3 (150-450) Mean Platelet Volume 7.2 FL (7.0-11.0) 7.2 FL (7.0-11.0) Neutrophils (%) (Auto) 93.5 % (16.0-70.0) 91.3 % (16.0-70.0) Lymphocytes (%) (Auto) 2.1 % (9.0-44.0) 3.5 % (9.0-44.0) Monocytes (%) (Auto) 3.9 % (0.0-8.0) 4.8 % (0.0-8.0) Eosinophils (%) (Auto) 0.1 % (0.0-4.0) 0.2 % (0.0-4.0) Basophils (%) (Auto) 0.4 % (0.0-2.0) 0.2 % (0.0-2.0) Neutrophils # (Auto) 27.8 TH/MM3 (1.8-7.7) 26.3 TH/MM3 (1.8-7.7) Lymphocytes # (Auto) 0.6 TH/MM3 (1.0-4.8) 1.0 TH/MM3 (1.0-4.8) Monocytes # (Auto) 1.2 TH/MM3 (0-0.9) 1.4 TH/MM3 (0-0.9) Eosinophils # (Auto) 0.0 TH/MM3 (0-0.4) 0.1 TH/MM3 (0-0.4) Basophils # (Auto) 0.1 TH/MM3 (0-0.2) 0.1 TH/MM3 (0-0.2) CBC Comment AUTO DIFF AUTO DIFF Differential Total Cells Counted 100 100 Neutrophils % (Manual) 80 % (16-70) 69 % (16-70) Band Neutrophils % 9 % (0-6) 10 % (0-6) Lymphocytes % 2 % (9-44) 4 % (9-44) Monocytes % 1 % (0-8) 8 % (0-8) Eosinophils % 1 % (0-4) Neutrophils # (Manual) 28.6 TH/MM3 (1.8-7.7) 25.3 TH/MM3 (1.8-7.7) Metamyelocytes 3 % (0-1) 1 % (0-1) Myelocytes 3 % (0-0) 8 % (0-0) Promyelocytes 1 % (0-0) Nucleated Red Blood Cells 1 /100 WBC (0-0) Differential Comment FINAL DIFF MANUAL FINAL DIFF MANUAL Platelet Estimate NORMAL (NORMAL) NORMAL (NORMAL) Platelet Morphology Comment NORMAL (NORMAL) NORMAL (NORMAL) Erythrocyte Sedimentation Rate 5 mm/hr (0-20) Blood Urea Nitrogen 44 MG/DL (7-18) 36 MG/DL (7-18) Creatinine 1.04 MG/DL (0.60-1.30) 0.96 MG/DL (0.60-1.30) Random Glucose 135 MG/DL (74-106) 89 MG/DL (74-106) Calcium Level 8.2 MG/DL (8.5-10.1) 8.4 MG/DL (8.5-10.1) Uric Acid 8.6 MG/DL (2.6-7.2) Sodium Level 129 MEQ/L (136-145) 130 MEQ/L (136-145) Potassium Level 3.7 MEQ/L (3.5-5.1) 3.4 MEQ/L (3.5-5.1) Chloride Level 88 MEQ/L (98-107) 89 MEQ/L (98-107) Carbon Dioxide Level 30.5 MEQ/L (21.0-32.0) 32.3 MEQ/L (21.0-32.0) Anion Gap 11 MEQ/L (5-15) 9 MEQ/L (5-15) Estimat Glomerular Filtration Rate 69 ML/MIN (>89) 76 ML/MIN (>89) C-Reactive Protein 0.46 MG/DL (0.00-0.30) Red Cell Morphology Comment NORMAL (NORMAL) B-Type Natriuretic Peptide 207 PG/ML (0-100) Tumor Marker Alpha Fetoprotein 2.1 NG/ML (0.5-8.0) Carcinoembryonic Antigen 3.8 NG/ML (0.2-5.0) CA 15-3 Antigen 18.0 U/ML (0.0-32.4) CA 19-9 Antigen 30.0 U/ML (0.0-35.0) Hepatitis A IgM Antibody NONREACTIVE (NONREACTIVE) Hepatitis B Surface Antigen NONREACTIVE (NONREACTIVE) Hepatitis B Core IgM Antibody NONREACTIVE (NONREACTIVE) Hepatitis C IgG Antibody NONREACTIVE (NONREACTIVE) HIV (1&2) Ab and P24 Ag, 4th Gener NONREACTIVE (NONREACTIVE) Blood Smear Pathologist Review Test 05/26/17 17:08 05/26/17 20:32 05/27/17 03:56 05/28/17 07:03 Ammonia LESS THAN 10 MCMOL/L Rheumatoid Factor Screen NEGATIVE (NEGATIVE) Rheumatoid Factor Titer IU/ML (0.0-14.9) Rapid Plasma Reagin NON-REACTIVE (NON-REACTVE) Blood Gas Puncture Site RT RADIAL Blood Gas Patient Temperature 98.6 Blood Gas HCO3 32 mmol/L (22-26) Blood Gas Base Excess 8.2 mmol/L (-2-2) Blood Gas Oxygen Saturation 95 % (90-100) Arterial Blood pH 7.48 (7.380-7.420) Arterial Blood Partial Pressure CO2 43 mmHg (38-42) Arterial Blood Partial Pressure O2 82 mmHg (61-120) Arterial Blood Oxygen Content 16.4 Vol % (12.0-20.0) Arterial Blood Carboxyhemoglobin 0.8 % (0-4) Arterial Blood Methemoglobin 1.2 % (0-2) Blood Gas Hemoglobin 12.3 G/DL (12.0-16.0) Oxygen Delivery Device NASAL CANNULA Blood Gas Liter Flow 2 L/M White Blood Count 23.6 TH/MM3 (4.0-11.0) 21.9 TH/MM3 (4.0-11.0) Red Blood Count 3.96 MIL/MM3 (4.50-5.90) 3.64 MIL/MM3 (4.50-5.90) Hemoglobin 12.2 GM/DL (13.0-17.0) 11.3 GM/DL (13.0-17.0) Hematocrit 35.6 % (39.0-51.0) 32.6 % (39.0-51.0) Mean Corpuscular Volume 89.9 FL (80.0-100.0) 89.5 FL (80.0-100.0) Mean Corpuscular Hemoglobin 30.8 PG (27.0-34.0) 31.0 PG (27.0-34.0) Mean Corpuscular Hemoglobin Concent 34.3 % (32.0-36.0) 34.7 % (32.0-36.0) Red Cell Distribution Width 15.3 % (11.6-17.2) 15.0 % (11.6-17.2) Platelet Count 210 TH/MM3 (150-450) 190 TH/MM3 (150-450) Mean Platelet Volume 6.9 FL (7.0-11.0) 6.8 FL (7.0-11.0) Neutrophils (%) (Auto) 91.0 % (16.0-70.0) 91.1 % (16.0-70.0) Lymphocytes (%) (Auto) 4.2 % (9.0-44.0) 3.7 % (9.0-44.0) Monocytes (%) (Auto) 4.5 % (0.0-8.0) 4.9 % (0.0-8.0) Eosinophils (%) (Auto) 0.1 % (0.0-4.0) 0.1 % (0.0-4.0) Basophils (%) (Auto) 0.2 % (0.0-2.0) 0.2 % (0.0-2.0) Neutrophils # (Auto) 21.5 TH/MM3 (1.8-7.7) 19.9 TH/MM3 (1.8-7.7) Lymphocytes # (Auto) 1.0 TH/MM3 (1.0-4.8) 0.8 TH/MM3 (1.0-4.8) Monocytes # (Auto) 1.1 TH/MM3 (0-0.9) 1.1 TH/MM3 (0-0.9) Eosinophils # (Auto) 0.0 TH/MM3 (0-0.4) 0.0 TH/MM3 (0-0.4) Basophils # (Auto) 0.1 TH/MM3 (0-0.2) 0.1 TH/MM3 (0-0.2) CBC Comment AUTO DIFF AUTO DIFF Differential Total Cells Counted 100 100 Neutrophils % (Manual) 62 % (16-70) 78 % (16-70) Band Neutrophils % 17 % (0-6) 3 % (0-6) Lymphocytes % 7 % (9-44) 6 % (9-44) Monocytes % 6 % (0-8) 3 % (0-8) Neutrophils # (Manual) 20.3 TH/MM3 (1.8-7.7) 19.9 TH/MM3 (1.8-7.7) Metamyelocytes 3 % (0-1) 4 % (0-1) Myelocytes 4 % (0-0) 6 % (0-0) Differential Comment FINAL DIFF MANUAL FINAL DIFF MANUAL Blastocytes 1 % (0-0) Platelet Estimate NORMAL (NORMAL) NORMAL (NORMAL) Platelet Morphology Comment NORMAL (NORMAL) NORMAL (NORMAL) Red Cell Morphology Comment NORMAL (NORMAL) Reticulocyte Count 2.6 % (0.4-3.0) Absolute Reticulocyte Count 103.4 MIL/L (20.0-150.0) Blood Urea Nitrogen 25 MG/DL (7-18) 13 MG/DL (7-18) Creatinine 0.84 MG/DL (0.60-1.30) 0.68 MG/DL (0.60-1.30) Random Glucose 116 MG/DL (74-106) 85 MG/DL (74-106) Calcium Level 7.5 MG/DL (8.5-10.1) 7.3 MG/DL (8.5-10.1) Lactate Dehydrogenase 351 U/L (87-241) Sodium Level 130 MEQ/L (136-145) 131 MEQ/L (136-145) Potassium Level 3.2 MEQ/L (3.5-5.1) 3.0 MEQ/L (3.5-5.1) Chloride Level 87 MEQ/L (98-107) 88 MEQ/L (98-107) Carbon Dioxide Level 34.2 MEQ/L (21.0-32.0) 35.0 MEQ/L (21.0-32.0) Anion Gap 9 MEQ/L (5-15) 8 MEQ/L (5-15) Estimat Glomerular Filtration Rate 89 ML/MIN (>89) 113 ML/MIN (>89) B-Type Natriuretic Peptide 211 PG/ML (0-100) Vitamin B12 Level GREATER THAN 2000 PG/ML Folate 7.4 NG/ML (3.1-17.5) Total Protein 4.9 GM/DL (6.4-8.2) Albumin 2.4 GM/DL (3.4-5.0) Alkaline Phosphatase 76 U/L (45-117) Aspartate Amino Transf (AST/SGOT) 23 U/L (15-37) Alanine Aminotransferase (ALT/SGPT) 36 U/L (12-78) Total Bilirubin 0.5 MG/DL (0.2-1.0) Direct Bilirubin 0.2 MG/DL (0.0-0.2) Protein Corrected Calcium 8.5 MG/DL (8.5-10.1) Indirect Bilirubin 0.3 MG/DL (0.0-0.8) Triglycerides Level 126 MG/DL (42-150) Cholesterol Level 135 MG/DL (120-200) LDL Cholesterol 46 MG/DL (0-99) HDL Cholesterol 64.0 MG/DL (40.0-60.0) Cholesterol/HDL Ratio 2.10 RATIO . Result Diagram: 05/28/1770205/28/17702 Microbiology Microbiology Date/Time Source Procedure Growth Status 05/23/17 09:45 Blood Peripheral Aerobic Blood Culture - Final NO GROWTH IN 5 DAYS Complete 05/23/17 09:45 Blood Peripheral Anaerobic Blood Culture - Final NO GROWTH IN 5 DAYS Complete 05/23/17 07:30 Nasal Washing Influenza Types A,B Antigen (KECIA) - Final NEGATIVE FOR FLU A AND B ANTIGEN.... Complete . Imaging Last 72 hours Impressions Neck Magnetic Resonance Angiography 05/27/17 0000 Signed Impressions: Service Date/Time: Saturday, May 27, 2017 11:47 - CONCLUSION: Normal examination. Bebe Purdy MD Head Magnetic Resonance Angiography 05/27/17 0000 Signed Impressions: Service Date/Time: Saturday, May 27, 2017 11:47 - CONCLUSION: Normal examination for a patient of this age. Atilio Dunham MD Cervical Spine MRI 05/26/17 1445 Signed Impressions: Service Date/Time: Friday, May 26, 2017 17:25 - CONCLUSION: 1. Mild to moderate degenerative disc disease. 2. Moderate degenerative disease at C6-7 with broad-based disc osteophyte complex causing mild anterior dural effacement but no spinal cord compression or nerve root compression. 3. No acute bony abnormality. 4. Normal appearing spinal cord. Mike Holt MD Brain MRI 05/26/17 1445 Signed Impressions: Service Date/Time: Friday, May 26, 2017 17:25 - CONCLUSION: 1. Small bilateral cerebellar infarcts. 2. Mild cerebral white matter disease characteristic of microvascular ischemic changes. 3. No evidence of hemorrhage , mass, edema or abnormal enhancement. Mike Holt MD Sacrum/Coccyx MRI 05/26/17 0000 Signed Impressions: Service Date/Time: Friday, May 26, 2017 17:25 - CONCLUSION: No acute disease. No evidence of soft tissue mass or destructive bone lesions. Degenerative disc disease in lower lumbar spine. Mike Holt MD Lumbar Spine MRI 05/26/17 Signed Impressions: Service Date/Time: Friday, May 26, 2017 17:25 - CONCLUSION: 1. Acute compression deformity at the superior aspect of the L2 vertebral body with minimal loss of height anteriorly. 2. Degenerative change throughout with loss of disc space height, minimal bulging and facet hypertrophy. There are mild areas of stenosis. Severe stenosis is not seen throughout. 3. 1.3 cm low signal mass in the superior lateral left kidney representing either a complex hemorrhagic or proteinaceous cyst versus a solid mass. Given its size, it is thought it could be followed. Abelardo Gutierrez MD CT Angiography 05/26/17 Signed Impressions: Service Date/Time: Friday, May 26, 2017 14:58 - CONCLUSION: 1. No evidence of pulmonary embolism. 2. COPD. 3. No evidence of acute air space disease or suspicious nodular densities. 4. No significant change. Mike Holt MD Abdomen/Pelvis CT 05/26/17 Signed Impressions: Service Date/Time: Friday, May 26, 2017 14:58 - CONCLUSION: 1. No acute abnormalities seen. 2. Colonic diverticula. 3. Multiple renal cysts the more numerous on the left. There is a 1.2 cm complex cyst or solid mass seen at the posterior superior left kidney back and be followed. Urology consultation would be suggested as an outpatient. 4. Induration around the right common femoral artery presumably from recent catheterization. This should be correlated clinically. 5. Small suspected area focal fatty infiltration of the left lobe of the liver. 6. Degenerative change in the lumbar spine 7. Mild compressive deformities at the superior aspect of the T12 and L2 vertebral bodies. 8. Solitary 1.9 cm sclerotic lesion at the left proximal femur. This is nonspecific. It may represent a bone island. Other etiologies for sclerotic lesions cannot be excluded. No other lesions are seen. Abelardo Gutierrez MD . Patient/Family Conference Present at Family Conference: Met with patient at bedside . Family Conference Location: Bedside Issues Discussed: * Palliative care role, purpose, approach * Additional medical, psychosocial, and spiritual history * Patients general health, functional status, and cognitive changes in the months leading up to the current hospitalization * Patient/family understanding of the current medical problems * Patient/family understanding of prognosis * Patients goals of care as best understood from advance directives and/or conversations and/or values * Current medical treatment options and benefits/burdens of those options * Likely scenarios comparing ongoing aggressive care with a transition to comfort measures only * Questions answered to the best of my ability * Palliative care contact information provided . Assessment and Plan Disease Oriented Problem List: (1) NSTEMI (non-ST elevated myocardial infarction) (2) SIRS (systemic inflammatory response syndrome) (3) Acute hypokalemia (4) Acute hyponatremia (5) COPD with acute exacerbation (6) CAD (coronary artery disease) (7) Cardiomyopathy (8) Elevated troponin I level (9) Leukocytosis (10) Weakness of both legs Symptom Scale: (1) Debility 0-10 Scale: Unable to quantify (2) Dyspnea 0-10 Scale: Unable to quantify (3) Nausea 0-10 Scale: Unable to quantify Pertinent Non-Medical Issues Psychosocial: Patient is originally from [facility]. He was never and did not have children. Patient states he has been with his significant other (Erika) for approximately 35+ years. 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 Patient had previously completed written advance directives that designated his brother as his healthcare surrogate decision maker but he is now . Patient states subsequent written advanced directives were completed but could not be found in the patient's paper chart or EMR. An additional healthcare surrogate designation form was completed today 05/28/2017 and identified the patient's girlfriend (Erika) as his healthcare surrogate decision maker. Erika's daughter (Demetria Bridges) was designated as the alternate healthcare surrogate decision-maker. Spiritual: Pending further conversations Legal: Patient's girlfriend (Erika) is the designated healthcare surrogate decision maker. Erika's daughter (Demetria Bridges) was designated as the alternate healthcare surrogate decision-maker. Ethical issues impacting care: No known ethical issues impacting care at this time. . Important Contacts Erika Day, family/friend: [phone] Demetria Bridges, Erika's daughter:? . Prognosis Patient is a 76 year old male with an extremely complex medical history who has experienced an acute decline. Multiple specialists have been consulted as part of the medical team; patient remains high risk for ongoing decline. . Code Status: No Code Plan * NO CODE * After having a lengthy conversation with the patient regarding the process of cardiopulmonary resuscitation, patient asked that his CODE STATUS be changed to NO CODE-DNR/DNI. Patient states he does not want to be kept alive on machines; he fears he will get stuck on those machines. * Patient previously completed a healthcare surrogate designation form on 2012 which identified his brother as his healthcare surrogate decision-maker, however patient's brother is now . Patient states he later completed additional written advanced directives, but they could not be found in the patient's chart. Healthcare surrogate designation form was completed again today 05/28/2017, designating patient's significant other (Erika) as his healthcare surrogate decision maker. Erika's daughter, Demetria Bridges, is designated as the alternate healthcare decision maker. Copy of document is accessible in patients paper chart and was faxed to HIM to be scanned into the patient's EMR. * Palliative care contact information was provided to the patient. * Palliative care will continue to follow this patient throughout his hospitalization to establish trust, assist with symptom management and clarification of medical treatment goals. * SYMPTOM MANAGEMENT: = Dyspnea: Patient reports a known history of COPD with chronic dyspnea-on maintenance steroids he has been hospitalized with COPD exacerbations twice since the beginning of 2017. Currently on prednisone, PRN Xopenex. Patient started on albuterol nebulizers QID. = Nausea: Patient reports occasional nausea that began 3-4 weeks ago and is associated with decreased appetite as well as early satiety. PRN Zofran is ordered. Ongoing workup is pending. = Debility: Patient reports an extensive history of dyspnea that now significantly limits his ability to care for himself. Patient has been using a walker for about 4 months; he quit driving a few weeks ago due to weakness in his legs (specifically the right leg). The patient has had 2 falls in the past 3-4 weeks; he reports progressively increased weakness that has created a bed to chair existence. If goals remain aggressive, patient will need physical therapy evaluation and likely SNF placement upon discharge. . Thank you for the opportunity to participate in the care of Mr. Montesinos. Delores Calderon May 28, 2017 11:28
--- NOTE | 2017-05-28 14:59 | HHI.PR ---
Addendum to Inpatient Note Addendum Reason: Additional Documentation Additional Information Clinically does not behave like infection. Dw : WBC increase from marginalization. Not infectious in etiology. Await PENG-2 workup by hemonc. Observe off antibiotics. Will sign off please call back if any change in clinical condition or questions. Robyn Jesus MD May 28, 2017 14:59
--- NOTE | 2017-05-28 15:22 | HHI.GIFU ---
Subjective Remarks Patient has multiple medical problem including recent NH, COPD, Gen. weakness and stated that he cannot eat because he is so weak, he was supposed to have upper endoscopy and colonoscopy today, but then during the process of doing starting the procedure patient had A. fib, when I talked to him about further risk as far as the coronary artery disease and COPD causing another NH, respiratory failure, he stated that it's bad idea to do the procedure anyway and he is not sure if that she wants to have it done, he stated he has some nausea but no bleeding no abdominal pain Objective Vitals I&O Vital Signs Date Time Temp Pulse Resp B/P (MAP) Pulse Ox O2 Delivery O2 Flow Rate FiO2 05/28/17 12:00 77 05/28/17 11:46 97.7 77 18 95/50 (65) 97 05/28/17 10:41 98 Nasal Cannula 2.00 05/28/17 08:10 112 05/28/17 08:10 97 Nasal Cannula 2.00 05/28/17 07:26 97.8 86 18 118/70 (86) 97 05/28/17 04:07 97.2 83 18 105/51 (69) 93 05/28/17 00:00 97.2 73 18 94/51 (65) 97 05/27/17 23:53 67 05/27/17 20:47 Nasal Cannula 2.00 05/27/17 20:32 109 05/27/17 20:00 97.2 93 18 118/57 (77) 98 05/27/17 20:00 92 05/27/17 19:57 98 Nasal Cannula 2.00 05/27/17 17:57 99 05/27/17 17:30 87 05/27/17 16:42 93 I/O 05/27/17 05/27/17 05/27/17 05/28/17 05/28/17 05/28/17 07:00 15:00 23:00 07:00 15:00 23:00 Intake Total 220 ml 1000 ml 3727 ml 406 ml Output Total 500 ml 300 ml Balance -280 ml 1000 ml 3427 ml 406 ml Intake Oral 120 ml 1000 ml 460 ml IV Total 100 ml 3267 ml 406 ml Output Urine Total 500 ml 300 ml # Voids 2 # Bowel Movements 0 2 4 Laboratory Laboratory Tests Test 05/28/17 07:03 White Blood Count 21.9 Red Blood Count 3.64 Hemoglobin 11.3 Hematocrit 32.6 Mean Corpuscular Volume 89.5 Mean Corpuscular Hemoglobin 31.0 Mean Corpuscular Hemoglobin Concent 34.7 Red Cell Distribution Width 15.0 Platelet Count 190 Mean Platelet Volume 6.8 Neutrophils (%) (Auto) 91.1 Lymphocytes (%) (Auto) 3.7 Monocytes (%) (Auto) 4.9 Eosinophils (%) (Auto) 0.1 Basophils (%) (Auto) 0.2 Neutrophils # (Auto) 19.9 Lymphocytes # (Auto) 0.8 Monocytes # (Auto) 1.1 Eosinophils # (Auto) 0.0 Basophils # (Auto) 0.1 CBC Comment AUTO DIFF Differential Total Cells Counted 100 Neutrophils % (Manual) 78 Band Neutrophils % 3 Lymphocytes % 6 Monocytes % 3 Neutrophils # (Manual) 19.9 Metamyelocytes 4 Myelocytes 6 Differential Comment FINAL DIFF MANUAL Platelet Estimate NORMAL Platelet Morphology Comment NORMAL Blood Urea Nitrogen 13 Creatinine 0.68 Random Glucose 85 Total Protein 4.9 Albumin 2.4 Calcium Level 7.3 Alkaline Phosphatase 76 Aspartate Amino Transf (AST/SGOT) 23 Alanine Aminotransferase (ALT/SGPT) 36 Total Bilirubin 0.5 Direct Bilirubin 0.2 Sodium Level 131 Potassium Level 3.0 Chloride Level 88 Carbon Dioxide Level 35.0 Anion Gap 8 Estimat Glomerular Filtration Rate 113 Protein Corrected Calcium 8.5 Indirect Bilirubin 0.3 Triglycerides Level 126 Cholesterol Level 135 LDL Cholesterol 46 HDL Cholesterol 64.0 Cholesterol/HDL Ratio 2.10 Date/Time Source Procedure Growth Status 05/23/17 09:45 Blood Peripheral Aerobic Blood Culture - Final NO GROWTH IN 5 DAYS Complete 05/23/17 09:45 Blood Peripheral Anaerobic Blood Culture - Final NO GROWTH IN 5 DAYS Complete 05/23/17 07:30 Nasal Washing Influenza Types A,B Antigen (KECIA) - Final NEGATIVE FOR FLU A AND B ANTIGEN.... Complete Physical Exam HEENT: Pupils round and reactive to light; normocephalic; atraumatic; no jaundice. Throat is clear. Weak NECK: Neck is supple, no JVD, no lymphadenopathy. CHEST: Chest is clear to auscultation and percussion. CARDIAC: Irregularly irregular rate and rhythm with no murmur gallop or rubs. ABDOMEN: Soft, nondistended, mild diffuse discomfort; no hepatosplenomegaly; bowel sounds are present in all four quadrants. EXTREMITIES: No clubbing, cyanosis, or edema. SKIN: Normal; no rash; no jaundice. STUNT DRIVER: No focal deficits; alert and oriented times three. Assessment and Plan Plan - Failure to thrive, decline in appetite, low energy, elevated WBC- Pt with fatigue, low energy, decline in appetite for the past 2 weeks. Denies nausea, vomiting, melena or hematochezia or change in bowels. Has intermittent constipation for which he takes Miralax as needed with good results. he denies abd pain but experienced pain upon palpation. No family hx of colon cancer. Last colonoscopy was 5 yrs ago and states he will never have another one. Has significant elevation on WBC., hyponatremia. Hepatitis panel, hiv pending. AFP 2.1, Cea 3.8, CA 15-3 18, CA 19-9 30, negative CTA, CT of abd pending - Nstemi- Patient had a cardiac cath that showed EF 40-45%, no stents were placed. recommended medical management - Leucocytosis- ID, hematology on the case - Hyponatremia- nephrology on the case - pmh of HTN, CAD, CHF. who was admitted for COPD exacerbation and SOB per attending 05/28/2017 patient has multiple medical problem electrolytes imbalance, lack of good intake, recent NH some nausea Patient feel that it's a bad idea to do any procedure on him and he thinks that he will not do well with any procedure, he only took partial part of the prep CT scan did not show any malignancy Tumor markers are negative - Oncology, ID, cardiology, nephrology on the case Recommendation - Supportive care Recommend dietary consult for improving his intake We will put the colonoscopy and endoscopy on hold until patient is more stable and agreeable for the procedures unless there are more evidence of GI bleed or GI symptom Consider PT to try to get patient strength back Neelam Carbajal MD May 28, 2017 15:22
[2017-05-28] MEDS: D5-NS + KCL 20 MEQ INJ 1,000 ML IV SCH (15:35)
--- NOTE | 2017-05-28 15:41 | PD.CARD.PN ---
Subjective Subjective Remarks alert in nad Objective Medications Current Medications Medications (Trade) Dose Ordered Sig/Daniela Route Start Time Stop Time Status Last Admin (NS Flush) 2 ml UNSCH PRN IV FLUSH 05/23/17 09:00 (NS Flush) 2 ml BID IV FLUSH 05/23/17 09:00 05/28/17 09:11 (Narcan Inj) 0.4 mg UNSCH PRN IV PUSH 05/23/17 09:00 (Protonix) 40 mg DAILY PO 05/24/17 09:00 05/28/17 09:10 (Xopenex Neb) 0.63 mg Q4HR NEB PRN NEB 05/23/17 11:45 05/28/17 10:38 (Cardizem Cd) 120 mg DAILY PO 05/24/17 09:00 05/28/17 09:10 (Lopressor) 25 mg BID PO 05/23/17 21:00 05/28/17 09:11 (Deltasone) 5 mg DAILY PO 05/24/17 09:00 05/28/17 09:10 Miscellaneous Information Patient in critical care unit? Ass... [id number] .XX 05/24/17 00:15 05/24/17 00:15 (Chlorhexidine 2% Cloth) 3 pack UNSCH PRN TOPICAL 05/24/17 00:15 05/29/17 00:14 (Ecotrin Ec) 81 mg DAILY PO 05/27/17 09:00 05/28/17 09:10 (Zofran Inj) 4 mg Q6H PRN IV PUSH 05/27/17 11:00 05/27/17 11:27 Lactated Ringer's 1,000 ml @ 30 mls/hr Q24H PRN IV 05/28/17 02:30 05/31/17 02:29 05/28/17 12:05 Sodium Chloride 500 ml @ 30 mls/hr [id number] PRN IV 05/28/17 02:30 05/31/17 02:29 (Betadine 5% Antisepsis Kit) 1 applic WEB DESIGN SPECIALIST PRN EACH NARE 05/28/17 02:30 05/31/17 02:29 (Chlorhexidine 2% Cloth) 3 pack WEB DESIGN SPECIALIST PRN TOPICAL 05/28/17 02:30 05/31/17 02:29 (Levaquin) 500 mg Q24H PO 05/28/17 20:00 Potassium Chloride/Dextrose/ Sod Cl 1,000 ml @ 42 mls/hr [id number] IV 05/28/17 11:00 05/28/17 15:35 Vital Signs / I&O Vital Signs Date Time Temp Pulse Resp B/P (MAP) Pulse Ox O2 Delivery O2 Flow Rate FiO2 05/28/17 12:00 77 05/28/17 11:46 97.7 77 18 95/50 (65) 97 05/28/17 10:41 98 Nasal Cannula 2.00 05/28/17 08:10 112 05/28/17 08:10 97 Nasal Cannula 2.00 05/28/17 07:26 97.8 86 18 118/70 (86) 97 05/28/17 04:07 97.2 83 18 105/51 (69) 93 05/28/17 00:00 97.2 73 18 94/51 (65) 97 05/27/17 23:53 67 05/27/17 20:47 Nasal Cannula 2.00 05/27/17 20:32 109 05/27/17 20:00 97.2 93 18 118/57 (77) 98 05/27/17 20:00 92 05/27/17 19:57 98 Nasal Cannula 2.00 05/27/17 17:57 99 05/27/17 17:30 87 05/27/17 16:42 93 I/O 05/27/17 05/27/17 05/27/17 05/28/17 05/28/17 05/28/17 06:59 14:59 22:59 06:59 14:59 22:59 Intake Total 220 ml 1000 ml 3727 ml 406 ml 700 ml Output Total 500 ml 300 ml Balance -280 ml 1000 ml 3427 ml 406 ml 700 ml Intake Oral 120 ml 1000 ml 460 ml IV Total 100 ml 3267 ml 406 ml 700 ml Output Urine Total 500 ml 300 ml # Voids 2 # Bowel Movements 0 2 4 Physical Exam GENERAL: SKIN: Warm and dry. HEAD: Normocephalic. EYES: No scleral icterus. No injection or drainage. NECK: Supple, trachea midline. No JVD or lymphadenopathy. CARDIOVASCULAR: Regular rate and rhythm without murmurs, gallops, or rubs. RESPIRATORY: Breath sounds equal bilaterally. No accessory muscle use. GASTROINTESTINAL: Abdomen soft, non-tender, nondistended. MUSCULOSKELETAL: No cyanosis, or edema. BACK: Nontender without obvious deformity. No CVA tenderness. Laboratory Laboratory Tests Test 05/28/17 07:03 White Blood Count 21.9 TH/MM3 Red Blood Count 3.64 MIL/MM3 Hemoglobin 11.3 GM/DL Hematocrit 32.6 % Mean Corpuscular Volume 89.5 FL Mean Corpuscular Hemoglobin 31.0 PG Mean Corpuscular Hemoglobin Concent 34.7 % Red Cell Distribution Width 15.0 % Platelet Count 190 TH/MM3 Mean Platelet Volume 6.8 FL Neutrophils (%) (Auto) 91.1 % Lymphocytes (%) (Auto) 3.7 % Monocytes (%) (Auto) 4.9 % Eosinophils (%) (Auto) 0.1 % Basophils (%) (Auto) 0.2 % Neutrophils # (Auto) 19.9 TH/MM3 Lymphocytes # (Auto) 0.8 TH/MM3 Monocytes # (Auto) 1.1 TH/MM3 Eosinophils # (Auto) 0.0 TH/MM3 Basophils # (Auto) 0.1 TH/MM3 CBC Comment AUTO DIFF Differential Total Cells Counted 100 Neutrophils % (Manual) 78 % Band Neutrophils % 3 % Lymphocytes % 6 % Monocytes % 3 % Neutrophils # (Manual) 19.9 TH/MM3 Metamyelocytes 4 % Myelocytes 6 % Differential Comment FINAL DIFF MANUAL Platelet Estimate NORMAL Platelet Morphology Comment NORMAL Blood Urea Nitrogen 13 MG/DL Creatinine 0.68 MG/DL Random Glucose 85 MG/DL Total Protein 4.9 GM/DL Albumin 2.4 GM/DL Calcium Level 7.3 MG/DL Alkaline Phosphatase 76 U/L Aspartate Amino Transf (AST/SGOT) 23 U/L Alanine Aminotransferase (ALT/SGPT) 36 U/L Total Bilirubin 0.5 MG/DL Direct Bilirubin 0.2 MG/DL Sodium Level 131 MEQ/L Potassium Level 3.0 MEQ/L Chloride Level 88 MEQ/L Carbon Dioxide Level 35.0 MEQ/L Anion Gap 8 MEQ/L Estimat Glomerular Filtration Rate 113 ML/MIN Protein Corrected Calcium 8.5 MG/DL Indirect Bilirubin 0.3 MG/DL Triglycerides Level 126 MG/DL Cholesterol Level 135 MG/DL LDL Cholesterol 46 MG/DL HDL Cholesterol 64.0 MG/DL Cholesterol/HDL Ratio 2.10 RATIO Assessment and Plan Problem List: (1) Cardiomyopathy ICD Codes: I42.9 - Cardiomyopathy, unspecified (2) Elevated troponin I level ICD Codes: R79.89 - Other specified abnormal findings of blood chemistry Status: Acute (3) COPD (chronic obstructive pulmonary disease) ICD Codes: J44.9 - Chronic obstructive pulmonary disease, unspecified Status: Acute (4) Acute hyponatremia ICD Codes: E87.1 - Hypo-osmolality and hyponatremia Status: Acute (5) Acute hypokalemia ICD Codes: E87.6 - Hypokalemia Status: Acute (6) COPD with acute exacerbation ICD Codes: J44.1 - Chronic obstructive pulmonary disease with (acute) exacerbation Status: Acute (7) Atypical chest pain ICD Codes: R07.89 - Other chest pain Status: Acute (8) CAD (coronary artery disease) ICD Codes: I25.10 - Atherosclerotic heart disease of [place] coronary artery without angina pectoris Assessment and Plan 1.) CAD - nonobstructive, ldl=46, dc lipitor, reduce aspirin to 81 mg qd 2.) Cardiomyopathy - continue lopressor, srinath and diuretics held due to hyponatremia, f/u bnp, echo: EF @ 50-55% 3.) Hyponatremia - improving Aleksandr Yo MD May 28, 2017 15:41
--- NOTE | 2017-05-28 16:32 | MB ---
cc: Sharath Gramajo DO DATE: 05/28/2017 REASON FOR CONSULTATION: Consideration of loop recorder. HISTORY OF PRESENT ILLNESS: Abelardo Montesinos is a pleasant 76-year-old male who presented to [facility] on 05/23/2017, due to shortness of breath and overall weakness. He was seen by Dr. Yo and underwent cardiac catheterization, which showed mild coronary artery disease and was recommended continued medical management of his congestive heart failure. While here, he was undergoing workup by neurology for overall weakness and had an MRI of his brain showing small bilateral cerebral infarcts. I was asked to see the patient by Dr. Simmons for consideration of a loop recorder. In seeing him, he is currently hemodynamically stable without chest pain or shortness of breath. PAST MEDICAL HISTORY: 1. Hypertension. 2. Coronary artery disease. 3. COPD. 4. BPH. 5. The patient has a questionable history of atrial fibrillation, but he is very unsure of this. Reviewing previous notes, as well as old EKGs, I see no documentation of this. PAST SURGICAL HISTORY: 1. TURP. 2. Coronary angiogram (05/23/2017), mild 2-vessel coronary artery disease with no significant lesions. 3. Cataract surgery (2013). 4. Salivary gland surgery (2005). 5. Retinal detachment (2001). ALLERGIES: 1. SHELLFISH. 2. IPRATROPIUM. 3. VARENICLINE. 4. WALNUT. MEDICATIONS: 1. DuoNeb every 4-6 hours as needed for shortness of breath. 2. Albuterol every 4 hours as needed for shortness of breath. 3. Methocarbamol 500 mg b.i.d. 4. Metoprolol tartrate 25 mg b.i.d. 5. Diltiazem ER 120 mg daily. 6. Tramadol 50 mg t.i.d. 7. Potassium 10 mEq daily. 8. Lasix 20 mg daily. 9. Metolazone 2.5 mg Sunday, Sunday, Sunday. 10. Prednisone 10 mg daily. FAMILY HISTORY: Father had cardiomyopathy of unknown cause. Mother had a stroke. Brother has COPD. SOCIAL HISTORY: The patient used to smoke for 60 years and quit in 2015. He used to drink a lot of beers before but quit in 1980. Denies any drugs. REVIEW OF SYSTEMS: Fourteen systems were reviewed including osteopathic. Pertinent positives and negatives above, otherwise negative. PHYSICAL EXAMINATION: VITAL SIGNS: Temperature 97.2, heart rate 83, blood pressure 105/51, respirations 18, pulse oximetry 93% on 2 liters. GENERAL: The patient appears well, in no acute distress. Alert, awake and oriented x 3. HEENT: Extraocular muscles intact. Mucous membranes moist. NECK: Supple. No JVD at 45 degrees. No carotid bruits heard bilaterally. Carotid upstroke is brisk in nature. HEART: Regular rate and rhythm. Positive for and second heart sounds with no noted murmurs, gallops or rubs. LUNGS: Clear to auscultation bilaterally. No wheezes, rales or rhonchi. ABDOMEN: Soft, nontender, nondistended. No organomegaly noted. EXTREMITIES: Show no clubbing, cyanosis or edema. Femoral and distal pulses intact bilaterally. NEUROLOGIC: No focal deficits, although appears to have generalized weakness. SKIN: Warm, dry and intact. OSTEOPATHIC: No kyphoscoliosis, lordosis or paraspinal tender points. LABORATORY DATA: Hemoglobin 11.3, hematocrit 32.6, platelets 190. Potassium was 3.0, BUN 13, creatinine 0.68. Electrocardiogram (05/23/2017 at 2041): Sinus rhythm, incomplete right bundle branch block, inferior myocardial infarction of indeterminate age. IMPRESSIONS: 1. Generalized weakness of unknown cause. 2. Bilateral cerebrovascular accident. 3. Non-ST elevation myocardial infarction, type 2. 4. Mild coronary artery disease by cardiac catheterization. 5. Ejection fraction of 55-60% by echocardiogram. 6. Undetermined history of atrial fibrillation. RECOMMENDATIONS: 1. Mr. Montesinos appears to have bilateral CVAs found on his MRI and because of this, neurology has recommended a loop recorder. 2. I have gone back through his EKGs as well as his recent telemetry and I have not found any atrial fibrillation at this time. The patient states that he may have had a history in the past, but he is very unsure of this. 3. As he is undergoing EGD and colonoscopy today, we will wait to see him tomorrow in further consideration to determine when to place the loop recorder for further definitive rhythm analysis. 4. Further recommendations will be made based on the hospital course. Thank you for allowing me to see Abelardo Jaguar. If there are any questions, please do not hesitate to call. DO MORAIMA Painter/JOEL , 03:59 PM , 04:30 PM
--- NOTE | 2017-05-28 16:54 | HHI.PR ---
Subjective Remarks "I feel terrible " Patient does not look happy, no acute issue beside his weakness GI, hematology, ID, cardiology following Objective Vitals Vital Signs Date Time Temp Pulse Resp B/P (MAP) Pulse Ox O2 Delivery O2 Flow Rate FiO2 05/28/17 16:00 98.5 80 18 90/54 (66) 95 05/28/17 12:00 77 05/28/17 11:46 97.7 77 18 95/50 (65) 97 05/28/17 10:41 98 Nasal Cannula 2.00 05/28/17 08:10 112 05/28/17 08:10 97 Nasal Cannula 2.00 05/28/17 07:26 97.8 86 18 118/70 (86) 97 05/28/17 04:07 97.2 83 18 105/51 (69) 93 05/28/17 00:00 97.2 73 18 94/51 (65) 97 05/27/17 23:53 67 05/27/17 20:47 Nasal Cannula 2.00 05/27/17 20:32 109 05/27/17 20:00 97.2 93 18 118/57 (77) 98 05/27/17 20:00 92 05/27/17 19:57 98 Nasal Cannula 2.00 05/27/17 17:57 99 05/27/17 17:30 87 I/O 05/27/17 05/27/17 05/27/17 05/28/17 05/28/17 05/28/17 07:00 15:00 23:00 07:00 15:00 23:00 Intake Total 220 ml 1000 ml 3727 ml 406 ml 700 ml Output Total 500 ml 300 ml 200 ml Balance -280 ml 1000 ml 3427 ml 206 ml 700 ml Intake Oral 120 ml 1000 ml 460 ml IV Total 100 ml 3267 ml 406 ml 700 ml Output Urine Total 500 ml 300 ml 200 ml # Voids 2 # Bowel Movements 0 2 4 1 Result Diagram: 05/28/1770205/28/17702 Objective Remarks GENERAL: This is a well-nourished, well-developed patient, in no apparent distress. SKIN: No rashes, warm and dry HEAD: Atraumatic. Normocephalic. EYES: Pupils equal round and reactive. Extraocular motions intact. No scleral icterus. ENT: Nose without bleeding, or drainage, Airway patent. NECK: Trachea midline. Supple CARDIOVASCULAR: Regular rate and rhythm without murmurs, gallops, or rubs. RESPIRATORY: Fair air entry bilaterally. No wheezes, rales, or rhonchi. GASTROINTESTINAL: Abdomen soft, non-tender, nondistended. Positive bowel sounds MUSCULOSKELETAL: Extremities without clubbing, cyanosis, or edema. Pedal pulses appreciated NEUROLOGICAL: Awake and alert. Moves all extremity with more noticed weakness on the lower extremity. Normal speech.no focal neurological deficit A/P Assessment and Plan Elevated troponin Non-STEMI Short of breath/dyspnea Lower extremity weakness Hyponatremia and hypokalemia Leukocytosis with left shift noted , infectious versus blood dyscrasia History of hypertension History of COPD History of BPH status post TURP History of non-obstructive CAD Plan: 05/25: still with leukocytosis, no clear source of infx , consult ID , check ESR/ CRP, will start levaquin appreciate renal consult >cont hold diuretics , fluid restriction, dc ivf 05/26: Persistent leukocytosis with left shift, appreciate ID participation in care, she agreed on no clear source of infection, so workup for blood dyscrasia/ malignancy has been initiated Tumor marker, moser CT scan abdomen and chest, oncology, neurology consultation. Lower extremity weakness, possibly paraneoplastic syndrome versus other neurologic etiology, discussed with Dr. Simmons, at this point MRI MRA of the brain, vitamin B12 methylmalonic acid,? 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, cervical and lumbar CT negative will continue following 05/28: So far tumor marker negative, CT abdomen and chest did not reveal malignancy, awaiting J AK 2 mutation result, appreciate GI oncology follow-up, patient refused GI scope, palliative care following for further determining goal of treatment, transferred to [facility] floor -Blood pressure on the lower side 90/50 with low potassium and low calcium, will replete per ICU protocol Serial cardiac enzyme and EKG reviewed cardiology ff >went for heart cath >clean Ordered osmolality serum and urine, check urine sodium Hold diuretic Monitor labs Wound care consult for sacral decubitus ulcer PT, DVT, GI prophylaxis Wyatt Lindsey MD May 28, 2017 16:54
[2017-05-28] MEDS: RESP: ALBUTEROL 0.63 MG/3 ML NEB (SCH) NEB (17:51)
[2017-05-28] MEDS ORDERED: LEVOFLOXACIN 500 MG TAB PO SCH (20:00)
[2017-05-28] MEDS: ONDANSETRON HCL 4 MG/2 ML VIAL IV PUSH PRN (22:48)
[2017-05-29] VITALS (12 sets, daily range): BP systolic 94–117; BP diastolic 57–85; PULSE 65–119; RESP 16–18; TEMP 97.1–98.5; O2SAT 95–96
[2017-05-29] MEDS: RESP: LEVALBUTEROL HYDROCHLORIDE 0.63 MG/3 ML NEB (PRN) NEB ×2 (03:36→16:51)
[2017-05-29] MEDS: RESP: ALBUTEROL 0.63 MG/3 ML NEB (SCH) NEB ×4 (03:49→22:14)
[2017-05-29 05:03] LABS: HEMATOCRIT 31.4 % (39.0-51.0); MEAN CELL VOLUME 89.1 FL (80.0-100.0); MEAN CORPUSCULAR HEMOGLOBIN 31.2 PG (27.0-34.0); MEAN PLATELET VOLUME 6.8 FL (7.0-11.0); PLATELET COUNT 183 TH/MM3 (150-450); RED BLOOD COUNT 3.52 MIL/MM3 (4.50-5.90); RED CELL DISTRIBUTION WIDTH 15.6 % (11.6-17.2)
[2017-05-29 05:28] LABS: BICARBONATE 30.4 MEQ/L (21.0-32.0); CALCIUM 7.6 MG/DL (8.5-10.1); CREATININE 0.66 MG/DL (0.60-1.30); MAGNESIUM 1.8 MG/DL (1.5-2.5)
--- NOTE | 2017-05-29 07:40 | HHI.PR ---
Subjective Remarks gi notes says he went into afib yest andnurse notes afib Objective Vital Signs Date Time Temp Pulse Resp B/P (MAP) Pulse Ox O2 Delivery O2 Flow Rate FiO2 05/29/17 04:15 97.5 65 18 117/58 (77) 96 05/29/17 03:37 95 Nasal Cannula 1.00 05/29/17 00:10 98.3 72 18 112/58 (76) 95 05/28/17 23:45 90 05/28/17 22:25 95 Nasal Cannula 1.00 05/28/17 20:00 95 Nasal Cannula 1.00 05/28/17 20:00 100 05/28/17 20:00 97.8 83 18 91/52 (65) 95 05/28/17 16:00 98.5 80 18 90/54 (66) 95 05/28/17 12:00 77 05/28/17 11:46 97.7 77 18 95/50 (65) 97 05/28/17 10:41 98 Nasal Cannula 2.00 05/28/17 08:10 112 05/28/17 08:10 97 Nasal Cannula 2.00 I/O 05/28/17 05/28/17 05/28/17 05/29/17 05/29/17 05/29/17 07:00 15:00 23:00 07:00 15:00 23:00 Intake Total 3727 ml 406 ml 826 ml 360 ml Output Total 300 ml 200 ml 400 ml Balance 3427 ml 206 ml 826 ml -40 ml Intake Oral 460 ml 360 ml IV Total 3267 ml 406 ml 826 ml Output Urine Total 300 ml 200 ml 400 ml # Voids 2 # Bowel Movements 4 1 0 Result Diagram: 05/29/17 0435 05/29/17 043 Objective Remarks awke alert moving all gen weak in be le>ue no change Assessment and Plan Assessment and Plan imp ct abd neg mri brain bilat small cbllr cv adn i think some tiny subacute ones in bilat cerebrum faint c spine ok check mra recent mi likly cause although echo ef nl oob conisder anticoagulation na 130 05/28/17 bilat cva would like loop placed i consulted dr weir yest as dr cao not do these at time of mi ? bilat cva consider anticoagulation oob PT not conversion d/o emg pend check standing bp will need rehab 05/29/17 if truly afib ok by me for karolmau i will dw med team needs to get oob and aggressive PT rehab med consult pend and emg pend ble must get oob chair i do not want him laying in bed all day Petr Simmons MD May 29, 2017 07:40
[2017-05-29] MEDS: METOPROLOL TARTRATE 25 MG TAB PO SCH ×2 (09:00→20:33)
[2017-05-29] MEDS: predniSONE 5 MG TAB PO SCH (09:14)
[2017-05-29] MEDS: APIXABAN 5 MG TABLET PO SCH ×2 (09:14→20:33)
[2017-05-29] MEDS: ASPIRIN EC 81 MG TABEC PO SCH (09:15)
[2017-05-29] MEDS: PANTOPRAZOLE SOD 40 MG DELAYED RELEASE TAB PO SCH (09:15)
[2017-05-29] MEDS: SODIUM CHLORIDE 0.9% FLUSH 10 ML FLUSH IV FLUSH SCH ×2 (09:16→20:33)
[2017-05-29] MEDS: DILTIAZEM-CD 120 MG CAP ER PO SCH (09:20)
--- NOTE | 2017-05-29 10:07 | PD.CARD.PN ---
Subjective Subjective Remarks Consulted for Loop Recorder placement Converted to Afib yesterday Objective Medications Current Medications Medications (Trade) Dose Ordered Sig/Daniela Route Start Time Stop Time Status Last Admin (NS Flush) 2 ml UNSCH PRN IV FLUSH 05/23/17 09:00 (NS Flush) 2 ml BID IV FLUSH 05/23/17 09:00 05/29/17 09:16 (Narcan Inj) 0.4 mg UNSCH PRN IV PUSH 05/23/17 09:00 (Protonix) 40 mg DAILY PO 05/24/17 09:00 05/29/17 09:15 (Xopenex Neb) 0.63 mg Q4HR NEB PRN NEB 05/23/17 11:45 05/29/17 03:36 (Cardizem Cd) 120 mg DAILY PO 05/24/17 09:00 05/29/17 09:20 (Lopressor) 25 mg BID PO 05/23/17 21:00 05/28/17 09:11 (Deltasone) 5 mg DAILY PO 05/24/17 09:00 05/29/17 09:14 Miscellaneous Information Patient in critical care unit? Ass... Q361D .XX 05/24/17 00:15 05/24/17 00:15 (Ecotrin Ec) 81 mg DAILY PO 05/27/17 09:00 05/29/17 09:15 (Zofran Inj) 4 mg Q6H PRN IV PUSH 05/27/17 11:00 05/28/17 22:48 Lactated Ringer's 1,000 ml @ 30 mls/hr Q24H PRN IV 05/28/17 02:30 05/31/17 02:29 05/28/17 12:05 Sodium Chloride 500 ml @ 30 mls/hr [id number] PRN IV 05/28/17 02:30 05/31/17 02:29 (Betadine 5% Antisepsis Kit) 1 applic MITERING MACHINE OPERATOR PRN EACH NARE 05/28/17 02:30 05/31/17 02:29 (Chlorhexidine 2% Cloth) 3 pack MITERING MACHINE OPERATOR PRN TOPICAL 05/28/17 02:30 05/31/17 02:29 Potassium Chloride/Dextrose/ Sod Cl 1,000 ml @ 42 mls/hr [id number] IV 05/28/17 11:00 4/9/18 15:35 (Albuterol Neb) 0.63 mg Q6HR NEB NEB 05/28/17 22:00 05/28/17 17:51 (Eliquis) 5 mg BID PO 05/29/17 09:00 05/29/17 09:14 Vital Signs / I&O Vital Signs Date Time Temp Pulse Resp B/P (MAP) Pulse Ox O2 Delivery O2 Flow Rate FiO2 05/29/17 07:40 97.1 87 18 94/64 (74) 95 05/29/17 04:15 97.5 65 18 117/58 (77) 96 05/29/17 04:00 88 05/29/17 03:37 95 Nasal Cannula 1.00 05/29/17 00:10 98.3 72 18 112/58 (76) 95 05/28/17 23:45 90 05/28/17 22:25 95 Nasal Cannula 1.00 05/28/17 20:00 95 Nasal Cannula 1.00 05/28/17 20:00 100 05/28/17 20:00 97.8 83 18 91/52 (65) 95 05/28/17 16:00 98.5 80 18 90/54 (66) 95 05/28/17 12:00 77 05/28/17 11:46 97.7 77 18 95/50 (65) 97 05/28/17 10:41 98 Nasal Cannula 2.00 I/O 05/28/17 05/28/17 05/28/17 05/29/17 05/29/17 05/29/17 07:00 15:00 23:00 07:00 15:00 23:00 Intake Total 3727 ml 406 ml 826 ml 837 ml Output Total 300 ml 200 ml 400 ml Balance 3427 ml 206 ml 826 ml 437 ml Intake Oral 460 ml 360 ml IV Total 3267 ml 406 ml 826 ml 477 ml Output Urine Total 300 ml 200 ml 400 ml # Voids 2 # Bowel Movements 4 1 0 Physical Exam GENERAL: NAD SKIN: Warm and dry. HEAD: Atraumatic. Normocephalic. EYES: Pupils equal and round. No scleral icterus. No injection or drainage. ENT: No nasal bleeding or discharge. Mucous membranes pink and moist. NECK: Trachea midline. No JVD. CARDIOVASCULAR: Irregularly irregular RESPIRATORY: No accessory muscle use. Clear to auscultation. Breath sounds equal bilaterally. GASTROINTESTINAL: Abdomen soft, non-tender, nondistended. Hepatic and splenic margins not palpable. MUSCULOSKELETAL: Extremities without clubbing, cyanosis, or edema. No obvious deformities. NEUROLOGICAL: Awake and alert. No obvious cranial nerve deficits. Overall general weakness PSYCHIATRIC: Appropriate mood and affect; insight and judgment normal. Laboratory Laboratory Tests Test 05/29/17 04:35 White Blood Count 20.0 TH/MM3 Red Blood Count 3.52 MIL/MM3 Hemoglobin 11.0 GM/DL Hematocrit 31.4 % Mean Corpuscular Volume 89.1 FL Mean Corpuscular Hemoglobin 31.2 PG Mean Corpuscular Hemoglobin Concent 35.0 % Red Cell Distribution Width 15.6 % Platelet Count 183 TH/MM3 Mean Platelet Volume 6.8 FL Blood Urea Nitrogen 11 MG/DL Creatinine 0.66 MG/DL Random Glucose 111 MG/DL Calcium Level 7.6 MG/DL Phosphorus Level 2.0 MG/DL Magnesium Level 1.8 MG/DL Sodium Level 133 MEQ/L Potassium Level 3.2 MEQ/L Chloride Level 94 MEQ/L Carbon Dioxide Level 30.4 MEQ/L Anion Gap 9 MEQ/L Estimat Glomerular Filtration Rate 117 ML/MIN Assessment and Plan Problem List: (1) Cardiomyopathy ICD Codes: I42.9 - Cardiomyopathy, unspecified (2) Elevated troponin I level ICD Codes: R79.89 - Other specified abnormal findings of blood chemistry Status: Acute (3) COPD (chronic obstructive pulmonary disease) ICD Codes: J44.9 - Chronic obstructive pulmonary disease, unspecified Status: Acute (4) Acute hyponatremia ICD Codes: E87.1 - Hypo-osmolality and hyponatremia Status: Acute (5) Acute hypokalemia ICD Codes: E87.6 - Hypokalemia Status: Acute (6) COPD with acute exacerbation ICD Codes: J44.1 - Chronic obstructive pulmonary disease with (acute) exacerbation Status: Acute (7) Atypical chest pain ICD Codes: R07.89 - Other chest pain Status: Acute (8) CAD (coronary artery disease) ICD Codes: I25.10 - Atherosclerotic heart disease of [place] coronary artery without angina pectoris Assessment and Plan 1) Consulted for loop recorder placement due to infarctions noted on Brain MRI 2) Converted to AFib yesterday 3) No plan for loop recorder now as patient is in AFib 4) Will defer anti-coagulation decisions to the Dr. Yo and Dr. Simmons 5) Will sign off as loop no longer needed, call with questions Sharath Gramajo DO May 29, 2017 10:07
[2017-05-29] MEDS ORDERED: POTASSIUM PHOSPHATE/SODIUM PHOSPHATE 250 MG TAB PO ONE (10:30)
--- NOTE | 2017-05-29 11:27 | PD.ONC.PN ---
Subjective Subjective Remarks Afebrile overnight. Patient resting in bed. states he feels very dyspneic today. feels overall fatigued and weak. Objective Data Date Time Temp Pulse Resp B/P (MAP) Pulse Ox O2 Delivery O2 Flow Rate FiO2 05/29/17 08:45 65 05/29/17 08:45 95 Nasal Cannula 1.00 05/29/17 07:40 97.1 87 18 94/64 (74) 95 05/29/17 04:15 97.5 65 18 117/58 (77) 96 05/29/17 04:00 88 05/29/17 03:37 95 Nasal Cannula 1.00 05/29/17 00:10 98.3 72 18 112/58 (76) 95 05/28/17 23:45 90 05/28/17 22:25 95 Nasal Cannula 1.00 05/28/17 20:00 95 Nasal Cannula 1.00 05/28/17 20:00 100 05/28/17 20:00 97.8 83 18 91/52 (65) 95 05/28/17 16:00 98.5 80 18 90/54 (66) 95 05/28/17 12:00 77 05/28/17 11:46 97.7 77 18 95/50 (65) 97 05/29/17 05/29/17 05/29/17 07:00 15:00 23:00 Intake Total 837 ml Output Total 400 ml Balance 437 ml Result Diagram: 05/29/17 0435 05/29/17 0435 Laboratory Results Laboratory Tests Test 05/29/17 04:35 White Blood Count 20.0 TH/MM3 Red Blood Count 3.52 MIL/MM3 Hemoglobin 11.0 GM/DL Hematocrit 31.4 % Mean Corpuscular Volume 89.1 FL Mean Corpuscular Hemoglobin 31.2 PG Mean Corpuscular Hemoglobin Concent 35.0 % Red Cell Distribution Width 15.6 % Platelet Count 183 TH/MM3 Mean Platelet Volume 6.8 FL Blood Urea Nitrogen 11 MG/DL Creatinine 0.66 MG/DL Random Glucose 111 MG/DL Calcium Level 7.6 MG/DL Phosphorus Level 2.0 MG/DL Magnesium Level 1.8 MG/DL Sodium Level 133 MEQ/L Potassium Level 3.2 MEQ/L Chloride Level 94 MEQ/L Carbon Dioxide Level 30.4 MEQ/L Anion Gap 9 MEQ/L Estimat Glomerular Filtration Rate 117 ML/MIN Administered Medications Medications (Trade) Dose Ordered Sig/Daniela Route PRN Reason Start Time Stop Time Status Last Admin Dose Admin Sodium Chloride (NS Flush) 2 ml BID IV FLUSH 05/23/17 09:00 05/29/17 09:16 Pantoprazole Sodium (Protonix) 40 mg DAILY PO 05/24/17 09:00 05/29/17 09:15 Levalbuterol HCl (Xopenex Neb) 0.63 mg Q4HR NEB PRN NEB wheezing 05/23/17 11:45 05/29/17 03:36 Diltiazem HCl (Cardizem Cd) 120 mg DAILY PO 05/24/17 09:00 05/29/17 09:20 Metoprolol Tartrate (Lopressor) 25 mg BID PO 05/23/17 21:00 05/28/17 09:11 Prednisone (Deltasone) 5 mg DAILY PO 05/24/17 09:00 05/29/17 09:14 Miscellaneous Information Patient in critical care unit? Ass... Q361D .XX 05/24/17 00:15 05/24/17 00:15 Aspirin (Ecotrin Ec) 81 mg DAILY PO 05/27/17 09:00 05/29/17 09:15 Ondansetron HCl (Zofran Inj) 4 mg Q6H PRN IV PUSH NAUSEA OR VOMITING 05/27/17 11:00 05/28/17 22:48 Lactated Ringer's 1,000 ml @ 30 mls/hr Q24H PRN IV SEE LABEL COMMENTS 05/28/17 02:30 05/31/17 02:29 05/28/17 12:05 Potassium Chloride/Dextrose/ Sod Cl 1,000 ml @ 42 mls/hr [id number] IV 05/28/17 11:00 05/28/17 15:35 Albuterol Sulfate (Albuterol Neb) 0.63 mg Q6HR NEB NEB 05/28/17 22:00 05/28/17 17:51 Apixaban (Eliquis) 5 mg BID PO 05/29/17 09:00 05/29/17 09:14 Objective Remarks GENERAL: Elderly male, sitting up in bed in nad. SKIN: Warm and dry. HEAD: Normocephalic. EYES: No injection or drainage. NECK: Supple, trachea midline. CARDIOVASCULAR: +S1/S2 RESPIRATORY: scattered rhonchi GASTROINTESTINAL: Abdomen soft, non-tender, nondistended. EXTREMITIES: No cyanosis NEUROLOGICAL: awake and alert. normal speech. Assessment/Plan Problem List: (1) Leukocytosis ICD Codes: D72.829 - Elevated white blood cell count, unspecified Plan: -- PENG 2 pending -- Likely due to demargination from steroids. (2) Weakness of both legs ICD Codes: R29.898 - Other symptoms and signs involving the musculoskeletal system Plan: --brain MRI showed small bilateral cerebellar infarcts --No evidence of stenosis or cord compression based off results of MRI --Neurology following Assessment 76-year-old man with weakness; hematology consulted for leukocytosis Plan 1. Monitor CBC 2. continue supportive care 3. await JAK2 Attending Statement The exam, history, and the medical decision-making described in the above note were completed with the assistance of the mid-level provider. I reviewed and agree with the findings presented. I attest that I had a [id number] encounter with the patient on the same day, and personally performed and documented my assessment and findings in the medical record. Frustrated, wants to walk. Helped tremendously by palliative care, looking forward to their meeting tomorrow. No significant change in WBC, reactive process, no specific treatment needed. Follow up with plans for rehab. Hematology will follow peripherally, pending PENG II. Kika Nelson May 29, 2017 11:27 Mayra Sexton MD May 29, 2017 20:34
--- NOTE | 2017-05-29 13:16 | HHI.HCPN ---
Reason for visit a. To assist with evaluation and management of symptoms including: dyspnea b. To assist medical decision maker(s) with: better understanding of current medical conditions; weighing benefits/burdens of medical treatment options; making medical treatment decisions. . Subjective/Interval History Mr. Lizarraga is a 76-year-old male with hypertension, GERD, COPD, coronary artery disease, atrial fibrillation and BPH who was a previous smoker. He presented to [facility] ED via EMS on 05/23/2017 with complaints of moderately severe shortness of breath. Course of hospitalization have been dyspnea, NSTEMI, increased weakness, decrease appetite, and possible GI malignancy. MRI revealed small bilateral cerebral infarcts. Since last palliative care visit: Immunology Specialist has evaluated pt, and did not find any afibe after going through pervious records. They continue to follow. Pt had ([facility]) , Afib yesterday. Oncology continue to follow. Pt continue to have leukocytosis although it has been trending down. Pt today endorse more dyspnea, was upset that respiratory therapist is not showing up on time. He is very thankful palliative care to following. Dr. Yo stopped by briefly during my evaluation and briefly spoke with family. Family is concern at his profound weakness. Today I did broach the subject of hospice and ask if he is tired from the hospitalizations, and goals are comfort oriented, it is an option. I spoke with the family given the multiple comorbidities he has, he may not do well in rehab. Family did say, the way he is, there is now way they can take care of him like that at home. Palliative care will follow up on pt decision. Family/friend interactions Pt significant other Erika, and Erika's daughter at bedside. Advance Directives Living Will: Copy in medical record Health Care Surrogate: Copy in medical record Advance Directive Specifics Date completed: 05/28/2017 . Health Care Surrogate(s): Patient previously completed a healthcare surrogate designation form on 2012 which identified his brother as his healthcare surrogate decision-maker, however patient's brother is now . Patient states he later completed additional written advanced directives, but they could not be found in the patient's chart. Healthcare surrogate designation form was completed again today 05/28/2017, designating patient's significant other (Erika) as his healthcare surrogate decision maker. Erika's daughter, Demetria Bridges, is designated as the alternate healthcare decision maker. Copy of document is accessible in patients paper chart and was faxed to HIM to be scanned into the patient's EMR. . Documented care wishes: Patient states he has completed written advanced directives. He will ask his girlfriend (Erika) to bring copies of these documents to the hospital so they can be scanned into the patient's EMR. . Objective Vital Signs Date Time Temp Pulse Resp B/P (MAP) Pulse Ox O2 Delivery O2 Flow Rate FiO2 05/29/17 11:58 95 Nasal Cannula 1.00 05/29/17 08:45 65 05/29/17 08:45 95 Nasal Cannula 1.00 05/29/17 07:40 97.1 87 18 94/64 (74) 95 05/29/17 04:15 97.5 65 18 117/58 (77) 96 05/29/17 04:00 88 05/29/17 03:37 95 Nasal Cannula 1.00 05/29/17 00:10 98.3 72 18 112/58 (76) 95 05/28/17 23:45 90 05/28/17 22:25 95 Nasal Cannula 1.00 05/28/17 20:00 95 Nasal Cannula 1.00 05/28/17 20:00 100 05/28/17 20:00 97.8 83 18 91/52 (65) 95 05/28/17 16:00 98.5 80 18 90/54 (66) 95 Intake & Output 05/29/17 05/29/17 07:00 19:00 Intake Total 837 ml Output Total 400 ml Balance 437 ml Intake Oral 360 ml IV Total 477 ml Output Urine Total 400 ml # Bowel Movements 0 Physical Exam CONSTITUTIONAL/GENERAL: This is an adequately nourished patient, fatigued. TUBES/LINES/DRAINS: PIV SKIN: + Jaundice. Ecchymoses on upper extremities. No wounds seen anteriorly. Skin temperature appropriate. Not diaphoretic. HEAD: Atraumatic. Normocephalic. EYES: Pupils equal and round and reactive. Extraocular motions intact. No injection or drainage. Fundi not examined. ENT: Hearing grossly normal. Nose without bleeding or purulent drainage. NECK: Trachea midline. Supple, nontender. No palpable thyroid enlargement or nodularity. CARDIOVASCULAR: Regular rate and rhythm without murmurs, gallops, or rubs. No JVD. Peripheral pulses symmetric. RESPIRATORY/CHEST: Symmetric, unlabored respirations. Clear to auscultation. decrease breath sounds bilaterally. GASTROINTESTINAL: Abdomen soft, non-tender, nondistended. No hepato-splenomegaly , or palpable masses. No guarding. Bowel sounds present. GENITOURINARY: Without palpable bladder distension. MUSCULOSKELETAL: Extremities without clubbing, cyanosis, or edema. No mottling or clubbing. LYMPHATICS: No palpable cervical or supraclavicular adenopathy. NEUROLOGICAL: Awake and alert. Follows commands. Cognitively sharp. Moves all extremities. PSYCHIATRIC: No obvious anxiety/depression. No apparent hallucinations or other psychotic thought process. . Diagnostic Tests Laboratory Laboratory Tests Test 05/26/17 17:08 05/26/17 20:32 05/27/17 03:56 05/28/17 07:03 Ammonia LESS THAN 10 MCMOL/L Rheumatoid Factor Screen NEGATIVE (NEGATIVE) Rheumatoid Factor Titer IU/ML (0.0-14.9) Rapid Plasma Reagin NON-REACTIVE (NON-REACTVE) Blood Gas Puncture Site RT RADIAL Blood Gas Patient Temperature 98.6 Blood Gas HCO3 32 mmol/L (22-26) Blood Gas Base Excess 8.2 mmol/L (-2-2) Blood Gas Oxygen Saturation 95 % (90-100) Arterial Blood pH 7.48 (7.380-7.420) Arterial Blood Partial Pressure CO2 43 mmHg (38-42) Arterial Blood Partial Pressure O2 82 mmHg (61-120) Arterial Blood Oxygen Content 16.4 Vol % (12.0-20.0) Arterial Blood Carboxyhemoglobin 0.8 % (0-4) Arterial Blood Methemoglobin 1.2 % (0-2) Blood Gas Hemoglobin 12.3 G/DL (12.0-16.0) Oxygen Delivery Device NASAL CANNULA Blood Gas Liter Flow 2 L/M White Blood Count 23.6 TH/MM3 (4.0-11.0) 21.9 TH/MM3 (4.0-11.0) Red Blood Count 3.96 MIL/MM3 (4.50-5.90) 3.64 MIL/MM3 (4.50-5.90) Hemoglobin 12.2 GM/DL (13.0-17.0) 11.3 GM/DL (13.0-17.0) Hematocrit 35.6 % (39.0-51.0) 32.6 % (39.0-51.0) Mean Corpuscular Volume 89.9 FL (80.0-100.0) 89.5 FL (80.0-100.0) Mean Corpuscular Hemoglobin 30.8 PG (27.0-34.0) 31.0 PG (27.0-34.0) Mean Corpuscular Hemoglobin Concent 34.3 % (32.0-36.0) 34.7 % (32.0-36.0) Red Cell Distribution Width 15.3 % (11.6-17.2) 15.0 % (11.6-17.2) Platelet Count 210 TH/MM3 (150-450) 190 TH/MM3 (150-450) Mean Platelet Volume 6.9 FL (7.0-11.0) 6.8 FL (7.0-11.0) Neutrophils (%) (Auto) 91.0 % (16.0-70.0) 91.1 % (16.0-70.0) Lymphocytes (%) (Auto) 4.2 % (9.0-44.0) 3.7 % (9.0-44.0) Monocytes (%) (Auto) 4.5 % (0.0-8.0) 4.9 % (0.0-8.0) Eosinophils (%) (Auto) 0.1 % (0.0-4.0) 0.1 % (0.0-4.0) Basophils (%) (Auto) 0.2 % (0.0-2.0) 0.2 % (0.0-2.0) Neutrophils # (Auto) 21.5 TH/MM3 (1.8-7.7) 19.9 TH/MM3 (1.8-7.7) Lymphocytes # (Auto) 1.0 TH/MM3 (1.0-4.8) 0.8 TH/MM3 (1.0-4.8) Monocytes # (Auto) 1.1 TH/MM3 (0-0.9) 1.1 TH/MM3 (0-0.9) Eosinophils # (Auto) 0.0 TH/MM3 (0-0.4) 0.0 TH/MM3 (0-0.4) Basophils # (Auto) 0.1 TH/MM3 (0-0.2) 0.1 TH/MM3 (0-0.2) CBC Comment AUTO DIFF AUTO DIFF Differential Total Cells Counted 100 100 Neutrophils % (Manual) 62 % (16-70) 78 % (16-70) Band Neutrophils % 17 % (0-6) 3 % (0-6) Lymphocytes % 7 % (9-44) 6 % (9-44) Monocytes % 6 % (0-8) 3 % (0-8) Neutrophils # (Manual) 20.3 TH/MM3 (1.8-7.7) 19.9 TH/MM3 (1.8-7.7) Metamyelocytes 3 % (0-1) 4 % (0-1) Myelocytes 4 % (0-0) 6 % (0-0) Differential Comment FINAL DIFF MANUAL FINAL DIFF MANUAL Blastocytes 1 % (0-0) Platelet Estimate NORMAL (NORMAL) NORMAL (NORMAL) Platelet Morphology Comment NORMAL (NORMAL) NORMAL (NORMAL) Red Cell Morphology Comment NORMAL (NORMAL) Reticulocyte Count 2.6 % (0.4-3.0) Absolute Reticulocyte Count 103.4 MIL/L (20.0-150.0) Blood Urea Nitrogen 25 MG/DL (7-18) 13 MG/DL (7-18) Creatinine 0.84 MG/DL (0.60-1.30) 0.68 MG/DL (0.60-1.30) Random Glucose 116 MG/DL (74-106) 85 MG/DL (74-106) Calcium Level 7.5 MG/DL (8.5-10.1) 7.3 MG/DL (8.5-10.1) Lactate Dehydrogenase 351 U/L (87-241) Sodium Level 130 MEQ/L (136-145) 131 MEQ/L (136-145) Potassium Level 3.2 MEQ/L (3.5-5.1) 3.0 MEQ/L (3.5-5.1) Chloride Level 87 MEQ/L (98-107) 88 MEQ/L (98-107) Carbon Dioxide Level 34.2 MEQ/L (21.0-32.0) 35.0 MEQ/L (21.0-32.0) Anion Gap 9 MEQ/L (5-15) 8 MEQ/L (5-15) Estimat Glomerular Filtration Rate 89 ML/MIN (>89) 113 ML/MIN (>89) B-Type Natriuretic Peptide 211 PG/ML (0-100) Vitamin B12 Level GREATER THAN 2000 PG/ML Folate 7.4 NG/ML (3.1-17.5) Total Protein 4.9 GM/DL (6.4-8.2) Albumin 2.4 GM/DL (3.4-5.0) Alkaline Phosphatase 76 U/L (45-117) Aspartate Amino Transf (AST/SGOT) 23 U/L (15-37) Alanine Aminotransferase (ALT/SGPT) 36 U/L (12-78) Total Bilirubin 0.5 MG/DL (0.2-1.0) Direct Bilirubin 0.2 MG/DL (0.0-0.2) Protein Corrected Calcium 8.5 MG/DL (8.5-10.1) Indirect Bilirubin 0.3 MG/DL (0.0-0.8) Triglycerides Level 126 MG/DL (42-150) Cholesterol Level 135 MG/DL (120-200) LDL Cholesterol 46 MG/DL (0-99) HDL Cholesterol 64.0 MG/DL (40.0-60.0) Cholesterol/HDL Ratio 2.10 RATIO Test 05/29/17 04:35 White Blood Count 20.0 TH/MM3 (4.0-11.0) Red Blood Count 3.52 MIL/MM3 (4.50-5.90) Hemoglobin 11.0 GM/DL (13.0-17.0) Hematocrit 31.4 % (39.0-51.0) Mean Corpuscular Volume 89.1 FL (80.0-100.0) Mean Corpuscular Hemoglobin 31.2 PG (27.0-34.0) Mean Corpuscular Hemoglobin Concent 35.0 % (32.0-36.0) Red Cell Distribution Width 15.6 % (11.6-17.2) Platelet Count 183 TH/MM3 (150-450) Mean Platelet Volume 6.8 FL (7.0-11.0) Blood Urea Nitrogen 11 MG/DL (7-18) Creatinine 0.66 MG/DL (0.60-1.30) Random Glucose 111 MG/DL (74-106) Calcium Level 7.6 MG/DL (8.5-10.1) Phosphorus Level 2.0 MG/DL (2.5-4.9) Magnesium Level 1.8 MG/DL (1.5-2.5) Sodium Level 133 MEQ/L (136-145) Potassium Level 3.2 MEQ/L (3.5-5.1) Chloride Level 94 MEQ/L (98-107) Carbon Dioxide Level 30.4 MEQ/L (21.0-32.0) Anion Gap 9 MEQ/L (5-15) Estimat Glomerular Filtration Rate 117 ML/MIN (>89) Result Diagram: 05/29/1743405/29/17434 Assessment and Plan Disease Oriented Problem List: (1) NSTEMI (non-ST elevated myocardial infarction) (2) SIRS (systemic inflammatory response syndrome) (3) Acute hypokalemia (4) Acute hyponatremia (5) COPD with acute exacerbation (6) CAD (coronary artery disease) (7) Cardiomyopathy (8) Elevated troponin I level (9) Leukocytosis (10) Weakness of both legs Symptom Scale: (1) Dyspnea 0-10 Scale: Unable to quantify Pertinent Non-Medical Issues Psychosocial: Patient is originally from [facility] [facility]. He was never and did not have children. Patient states he has been with his significant other (Erika) for approximately 35+ years. 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 Patient had previously completed written advance directives that designated his brother as his healthcare surrogate decision maker but he is now . Patient states subsequent written advanced directives were completed but could not be found in the patient's paper chart or EMR. An additional healthcare surrogate designation form was completed today 05/28/2017 and identified the patient's girlfriend (Erika) as his healthcare surrogate decision maker. Erika's daughter (Demetria Bridges) was designated as the alternate healthcare surrogate decision-maker. Spiritual: Pending further conversations Legal: Patient's girlfriend (Erika) is the designated healthcare surrogate decision maker. Erika's daughter (Demetria Bridges) was designated as the alternate healthcare surrogate decision-maker. Ethical issues impacting care: No known ethical issues impacting care at this time. . Important Contacts Erika Day, family/friend: [phone] Demetria Bridges, Erika's daughter:? . Prognosis Patient is a 76 year old male with an extremely complex medical history who has experienced an acute decline. Multiple specialists have been consulted as part of the medical team; patient remains high risk for ongoing decline. . Code Status: No Code Plan * Code Status-DNR. Significant other and Health Care Surrogate supports his decision. * Patient previously completed a healthcare surrogate designation form on 2012 which identified his brother as his healthcare surrogate decision-maker, however patient's brother is now . Patient states he later completed additional written advanced directives, but they could not be found in the patient's chart. Healthcare surrogate designation form was completed again today 05/28/2017, designating patient's significant other (Erika) as his healthcare surrogate decision maker. Erika's daughter, Demetria Bridges, is designated as the alternate healthcare decision maker. Copy of document is accessible in patients paper chart and was faxed to HIM to be scanned into the patient's EMR. * Palliative care contact information was provided to the patient. * Palliative care will continue to follow this patient throughout his hospitalization to establish trust, assist with symptom management and clarification of medical treatment goals. * SYMPTOM MANAGEMENT: = Dyspnea: Patient reports a known history of COPD with chronic dyspnea-on maintenance steroids he has been hospitalized with COPD exacerbations twice since the beginning of 2018. Currently on prednisone, PRN Xopenex. Patient started on albuterol nebulizers QID. = Nausea: Patient reports occasional nausea that began 3-4 weeks ago and is associated with decreased appetite as well as early satiety. PRN Zofran is ordered. Ongoing workup is pending. = Debility: Patient reports an extensive history of dyspnea that now significantly limits his ability to care for himself. Patient has been using a walker for about 4 months; he quit driving a few weeks ago due to weakness in his legs (specifically the right leg). The patient has had 2 falls in the past 3-4 weeks; he reports progressively increased weakness that has created a bed to chair existence. If goals remain aggressive, patient will need physical therapy evaluation and likely SNF placement upon discharge. * Goals of Care: Pt today endorse more dyspnea, was upset that respiratory therapist is not showing up on time. He is very thankful palliative care to following. Dr. Yo stopped by briefly during my evaluation and briefly spoke with family. Family is concern at his profound weakness. Today I did broach the subject of hospice and ask if he is tired from the hospitalizations, and goals are comfort oriented, it is an option. I spoke with the family given the multiple comorbidities he has, he may not do well in rehab. Family did say, the way he is, there is now way they can take care of him like that at home. Palliative care will follow up on pt decision. Also discussed with nurse about pt's not receiving breathing treatments on time , and she said she will call respiratory therapist to remind them to come for the next breathing treatments. Case d/w with Dr. Lindsey Attestation To help prompt me to consider important information that might be impacting today's encounter and assessment, information from prior notes written by myself or my colleagues may have been "brought forward" into today's note. My signature on this note, however, is an attestation that I personally performed the exam, history, and/or decision-making noted today, and, unless otherwise indicated, the interactions with patient, family, and staff as well as the review of records all occurred today. I also attest that the listed assessment and stated plan reflect my best clinical judgment today based on the combination of historical information, prior notes, and today's exam/ interactions. When time spent is documented, it refers only to time spent today by the signer, or if indicated, combined time spent today by collaborating physician/nurse practitioner. Haroon Saravia MD May 29, 2017 13:16
[2017-05-29] MEDS ORDERED: LORazepam 0.5 MG TAB PO ONE (13:30)
--- NOTE | 2017-05-29 13:52 | HHI.GIFU ---
Subjective Remarks pt resting in bed, having breathing tx. he says he will never do an EGD or colonoscopy. (Tiffany Olvera) Objective Vitals I&O Vital Signs Date Time Temp Pulse Resp B/P (MAP) Pulse Ox O2 Delivery O2 Flow Rate FiO2 05/29/17 11:58 95 Nasal Cannula 1.00 05/29/17 08:45 65 05/29/17 08:45 95 Nasal Cannula 1.00 05/29/17 07:40 97.1 87 18 94/64 (74) 95 05/29/17 04:15 97.5 65 18 117/58 (77) 96 05/29/17 04:00 88 05/29/17 03:37 95 Nasal Cannula 1.00 05/29/17 00:10 98.3 72 18 112/58 (76) 95 05/28/17 23:45 90 05/28/17 22:25 95 Nasal Cannula 1.00 05/28/17 20:00 95 Nasal Cannula 1.00 05/28/17 20:00 100 05/28/17 20:00 97.8 83 18 91/52 (65) 95 05/28/17 16:00 98.5 80 18 90/54 (66) 95 I/O 05/28/17 05/28/17 05/28/17 05/29/17 05/29/17 05/29/17 07:00 15:00 23:00 07:00 15:00 23:00 Intake Total 3727 ml 406 ml 826 ml 837 ml Output Total 300 ml 200 ml 400 ml Balance 3427 ml 206 ml 826 ml 437 ml Intake Oral 460 ml 360 ml IV Total 3267 ml 406 ml 826 ml 477 ml Output Urine Total 300 ml 200 ml 400 ml # Voids 2 # Bowel Movements 4 1 0 Laboratory Laboratory Tests Test 05/29/17 04:35 White Blood Count 20.0 Red Blood Count 3.52 Hemoglobin 11.0 Hematocrit 31.4 Mean Corpuscular Volume 89.1 Mean Corpuscular Hemoglobin 31.2 Mean Corpuscular Hemoglobin Concent 35.0 Red Cell Distribution Width 15.6 Platelet Count 183 Mean Platelet Volume 6.8 Blood Urea Nitrogen 11 Creatinine 0.66 Random Glucose 111 Calcium Level 7.6 Phosphorus Level 2.0 Magnesium Level 1.8 Sodium Level 133 Potassium Level 3.2 Chloride Level 94 Carbon Dioxide Level 30.4 Anion Gap 9 Estimat Glomerular Filtration Rate 117 Date/Time Source Procedure Growth Status 05/23/17 09:45 Blood Peripheral Aerobic Blood Culture - Final NO GROWTH IN 5 DAYS Complete 05/23/17 09:45 Blood Peripheral Anaerobic Blood Culture - Final NO GROWTH IN 5 DAYS Complete 05/23/17 07:30 Nasal Washing Influenza Types A,B Antigen (KECIA) - Final NEGATIVE FOR FLU A AND B ANTIGEN.... Complete Imaging Last Impressions Neck Magnetic Resonance Angiography 05/27/17 Signed Impressions: Service Date/Time: Saturday, May 27, 2017 11:47 - CONCLUSION: Normal examination. Bebe Purdy MD Head Magnetic Resonance Angiography 05/27/17 Signed Impressions: Service Date/Time: Saturday, May 27, 2017 11:47 - CONCLUSION: Normal examination for a patient of this age. Atilio Dunham MD Cervical Spine MRI 05/26/17 1445 Signed Impressions: Service Date/Time: Friday, May 26, 2017 17:25 - CONCLUSION: 1. Mild to moderate degenerative disc disease. 2. Moderate degenerative disease at C6-7 with broad-based disc osteophyte complex causing mild anterior dural effacement but no spinal cord compression or nerve root compression. 3. No acute bony abnormality. 4. Normal appearing spinal cord. Mike Holt MD Brain MRI 05/26/17 1445 Signed Impressions: Service Date/Time: Friday, May 26, 2017 17:25 - CONCLUSION: 1. Small bilateral cerebellar infarcts. 2. Mild cerebral white matter disease characteristic of microvascular ischemic changes. 3. No evidence of hemorrhage , mass, edema or abnormal enhancement. Mike Holt MD Sacrum/Coccyx MRI 05/26/17 Signed Impressions: Service Date/Time: Friday, May 26, 2017 17:25 - CONCLUSION: No acute disease. No evidence of soft tissue mass or destructive bone lesions. Degenerative disc disease in lower lumbar spine. Mike Holt MD Lumbar Spine MRI 05/26/17 Signed Impressions: Service Date/Time: Friday, May 26, 2017 17:25 - CONCLUSION: 1. Acute compression deformity at the superior aspect of the L2 vertebral body with minimal loss of height anteriorly. 2. Degenerative change throughout with loss of disc space height, minimal bulging and facet hypertrophy. There are mild areas of stenosis. Severe stenosis is not seen throughout. 3. 1.3 cm low signal mass in the superior lateral left kidney representing either a complex hemorrhagic or proteinaceous cyst versus a solid mass. Given its size, it is thought it could be followed. Abelardo Gutierrez MD CT Angiography 05/26/17 Signed Impressions: Service Date/Time: Friday, May 26, 2017 14:58 - CONCLUSION: 1. No evidence of pulmonary embolism. 2. COPD. 3. No evidence of acute air space disease or suspicious nodular densities. 4. No significant change. Mike Holt MD Abdomen/Pelvis CT 05/26/17 Signed Impressions: Service Date/Time: Friday, May 26, 2017 14:58 - CONCLUSION: 1. No acute abnormalities seen. 2. Colonic diverticula. 3. Multiple renal cysts the more numerous on the left. There is a 1.2 cm complex cyst or solid mass seen at the posterior superior left kidney back and be followed. Urology consultation would be suggested as an outpatient. 4. Induration around the right common femoral artery presumably from recent catheterization. This should be correlated clinically. 5. Small suspected area focal fatty infiltration of the left lobe of the liver. 6. Degenerative change in the lumbar spine 7. Mild compressive deformities at the superior aspect of the T12 and L2 vertebral bodies. 8. Solitary 1.9 cm sclerotic lesion at the left proximal femur. This is nonspecific. It may represent a bone island. Other etiologies for sclerotic lesions cannot be excluded. No other lesions are seen. Abelardo Gutierrez MD Chest X-Ray 05/23/17 0714 Signed Impressions: Service Date/Time: Tuesday, May 23, 2017 07:42 - CONCLUSION: 1. Hyperaeration of the lung ko characteristic of COPD. 2. Stable examination compared to the prior study with no acute parenchymal infiltrates. Alexis White MD Lower Extremity Ultrasound 05/23/17 Signed Impressions: Service Date/Time: Tuesday, May 23, 2017 11:38 - CONCLUSION: Normal examination. Atilio Dunham MD Physical Exam HEENT: PERRL; normocephalic; atraumatic; no jaundice. CHEST: diminished CARDIAC:irr HR ABDOMEN: Soft, nondistended, mild diffuse discomfort; BS + EXTREMITIES: No clubbing, cyanosis, or edema. SKIN: pale; no rash; no jaundice. 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 (Tiffany Olvera) Assessment and Plan Plan - Failure to thrive, decline in appetite, low energy, elevated WBC- Pt with fatigue, low energy, decline in appetite for the past 2 weeks. Denies nausea, vomiting, melena or hematochezia or change in bowels. Has intermittent constipation for which he takes Miralax as needed with good results. he denies abd pain but experienced pain upon palpation. No family hx of colon cancer. Last colonoscopy was 5 yrs ago and states he will never have another one. Has significant elevation on WBC., hyponatremia. Hepatitis panel, hiv pending. AFP 2.1, Cea 3.8, CA 15-3 18, CA 19-9 30, negative CTA, CT of abd pending - Nstemi- Patient had a cardiac cath that showed EF 40-45%, no stents were placed. recommended medical management - Leucocytosis- ID, hematology on the case - Hyponatremia- nephrology on the case - pmh of HTN, CAD, CHF. who was admitted for COPD exacerbation and SOB per attending 05/28/2017 patient has multiple medical problem electrolytes imbalance, lack of good intake, recent SD some nausea Patient feel that it's a bad idea to do any procedure on him and he thinks that he will not do well with any procedure, he only took partial part of the prep CT scan did not show any malignancy Tumor markers are negative - Oncology, ID, cardiology, nephrology on the case 05/29/17 pt says he will not do EGD or colonoscopy. palliative care now following. PLAN ELISEO Recommend dietary consult for improving his intake Consider PT to try to get patient strength back supportive care GI will sign off. please reconsult if needed pt seen by myself and Dr Carbajal and this note is on his behalf (Tiffany Olvera) Plan Patient was seen and examined, agree with above-noted, patient stated that he will never have any GI procedure, continue supportive care and physical therapy , if patient changed his mind we will be happy to do his procedures if stable, for the time being we will follow up as needed please call us with any questions (Neelam Carbajal MD) Tiffany Olvera May 29, 2017 13:52 Neelam Carbajal MD May 29, 2017 19:22
[2017-05-29] MEDS: D5-NS + KCL 20 MEQ INJ 1,000 ML IV SCH (13:56)
--- NOTE | 2017-05-29 15:23 | HHI.NPPN ---
Subjective Interval History He is lying in bed supine. Sodium level is 33. He states he is very weak, has not attempted to sit on edge of bed. (Nimo Beatty) Review of Systems General Constitutional: Fatigue General Remarks hungry, reporting generalized weakness (Nimo Beatty) Objective Data Data 05/29/17 05/30/17 19:00 07:00 Intake Total 397 ml Balance 397 ml IV Total 397 ml Vital Signs Date Time Temp Pulse Resp B/P (MAP) Pulse Ox O2 Delivery O2 Flow Rate FiO2 05/29/17 12:00 96 05/29/17 11:58 95 Nasal Cannula 1.00 05/29/17 08:45 65 05/29/17 08:45 95 Nasal Cannula 1.00 05/29/17 07:40 97.1 87 18 94/64 (74) 95 05/29/17 04:15 97.5 65 18 117/58 (77) 96 05/29/17 04:00 88 05/29/17 03:37 95 Nasal Cannula 1.00 05/29/17 00:10 98.3 72 18 112/58 (76) 95 05/28/17 23:45 90 05/28/17 22:25 95 Nasal Cannula 1.00 05/28/17 20:00 95 Nasal Cannula 1.00 05/28/17 20:00 100 05/28/17 20:00 97.8 83 18 91/52 (65) 95 05/28/17 16:00 98.5 80 18 90/54 (66) 95 (Nimo Beatty) -: 05/29/17 0435 05/29/17 0435 Imaging Last 72 hours Impressions Neck Magnetic Resonance Angiography 05/27/17 0000 Signed Impressions: Service Date/Time: Saturday, May 27, 2017 11:47 - CONCLUSION: Normal examination. Bebe Purdy MD Head Magnetic Resonance Angiography 05/27/17 0000 Signed Impressions: Service Date/Time: Saturday, May 27, 2017 11:47 - CONCLUSION: Normal examination for a patient of this age. Atilio Dunham MD (Nimo Beatty) Physical Exam General Appearance: Well Developed, Comfortable (Nimo Beatty) Throat Throat Exam: Oral Mucosa [place] & Moist (Nimo Beatty) Neck Neck Exam: Neck Supple (Nimo Beatty) Pulmonary Resp Exam: Breath Sounds Equal, No Distress, Decreased Bases (Nimo Beatty) Cardiology CV Exam: Regular (Nimo Beatty) Gastrointestinal/Abdomen GI Exam: Soft, Non-Tender, Bowel Sounds Present (Nimo Beatty) Musculoskeletal MS Exam: Normal Gait, Normal Tone, Good Strength (Nimo Beatty) Integumentary Skin Exam: Warm, Dry, Intact (Nimo Beatty) Extremeties Extremities Exam: No Edema, Pedal Pulses Palpable (Nimo Beatty) Neurologic Neuro Exam: Alert, Awake, Oriented, Speech Clear, Moving All Extremities (Nimo Beatty) Psychiatric Psych Exam: Appropriate Responses (Nimo Beatty) Assessment/Plan Discussed Condition With: Patient Assessment Summary: CHF, Hypertension Electrolyte Assessment: Hypokalemia, Hyponatremia Problem List: (1) Acute hyponatremia ICD Codes: E87.1 - Hypo-osmolality and hyponatremia Status: Acute Plan: In February his serum Na ran 135-137 Work up indicating hypovolemic hyponatremia IVF is D5NS with 20 MeQ KCL. Noted hx of CHF Continue to hold loop diuretics Phosphorus and potassium were replaced. Stable for discharge. (2) Elevated troponin I level ICD Codes: R79.89 - Other specified abnormal findings of blood chemistry Status: Acute Plan: s/p cardiac cath, medical management cardiology following (3) COPD with acute exacerbation ICD Codes: J44.1 - Chronic obstructive pulmonary disease with (acute) exacerbation Status: Acute Plan: On steroids and oxygen Management per medical team Plan Needs motivation, aggressive PT/OT. (Nimo Beatty) Plan patient was seen and examined. Today's serum Na is 133. I will sign off at this time. Replace potassium. (Dimitri Cruz MD) Nimo Beatty May 29, 2017 15:23 Dimitri Cruz MD May 29, 2017 18:49
--- NOTE | 2017-05-29 17:10 | HHI.PR ---
Subjective Remarks Patient resting in bed, he was anxious earlier today when I was called by the nurse due to thinking that he is going to soon Currently he is calmer and I had a chance to discuss with him about his condition and about the concept of hospice Earlier discussed with palliative care is planning on talking to patient again tomorrow for possible referral to hospice Objective Vitals Vital Signs Date Time Temp Pulse Resp B/P (MAP) Pulse Ox O2 Delivery O2 Flow Rate FiO2 05/29/17 16:00 98.5 72 18 109/57 (74) 95 05/29/17 12:00 96 05/29/17 12:00 97.8 81 18 117/85 (96) 96 05/29/17 11:58 95 Nasal Cannula 1.00 05/29/17 08:45 65 05/29/17 08:45 95 Nasal Cannula 1.00 05/29/17 07:40 97.1 87 18 94/64 (74) 95 05/29/17 04:15 97.5 65 18 117/58 (77) 96 05/29/17 04:00 88 05/29/17 03:37 95 Nasal Cannula 1.00 05/29/17 00:10 98.3 72 18 112/58 (76) 95 05/28/17 23:45 90 05/28/17 22:25 95 Nasal Cannula 1.00 05/28/17 20:00 95 Nasal Cannula 1.00 05/28/17 20:00 100 05/28/17 20:00 97.8 83 18 91/52 (65) 95 I/O 05/28/17 05/28/17 05/28/17 05/29/17 05/29/17 05/29/17 07:00 15:00 23:00 07:00 15:00 23:00 Intake Total 3727 ml 406 ml 826 ml 837 ml 397 ml Output Total 300 ml 200 ml 400 ml Balance 3427 ml 206 ml 826 ml 437 ml 397 ml Intake Oral 460 ml 360 ml IV Total 3267 ml 406 ml 826 ml 477 ml 397 ml Output Urine Total 300 ml 200 ml 400 ml # Voids 2 # Bowel Movements 4 1 0 Result Diagram: 05/29/17 0435 05/29/17 0435 Objective Remarks GENERAL: This is a well-nourished, well-developed patient, in no apparent distress. SKIN: No rashes, warm and dry HEAD: Atraumatic. Normocephalic. EYES: Pupils equal round and reactive. Extraocular motions intact. No scleral icterus. ENT: Nose without bleeding, or drainage, Airway patent. NECK: Trachea midline. Supple CARDIOVASCULAR: Regular rate and rhythm without murmurs, gallops, or rubs. RESPIRATORY: Fair air entry bilaterally. No wheezes, rales, or rhonchi. GASTROINTESTINAL: Abdomen soft, non-tender, nondistended. Positive bowel sounds MUSCULOSKELETAL: Extremities without clubbing, cyanosis, or edema. Pedal pulses appreciated NEUROLOGICAL: Awake and alert. Moves all extremity with more noticed weakness on the lower extremity. Normal speech.no focal neurological deficit A/P Assessment and Plan Elevated troponin Non-STEMI New episode atrial fibrillation Short of breath/dyspnea Lower extremity weakness Hyponatremia and hypokalemia Leukocytosis with left shift noted , infectious versus blood dyscrasia History of hypertension History of COPD History of BPH status post TURP History of non-obstructive CAD Plan: 05/25: still with leukocytosis, no clear source of infx , consult ID , check ESR/ CRP, will start levaquin appreciate renal consult >cont hold diuretics , fluid restriction, dc ivf 05/26: Persistent leukocytosis with left shift, appreciate ID participation in care, she agreed on no clear source of infection, so workup for blood dyscrasia/ malignancy has been initiated Tumor marker, moser CT scan abdomen and chest, oncology, neurology consultation. Lower extremity weakness, possibly paraneoplastic syndrome versus other neurologic etiology, discussed with Dr. Simmons, at this point MRI MRA of the brain, vitamin B12 methylmalonic acid,? 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 fib on environmental monitoring specialist strips, discussed with cardiology Dr. Yo and with Dr. Simmons neurology who recommended starting Eliquis, also discussed with palliative care his plan is to see patient tomorrow for further discussion about whether he wants to go with hospice or rehab, I personally discussed with the patient and explained to him about hospice since he think "it is only for people who will " Serial cardiac enzyme and EKG reviewed cardiology ff >went for heart cath >clean Ordered osmolality serum and urine, check urine sodium Hold diuretic Monitor labs Wound care consult for sacral decubitus ulcer PT, DVT, GI prophylaxis Discharge Planning In a.m. whether to rehab or to hospice Wyatt Lindsey MD May 29, 2017 17:10
--- NOTE | 2017-05-29 18:22 | PD.CARD.PN ---
Subjective Subjective Remarks alert in nad Objective Medications Current Medications Medications (Trade) Dose Ordered Sig/Daniela Route Start Time Stop Time Status Last Admin (NS Flush) 2 ml UNSCH PRN IV FLUSH 05/23/17 09:00 (NS Flush) 2 ml BID IV FLUSH 05/23/17 09:00 05/29/17 09:16 (Narcan Inj) 0.4 mg UNSCH PRN IV PUSH 05/23/17 09:00 (Protonix) 40 mg DAILY PO 05/24/17 09:00 05/29/17 09:15 (Xopenex Neb) 0.63 mg Q4HR NEB PRN NEB 05/23/17 11:45 05/29/17 16:51 (Cardizem Cd) 120 mg DAILY PO 05/24/17 09:00 05/29/17 09:20 (Lopressor) 25 mg BID PO 05/23/17 21:00 05/28/17 09:11 (Deltasone) 5 mg DAILY PO 05/24/17 09:00 05/29/17 09:14 Miscellaneous Information Patient in critical care unit? Ass... Q361D .XX 05/24/17 00:15 05/24/17 00:15 (Ecotrin Ec) 81 mg DAILY PO 05/27/17 09:00 05/29/17 09:15 (Zofran Inj) 4 mg Q6H PRN IV PUSH 05/27/17 11:00 05/28/17 22:48 Lactated Ringer's 1,000 ml @ 30 mls/hr Q24H PRN IV 05/28/17 02:30 05/31/17 02:29 05/28/17 12:05 Sodium Chloride 500 ml @ 30 mls/hr [id number] PRN IV 05/28/17 02:30 05/31/17 02:29 (Betadine 5% Antisepsis Kit) 1 applic [employer]ATIONS TEACHER PRN EACH NARE 05/28/17 02:30 05/31/17 02:29 (Chlorhexidine 2% Cloth) 3 pack [employer]ATIONS TE[employer]ER PRN TOPICAL 05/28/17 02:30 05/31/17 02:29 Potassium Chloride/Dextrose/ Sod Cl 1,000 ml @ 42 mls/hr [id number] IV 05/28/17 11:00 05/29/17 13:56 (Albuterol Neb) 0.63 mg Q6HR NEB NEB 05/28/17 22:00 05/29/17 10:00 (Eliquis) 5 mg BID PO 05/29/17 09:00 05/29/17 09:14 Vital Signs / I&O Vital Signs Date Time Temp Pulse Resp B/P (MAP) Pulse Ox O2 Delivery O2 Flow Rate FiO2 05/29/17 16:00 98.5 72 18 109/57 (74) 95 05/29/17 12:00 96 05/29/17 12:00 97.8 81 18 117/85 (96) 96 05/29/17 11:58 95 Nasal Cannula 1.00 05/29/17 08:45 65 05/29/17 08:45 95 Nasal Cannula 1.00 05/29/17 07:40 97.1 87 18 94/64 (74) 95 05/29/17 04:15 97.5 65 18 117/58 (77) 96 05/29/17 04:00 88 05/29/17 03:37 95 Nasal Cannula 1.00 05/29/17 00:10 98.3 72 18 112/58 (76) 95 05/28/17 23:45 90 05/28/17 22:25 95 Nasal Cannula 1.00 05/28/17 20:00 95 Nasal Cannula 1.00 05/28/17 20:00 100 05/28/17 20:00 97.8 83 18 91/52 (65) 95 I/O 05/28/17 05/28/17 05/28/17 05/29/17 05/29/17 05/29/17 07:00 15:00 23:00 07:00 15:00 23:00 Intake Total 3727 ml 406 ml 826 ml 837 ml 397 ml 480 ml Output Total 300 ml 200 ml 400 ml Balance 3427 ml 206 ml 826 ml 437 ml 397 ml 480 ml Intake Oral 460 ml 360 ml 480 ml IV Total 3267 ml 406 ml 826 ml 477 ml 397 ml Output Urine Total 300 ml 200 ml 400 ml # Voids 2 2 # Bowel Movements 4 1 0 0 Physical Exam GENERAL: SKIN: Warm and dry. HEAD: Normocephalic. EYES: No scleral icterus. No injection or drainage. NECK: Supple, trachea midline. No JVD or lymphadenopathy. CARDIOVASCULAR: Regular rate and rhythm without murmurs, gallops, or rubs. RESPIRATORY: Breath sounds equal bilaterally. No accessory muscle use. GASTROINTESTINAL: Abdomen soft, non-tender, nondistended. MUSCULOSKELETAL: No cyanosis, or edema. BACK: Nontender without obvious deformity. No CVA tenderness. Laboratory Laboratory Tests Test 05/29/17 04:35 White Blood Count 20.0 TH/MM3 Red Blood Count 3.52 MIL/MM3 Hemoglobin 11.0 GM/DL Hematocrit 31.4 % Mean Corpuscular Volume 89.1 FL Mean Corpuscular Hemoglobin 31.2 PG Mean Corpuscular Hemoglobin Concent 35.0 % Red Cell Distribution Width 15.6 % Platelet Count 183 TH/MM3 Mean Platelet Volume 6.8 FL Blood Urea Nitrogen 11 MG/DL Creatinine 0.66 MG/DL Random Glucose 111 MG/DL Calcium Level 7.6 MG/DL Phosphorus Level 2.0 MG/DL Magnesium Level 1.8 MG/DL Sodium Level 133 MEQ/L Potassium Level 3.2 MEQ/L Chloride Level 94 MEQ/L Carbon Dioxide Level 30.4 MEQ/L Anion Gap 9 MEQ/L Estimat Glomerular Filtration Rate 117 ML/MIN Assessment and Plan Problem List: (1) Cardiomyopathy ICD Codes: I42.9 - Cardiomyopathy, unspecified (2) Elevated troponin I level ICD Codes: R79.89 - Other specified abnormal findings of blood chemistry Status: Acute (3) COPD (chronic obstructive pulmonary disease) ICD Codes: J44.9 - Chronic obstructive pulmonary disease, unspecified Status: Acute (4) Acute hyponatremia ICD Codes: E87.1 - Hypo-osmolality and hyponatremia Status: Acute (5) Acute hypokalemia ICD Codes: E87.6 - Hypokalemia Status: Acute (6) COPD with acute exacerbation ICD Codes: J44.1 - Chronic obstructive pulmonary disease with (acute) exacerbation Status: Acute (7) Atypical chest pain ICD Codes: R07.89 - Other chest pain Status: Acute (8) CAD (coronary artery disease) ICD Codes: I25.10 - Atherosclerotic heart disease of [place] coronary artery without angina pectoris Assessment and Plan 1.) CAD - nonobstructive, ldl=46, dc lipitor, reduce aspirin to 81 mg qd 2.) Cardiomyopathy - continue lopressor, srinath and diuretics held due to hyponatremia, f/u bnp, echo: EF @ 50-55% 3.) Hyponatremia - improving 4.) paroxysmal Afib - [id number] score = 5, recent cva, started on Aleksandr Titus MD May 29, 2017 18:22
[2017-05-30] VITALS (8 sets, daily range): BP systolic 98–110; BP diastolic 50–62; PULSE 76–94; RESP 16–18; TEMP 97.1–98; O2SAT 95–99
[2017-05-30] MEDS: RESP: ALBUTEROL 0.63 MG/3 ML NEB (SCH) NEB ×3 (03:50→16:28)
--- NOTE | 2017-05-30 08:43 | HHI.PR ---
Review/Management Plan imp ct abd neg mri brain bilat small cbllr cv adn i think some tiny subacute ones in bilat cerebrum faint c spine ok check mra recent mi likly cause although echo ef nl oob conisder anticoagulation na 130 05/28/17 bilat cva would like loop placed i consulted dr weir yest as dr cao not do these at time of mi ? bilat cva consider anticoagulation oob PT not conversion d/o emg pend check standing bp will need rehab 05/29/17 if truly afib ok by me for eliquis i will dw med team needs to get oob and aggressive PT rehab med consult pend and emg pend ble must get oob chair i do not want him laying in bed all day 05/30/17 afib from cards, on eliquis 5mg BID needs to get OOB PT to work on strength EMG pending BLE This note was completed by Elena PRATHER for Dr. Troy MD Diagnosis/Plan: Subjective Subjective Comments No acute events reported No headache No chest pain No dyspnea Active Medications Current Medications Medications (Trade) Dose Ordered Sig/Daniela Route Start Time Stop Time Status Last Admin (NS Flush) 2 ml UNSCH PRN IV FLUSH 05/23/17 09:00 (NS Flush) 2 ml BID IV FLUSH 05/23/17 09:00 05/29/17 09:16 (Narcan Inj) 0.4 mg UNSCH PRN IV PUSH 05/23/17 09:00 (Protonix) 40 mg DAILY PO 05/24/17 09:00 05/29/17 09:15 (Xopenex Neb) 0.63 mg Q4HR NEB PRN NEB 05/23/17 11:45 05/29/17 16:51 (Cardizem Cd) 120 mg DAILY PO 05/24/17 09:00 05/29/17 09:20 (Lopressor) 25 mg BID PO 05/23/17 21:00 05/29/17 20:33 (Deltasone) 5 mg DAILY PO 05/24/17 09:00 05/29/17 09:14 Miscellaneous Information Patient in critical care unit? Ass... Q361D .XX 05/24/17 00:15 05/24/17 00:15 (Ecotrin Ec) 81 mg DAILY PO 05/27/17 09:00 05/29/17 09:15 (Zofran Inj) 4 mg Q6H PRN IV PUSH 05/27/17 11:00 05/28/17 22:48 Lactated Ringer's 1,000 ml @ 30 mls/hr Q24H PRN IV 05/28/17 02:30 05/31/17 02:29 05/28/17 12:05 Sodium Chloride 500 ml @ 30 mls/hr [id number] PRN IV 05/28/17 02:30 05/31/17 02:29 (Betadine 5% Antisepsis Kit) 1 applic CRAFT WORKER PRN EACH NARE 05/28/17 02:30 05/31/17 02:29 (Chlorhexidine 2% Cloth) 3 pack CRAFT WORKER PRN TOPICAL 05/28/17 02:30 05/31/17 02:29 Potassium Chloride/Dextrose/ Sod Cl 1,000 ml @ 42 mls/hr [id number] IV 05/28/17 11:00 05/29/17 13:56 (Albuterol Neb) 0.63 mg Q6HR NEB NEB 05/28/17 22:00 05/30/17 03:50 (Eliquis) 5 mg BID PO 05/29/17 09:00 05/29/17 20:33 Allergies Allergies Coded Allergies shellfish derived (Unverified Allergy, Severe, abd pain, n/v/d, 05/23/17) ipratropium (Unverified Allergy, Intermediate, "ANXIETY, NERVOUSNESS", 05/23/17) varenicline (Unverified Allergy, Intermediate, UNABLE TO STATE A SPECIFIC ALLERGIC REACTION--STATES HE HAD, 05/23/17) walnut (Unverified Allergy, Intermediate, NERVOUSNESS, ANXIETY, 05/23/17) Exam I&O / VS Vital Signs Date Time Temp Pulse Resp B/P (MAP) Pulse Ox O2 Delivery O2 Flow Rate FiO2 05/30/17 07:42 97.1 89 18 106/59 (75) 97 05/30/17 04:00 98.0 84 16 105/55 (72) 95 05/30/17 04:00 85 05/30/17 03:51 98 Nasal Cannula 1.00 05/30/17 00:05 97.8 80 17 110/62 (78) 97 05/30/17 00:00 94 05/29/17 22:23 95 Nasal Cannula 1.00 05/29/17 20:13 67 05/29/17 20:00 98 Nasal Cannula 1.00 05/29/17 19:00 98.0 119 16 106/58 (74) 05/29/17 16:00 98.5 72 18 109/57 (74) 95 05/29/17 12:00 96 05/29/17 12:00 97.8 81 18 117/85 (96) 96 05/29/17 11:58 95 Nasal Cannula 1.00 05/29/17 08:45 65 05/29/17 08:45 95 Nasal Cannula 1.00 Exam Comments some sob vff ble weakness Objective Micro and Labs Date/Time Source Procedure Growth Status 05/23/17 09:45 Blood Peripheral Aerobic Blood Culture - Final NO GROWTH IN 5 DAYS Complete 05/23/17 09:45 Blood Peripheral Anaerobic Blood Culture - Final NO GROWTH IN 5 DAYS Complete 05/23/17 07:30 Nasal Washing Influenza Types A,B Antigen (KECIA) - Final NEGATIVE FOR FLU A AND B ANTIGEN.... Complete Elena Campbell [facility] May 30, 2017 08:43
[2017-05-30] MEDS: METOPROLOL TARTRATE 25 MG TAB PO SCH (09:53)
[2017-05-30] MEDS: PANTOPRAZOLE SOD 40 MG DELAYED RELEASE TAB PO SCH (09:54)
[2017-05-30] MEDS: ASPIRIN EC 81 MG TABEC PO SCH (09:54)
[2017-05-30] MEDS: DILTIAZEM-CD 120 MG CAP ER PO SCH (09:54)
[2017-05-30] MEDS: predniSONE 5 MG TAB PO SCH (09:54)
[2017-05-30] MEDS: APIXABAN 5 MG TABLET PO SCH (09:54)
[2017-05-30] MEDS: SODIUM CHLORIDE 0.9% FLUSH 10 ML FLUSH IV FLUSH SCH (09:55)
[2017-05-30] MEDS: D5-NS + KCL 20 MEQ INJ 1,000 ML IV SCH (10:38)
--- NOTE | 2017-05-30 11:56 | HHI.HCPN ---
Reason for visit a. To assist with evaluation and management of symptoms including: dyspnea, b. To assist medical decision maker(s) with: better understanding of current medical conditions; weighing benefits/burdens of medical treatment options; making medical treatment decisions. . Subjective/Interval History Mr. Lizarraga is a 76-year-old male with hypertension, GERD, COPD, coronary artery disease, atrial fibrillation and BPH who was a previous smoker. He presented to [facility] ED via EMS on 05/23/2017 with complaints of moderately severe shortness of breath. Course of hospitalization have been dyspnea, NSTEMI, increased weakness, decrease appetite, and possible GI malignancy. MRI revealed small bilateral cerebral infarcts. Since last palliative care visit: Patient did say he got his breathing treatment on time and feels his breathing is at baseline. He has no complaints. Went through his options of rehab vs hospice. Goals of care is this: At this point he is amenable to try rehab first. If he does not do well in rehab, he is open to comfort measures only and transition to hospice. He is amenable to meet with hospice to day to get information. He was provided copy of his living will, health care surrogate. He completed a community DNR today and was provided the original copy. All mentioned advance directives will be scanned into the [employer] system. Family/friend interactions no family at bedside today. Advance Directives Living Will: Copy in medical record Health Care Surrogate: Copy in medical record Advance Directive Specifics Date completed: 05/28/2017 . Health Care Surrogate(s): Patient previously completed a healthcare surrogate designation form on 2012 which identified his brother as his healthcare surrogate decision-maker, however patient's brother is now . Patient states he later completed additional written advanced directives, but they could not be found in the patient's chart. Healthcare surrogate designation form was completed again today 05/28/2017, designating patient's significant other (Erika) as his healthcare surrogate decision maker. Erika's daughter, Demetria Bridges, is designated as the alternate healthcare decision maker. Copy of document is accessible in patients paper chart and was faxed to HIM to be scanned into the patient's EMR. . Documented care wishes: Patient states he has completed written advanced directives. He will ask his girlfriend (Erika) to bring copies of these documents to the hospital so they can be scanned into the patient's EMR. . Objective Vital Signs Date Time Temp Pulse Resp B/P (MAP) Pulse Ox O2 Delivery O2 Flow Rate FiO2 05/30/17 09:27 99 Nasal Cannula 2.00 05/30/17 07:42 97.1 89 18 106/59 (75) 97 05/30/17 04:00 98.0 84 16 105/55 (72) 95 05/30/17 04:00 85 05/30/17 03:51 98 Nasal Cannula 1.00 05/30/17 00:05 97.8 80 17 110/62 (78) 97 05/30/17 00:00 94 05/29/17 22:23 95 Nasal Cannula 1.00 05/29/17 20:13 67 05/29/17 20:00 98 Nasal Cannula 1.00 05/29/17 19:00 98.0 119 16 106/58 (74) 05/29/17 16:00 98.5 72 18 109/57 (74) 95 05/29/17 12:00 96 05/29/17 12:00 97.8 81 18 117/85 (96) 96 05/29/17 11:58 95 Nasal Cannula 1.00 Intake & Output 05/30/17 05/30/17 07:00 19:00 Intake Total 120 ml Output Total 300 ml Balance -180 ml Intake Oral 120 ml Output Urine Total 300 ml # Bowel Movements 0 Physical Exam CONSTITUTIONAL/GENERAL: This is an adequately nourished patient, fatigued. TUBES/LINES/DRAINS: PIV SKIN: + Jaundice. Ecchymoses on upper extremities. No wounds seen anteriorly. Skin temperature appropriate. Not diaphoretic. HEAD: Atraumatic. Normocephalic. EYES: Pupils equal and round and reactive. Extraocular motions intact. No injection or drainage. Fundi not examined. ENT: Hearing grossly normal. Nose without bleeding or purulent drainage. NECK: Trachea midline. Supple, nontender. No palpable thyroid enlargement or nodularity. CARDIOVASCULAR: Regular rate and rhythm without murmurs, gallops, or rubs. No JVD. Peripheral pulses symmetric. RESPIRATORY/CHEST: Symmetric, unlabored respirations. Clear to auscultation. decrease breath sounds bilaterally. GASTROINTESTINAL: Abdomen soft, non-tender, nondistended. No hepato-splenomegaly , or palpable masses. No guarding. Bowel sounds present. GENITOURINARY: Without palpable bladder distension. MUSCULOSKELETAL: Extremities without clubbing, cyanosis, or edema. No mottling or clubbing. LYMPHATICS: No palpable cervical or supraclavicular adenopathy. NEUROLOGICAL: Awake and alert. Follows commands. Cognitively sharp. Moves all extremities. PSYCHIATRIC: No obvious anxiety/depression. No apparent hallucinations or other psychotic thought process. . Diagnostic Tests Laboratory Laboratory Tests Test 05/28/17 07:03 05/29/17 04:35 05/30/17 08:24 White Blood Count 21.9 TH/MM3 (4.0-11.0) 20.0 TH/MM3 (4.0-11.0) Red Blood Count 3.64 MIL/MM3 (4.50-5.90) 3.52 MIL/MM3 (4.50-5.90) Hemoglobin 11.3 GM/DL (13.0-17.0) 11.0 GM/DL (13.0-17.0) Hematocrit 32.6 % (39.0-51.0) 31.4 % (39.0-51.0) Mean Corpuscular Volume 89.5 FL (80.0-100.0) 89.1 FL (80.0-100.0) Mean Corpuscular Hemoglobin 31.0 PG (27.0-34.0) 31.2 PG (27.0-34.0) Mean Corpuscular Hemoglobin Concent 34.7 % (32.0-36.0) 35.0 % (32.0-36.0) Red Cell Distribution Width 15.0 % (11.6-17.2) 15.6 % (11.6-17.2) Platelet Count 190 TH/MM3 (150-450) 183 TH/MM3 (150-450) Mean Platelet Volume 6.8 FL (7.0-11.0) 6.8 FL (7.0-11.0) Neutrophils (%) (Auto) 91.1 % (16.0-70.0) Lymphocytes (%) (Auto) 3.7 % (9.0-44.0) Monocytes (%) (Auto) 4.9 % (0.0-8.0) Eosinophils (%) (Auto) 0.1 % (0.0-4.0) Basophils (%) (Auto) 0.2 % (0.0-2.0) Neutrophils # (Auto) 19.9 TH/MM3 (1.8-7.7) Lymphocytes # (Auto) 0.8 TH/MM3 (1.0-4.8) Monocytes # (Auto) 1.1 TH/MM3 (0-0.9) Eosinophils # (Auto) 0.0 TH/MM3 (0-0.4) Basophils # (Auto) 0.1 TH/MM3 (0-0.2) CBC Comment AUTO DIFF Differential Total Cells Counted 100 Neutrophils % (Manual) 78 % (16-70) Band Neutrophils % 3 % (0-6) Lymphocytes % 6 % (9-44) Monocytes % 3 % (0-8) Neutrophils # (Manual) 19.9 TH/MM3 (1.8-7.7) Metamyelocytes 4 % (0-1) Myelocytes 6 % (0-0) Differential Comment FINAL DIFF MANUAL Platelet Estimate NORMAL (NORMAL) Platelet Morphology Comment NORMAL (NORMAL) Blood Urea Nitrogen 13 MG/DL (7-18) 11 MG/DL (7-18) Creatinine 0.68 MG/DL (0.60-1.30) 0.66 MG/DL (0.60-1.30) Random Glucose 85 MG/DL (74-106) 111 MG/DL (74-106) Total Protein 4.9 GM/DL (6.4-8.2) Albumin 2.4 GM/DL (3.4-5.0) Calcium Level 7.3 MG/DL (8.5-10.1) 7.6 MG/DL (8.5-10.1) Alkaline Phosphatase 76 U/L (45-117) Aspartate Amino Transf (AST/SGOT) 23 U/L (15-37) Alanine Aminotransferase (ALT/SGPT) 36 U/L (12-78) Total Bilirubin 0.5 MG/DL (0.2-1.0) Direct Bilirubin 0.2 MG/DL (0.0-0.2) Sodium Level 131 MEQ/L (136-145) 133 MEQ/L (136-145) Potassium Level 3.0 MEQ/L (3.5-5.1) 3.2 MEQ/L (3.5-5.1) Chloride Level 88 MEQ/L (98-107) 94 MEQ/L (98-107) Carbon Dioxide Level 35.0 MEQ/L (21.0-32.0) 30.4 MEQ/L (21.0-32.0) Anion Gap 8 MEQ/L (5-15) 9 MEQ/L (5-15) Estimat Glomerular Filtration Rate 113 ML/MIN (>89) 117 ML/MIN (>89) Protein Corrected Calcium 8.5 MG/DL (8.5-10.1) Indirect Bilirubin 0.3 MG/DL (0.0-0.8) Triglycerides Level 126 MG/DL (42-150) Cholesterol Level 135 MG/DL (120-200) LDL Cholesterol 46 MG/DL (0-99) HDL Cholesterol 64.0 MG/DL (40.0-60.0) Cholesterol/HDL Ratio 2.10 RATIO Phosphorus Level 2.0 MG/DL (2.5-4.9) Magnesium Level 1.8 MG/DL (1.5-2.5) B-Type Natriuretic Peptide 432 PG/ML (0-100) Result Diagram: 05/29/1743405/29/17434 Assessment and Plan Disease Oriented Problem List: (1) NSTEMI (non-ST elevated myocardial infarction) (2) SIRS (systemic inflammatory response syndrome) (3) Acute hypokalemia (4) Acute hyponatremia (5) COPD with acute exacerbation (6) CAD (coronary artery disease) (7) Cardiomyopathy (8) Elevated troponin I level (9) Leukocytosis (10) Weakness of both legs Symptom Scale: (1) Debility 0-10 Scale: Unable to quantify (2) Dyspnea 0-10 Scale: Unable to quantify Pertinent Non-Medical Issues Psychosocial: Patient is originally from [facility] [place]. He was never and did not have children. Patient states he has been with his significant other (Erika) for approximately 35+ years. 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 Patient had previously completed written advance directives that designated his brother as his healthcare surrogate decision maker but he is now . Patient states subsequent written advanced directives were completed but could not be found in the patient's paper chart or EMR. An additional healthcare surrogate designation form was completed today 05/28/2017 and identified the patient's girlfriend (Erika) as his healthcare surrogate decision maker. Erika's daughter (Demetria Bridges) was designated as the alternate healthcare surrogate decision-maker. Spiritual: Pending further conversations Legal: Patient's girlfriend (Erika) is the designated healthcare surrogate decision maker. Erika's daughter (Demetria Bridges) was designated as the alternate healthcare surrogate decision-maker. Ethical issues impacting care: No known ethical issues impacting care at this time. . Important Contacts Erika Day, family/friend: [phone] Demetria Bridges, Erika's daughter:? . Prognosis Patient is a 76 year old male with an extremely complex medical history who has experienced an acute decline. Multiple specialists have been consulted as part of the medical team; patient remains high risk for ongoing decline. . Code Status: No Code Plan * Code Status-DNR. Significant other and Health Care Surrogate supports his decision. * Patient previously completed a healthcare surrogate designation form on 2012 which identified his brother as his healthcare surrogate decision-maker, however patient's brother is now . Patient states he later completed additional written advanced directives, but they could not be found in the patient's chart. Healthcare surrogate designation form was completed again today 05/28/2017, designating patient's significant other (Erika) as his healthcare surrogate decision maker. Erika's daughter, Demetria Bridges, is designated as the alternate healthcare decision maker. Copy of document is accessible in patients paper chart and was faxed to HIM to be scanned into the patient's EMR. * Palliative care contact information was provided to the patient. * Palliative care will continue to follow this patient throughout his hospitalization to establish trust, assist with symptom management and clarification of medical treatment goals. * SYMPTOM MANAGEMENT: = Dyspnea: Patient reports a known history of COPD with chronic dyspnea-on maintenance steroids he has been hospitalized with COPD exacerbations twice since the beginning of 2018. Currently on prednisone, PRN Xopenex. Patient started on albuterol nebulizers QID. = Nausea: Patient reports occasional nausea that began 3-4 weeks ago and is associated with decreased appetite as well as early satiety. PRN Zofran is ordered. Ongoing workup is pending. = Debility: Patient reports an extensive history of dyspnea that now significantly limits his ability to care for himself. Patient has been using a walker for about 4 months; he quit driving a few weeks ago due to weakness in his legs (specifically the right leg). The patient has had 2 falls in the past 3-4 weeks; he reports progressively increased weakness that has created a bed to chair existence. If goals remain aggressive, patient will need physical therapy evaluation and likely SNF placement upon discharge. * Goals of Care: Went through his options of rehab vs hospice. Goals of care is this: At this point he is amenable to try rehab first. If he does not do well in rehab, he is open to comfort measures only and transition to hospice. He is amenable to meet with hospice to day to get information. Hospice consult place for informational purpose only for the future in case he does not do well in rehab. He was provided copy of his living will, health care surrogate. He completed a community DNR today and was provided the original copy. All mentioned advance directives will be scanned into the [employer] system. Attestation To help prompt me to consider important information that might be impacting today's encounter and assessment, information from prior notes written by myself or my colleagues may have been "brought forward" into today's note. My signature on this note, however, is an attestation that I personally performed the exam, history, and/or decision-making noted today, and, unless otherwise indicated, the interactions with patient, family, and staff as well as the review of records all occurred today. I also attest that the listed assessment and stated plan reflect my best clinical judgment today based on the combination of historical information, prior notes, and today's exam/ interactions. When time spent is documented, it refers only to time spent today by the signer, or if indicated, combined time spent today by collaborating physician/nurse practitioner. Haroon Saravia MD May 30, 2017 11:56
[2017-05-30] MEDS ORDERED: ECASA81 PO (13:38)
[2017-05-30] MEDS ORDERED: APIX5TAB PO (13:38)
--- NOTE | 2017-05-30 20:38 | PD.CARD.PN ---
Subjective Subjective Remarks alert in nad Objective Vital Signs / I&O Vital Signs Date Time Temp Pulse Resp B/P (MAP) Pulse Ox O2 Delivery O2 Flow Rate FiO2 05/30/17 16:00 97.8 77 17 98/56 (70) 97 05/30/17 12:00 97.9 76 17 106/50 (68) 97 05/30/17 09:27 99 Nasal Cannula 2.00 05/30/17 07:42 97.1 89 18 106/59 (75) 97 05/30/17 04:00 98.0 84 16 105/55 (72) 95 05/30/17 04:00 85 05/30/17 03:51 98 Nasal Cannula 1.00 05/30/17 00:05 97.8 80 17 110/62 (78) 97 05/30/17 00:00 94 05/29/17 22:23 95 Nasal Cannula 1.00 I/O 05/29/17 05/29/17 05/29/17 05/30/17 05/30/17 05/30/17 07:00 15:00 23:00 07:00 15:00 23:00 Intake Total 837 ml 397 ml 480 ml 120 ml 328 ml 480 ml Output Total 400 ml 300 ml Balance 437 ml 397 ml 480 ml -180 ml 328 ml 480 ml Intake Oral 360 ml 480 ml 120 ml 480 ml IV Total 477 ml 397 ml 328 ml Output Urine Total 400 ml 300 ml # Voids 2 3 # Bowel Movements 0 0 0 0 Physical Exam GENERAL: SKIN: Warm and dry. HEAD: Normocephalic. EYES: No scleral icterus. No injection or drainage. NECK: Supple, trachea midline. No JVD or lymphadenopathy. CARDIOVASCULAR: Regular rate and rhythm without murmurs, gallops, or rubs. RESPIRATORY: Breath sounds equal bilaterally. No accessory muscle use. GASTROINTESTINAL: Abdomen soft, non-tender, nondistended. MUSCULOSKELETAL: No cyanosis, or edema. BACK: Nontender without obvious deformity. No CVA tenderness. Laboratory Laboratory Tests Test 05/30/17 08:24 B-Type Natriuretic Peptide 432 PG/ML Assessment and Plan Problem List: (1) Cardiomyopathy ICD Codes: I42.9 - Cardiomyopathy, unspecified (2) Elevated troponin I level ICD Codes: R79.89 - Other specified abnormal findings of blood chemistry Status: Acute (3) COPD (chronic obstructive pulmonary disease) ICD Codes: J44.9 - Chronic obstructive pulmonary disease, unspecified Status: Acute (4) Acute hyponatremia ICD Codes: E87.1 - Hypo-osmolality and hyponatremia Status: Acute (5) Acute hypokalemia ICD Codes: E87.6 - Hypokalemia Status: Acute (6) COPD with acute exacerbation ICD Codes: J44.1 - Chronic obstructive pulmonary disease with (acute) exacerbation Status: Acute (7) Atypical chest pain ICD Codes: R07.89 - Other chest pain Status: Acute (8) CAD (coronary artery disease) ICD Codes: I25.10 - Atherosclerotic heart disease of [place] coronary artery without angina pectoris Assessment and Plan 1.) CAD - nonobstructive, ldl=46, dc lipitor, reduce aspirin to 81 mg qd 2.) Cardiomyopathy - continue lopressor, srinath and diuretics held due to hyponatremia, f/u bnp, echo: EF @ 50-55% 3.) Hyponatremia - improving 4.) paroxysmal Afib - [id number] score = 5, recent cva, started on eliquis 5.) Patient advised to follow up with me in the office Aleksandr Stanford MD May 30, 2017 20:38
--- NOTE | 2017-05-31 15:54 | HHI.DS ---
Discharge Summary Admission Date May 23, 2017 at 09:05 Discharge Date: May 30, 2017 Admitting Diagnosis acute exac of chronic COPD,hyponatremia,hypokaemia,elevated troponin (1) NSTEMI (non-ST elevated myocardial infarction) ICD Code: I21.4 - Non-ST elevation (NSTEMI) myocardial infarction Status: Acute (2) Debility ICD Code: R53.81 - Other malaise (3) Dyspnea ICD Code: R06.00 - Dyspnea, unspecified (4) Weakness of both legs ICD Code: R29.898 - Other symptoms and signs involving the musculoskeletal system (5) Leukocytosis ICD Code: D72.829 - Elevated white blood cell count, unspecified (6) Elevated troponin I level ICD Code: R79.89 - Other specified abnormal findings of blood chemistry Status: Acute (7) Cardiomyopathy ICD Code: I42.9 - Cardiomyopathy, unspecified (8) COPD (chronic obstructive pulmonary disease) ICD Code: J44.9 - Chronic obstructive pulmonary disease, unspecified Status: Acute Procedures see below Brief History - From Admission short of breath for years but worse in past one month worse on exertion also has peripheral edema just a little bit cough but had a lot of nasal congestion at times no fever no recent prolonged travels woke up gaspign this am had to call 911 barely walks from room to bathroom no chest pains or discomforts but then little tightness once in a while last 3 weeks have been nauseous dry heaving stomach pain per him for past 3 weeks, stomach feels full and cant eat no diarrhea but was constipated last week for 2 days, took miralax, then was able to go. this week is same thing---- this is unusal for him , usually regular no blood in urine or stool no urinary symptoms CBC/BMP: 05/29/17 0435 05/29/17 0435 Significant Findings Laboratory Tests Test 05/29/17 04:35 05/30/17 08:24 White Blood Count 20.0 TH/MM3 (4.0-11.0) Red Blood Count 3.52 MIL/MM3 (4.50-5.90) Hemoglobin 11.0 GM/DL (13.0-17.0) Hematocrit 31.4 % (39.0-51.0) Mean Platelet Volume 6.8 FL (7.0-11.0) Random Glucose 111 MG/DL (74-106) Calcium Level 7.6 MG/DL (8.5-10.1) Phosphorus Level 2.0 MG/DL (2.5-4.9) Sodium Level 133 MEQ/L (136-145) Potassium Level 3.2 MEQ/L (3.5-5.1) Chloride Level 94 MEQ/L (98-107) B-Type Natriuretic Peptide 432 PG/ML (0-100) PE at Discharge GENERAL: This is a well-nourished, well-developed patient, in no apparent distress. SKIN: No rashes, warm and dry HEAD: Atraumatic. Normocephalic. EYES: Pupils equal round and reactive. Extraocular motions intact. No scleral icterus. ENT: Nose without bleeding, or drainage, Airway patent. NECK: Trachea midline. Supple CARDIOVASCULAR: Regular rate and rhythm without murmurs, gallops, or rubs. RESPIRATORY: Fair air entry bilaterally. No wheezes, rales, or rhonchi. GASTROINTESTINAL: Abdomen soft, non-tender, nondistended. Positive bowel sounds MUSCULOSKELETAL: Extremities without clubbing, cyanosis, or edema. Pedal pulses appreciated NEUROLOGICAL: Awake and alert. Moves all extremity with more noticed weakness on the lower extremity. Normal speech.no focal neurological deficit Hospital Course Old male admitted with lower extremity weakness, non-STEMI elevated troponin and atrial fibrillation setup of breath and dyspnea he also had hyponatremia hypokalemia electrolyte imbalance, history of COPD BPH. Cardiology consult, based on medical regimen for A. fib, patient had persistent leukocytosis with left shift without clear source of infection, ID consulted, hematology to workup for any blood dysphagia, as well as GI to rule out GI malignancy. Less of the workup came back negative for any malignancy by the time of discharge, PENG 2 was still pending patient to follow-up with hematology oncology, CT of the head showed previous bilateral cerebellar CVA probably not related to his current weakness, neurology also consulted no clear reason for the weakness recommended rehab, pelvic care consulted patient was debating hospice versus rehab eventually he decided on going to rehab, [id number] encounter performed with the patient on discharge day, as well as physical exam, summary of hospitalization course and postdischarge plan has been D/W the patient. GI, palliative care D/W nurse D/W caser up. Discharge medications reviewed and printed and signed, post discharge follow up visit with PCP and other specialist as well as Brief hospital course and discharge summary has been placed. Pt Condition on Discharge: Fair Discharge Disposition: Discharge to SNF Discharge Time: > 30 minutes Discharge Instructions DIET: Follow Instructions for: Heart Healthy Diet Activities you can perform: See Additionl Instruction Other Activity Instructions: per PT New Medications: Apixaban (Eliquis) 5 Mg Tab 5 MG PO BID for anticoag, #[address] (Aspirin DR) 81 Mg Tabdr 81 MG PO DAILY for proph, #30 TAB Continued Medications: Albuterol 18 GM Inh (Ventolin Hfa 18 GM Inh) 90 Mcg/Act Aer 2 PUFF INH Q4H PRN for SHORTNESS OF BREATH, #1 INHALER 0 Refills Diltiazem ER 24 HR (Cartia Xt) 120 Mg Caper 120 MG PO DAILY, #30 CAP 0 Refills Furosemide (Lasix) 20 Mg Tab 20 MG PO DAILY, #30 TAB 0 Refills Ipratropium-Albuterol Neb (Duoneb) 0.5-2.5 Mg/3 Ml Neb 1 NEBULE INH Q4-6H for Breathing Treatment, #30 NEBULE 0 Refills Methocarbamol (Methocarbamol) 500 Mg Tab 500 MG PO Q12HR for Muscle Spasm, #40 TAB 0 Refills Metoprolol Tartrate (Metoprolol Tartrate) 25 Mg Tab 25 MG PO BID, #60 TAB 0 Refills Potassium Chloride ER (Potassium Chloride ER) 10 Meq Cap 10 MEQ PO DAILY for Electrolyte Replacement, #30 CAP 0 Refills Wyatt Lindsey MD May 31, 2017 15:54
== END 2017-05-30 18:49 | DRG 280 ==
LOC: NEPC 07:06 → NEDA 09:05 → NEDH 13:34 → HIME 16:30 → N06B 05-27 14:50
PROVIDERS: ADMIT Hospitalist; ATTEND Hospitalist
PROC: B2111ZZ Fluoroscopy of Multiple Coronary Arteries using Low Osmolar Contrast (ICD-10-PCS; 2017-05-23)
PROC: B2151ZZ Fluoroscopy of Left Heart using Low Osmolar Contrast (ICD-10-PCS; 2017-05-23)
PROC: 4A023N8 Measurement of Cardiac Sampling and Pressure, Bilateral, Percutaneous Approach (ICD-10-PCS; principal; 2017-05-23 14:30)
DX: I21.4 Non-ST elevation (NSTEMI) myocardial infarction (principal); I63.9 Cerebral infarction, unspecified; L89.151 Pressure ulcer of sacral region, stage 1; I11.0 Hypertensive heart disease with heart failure; I42.9 Cardiomyopathy, unspecified; R65.10 Systemic inflammatory response syndrome (SIRS) of non-infectious origin without acute organ dysfunction; E87.1 Hypo-osmolality and hyponatremia; I50.9 Heart failure, unspecified; J44.1 Chronic obstructive pulmonary disease with (acute) exacerbation; I48.0 Paroxysmal atrial fibrillation; E87.6 Hypokalemia; I25.10 Atherosclerotic heart disease of native coronary artery without angina pectoris; D72.829 Elevated white blood cell count, unspecified; R53.1 Weakness; Z86.73 Personal history of transient ischemic attack (TIA), and cerebral infarction without residual deficits; Z53.8 Procedure and treatment not carried out for other reasons; R62.7 Adult failure to thrive; T38.0X5A Adverse effect of glucocorticoids and synthetic analogues, initial encounter; Z79.52 Long term (current) use of systemic steroids; Z87.891 Personal history of nicotine dependence
CPT/HCPCS: 36600; 70544; 70548; 70553; 71045; 71275; 72141; 72148; 72195; 74177; 80048; 80053; 80061; 80074; 80076; 81001; 81270; 82105; 82140; 82378; 82550; 82607; 82746; 82805; 82810; 83615; 83735; 83880; 83921; 83930; 83935; 84100; 84155; 84300; 84443; 84484; 84550; 85002; 85007; 85027; 85044; 85610; 85652; 85730; 86140; 86300; 86301; 86430; 86592; 86703; 87040; 87641; 87804; 93005; 93306; 93460; 93970; 94640; 94664; 96374; A9579; C1769; C1893; J1200; J1644; J1956; J2405; J2930; J3480; J7120; J7512; J7613; J7614; Q9963; Q9967